=== PATIENT | male | born 1940 | race Caucasian/White ===

== ENCOUNTER → 2016-09-06 | Outpatient (CLI) | payer BC, OTHER ==
[~2016-09-06] MED LIST: ALBUAER2 INH; ALFU10TA2 PO; ASPI81TA28 PO; DOCU-94 PO; ERGO500011 PO; FINA5TAB PO; GLIM4TAB2 PO; HYDR-5688 PO; LSN5 PO; MELA3CAP PO; METF-384 PO; NITR1CAP16 PO; PHEN-876 PO; PRLSR20 PO; RIVA1.5T PO; SIMV20TA2 PO
[2016-09-06 17:57] LABS: RHEUMATOID FACTOR < 10.0 U/mL (0-15)
--- NOTE | 2016-09-10 11:53 | CODING QUERY MEDICAL NECESSITY ---
SUPPORTING DIAGNOSIS NEEDED A supporting diagnosis is required for the test/procedure performed on this patient in order for us to be reimbursed by the patient's insurance. Please provide a supporting diagnosis for the following test/procedure listed below next to the test name along with your signature. *If there is no additional diagnosis for this patient that would support the following test/procedure please document that below next to the test/procedure. Test(s)/Procedure(s) that require a supporting diagnosis: DOS 09/06 * Vitamin D DIAGNOSIS: Provider Signature: Date: Thank you Katja Ruiz Health Information Management Once completed, please kindly fax back to [phone] For questions please call [phone]
== END | disposition home or self-care (01) ==
LOC: C.LABPVFM 11:28
PROVIDERS: ATTEND Family Medicine
DX: R53.83 Other fatigue (principal); E55.9 Vitamin D deficiency, unspecified

== ENCOUNTER 2016-10-09 08:55 | Observation (INO) | payer BC, OTHER ==
[2016-09-26 09:09] VITALS: BMI 33.0
--- NOTE | 2016-09-26 09:55 | PAT Medication Instructions ---
Service Date Sep 26, 2016. Current Home Medication List Albuterol (Ventolin Hfa), 2 PUFFS INH Q4-6 PRN for SOB/Wheezing Alfuzosin Hcl (Uroxatral), 10 MG PO QPM Aspirin (Aspirin Ec), 81 MG PO QAM Ergocalciferol (Vitamin D 35467 Unit), 1 TAB PO WK Finasteride (Proscar), 5 MG PO QPM Glimepiride (Glimepiride), 1 TAB PO BID Lisinopril (Lisinopril), 5 MG PO QAM Melatonin (Melatonin), 3 MG PO HS Metformin Hcl (Glucophage), 1,000 MG PO BID Omeprazole (Prilosec), 20 MG PO QAM Simvastatin (Zocor), 20 MG PO HS Medication Instructions For Your Scheduled Surgery Albuterol (Ventolin Hfa), 2 PUFFS INH Q4-6 PRN for SOB/Wheezing (not using currently) Aspirin (Aspirin Ec), 81 MG PO QAM (hold one week prior to surgery per surgeon and blood doctor recommendations) Ergocalciferol (Vitamin D 41332 Unit), 1 TAB PO WK (continue as usual on Saturday) - Hold the following medications 48 hours prior to surgery: Metformin Hcl (Glucophage), 1,000 MG PO BID - Hold the following medications the morning of surgery: Lisinopril (Lisinopril), 5 MG PO QAM Glimepiride (Glimepiride), 1 TAB PO BID - Take the following medications the morning of surgery with a sip of water: Omeprazole (Prilosec), 20 MG PO QAM - Take the following medications as scheduled the night before surgery: Simvastatin (Zocor), 20 MG PO HS Melatonin (Melatonin), 3 MG PO HS Glimepiride (Glimepiride), 1 TAB PO BID Finasteride (Proscar), 5 MG PO QPM Alfuzosin Hcl (Uroxatral), 10 MG PO QPM If you have any questions please call us at [phone] or [phone] ( [place]) or [phone]
[2016-09-26 10:47] LABS: URINE APPEARANCE CLEAR (CLEAR); URINE BILIRUBIN NEG (NEG); URINE COLOR YELLOW; URINE NITRITE NEG (NEG); UROBILINOGEN NEG (NEG)
[2016-09-26 10:47] LABS: BASO % 0.2 %; BASO ABS # 0.01 K/uL (0-0.2); COMPLETE YES; EOS % 2.8 %; HEMATOCRIT 44.1 % (42-52); IG% 0.5 %; LYMPH % 23.7 %; LYMPH ABS # 1.03 K/uL (1.2-3.4); MEAN CELL VOLUME 86.5 fL (80-100); MEAN CORPUSCULAR HEMOGLOBIN 29.2 pg (25-34); MEAN CORPUSCULAR HGB CONC 33.8 g/dl (32-36); MEAN PLATELET VOLUME 9.5 fL (7.4-10.4); MONO % 8.5 %; NEUT % 64.3 %; PLATELET COUNT 167 K/uL (130-400); WHITE BLOOD COUNT 4.35 K/uL (4.8-10.8)
[2016-09-26 10:51] LABS: MANUAL MICROSCOPIC REQUIRED? NO; REVIEW REQ? NO
[2016-09-26 11:20] LABS: BUN/CREATININE RATIO 16.6 (10-20); CALCIUM 9.6 mg/dl (8.5-10.1); CREATININE 1.2 mg/dl (0.60-1.40); POTASSIUM 4.4 mmol/L (3.5-5.1)
[~2016-10-09] VITALS: Ht 182.9 cm; Wt 109.9 kg
[2016-10-09] VITALS (8 sets, daily range): BP systolic 110–154; BP diastolic 65–84; PULSE 59–74; TEMP 36.2–36.8; O2SAT 92–98; Ht 182.9 cm; Wt 109.9 kg
[~2016-10-09 08:55] MED LIST changes: -ALFU10TA2 PO; +ALFU10TA30 PO; +CIPROFLOXACIN / D5W 400 MG IV SCH; -DOCU-94 PO; +ERGO1CAP41 PO; -ERGO500011 PO; -HYDR-5688 PO; +LACTATED RINGER'S 1000ML 1,000 ML IV SCH; -NITR1CAP16 PO; -PHEN-876 PO; -RIVA1.5T PO
--- NOTE | 2016-10-09 12:35 | History & Physical Bridge Note ---
H&P Re-Evaluation Bridge Note: I have examined the patient, reviewed the History & Physical and in the interval since the performance of the History & Physical I have noted the following changes of clinical significance: No changes noted
[2016-10-09] MEDS ORDERED: LIDOCAINE HCL 2% 2 ML VIAL (20MG/ML) ONE (12:50)
[2016-10-09] MEDS ORDERED: FENTANYL CITRATE INJ 50 MCG/1 ML 2 ML VIAL ONE (12:50)
[2016-10-09] MEDS ORDERED: MIDAZOLAM HCL 1 MG/ML 2ML VIAL ONE (12:50)
[2016-10-09] MEDS ORDERED: ROCURONIUM BROMIDE 10 MG/ML 5 ML VIAL ONE (12:50)
[2016-10-09] MEDS ORDERED: LARYING-O-JET KIT (LTA) EXT ONE ×2 (12:50)
[2016-10-09] MEDS ORDERED: PROPOFOL IV EMULSION 10 MG/ML 20 ML VIAL IV ONE (12:50)
[2016-10-09] MEDS ORDERED: EpHEDrine SULFATE INJ 50 MG/ML AMP IV PRN (14:15)
[2016-10-09] MEDS ORDERED: ONDANSETRON INJ 2 MG/ML 2 ML VIAL IV PRN (14:15)
[2016-10-09] MEDS ORDERED: HYDROmorphone INJ 1 MG/ML SYR IV PRN (14:15)
[2016-10-09] MEDS ORDERED: ATROPINE SULFATE 0.1 MG/ML 5ML SYR IV PRN (14:15)
[2016-10-09] MEDS ORDERED: FENTANYL CITRATE INJ 50 MCG/1 ML 2 ML VIAL IV PRN (14:15)
--- NOTE | 2016-10-09 14:32 | [facility] Post Operative Brief Note ---
Immediate Operative Summary Operative Date Oct 09, 2016. Pre-Operative Diagnosis Benign Localized hyperplasia of the Prostate Post-Operative Diagnosis Benign Localized hyperplasia of the Prostate Procedure(s) Performed Bipolar Transurethral Resection Prostate Surgeon Dr. Bernardo Oneill Neuropsychiatric Aide Surgeon(s) None Estimated Blood Loss 20 ML Findings Significant intravesical median lobe as well as lateral lobe hypertrophy. Appeared to be widely patent at the conclusion of the resection. Specimens Permanent specimen A: Prostate Chips Drains 22F green Anesthesia Gen Complication(s) None Disposition Recovery Room / PACU (stable)
[2016-10-09] MEDS ORDERED: ACETAMINOPHEN 325 MG TAB PO PRN (14:45)
[2016-10-09] MEDS ORDERED: ALBUTEROL HFA 8 GM INHALER INH PRN (14:45)
[2016-10-09] MEDS ORDERED: IV FLUIDS COMPLETED PRN (15:00)
--- NOTE | 2016-10-09 15:03 | OPERATIVE REPORT ---
DATE OF OPERATION: 10/09/2016 PREOPERATIVE DIAGNOSIS: Benign prostatic hypertrophy and urinary obstruction. POSTOPERATIVE DIAGNOSIS: Same. PROCEDURE PERFORMED: Cystoscopy, transurethral resection of prostate. ANESTHESIA: General. ESTIMATED BLOOD LOSS: 20 mL. URINE OUTPUT: Not recorded. SPECIMENS: Prostate chips for routine pathology. DRAINS: 22 Portuguese Sanchez catheter. DESCRIPTION OF THE PROCEDURE: Anthony Garcia was identified in the preoperative holding area. Appropriate informed consents were reviewed and completed and the patient was transported to the operating suite. Upon arrival, he received appropriate preoperative antibiotics in the form of ciprofloxacin. Adequate general anesthesia was achieved and he was placed in dorsal lithotomy position where he was sterilely prepped and draped in standard fashion. I began the case by passing a 24 Portuguese resectoscope with visual obturator and 30 degree lens. Inspection of the urethra revealed no evidence of significant stricture disease, and prostate however was notably enlarged with a very large intravesical median lobe causing significant obstruction. I was able to navigate around this median lobe on both the right and the left and inspect the other aspects of the bladder which appeared to be relatively healthy. I was able to identify the ureteral orifices which were several centimeters from the edge of the median lobe and safe from our site of resection. After full inspection, I passed first a button electrode and I made an incision just under the lateral aspect of the median lobe on the right and the left, incising the bladder neck and dropping this down a bit. I then reentered with a resecting loop and I resected the intravesical median lobe sequentially beginning from the left and moving across to the right and resecting it flush with the bladder neck itself. I then resected the right lateral lobe and the left lateral lobe in standard fashion. Care was taken to avoid encroachment upon the sphincter of the distal tissues. I then irrigated all chips out of the bladder and I then exchanged the loop for a button element and I recauterized the base for great hemostasis and a smooth resection. At the conclusion, I had a widely patent prostate. All chips were evacuated and he was hemostatic. A 22 Portuguese Sanchez catheter was placed without difficulty. The patient was subsequently extubated and taken to the PACU in stable condition. I attest to the content of the Intraoperative Record and any orders documented therein. Any exceptions are noted below. MARIO
--- NOTE | 2016-10-09 15:27 | Anesthesiology Progress Note ---
Anesthesia Post Op Note Date & Time Oct 09, 2016 at 15:26 Vital Signs Pain Intensity: 0 Vital Signs Past 12 Hours Date Time Temp Pulse Resp B/P Pulse Ox O2 Delivery O2 Flow Rate FiO2 10/09/16 15:15 36 66 16 133/71 97 Room Air 10/09/16 15:05 36 65 16 113/60 97 Room Air 10/09/16 14:55 71 14 114/60 93 Room Air 10/09/16 14:45 65 12 141/80 99 Mask 10 10/09/16 14:35 75 12 150/87 99 Mask 10 10/09/16 14:27 36.2 79 12 149/86 96 Mask 10 10/09/16 09:36 36.4 74 20 145/77 93 Room Air Notes Mental Status: alert / awake / arousable, participated in evaluation Pt Amnestic to Procedure: Yes Nausea / Vomiting: adequately controlled Pain: adequately controlled Airway Patency, RR, SpO2: stable & adequate BP & HR: stable & adequate Hydration State: stable & adequate Anesthetic Complications: no major complications apparent
[2016-10-09] MEDS: ACETAMINOPHEN/CODEINE 300/30MG TAB PO PRN ×2 (16:23→19:08)
[2016-10-09] MEDS: LACTATED RINGER'S 1000ML 1,000 ML IV SCH (16:35)
[2016-10-09] MEDS: GLIMEPIRIDE 2 MG TAB PO SCH (17:39)
[2016-10-09] MEDS: DOCUSATE SODIUM 100 MG CAP PO SCH (20:50)
[2016-10-09] MEDS ORDERED: FINASTERIDE 5 MG TAB PO SCH (21:00)
[2016-10-09] MEDS ORDERED: SIMVASTATIN 20 MG TAB PO SCH (21:00)
[2016-10-09] MEDS: CIPROFLOXACIN / D5W 400 MG in PREMIXED IN D5W 200 ML IV SCH (21:22)
[2016-10-10] MEDS: ACETAMINOPHEN/CODEINE 300/30MG TAB PO PRN ×2 (00:30→07:55)
[2016-10-10] MEDS: LACTATED RINGER'S 1000ML 1,000 ML IV SCH ×2 (00:31→08:31)
[2016-10-10 03:18] VITALS: BP 112/63; PULSE 85; TEMP 36.8; O2SAT 94
[2016-10-10 07:43] LABS: BASO % 0.3 %; BASO ABS # 0.02 K/uL (0-0.2); COMPLETE YES; EOS % 2.1 %; IG% 0.3 %; LYMPH % 16.2 %; MEAN CELL VOLUME 88.2 fL (80-100); MEAN CORPUSCULAR HGB CONC 32.9 g/dl (32-36); MEAN PLATELET VOLUME 9.4 fL (7.4-10.4); MONO % 7.6 %; NEUT % 73.5 %; PLATELET COUNT 152 K/uL (130-400); RED BLOOD COUNT 4.65 M/uL (4.7-6.1); WHITE BLOOD COUNT 6.19 K/uL (4.8-10.8)
[2016-10-10] MEDS: GLIMEPIRIDE 2 MG TAB PO SCH (07:57)
[2016-10-10 08:07] VITALS: BP 128/70; PULSE 75; TEMP 36.7; O2SAT 95
[2016-10-10 08:12] LABS: BUN/CREATININE RATIO 15.6 (10-20); CALCIUM 8.7 mg/dl (8.5-10.1); CREATININE 1.1 mg/dl (0.60-1.40); POTASSIUM 4.1 mmol/L (3.5-5.1)
--- NOTE | 2016-10-10 08:29 | Progress Note ---
Subjective Date of Service: Oct 10, 2016. (Sherrie Contreras CRNP) Subjective Pt evaluation today including: conversation w/ patient, chart review, lab review Voiding: green catheter in place (patent, draining silva colored urine) 76 yo male s/p TURP. Pt reports some catheter discomfort, but otherwise feels well. Green draining silva colored urine this morning. Labs stable. (Sherrie Contreras CRNP) Problem List Medical Problems: (1) Abnormal EKG Status: Acute (2) Bilateral pulmonary embolism Status: Acute (Sherrie Contreras CRNP) Review of Systems Constitutional: No chills, No fever Respiratory: No shortness of breath Cardiac: No chest pain Abdomen: No nausea, No pain, No vomiting Male : + dysuria, + hematuria Heme: No abnormal bleeding/bruising (Sherrie Contreras CRNP) Objective Vital Signs Date Time Temp Pulse Resp B/P Pulse Ox O2 Delivery O2 Flow Rate FiO2 10/10/16 08:07 36.7 75 14 128/70 95 Room Air 10/10/16 08:05 Room Air 10/10/16 03:18 36.8 85 16 112/63 94 Room Air 10/09/16 23:47 Room Air 10/09/16 23:37 36.8 72 16 110/65 92 Room Air 10/09/16 20:27 36.5 63 14 121/75 96 Nasal Cannula 2.0 10/09/16 18:59 36.4 69 16 115/68 95 Nasal Cannula 2.0 10/09/16 17:42 36.4 59 18 139/84 96 Nasal Cannula 2.0 10/09/16 16:58 36.3 63 14 135/78 98 Nasal Cannula 2.0 10/09/16 16:24 36.2 63 14 154/83 97 Nasal Cannula 2.0 10/09/16 15:50 92 Nasal Cannula 2.0 10/09/16 15:50 Nasal Cannula 2.0 10/09/16 15:50 36.3 69 18 143/79 92 Nasal Cannula 2.0 10/09/16 15:35 36 65 16 129/77 96 Nasal Cannula 2 10/09/16 15:25 36 66 16 134/75 96 Nasal Cannula 2 10/09/16 15:15 36 66 16 133/71 97 Room Air 10/09/16 15:05 36 65 16 113/60 97 Room Air 10/09/16 14:55 71 14 114/60 93 Room Air 10/09/16 14:45 65 12 141/80 99 Mask 10 10/09/16 14:35 75 12 150/87 99 Mask 10 10/09/16 14:27 36.2 79 12 149/86 96 Mask 10 10/09/16 09:36 36.4 74 20 145/77 93 Room Air (Sherrie Contreras CRNP) Physical Exam General Appearance: no apparent distress Eyes: normal inspection ENT: hearing grossly normal Neck: no JVD Respiratory/Chest: no respiratory distress, no accessory muscle use Cardiovascular: no JVD Extremities: normal inspection Neurologic/Psychiatric: alert, normal mood/affect, oriented x 3 Skin: normal color (Sherrie Contreras CRNP) Laboratory Results Last 24 Hours Test 10/09/16 09:20 10/09/16 14:29 10/09/16 16:55 10/09/16 20:45 Bedside Glucose 167 mg/dl 154 mg/dl 128 mg/dl 160 mg/dl Test 10/10/16 07:17 10/10/16 07:40 White Blood Count 6.19 K/uL Red Blood Count 4.65 M/uL Hemoglobin 13.5 g/dL Hematocrit 41.0 % Mean Corpuscular Volume 88.2 fL Mean Corpuscular Hemoglobin 29.0 pg Mean Corpuscular Hemoglobin Concent 32.9 g/dl Platelet Count 152 K/uL Mean Platelet Volume 9.4 fL Neutrophils (%) (Auto) 73.5 % Lymphocytes (%) (Auto) 16.2 % Monocytes (%) (Auto) 7.6 % Eosinophils (%) (Auto) 2.1 % Basophils (%) (Auto) 0.3 % Neutrophils # (Auto) 4.55 K/uL Lymphocytes # (Auto) 1.00 K/uL Monocytes # (Auto) 0.47 K/uL Eosinophils # (Auto) 0.13 K/uL Basophils # (Auto) 0.02 K/uL RDW Standard Deviation 43.1 fL RDW Coefficient of Variation 13.4 % Immature Granulocyte % (Auto) 0.3 % Immature Granulocyte # (Auto) 0.02 K/uL Sodium Level 143 mmol/L Potassium Level 4.1 mmol/L Chloride Level 108 mmol/L Carbon Dioxide Level 26 mmol/L Anion Gap 9.0 mmol/L Blood Urea Nitrogen 17 mg/dl Creatinine 1.10 mg/dl Est Creatinine Clear Calc Drug Dose 73.2 ml/min Estimated GFR () 75.2 Estimated GFR (Non- 64.9 BUN/Creatinine Ratio 15.6 Random Glucose 144 mg/dl Calcium Level 8.7 mg/dl Bedside Glucose 137 mg/dl (Sherrie Contreras CRNP) Assessment and Plan POD #1 s/p TURP. AFVSS. TOV this morning. D/c home after breakfast if tolerating PO. Will d/c home on Pyridium, [place], Colace, and 5 days of Macrobid. Pt to f/u with Dr. Oneill as scheduled. Discharge planning: home (Sherrie Contreras CRNP) ADDENDUM: Doing well. No issues overnight. Plan for voiding trial now and probably d/c home later this afternoon. (Bernardo Oneill M.D.)
[2016-10-10] MEDS ORDERED: METFORMIN HCL 500 MG TAB PO SCH (08:30)
[2016-10-10] MEDS ORDERED: HYDR-5688 PO (08:32)
[2016-10-10] MEDS ORDERED: NITR1CAP16 PO (08:32)
[2016-10-10] MEDS ORDERED: PHEN-876 PO (08:32)
[2016-10-10] MEDS ORDERED: DOCU-94 PO (08:32)
--- NOTE | 2016-10-10 08:40 | Discharge Instructions ---
Discharge Instructions Admission Reason for Admission: Benign Prostatic Hypertrophy Discharge Discharge Diagnosis / Problem: Benign Prostatic Hypertrophy Discharge Goals Goal(s): Decrease discomfort, Therapeutic intervention Activity Recommendations Activity Limitations: as noted below Lifting Limitations: no more than 25 pounds (x 2 weeks. ) Exercise/Sports Limitations: rest today, gradually increase as tolerated ( Light activity x 1 week. ) May Resume Sexual Activity: after follow-up appointment Shower/Bathe: no limitations Driving or Machine Use: resume 1 day after discharge (Do not drive while taking narcotics. ) . Instructions / Follow-Up Instructions / Follow-Up 1. You have been prescribed the antibiotic nitrofurantoin. Finish all as directed. 2. You may resume taking your Aspirin in 3 days if urine is clear. Current Hospital Diet Hospital Diet(s): Diabetes Type 2 Diet Discharge Diet Recommended Diet: Diabetes Type 2 Diet Procedures Procedures Performed: Bipolar Transurethral Resection Prostate Pending Studies Studies pending at discharge: no Laboratory Results Hemoglobin A1c Test 08/15/16 09:30 Range/Units Estimated Average Glucose 166 mg/dl Hemoglobin A1c 7.4 H 4.5-5.6 % Lipid Panel Test 08/15/16 09:30 Range/Units Triglycerides Level 154 H 0-150 mg/dl Cholesterol Level 143 0-200 mg/dl HDL Cholesterol 39 mg/dl Cholesterol/HDL Ratio 3.7 LDL Cholesterol, Calculated 73 mg/dl Medical Emergencies . Who to Call and When: Medical Emergencies: If at any time you feel your situation is an emergency, please call 911 immediately. . Non-Emergent Contact Non-Emergency issues call your: Urologist Call Non-Emergent contact if: temperature is above 101.5, your pain is not controlled, your pain is worsening, your pain is unusual for you, your pain is concerning you, you have any medication questions . . "Provider Documentation" section prepared by Sherrie Contreras. VTE Core Measure Inpt VTE Proph given/why not?: SCD's [place] Drug Monitoring Program Search Results: patient reviewed within database, no issues identified
[2016-10-10] MEDS: DOCUSATE SODIUM 100 MG CAP PO SCH (08:52)
[2016-10-10] MEDS ORDERED: PANTOprazole SOD 40 MG TAB PO SCH (09:00)
[2016-10-10] MEDS ORDERED: LISINOPRIL 5 MG TAB PO SCH (09:00)
[2016-10-10 09:02] VITALS: O2SAT 95
[2016-10-10] MEDS: CIPROFLOXACIN / D5W 400 MG in PREMIXED IN D5W 200 ML IV SCH (09:31)
[2016-10-10 11:56] VITALS: BP 128/70; PULSE 75; TEMP 36.7; O2SAT 95
--- NOTE | 2016-10-11 13:14 | Discharge Summary ---
Discharge Summary Admission Date: Oct 09, 2016 at 14:38 Discharge Date: Oct 10, 2016 Discharge Disposition: Home Principal Diagnosis: BPH Procedures: TURP Medication Reconciliation New Medications: Docusate Sodium (Colace) 100 Mg Cap 1 CAP PO BID PRN for Constipation for 15 Days, #30 CAP Hydrocodone/Acetaminophen 5MG/325MG ([place] 5MG/325MG) Tab 1-2 TABLET PO Q4 PRN for Pain, #20 TAB Nitrofurantoin Monohyd Macro (Macrobid) 100 Mg Cap 100 MG PO BID, #10 CAP Phenazopyridine HCl (Pyridium) 200 Mg Tab 200 MG PO TID for Bladder pain, #15 TAB Continued Medications: Albuterol (Ventolin Hfa) Aers 2 PUFFS INH Q4-6 PRN for SOB/Wheezing HAS BUT DOES NOT USE Ergocalciferol (Vitamin D 21591 Unit) 50,000 Unit Cap 1 TAB PO WK, CAP mondays Glimepiride (Glimepiride) 4 Mg Tab 1 TAB PO BID Lisinopril (Lisinopril) 5 Mg Tab 5 MG PO QAM Melatonin (Melatonin) 3 Mg Cap 3 MG PO HS Metformin Hcl (Glucophage) 1,000 Mg Tab 1000 MG PO BID, TAB Omeprazole (Prilosec) 20 Mg Capcr 20 MG PO QAM, CAP Simvastatin (Zocor) 20 Mg Tab 20 MG PO HS, TAB Discontinued Medications: Alfuzosin Hcl (Uroxatral) 10 Mg Tab 10 MG PO QPM, TAB Aspirin (Aspirin Ec) 81 Mg Tab 81 MG PO QAM Finasteride (Proscar) 5 Mg Tab 5 MG PO QPM, TAB Hospital Course Pt admitted for a TURP secondary to profound urinary difficulty. Details of the procedure as dictated previously in the operative report, however, in summary, he tolerated the procedure well. He was in stable condition on POD#1 and passed a voiding trial before d/c home. Total time spent on discharge = This includes examination of the patient, discharge planning, medication reconciliation, and communication with other providers. Discharge Instructions Please see previously written d/c instructions.
== END 2016-10-10 13:30 | disposition home or self-care (01) ==
LOC: ENRESERVTM → ENRESERVDT → C.ACU 08:55 → C.MSN 14:38
PROVIDERS: ADMIT Urology; ATTEND Urology
DX: N40.0 Benign prostatic hyperplasia without lower urinary tract symptoms (principal); I12.9 Hypertensive chronic kidney disease with stage 1 through stage 4 chronic kidney disease, or unspecified chronic kidney disease; N18.2 Chronic kidney disease, stage 2 (mild); K21.9 Gastro-esophageal reflux disease without esophagitis; E55.9 Vitamin D deficiency, unspecified; G62.9 Polyneuropathy, unspecified; E78.5 Hyperlipidemia, unspecified; Z88.2 Allergy status to sulfonamides; Z86.73 Personal history of transient ischemic attack (TIA), and cerebral infarction without residual deficits; Z86.718 Personal history of other venous thrombosis and embolism; Z86.711 Personal history of pulmonary embolism; Z90.79 Acquired absence of other genital organ(s); Z79.82 Long term (current) use of aspirin; Z87.891 Personal history of nicotine dependence; Z80.0 Family history of malignant neoplasm of digestive organs; Z80.42 Family history of malignant neoplasm of prostate

== ENCOUNTER → 2016-12-22 | Outpatient (CLI) | payer BC ==
[~2016-12-22] MED LIST changes: -ALFU10TA30 PO; -ASPI81TA28 PO; -CIPROFLOXACIN / D5W 400 MG IV SCH; -ERGO1CAP41 PO; +ERGO500011 PO; -FINA5TAB PO; +HYDR-5688 PO; -LACTATED RINGER'S 1000ML 1,000 ML IV SCH; +PHEN-876 PO
[2016-12-22 12:56] LABS: CALCIUM 9.7 mg/dl (8.5-10.1)
[2016-12-22 12:57] LABS: ESTIMATED AVERAGE GLUCOSE 171 mg/dl; HA1C FLAG Normal (Normal)
[2016-12-22 13:04] LABS: ALT/SGPT 26 U/L (12-78); BLOOD UREA NITROGEN 27 mg/dl (7-18); BUN/CREATININE RATIO 22.8 (10-20); CARBON DIOXIDE 27 mmol/L (21-32); CHLORIDE 106 mmol/L (98-107); CHOLESTEROL 148 mg/dl (0-200); GLUCOSE 184 mg/dl (70-99); POTASSIUM 4.6 mmol/L (3.5-5.1); SODIUM 140 mmol/L (136-145); TRIGLYCERIDES 193 mg/dl (0-150); VERY LOW DENSITY LIPOPROT CALC 39 mg/dl
[2016-12-22 13:07] LABS: ALB/GLOB RATIO 1.2 (0.9-2); ALKALINE PHOSPHATASE 65 U/L (45-117); AST/SGOT 13 U/L (15-37); CHOLESTEROL/HDL RATIO 4.1; HDL CHOLESTEROL 36 mg/dl; LDL CHOLESTEROL CALCULATED 73 mg/dl
== END | disposition home or self-care (01) ==
LOC: C.LABPVFM 09:16
PROVIDERS: ATTEND Family Medicine
DX: I10 Essential (primary) hypertension (principal); E78.5 Hyperlipidemia, unspecified; E11.40 Type 2 diabetes mellitus with diabetic neuropathy, unspecified; E55.9 Vitamin D deficiency, unspecified

== ENCOUNTER → 2017-04-30 | Outpatient (CLI) | payer BC ==
[~2017-04-30] MED LIST changes: +ERGO1CAP41 PO; -ERGO500011 PO; -HYDR-5688 PO; -PHEN-876 PO
[2017-04-30 13:06] LABS: ESTIMATED AVERAGE GLUCOSE 183 mg/dl; HA1C FLAG Normal (Normal)
[2017-04-30 13:25] LABS: ALT/SGPT 23 U/L (12-78); BLOOD UREA NITROGEN 19 mg/dl (7-18); BUN/CREATININE RATIO 17.2 (10-20); CALCIUM 9.2 mg/dl (8.5-10.1); CARBON DIOXIDE 27 mmol/L (21-32); CHLORIDE 106 mmol/L (98-107); GLUCOSE 221 mg/dl (70-99); POTASSIUM 4.7 mmol/L (3.5-5.1); SODIUM 138 mmol/L (136-145)
[2017-04-30 13:28] LABS: ALB/GLOB RATIO 1.1 (0.9-2); ALKALINE PHOSPHATASE 63 U/L (45-117); AST/SGOT 12 U/L (15-37); CHOLESTEROL 147 mg/dl (0-200); CHOLESTEROL/HDL RATIO 4.1; HDL CHOLESTEROL 36 mg/dl; LDL CHOLESTEROL CALCULATED 79 mg/dl; TRIGLYCERIDES 161 mg/dl (0-150); VERY LOW DENSITY LIPOPROT CALC 32 mg/dl
--- NOTE | 2017-05-08 11:50 | CODING QUERY MEDICAL NECESSITY ---
CQSUPPORTING DIAGNOSIS NEEDED A supporting diagnosis is required for the test/procedure performed on this patient in order for us to be reimbursed by the patient's insurance. Please provide a supporting diagnosis for the following test/procedure listed below next to the test name along with your signature. *If there is no additional diagnosis for this patient that would support the following test/procedure please document that below next to the test/procedure. Test(s)/Procedure(s) that require a supporting diagnosis: DOS 04/30/17 GLYCATED HEMOGLOBIN TEST Provider Signature: Date: Thank you Katie Flores Health Information Management Once completed, please kindly fax back to [phone] For questions please call [phone]
== END | disposition home or self-care (01) ==
LOC: C.LABPVFM 09:18
PROVIDERS: ATTEND Family Medicine
DX: R53.83 Other fatigue (principal); E78.5 Hyperlipidemia, unspecified; I82.409 Acute embolism and thrombosis of unspecified deep veins of unspecified lower extremity; E11.29 Type 2 diabetes mellitus with other diabetic kidney complication

== ENCOUNTER → 2017-05-08 | Outpatient (CLI) | payer BC ==
--- NOTE | 2017-05-08 12:50 | DIAGNOSTIC IMAGING REPORT ---
RIGHT HIP 2 VIEWS HISTORY: RIGHT HIP PAIN Right COMPARISON: Right hip 04/16/2009. FINDINGS: There is no fracture or dislocation. Soft tissues are unremarkable. No radiopaque foreign bodies. Cartilage spaces are maintained for age. The visualized pelvic bones are intact. IMPRESSION: No fracture or dislocation within the right hip. Electronically signed by: Emanuel Meek M.D. 05/08/2017 12:49 PM Dictated Date/Time: 05/08/2017 12:29 PM
== END | disposition home or self-care (01) ==
LOC: C.LABPVFM 11:58
PROVIDERS: ATTEND Family Medicine
DX: M25.551 Pain in right hip (principal); M53.3 Sacrococcygeal disorders, not elsewhere classified

== ENCOUNTER → 2017-06-24 | Outpatient (CLI) | payer BC ==
[2017-06-24 13:24] LABS: ESTIMATED AVERAGE GLUCOSE 174 mg/dl; HA1C FLAG Normal (Normal)
[2017-06-24 13:26] LABS: BLOOD UREA NITROGEN 19 mg/dl (7-18); BUN/CREATININE RATIO 17.6 (10-20); CALCIUM 9.3 mg/dl (8.5-10.1); CARBON DIOXIDE 28 mmol/L (21-32); CHLORIDE 106 mmol/L (98-107); CREATININE 1.08 mg/dl (0.60-1.40); GLUCOSE 178 mg/dl (70-99); POTASSIUM 4.8 mmol/L (3.5-5.1); SODIUM 138 mmol/L (136-145)
[2017-06-24 13:40] LABS: CREATININE RANDOM URINE 82.9 mg/dl
== END | disposition home or self-care (01) ==
LOC: C.LABPVFM 10:09
PROVIDERS: ATTEND Family Medicine
DX: E78.5 Hyperlipidemia, unspecified (principal); I10 Essential (primary) hypertension; E11.29 Type 2 diabetes mellitus with other diabetic kidney complication

== ENCOUNTER → 2017-11-11 | Outpatient (CLI) | payer BC ==
[~2017-11-11] MED LIST changes: -ERGO1CAP41 PO; +ERGO500011 PO
[2017-11-11 12:44] LABS: BLOOD UREA NITROGEN 21 mg/dl (7-18); CALCIUM 9.5 mg/dl (8.5-10.1); CARBON DIOXIDE 26 mmol/L (21-32); CREATININE 1.05 mg/dl (0.60-1.40); GLUCOSE 143 mg/dl (70-99); POTASSIUM 4.4 mmol/L (3.5-5.1); SODIUM 139 mmol/L (136-145)
[2017-11-11 12:55] LABS: HEMOGLOBIN A1C 7.3 % (4.5-5.6)
== END | disposition home or self-care (01) ==
LOC: C.LABPVFM 08:50
PROVIDERS: ATTEND Family Medicine
DX: E78.5 Hyperlipidemia, unspecified (principal); I10 Essential (primary) hypertension; E11.40 Type 2 diabetes mellitus with diabetic neuropathy, unspecified

== ENCOUNTER 2020-02-24 12:20 | Inpatient (IN) ==
--- NOTE | 2020-02-24 13:34 | XRay Report ---
XR chest 1V portable CLINICAL HISTORY: Dyspnea dyspnea COMPARISON STUDY: No previous studies for comparison. FINDINGS: Mild bibasilar brachial infiltrates. This is slightly more prominent on the left as compare d to the right. Minimal upper lungs are clear. IMPRESSION: Mild bibasilar interstitial infiltrative change. ACT 112: Negative or not required by law. The above report was generated using voice recognition software. It may contain grammatical, syntax or spelling errors. Electronically signed by: Mikel Becker M.D. 02/24/2020 1:33 PM
[2020-02-24 13:39] LABS: Basophils # (auto) 0.02 K/uL (0-0.2); Basophils % (auto) 0.2 %; Eosinophils # (auto) 0.08 K/uL (0-0.5); Hematocrit (blood only) 48.7 % (42-52); Hemoglobin 16.6 g/dL (14.0-18.0); Immature Granulocytes # (auto) 0.07 K/uL (0.00-0.02); Immature Granulocytes % (auto) 0.8 %; Lymphocytes % (auto) 8.5 %; Mean Corpuscular Hemoglobin 30.2 pg (25-34); Mean Corpuscular Hgb Conc 34.1 g/dL (32-36); Mean Corpuscular Volume 88.7 fL (80-100); Mean Platelet Volume 10.6 fL (7.4-10.4); Monocytes # (auto) 0.69 K/uL (0.11-0.59); Monocytes % (auto) 8.3 %; Neutrophils # (auto) 6.71 K/uL (1.4-6.5); Neutrophils % (auto) 81.2 %; Platelet Count 118 K/uL (130-400); RDW Coefficient of Variation 12.9 % (11.5-14.5); RDW Standard Deviation 41.5 fL (36.4-46.3); Red Blood Count 5.49 M/uL (4.7-6.1); White Blood Count 8.27 K/uL (4.8-10.8)
[2020-02-24 13:45] LABS: BUN Creatinine Ratio 16.4 (10-20); Bilirubin,Total 1.3 mg/dl (0.2-1); Calcium 9.7 mg/dl (8.5-10.1); Creatinine Clr Calc Pharmacy 46.6 ml/min; Est GFR (African American) 54.5; Troponin I 0.017 ng/ml (0-0.045)
[2020-02-24 13:47] LABS: Potassium 4.9 mmol/L (3.5-5.1)
[2020-02-24 13:51] LABS: Magnesium 1.7 mg/dl (1.8-2.4)
[2020-02-24 13:54] LABS: Partial Thromboplastin Ratio 0.9; Partial Thromboplastin Time 26.2 Seconds (21.0-31.0)
[2020-02-24 13:55] LABS: D Dimer 15920 ug/L FEU (0-500)
--- NOTE | 2020-02-24 14:19 | Emergency Department Note ---
Impression & Plan Pulmonary embolism, Acute dyspnea, BRIANNA (acute kidney injury) ED Provider Note Provider: Juan José Cross MD DATE OF SERVICE: 02/24/2020 CHIEF COMPLAINT: Shortness of breath HISTORY OF PRESENT ILLNESS: Patient is a 79-year-old gentleman with a history of diabetes, hyperlipidemia, DVT/PE, GERD presenting today with a complaint of shortness of breath with some mild left lower chest pain and a cough for about 2 weeks. Shortness of breath has been constant worsening. Denies fever. Denies trauma. States just over a month ago returned from [place] with his . Trace leg swelling reported. Denies chest pain at this time but states he had some left lower chest pain yesterday. Feels short of breath. Denies nausea, vomiting, abdominal pain, or diarrhea. Denies urinary symptoms. Denies a history of similar. Not currently anticoagulated states he had a PE and DVT about a year ago. is otherwise well and the patient denies other sick contacts. REVIEW OF SYSTEMS: A total of 10 review of systems was obtained and negative except as stated above in the HPI. PAST MEDICAL HISTORY: As noted above MEDICATIONS: Reviewed his home medication list which includes metformin among others SOCIAL HISTORY: Lives at home with , non-smoker but does occasionally chew tobacco PHYSICAL EXAM: GENERAL: alert and oriented in no acute distress on stretcher Head: normocephalic and atraumatic EYES: No injection, discharge or icterus. NECK: Trachea midline. Supple. ENT: Mucous membranes pink and moist. LUNGS: Airway patent. No retractions. Breath sounds clear but with mildly in creased work of breathing HEART: Regular rate and rhythm. No chest wall tenderness ABDOMEN: Soft and non-tender, without guarding or rebound. No hepatosplenomegaly or masses SKIN: Acyanotic, warm, dry, without rashes EXTREMITIES: Without tenderness or deformity with bilateral trace edema at the ankles NEUROLOGICAL: No focal deficits. No aphasia. No facial droop or slurred speech. Ambulatory. EK bpm sinus tachycardia. No PVCs. No ST segment elevation. Inferior and precordial T wave inversions that does appear similar to December 08, 2015 the last prior EKG. CONTINUOUS CARDIAC MONITORING: was ordered and showed a heart rate of 105 bpm in sinus tachycardia Patient's hypertension was referred to the hospitalist HOSPITAL COURSE: 1315 Patient was first seen and H&P performed. 1425 Patient reassessed and updated. Patient was returned to the room and updated on my preliminary evaluation of the CT findings of bilateral PE and saddle pulmonary embolism. Will discuss with the hospitalist and attempt to contact the tree inspector. Patient's laboratory studies and imaging reviewed. Differential includes Reactive airway disease, pneumonia, pneumothorax, COPD, CHF, infections, cardiac ischemia, pulmonary embolism, musculoskeletal, gastrointestinal, as well as other pathologies. IMPRESSION/MEDICAL DECISION MAKING: Patient present with 2 weeks of worsening shortness of breath lower chest pain yesterday and some cough. Denies fever. Denies sick contact. History of VTE. Not currently on anticoagulation as this was first instance about a year ago. No trauma reported. Patient with some increased work of breathing on exam. No chest wall or abdominal pain appreciated. Denies GI symptoms. Some trace lower extremity swelling noted. Chest x-ray shows bibasilar infiltrates as well as an elevated BNP that somewhat concerning for increased fluid overload. Troponin detectable but not normal. Tachycardia on EKG with T wave inversions all this does appear similar to previous. D-dimer is significantly elevated proceed with a CT scan to evaluate for PE. Patient occasionally chews tobacco but no history of smoking. proBNP mildly elevated. Given a very small fluid bolus here and there is some evidence of a mild acute kidney injury. CT scan of the chest consistent with a saddle pulmonary embolism likely explain the patient's symptoms. Patient is not hypotensive, hypoxic, or clinically unstable. No emergent need for TPA in the ER at this time. Hospitalist was contacted and the tree inspector to be contacted. Started on a heparin drip. Patient requires admission at this time. DIAGNOSIS: Pulmonary embolism, shortness of breath, tachycardia, BRIANNA DISPOSITION: Admission. Patient was agreeable with this plan. Critical Care I have personally spent 38 minutes of critical care time in the direct management of this patient. This includes bedside care, interpretation of diagnostic studies, and testing, discussion with consultants, patient, and family members, and other required patient management activities. These 38 minutes is in excess of all separately billable procedures. 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 Required: No Beliefs That Will Affect Care: None marital status: Current Living Situation: Spouse current occupational 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 Feels Safe at Home: Yes Smoking Status: Light tobacco smoker Tobacco Type: smokeless tobacco ; Second Hand Exposure: No ; Hx Alcohol Use: No Hx Substance Use: No caffeine: Yes Dental Care, Regularly: No Physical Activity Frequency: Does not Exercise Seatbelt Use: always Sunscreen Use: No Allergies Allergies Allergy/AdvReac Type Severity Reaction Status Date / Time Sulfa (Sulfonamide Allergy Severe ANAPHYLAXIS Verified 02/24/20 13:00 Antibiotics) Home Meds Previous Rx's Medication Instructions Recorded omeprazole 20 mg capsule,delayed 20 mg PO QAM #90 cap 04/21/19 release blood sugar diagnostic #100 ea 09/29/19 glimepiride 4 mg tablet 4 mg PO BID #180 tab 09/29/19 metformin 1,000 mg tablet 1,000 mg PO BID #180 tab 09/29/19 simvastatin 20 mg tablet 20 mg PO HS #90 tab 09/29/19 dulaglutide 0.75 mg/0.5 mL 0.75 mg SQ .COMPLEX #2 ml 10/27/19 subcutaneous pen injector blood-glucose meter #1 ea 01/26/20 lisinopril 5 mg tablet 5 mg PO DAILY #90 tab 02/23/20 Results & Data (ED) Vital Signs Vital Signs - 24 hr 02/24/20 12:35 02/24/20 13:03 02/24/20 13:15 Temperature 36.5 C Temperature Source Oral Pulse Rate 110 H 103 H Pulse Rate from SpO2 Sensor Pulse Rhythm Respiratory Rate 22 27 H Respiratory Effort / Characteristics Short of Breath Blood Pressure 137/80 109/79 Blood Pressure Mean 99 93 Blood Pressure Position Sitting Pulse Oximetry 97 95 Oxygen Delivery Method Room Air Room Air Sepsis Recent Fever Within 48 Hours No Sepsis New/Unexplained Change in Mental Status No Sepsis Action Taken by Nursing No Action Required 02/24/20 13:23 02/24/20 13:30 02/24/20 14:00 Temperature Temperature Source Pulse Rate 101 H 103 H 98 H Pulse Rate from SpO2 Sensor 102 H 98 H Pulse Rhythm Regular Respiratory Rate 25 H 22 28 H Respiratory Effort / Characteristics Blood Pressure 118/80 126/84 Blood Pressure Mean 92 98 Blood Pressure Position Pulse Oximetry 95 94 94 Oxygen Delivery Method Room Air Room Air Room Air Sepsis Recent Fever Within 48 Hours Sepsis New/Unexplained Change in Mental Status Sepsis Action Taken by Nursing 02/24/20 14:30 02/24/20 15:00 02/24/20 15:30 Temperature Temperature Source Pulse Rate 97 H 96 H 93 H Pulse Rate from SpO2 Sensor 96 H 95 H 93 H Pulse Rhythm Respiratory Rate 24 22 29 H Respiratory Effort / Characteristics Blood Pressure 136/90 122/79 125/73 Blood Pressure Mean 102 84 78 Blood Pressure Position Pulse Oximetry 94 96 94 Oxygen Delivery Method Room Air Room Air Room Air Sepsis Recent Fever Within 48 Hours Sepsis New/Unexplained Change in Mental Status Sepsis Action Taken by Nursing Laboratory Data Result diagrams: 02/24/20 13:05 02/24/20 13:05 Lab Results 02/24/20 02/24/20 02/24/20 Range/Units 13:05 13:05 13:05 WBC 8.27 (4.8-10.8) K/uL RBC 5.49 (4.7-6.1) M/uL Hgb 16.6 (14.0-18.0) g/dL Hct 48.7 (42-52) % MCV 88.7 (80-100) fL MCH 30.2 (25-34) pg MCHC 34.1 (32-36) g/dL RDW Std Deviation 41.5 (36.4-46.3) fL RDW Coeff of Rich 12.9 (11.5-14.5) % Plt Count 118 L (130-400) K/uL MPV 10.6 H (7.4-10.4) fL Immature Gran % (Auto) 0.8 % Neut % (Auto) 81.2 % Lymph % (Auto) 8.5 % [place] % (Auto) 8.3 % Eos % (Auto) 1.0 % Baso % (Auto) 0.2 % Neut # (Auto) 6.71 H (1.4-6.5) K/uL Lymph # (Auto) 0.70 L (1.2-3.4) K/uL [place] # (Auto) 0.69 H (0.11-0.59) K/uL Eos # (Auto) 0.08 (0-0.5) K/uL Baso # (Auto) 0.02 (0-0.2) K/uL Immature Gran # (Auto) 0.07 H (0.00-0.02) K/uL PT 11.0 (9.0-12.0) Seconds INR 1.0 (0.9-1.1) APTT 26.2 (21.0-31.0) Seconds PTT Ratio 0.9 D-Dimer 52409 H* (0-500) ug/L FEU Sodium 135 L (136-145) mmol/L Potassium 4.9 (3.5-5.1) mmol/L Chloride 103 (98-107) mmol/L Carbon Dioxide 22 (21-32) mmol/L Anion Gap 10.0 (3-11) BUN 23 H (7-18) mg/dl Creatinine 1.41 H (0.6-1.4) mg/dl Est Cr Clr Drug Dosing 46.6 ml/min Est GFR ( Amer) 54.5 Est GFR (Non-Af Amer) 47.0 BUN/Creatinine Ratio 16.4 (10-20) Glucose 264 H (70-99) mg/dl Calcium 9.7 (8.5-10.1) mg/dl Magnesium 1.7 L (1.8-2.4) mg/dl Ferritin (8-388) ng/ml Total Bilirubin 1.3 H (0.2-1) mg/dl AST 13 L (15-37) U/L ALT 33 (12-78) U/L Alkaline Phosphatase 88 (45-117) U/L Lactate Dehydrogenase (87-241) U/L Troponin I 0.017 (0-0.045) ng/ml NT-Pro-B Natriuret Pep 3177 H (0-1800) pg/ml Total Protein 8.0 (6.4-8.2) gm/dl Albumin 4.0 (3.4-5.0) gm/dl Globulin 4.0 (2.5-4.0) gm/dl Albumin/Globulin Ratio 1.0 (0.9-2) Lipase 153 (73-393) U/L Procalcitonin (0-0.5) ng/ml 02/24/20 02/24/20 02/24/20 Range/Units 14:55 14:55 14:55 WBC (4.8-10.8) K/uL RBC (4.7-6.1) M/uL Hgb (14.0-18.0) g/dL Hct (42-52) % MCV (80-100) fL MCH (25-34) pg MCHC (32-36) g/dL RDW Std Deviation (36.4-46.3) fL RDW Coeff of Rich (11.5-14.5) % Plt Count (130-400) K/uL MPV (7.4-10.4) fL Immature Gran % (Auto) % Neut % (Auto) % Lymph % (Auto) % [place] % (Auto) % Eos % (Auto) % Baso % (Auto) % Neut # (Auto) (1.4-6.5) K/uL Lymph # (Auto) (1.2-3.4) K/uL [place] # (Auto) (0.11-0.59) K/uL Eos # (Auto) (0-0.5) K/uL Baso # (Auto) (0-0.2) K/uL Immature Gran # (Auto) (0.00-0.02) K/uL PT (9.0-12.0) Seconds INR (0.9-1.1) APTT (21.0-31.0) Seconds PTT Ratio D-Dimer (0-500) ug/L FEU Sodium (136-145) mmol/L Potassium (3.5-5.1) mmol/L Chloride (98-107) mmol/L Carbon Dioxide (21-32) mmol/L Anion Gap (3-11) BUN (7-18) mg/dl Creatinine (0.6-1.4) mg/dl Est Cr Clr Drug Dosing ml/min Est GFR ( Amer) Est GFR (Non-Af Amer) BUN/Creatinine Ratio (10-20) Glucose (70-99) mg/dl Calcium (8.5-10.1) mg/dl Magnesium (1.8-2.4) mg/dl Ferritin 98.6 (8-388) ng/ml Total Bilirubin (0.2-1) mg/dl AST (15-37) U/L ALT (12-78) U/L Alkaline Phosphatase (45-117) U/L Lactate Dehydrogenase 213 (87-241) U/L Troponin I (0-0.045) ng/ml NT-Pro-B Natriuret Pep (0-1800) pg/ml Total Protein (6.4-8.2) gm/dl Albumin (3.4-5.0) gm/dl Globulin (2.5-4.0) gm/dl Albumin/Globulin Ratio (0.9-2) Lipase (73-393) U/L Procalcitonin < 0.05 (0-0.5) ng/ml Administered Medications Heparin Sodium/Dextrose (Heparin Sodium/Dextrose) 25,000 units in 500 mls @ 29 mls/hr IV .[id number] JOSE; Protocol Stop: 03/25/20 15:44 Last Titration: 02/24/20 19:06 Dose: 1,450 units/hr, 29 mls/hr Documented by: [id number] Cosigned by: [id number] Admin: 02/24/20 15:59 Dose: 1,450 units/hr, 29 mls/hr Documented by: [id number] Cosigned by: [id number] Discontinued Medications Heparin Sodium (Porcine) (Heparin Iv Bolus) Confirm Administered Dose 10,000 units .ROUTE .STK-MED ONE Stop: 02/24/20 15:55 Last Admin: 02/24/20 15:58 Dose: 6,000 units Documented by: [id number] Cosigned by: [id number] Heparin Sodium/Dextrose () 1 ea IV NOW STA; Protocol Stop: 02/24/20 15:40 Last Admin: 02/24/20 19:10 Dose: Not Given Documented by: [id number] Sodium Chloride (Nss 1000ml) 500 mls @ 999 mls/hr IV .Q31M ONE Stop: 02/24/20 15:03 Last Infusion: 02/24/20 15:27 Dose: 0 mls/hr Documented by: [id number] Admin: 02/24/20 14:44 Dose: 999 mls/hr Documented by: [id number] Ioversol (Optiray 320 125ml) 119 ml IV ONCE PRN PRN Reason: Interaction Checking Stop: 02/28/20 14:19 Last Admin: 02/24/20 14:21 Dose: 119 ml Documented by: [id number] Miscellaneous Information (Consult Glycemic Management Pharmacy) 1 ea N/A NOW STA Stop: 02/24/20 15:36 Last Admin: 02/24/20 19:10 Dose: 1 ea Documented by: [id number] Discharge Plan Visit Data *Final* Discharge Date/Time: 02/24/20 17:30 Chief Complaint: Shortness of Breath/Dyspnea Stated Complaint: SOB, NOT FEELING WELL ED Provider: Juan José Cross Discharge Problem: Pulmonary embolism, Acute dyspnea, BRIANNA (acute kidney injury) Patient Disposition: Admitted As Inpatient Condition: Serious Discharge Instructions Interventions: ED Discharge Assessment Last Done: 02/24/20 17:30 Discharge Problem: Pulmonary embolism Qualifiers: Pulmonary embolism type: saddle Chronicity: acute Acute cor pulmonale presence: unspecified Qualified Code(s): I26.92 - Saddle embolus of pulmonary artery without acute cor pulmonale
[2020-02-24] MEDS ORDERED: OPTIRAY 320 125ml IV PRN (14:20)
[2020-02-24] MEDS ORDERED: SODIUM CHLORIDE 0.9% 1000ML 500 ML IV ONE (14:33)
--- NOTE | 2020-02-24 14:40 | CT Scan Report ---
CT ANGIOGRAM OF THE CHEST CLINICAL HISTORY: PE, +dimer SHORTNESS OF BREATH COMPARISON STUDY: 08/13/2016 TECHNIQUE: Following the IV administration of 119 mL of Optiray-320, CT angiogram of the thorax was p erformed from the thoracic inlet to the lung bases utilizing the pulmonary embolus protocol. Images a re reviewed in the axial, sagittal, and coronal planes. IV contrast was administered without complica tion. MIP imaging was performed. A dose lowering technique was utilized adhering to the principles o f ALARA. CT DOSE: 557.63 mGy.cm FINDINGS: Mediastinal lymph nodes are the upper limits of normal in size There was no evidence of thoracic aortic dilatation. There are bilateral upper and lower lobe pulmonary filling defects. There are also right middle lobe pulmonary filling defects. There is a small pulmonary status embolus. There is slight bowing of the i ntraventricular septum consistent with mild right ventricular strain. No pleural effusions are visualized. There is respiratory motion artifact. There are minor subpleural opacities within the left upper lobe . There is a 25 mm left breast nodule. This measured 23 mm in 2016 Degenerative changes are present within the thoracic spine with ankylosis. IMPRESSION: Acute bilateral saddle pulmonary embolism with a right ventricular strain pattern. ACT 112: Negative or not required by law. Electronically signed by: Ritesh Hewitt M.D. 02/24/2020 2:38 PM
--- NOTE | 2020-02-24 14:53 | Electrocardiogram Report ---
Test Reason : Blood Pressure : / mmHG Vent. Rate : 106 BPM Atrial Rate : 106 BPM P-R Int : 164 ms QRS Dur : 104 ms QT Int : 370 ms P-R-T Axes : 018 089 -32 degrees QTc Int : 491 ms Sinus tachycardia T wave abnormality, consider inferior ischemia T wave abnormality, consider anterior ischemia Abnormal ECG When compared with ECG of 08-DEC-2015 07:02, T wave inversion now evident in Inferior leads T wave inversion more evident in Anterior leads Confirmed by Jose Angel Mei ([id number]) on 02/24/2020 2:53:28 PM Referred By: ER Confirmed By:Jose Angel Mei
[2020-02-24] MEDS ORDERED: PHARMACY GLYCEMIC MGMT CONSULT STA (15:35)
--- NOTE | 2020-02-24 15:38 | History & Physical Report ---
Date of Service February 24, 2020 Assessment & Plan (1) Pulmonary embolism: Saddle embolus with right heart strain on EKG Concern for underlying cancerous etiology given unintentional weight loss although unclear from discussion with the patient whether this is truly unintentional. Left breast nodule noted on CT however this was a similar size in 2016. Of doubtful significance. Otherwise no concerning malignancy signs on CTA chest. Abdomen is distended but at baseline. No specific lab abnormalities concerning for malignancy. PSA 3.64 [05/2019] Admit to ICU. Discussed with Dr Mckay Standard heparin drip IV with bolus Second PE, therefore will need anticoagulation for life (2) Diabetes mellitus with neuropathy: Hold the Trulicity, glimepiride, metformin Consult glycemic pharmacy for insulin basal bolus management HbA1c 7.2 on February 02 (3) Elevated serum creatinine: Suspect pre-renal UA pending 500ml NSS bolus given in ER. 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 Reports resolution of symptoms after x2 TURP (6) Hyperlipidemia: Continue simvastatin 20mg PO daily History of Present Illness Chief Complaint: Shortness of breath Primary Care Provider: Sherlyn Rainey MD Anthony Garcia is a 79-year-old male with significant past medical history of DVT/PE 1 year ago who presents to the ER with gradual worsening shortness of breath. He reports shortness of breath with mild left lower chest pain worse on inspiration for the last 2 weeks getting gradually worse. No current chest pain. No sudden onset of symptoms. His has been try to get him to come to the emergency room for some time that he has been declining. He denies any associated diaphoresis or nausea. Per report from the patient his previous PE was thought secondary to immobility at the time. This occasion he does not increase immobility with a look down in addition to a long car journey traveling back from [place] 1 month ago. He has type 2 diabetes and reports his glucose measurements have been difficult to control for the last 3 days. He notes unintentional weight loss over the last year 40 to 50 pounds, although also describes trying to lose weight by eating smaller portions. Notes associated reduction in appetite. Cologuard test negative in April 2018. No anemia. No change in stools, abdominal pain, nausea, vomiting, melena, bright red blood in stools. Allergies Allergy/AdvReac Type Severity Reaction Status Date / Time Sulfa (Sulfonamide Allergy Severe ANAPHYLAXIS Verified 02/24/20 13:00 Antibiotics) Home Medications Home Medications Medication Instructions Recorded Confirmed Type omeprazole 20 mg capsule,delayed 20 mg PO QAM #90 cap 04/21/19 02/24/20 Rx release blood sugar diagnostic #100 ea 09/29/19 02/02/20 Rx glimepiride 4 mg tablet 4 mg PO BID #180 tab 09/29/19 02/24/20 Rx metformin 1,000 mg tablet 1,000 mg PO BID #180 tab 09/29/19 02/24/20 Rx simvastatin 20 mg tablet 20 mg PO HS #90 tab 09/29/19 02/24/20 Rx dulaglutide 0.75 mg/0.5 mL 0.75 mg SQ .COMPLEX #2 ml 10/27/19 02/24/20 Rx subcutaneous pen injector blood-glucose meter #1 ea 01/26/20 02/02/20 Rx lisinopril 5 mg tablet 5 mg PO DAILY #90 tab 02/23/20 02/24/20 Rx Past Med/Surg History Medical History Pulmonary embolism Surgical History H/O knee surgery H/O transurethral resection of prostate APRIL 2012 Family History Mother Colorectal cancer Pacemaker Brother Stroke Brother Prostate cancer COPD (chronic obstructive pulmonary disease) Coronary heart disease Denies family history of Ovarian cancer Myocardial infarction Breast cancer Social History Preferred Language: Kenyan Communication Ability: Effective Lifeline Representatives Required: No Beliefs That Will Affect Care: None marital status: Current Living Situation: Spouse 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 occupational 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 Feels Safe at Home: Yes Smoking Status: Light tobacco smoker Tobacco Type: smokeless tobacco ; Second Hand Exposure: No ; Hx Alcohol Use: No Hx Substance Use: No caffeine: Yes Dental Care, Regularly: No Physical Activity Frequency: Does not Exercise Seatbelt Use: always Sunscreen Use: No Review of Systems Review of Systems: All systems reviewed & are unremarkable except as noted in HPI & below Physical Exam Constitutional: well developed and well nourished; no acute distress Eyes: + anicteric sclerae; normal pupil size ENMT: external ear and nose normal, oropharynx normal Neck: normal visual inspection and trachea midline Thyroid: no thyromegaly Respiratory: normal respiratory effort, lungs clear to auscultation Cardiovascular: Rate/Rhythm: regular rhythm and + tachycardic Heart Sounds: no murmur Vessels: no JVD Extremities: normal capillary refill and + pedal edema (1+ to knees); no calf tenderness Gastrointestinal (Abdomen): Inspection/Auscultation: + abdomen distended (Patient reports normal for him) and normal bowel sounds Percussion/Palpation: abdomen soft; abdomen nontender, no guarding and abdomen not rigid Musculoskeletal: no cyanosis or clubbing, extremities motor strength 5/5 Skin: no rashes, warm and dry Neurologic: moves all extremities and awake; no focal motor deficits and not confused Psychiatric: A+Ox3, euthymic affect Genitourinary: no CVA tenderness Results & Data Results & Data ([facility]) Vital Signs (Past 12 Hours) Vital Signs Temp Pulse Resp BP Pulse Ox 02/24/20 15:00 96 H 22 122/79 96 02/24/20 14:30 97 H 24 136/90 94 02/24/20 14:00 98 H 28 H 126/84 94 02/24/20 13:30 103 H 22 118/80 94 02/24/20 13:23 101 H 25 H 95 02/24/20 13:15 95 02/24/20 13:03 103 H 27 H 109/79 02/24/20 12:35 36.5 C 110 H 22 137/80 97 Diagnostic Findings XR chest 1V portable IMPRESSION: Mild bibasilar interstitial infiltrative change. CT ANGIOGRAM OF THE CHEST IMPRESSION: Acute bilateral saddle pulmonary embolism with a right ventricular strain pattern. ECG Indication: SOB/dyspnea Rate (beats per minute): 106 Rhythm: sinus tachycardia Findings: + T-wave inversion (inferior and anterior) Comparison ECG Date: from (December 08 2019) Change: the following changes noted (TWI are new) Code Status & VTE Plan Code Status Full as discussed with patient and his VTE Prophylaxis Plan VTE Prophylaxis will be ordered: Yes PG Care Time/CCT Total # of Minutes Spent Total Time Spent with Patient: Total time spent is greater than 50% in coordination of care (as documented) at patient's floor/unit and/or counseling patient: Coding Level of Care Code 70119 Initial Inpt Care Lvl 3 Diagnoses Pulmonary embolism I26.92 Acute cor pulmonale presence: unspecified Chronicity: acute Pulmonary embolism type: saddle Diabetes mellitus with neuropathy E11.40 Elevated serum creatinine R79.89 Acid reflux disease K21.9 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
[2020-02-24] MEDS ORDERED: HEPARIN SODIUM/DEXTROSE 25,000 UNITS/500 ML BAG IV SCH (15:45)
[2020-02-24] MEDS ORDERED: PHARMACY GLYCEMIC MGMT CONSULT PRN (15:46)
[2020-02-24] MEDS ORDERED: HEPARIN SOD (PORCINE) 1000 UNIT/ML 10 ML VIAL ONE (15:54)
[2020-02-24] MEDS: HEPARIN SODIUM/DEXTROSE 25,000 UNITS/500 ML BAG IV SCH (15:59)
--- NOTE | 2020-02-24 16:00 | Critical Care Consultation ---
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 who presents with submassive pulmonary embolism PLAN: Resp: Submassive pulmonary embolism -PESI score is class III -Discussed risk benefits of heparin versus transfer for possible catheter directed thrombolysis versus systemic thrombolysis -Prefers to undergo anticoagulation CV: Echo pending Fluids/Renal: Acute kidney injury -Normosol 75 mL's per hour ID: Monitor fever curve GI/Nutrition: Regular diet Heme: Long-term anticoagulation -Heparin in short-term -Discussed risks benefits of warfarin versus Ac, patient previously on Xarelto and would like to return to Xarelto DVT prophylaxis: Heparin infusion Endocrine: ICU hyperglycemia protocol Vascular access: Peripheral IVs Code Status: Full code Disposition: ICU History of Present Illness Reason for Consultation: Saddle pulmonary embolism Requesting Physician: Seven Hummel Attending Physician: Seven Hummel History of Present Illness Patient is a 79-year-old male who previously was diagnosed with pulmonary embolism and was treated with approximately 3 months of Xarelto who presented after 2 weeks of progressive worsening exertional dyspnea. And gotten to the point that he felt that something was definitely wrong, his encouraged him to travel via 911 for medical treatment. He was rather adamant to not travel via ambulance. He has not had significant palpitations. 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 Allergies Allergy/AdvReac Type Severity Reaction Status Date / Time Sulfa (Sulfonamide Allergy Severe ANAPHYLAXIS Verified 02/24/20 13:00 Antibiotics) Home Medications Home Medications Medication Instructions Recorded Confirmed Type omeprazole 20 mg capsule,delayed 20 mg PO QAM #90 cap 04/21/19 02/24/20 Rx release blood sugar diagnostic #100 ea 09/29/19 02/02/20 Rx glimepiride 4 mg tablet 4 mg PO BID #180 tab 09/29/19 02/24/20 Rx metformin 1,000 mg tablet 1,000 mg PO BID #180 tab 09/29/19 02/24/20 Rx simvastatin 20 mg tablet 20 mg PO HS #90 tab 09/29/19 02/24/20 Rx dulaglutide 0.75 mg/0.5 mL 0.75 mg SQ .COMPLEX #2 ml 10/27/19 02/24/20 Rx subcutaneous pen injector blood-glucose meter #1 ea 01/26/20 02/02/20 Rx lisinopril 5 mg tablet 5 mg PO DAILY #90 tab 02/23/20 02/24/20 Rx Patient History Medical History Pulmonary embolism Surgical History H/O knee surgery H/O transurethral resection of prostate APRIL 2012 Family History Mother Colorectal cancer Pacemaker Brother Stroke Brother Prostate cancer COPD (chronic obstructive pulmonary disease) Coronary heart disease Denies family history of Ovarian cancer Myocardial infarction Breast cancer Social History Preferred Language: [place] marital status: Current Living Situation: Spouse current occupational 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 nontoxic. Skin: Warm, dry, Head: Atraumatic Ears, nose, mouth and throat: airway patent Cardiovascular: Normal peripheral perfusion Respiratory: no respiratory distress, able to speak in full sentences while wearing mask saturating 94% on room air Gastrointestinal: Non distended Musculoskeletal: No deformity Results & Data Results & Data ([facility]) Vital Signs (Past 12 Hours) Vital Signs Temp Pulse Resp BP Pulse Ox 02/24/20 15:30 93 H 29 H 125/73 94 02/24/20 15:00 96 H 22 122/79 96 02/24/20 14:30 97 H 24 136/90 94 02/24/20 14:00 98 H 28 H 126/84 94 02/24/20 13:30 103 H 22 118/80 94 02/24/20 13:23 101 H 25 H 95 02/24/20 13:15 95 02/24/20 13:03 103 H 27 H 109/79 02/24/20 12:35 36.5 C 110 H 22 137/80 97 Coding Level of Care Code Critical Care 1st 30-74 mins Diagnoses Pulmonary embolism I26.92 Acute cor pulmonale presence: unspecified Chronicity: acute Pulmonary embolism type: saddle Time Spent (min) 65 Comment I have personally spent 65 minutes of critical care time in the direct management of this patient. This is a life/limb threatening event. This includes time spent evaluating patient, direct bedside care, chart review, placing orders, interpretation of diagnostic studies, discussion with consultants, patient, and/or family members regarding treatment decisions, as well as other required patient management activities. This time is exclusive of all separately billable procedures, and teaching time and separate from and in addition to any other critical care service time. (1) Pulmonary embolism Acute cor pulmonale presence: unspecified Chronicity: acute Pulmonary embolism type: saddle Qualified Code(s): I26.92 - Saddle embolus of pulmonary artery without acute cor pulmonale
[2020-02-24 17:46] LABS: Appearance Urine Clear (Clear); Bacteria Urine Automated Negative (Negative); Bilirubin Urine Negative (Negative); Blood Urine Negative (Negative); Color Urine Dark Yellow; Epithelial Cell Urine Auto 0-5 /lpf (0-5); Glucose Urine UA 1+ (Negative); Ketones Urine Negative (Negative); Leukocyte Esterase Urine Negative (Negative); Nitrite Urine Negative (Negative); Protein Urine Trace (Negative); RBC Urine Automated 0-4 /hpf (0-4); Specific Gravity Urine > 1.045 (1.000-1.030); Urobilinogen Urine Negative (Negative)
[2020-02-24] MEDS ORDERED: ICU PROTOCOL FOR HYPERGLYCEMIA PRN (18:14)
[2020-02-24] MEDS ORDERED: DEXTROSE 50% 50 ML SYRINGE IV PRN (19:30)
[2020-02-24] MEDS ORDERED: GLUCAGON FOR INJ 1 MG VIAL SQ PRN (19:30)
[2020-02-24] MEDS ORDERED: GLUCOSE 10 TABS/TUBE PO PRN (19:30)
[2020-02-24] MEDS ORDERED: GLUCOSE 40% GEL 15 GM TUBE PO PRN (19:30)
[2020-02-24] MEDS ORDERED: CARBOHYDRATES FOR HYPOGLYCEMIA PO PRN (19:30)
[2020-02-24] MEDS: NORMOSOL-R 1,000 ML IV SCH (20:55)
[2020-02-24] MEDS: SIMVASTATIN 20 MG TAB PO SCH (20:55)
[2020-02-24] MEDS: INSULIN ASPART 100 UNITS/ML 3 ML PEN SC SCH (20:56)
[2020-02-24] MEDS: INSULIN GLARGINE SOLOSTAR 100 UNITS/ML 3 ML PEN SC SCH (20:56)
[2020-02-24 22:17] LABS: Partial Thromboplastin Ratio 1.9
[2020-02-24 22:36] LABS: Partial Thromboplastin Time 53.3 Seconds (21.0-31.0)
[2020-02-25 04:36] LABS: Basophils # (auto) 0.02 K/uL (0-0.2); Basophils % (auto) 0.4 %; Eosinophils # (auto) 0.18 K/uL (0-0.5); Eosinophils % (auto) 3.3 %; Hematocrit (blood only) 41.7 % (42-52); Hemoglobin 13.8 g/dL (14.0-18.0); Immature Granulocytes # (auto) 0.03 K/uL (0.00-0.02); Immature Granulocytes % (auto) 0.5 %; Lymphocytes # (auto) 1.42 K/uL (1.2-3.4); Lymphocytes % (auto) 25.7 %; Mean Corpuscular Hemoglobin 29.4 pg (25-34); Mean Corpuscular Hgb Conc 33.1 g/dL (32-36); Mean Corpuscular Volume 88.7 fL (80-100); Mean Platelet Volume 10.2 fL (7.4-10.4); Monocytes # (auto) 0.42 K/uL (0.11-0.59); Monocytes % (auto) 7.6 %; Neutrophils # (auto) 3.46 K/uL (1.4-6.5); Neutrophils % (auto) 62.5 %; Platelet Count 158 K/uL (130-400); RDW Standard Deviation 41.9 fL (36.4-46.3); White Blood Count 5.53 K/uL (4.8-10.8)
[2020-02-25 04:56] LABS: Partial Thromboplastin Ratio 1.6
[2020-02-25 04:58] LABS: Partial Thromboplastin Time 45.6 Seconds (21.0-31.0)
[2020-02-25 05:03] LABS: BUN Creatinine Ratio 18.9 (10-20); Calcium 8.6 mg/dl (8.5-10.1); Creatinine Clr Calc Pharmacy 72.2 ml/min; Est GFR (African American) 78.8; Magnesium 1.7 mg/dl (1.8-2.4); Phosphorus 3.2 mg/dl (2.5-4.9); Potassium 3.7 mmol/L (3.5-5.1)
[2020-02-25] MEDS ORDERED: HEPARIN IV BOLUS 3,000 UNITS in SYRINGE 0 ML IV STA (05:14)
[2020-02-25] MEDS ORDERED: POTASSIUM CHLORIDE 20 MEQ TABCR PO STA (06:06)
[2020-02-25] MEDS: MAGNESIUM SULFATE / D5W 1 GM/100 ML BAG IV SCH ×2 (06:17→08:26)
[2020-02-25] MEDS: PANTOprazole 40 MG TAB PO SCH (08:27)
[2020-02-25] MEDS: INSULIN ASPART 100 UNITS/ML 3 ML PEN SC SCH ×4 (08:31→21:19)
[2020-02-25] MEDS: INSULIN GLARGINE SOLOSTAR 100 UNITS/ML 3 ML PEN SC SCH ×2 (08:32→21:18)
[2020-02-25] MEDS: NORMOSOL-R 1,000 ML IV SCH (09:15)
[2020-02-25] MEDS: HEPARIN SODIUM/DEXTROSE 25,000 UNITS/500 ML BAG IV SCH (09:16)
--- NOTE | 2020-02-25 09:25 | XCELERA ---
[id number]
[2020-02-25 12:23] LABS: Partial Thromboplastin Ratio 2.1
[2020-02-25 13:04] LABS: Partial Thromboplastin Time 57.7 Seconds (21.0-31.0)
--- NOTE | 2020-02-25 14:12 | Hospitalist Progress Note ---
Date of Service February 25, 2020 Assessment & Plan (1) Pulmonary embolism: Saddle embolus with right heart strain on EKG. Concern for underlying cancerous etiology given unintentional weight loss although unclear from discussion with the patient whether this is truly unintentional. - Abdomen is distended but at baseline. No specific lab abnormalities concerning for malignancy. - PSA 3.64 [05/2019] - Continue heparin gtt. Will switch to Xarelto tomorrow if stable. 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 Hold the Trulicity, glimepiride, metformin. - Consult glycemic pharmacy for insulin basal bolus management (3) Elevated serum creatinine: Baseline Cr ~1.0, eGFR 70. Suspect pre-renal. - Cr returned to baseline by 02/24. 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 Reports resolution of symptoms after x2 TURP. - Monitor (6) Hyperlipidemia: - Continue simvastatin 20mg PO daily Admission and Anticipated Discharge Date Admission Date: February 24, 2020 Subjective Doing well today. No major concerns. Shortness of breath improving. Reports no fevers/chills, chest pain, abdominal pain, nausea, or vomiting. Physical Exam Constitutional: WD/WN, vitals as above Eyes: EOM intact bilaterally; no conjunctival abnormality ENMT: external ear and nose normal, oropharynx normal Neck: trachea midline, no thyromegaly normal visual inspection Respiratory: normal respiratory effort, lungs clear to auscultation + tachypneic; no respiratory distress Cardiovascular: RRR, no murmur, no edema Gastrointestinal (Abdomen): Inspection/Auscultation: abdomen normal to inspection; abdomen not distended Musculoskeletal: no cyanosis or clubbing, extremities motor strength 5/5 Skin: no rashes, warm and dry Neurologic: moves all extremities and awake Psychiatric: Orientation: alert, oriented to person and cooperative Results & Data Results & Data ([facility]) Vital Signs (Past 12 Hours) Vital Signs Temp Pulse Resp BP Pulse Ox 02/25/20 11:23 81 02/25/20 10:59 84 27 H 123/59 L 93 02/25/20 09:59 84 23 120/68 94 02/25/20 08:59 87 21 121/63 92 02/25/20 07:59 87 20 120/74 94 02/25/20 06:59 81 22 125/66 91 02/25/20 06:00 81 21 91 02/25/20 05:59 83 23 113/65 91 02/25/20 05:00 78 16 99 02/25/20 04:59 77 15 131/75 97 02/25/20 04:00 36.4 C L 81 21 92 02/25/20 03:59 81 20 100/58 L 92 02/25/20 03:00 81 21 97 02/25/20 02:59 81 18 117/62 96 PG Care Time/CCT Total # of Minutes Spent Total Time Spent with Patient: Total time spent is greater than 50% in coordi nation of care (as documented) at patient's floor/unit and/or counseling patient: Coding Level of Care Code 35394 Subseq Hosp Care Lvl 2 Diagnoses Pulmonary embolism I26.92 Acute cor pulmonale presence: unspecified Chronicity: acute Pulmonary embolism type: saddle Diabetes mellitus with neuropathy E11.40 Elevated serum creatinine R79.89 Acid reflux disease K21.9 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
--- NOTE | 2020-02-25 14:30 | Pharmacy Report ---
Pharmacy Glycemic Short Note 2 - Date of Service February 25, 2020 - Glycemic Short BSG Results (Last 24 hours): 02/24/20 02/24/20 02/25/20 18:13 20:54 04:11 Glucose 140 H POC Glucose 137 H 175 H 02/25/20 02/25/20 07:32 11:08 Glucose POC Glucose 156 H 234 H OUTPATIENT ANTIDIABETIC REGIMEN: * Metformin 1000mg BID, glimepiride 4mg, dulaglutide 0.75mg weekly * A1c: 7.2% 02/03/20 ASSESSMENT: * Patient admitted for saddle PE, experiencing hyperglycemia at lunchtime yesterday. Of note, BSG downtrended at dinner without any intervention, however, he did take his morning dose of metformin and his glimepiride yesterday morning. * Fasting BSG this morning was acceptable, however post prandial, lunchtime BSG was elevated again. Novolog goal range and carb coverage was adjusted conservatively. * A lantus scale continues for this evening (based on a weight based stress of 1 and 2) * Patient is ordered a diet and remains on a heparin infusion (contains dextrose) PLAN FOR INPATIENT GLYCEMIC CONTROL: * Hold outpatient oral diabetes medications * Basal insulin * Lantus per scale SQ BID * 0, 8, or 14 units based on BSG (see MAR for details) * Bolus insulin * NovoLog per scale ACHS or Q6hrs while NPO * Goal Range: Low 110 mg/dL - High 140 mg/dL * Correction Factor: 25 mg/dL/unit * Nutritional / Prandial insulin per carb ratio of 1 unit per 8 grams CHO consumed PLAN FOR DISCHARGE: * A1c close to goal, can likely continue home regimen.
--- NOTE | 2020-02-25 15:39 | Critical Care Progress Note ---
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 who presents with submassive pulmonary embolism PLAN: Resp: Submassive pulmonary embolism -PESI score is class III -Discussed risk benefits of heparin versus transfer for possible catheter directed thrombolysis versus systemic thrombolysis -Prefers to undergo anticoagulation CV: Echo pending Fluids/Renal: Acute kidney injury: Resolved Hypomagnesemia Mag-Ox 400 mg daily GI/Nutrition: Regular diet Heme: Long-term anticoagulation -Heparin in short-term -Discussed risks benefits of warfarin versus NOAC, patient previously on Xarelto and would like to return to Xarelto DVT prophylaxis: Heparin infusion Endocrine: ICU hyperglycemia protocol Vascular access: Peripheral IVs Code Status: Full code Disposition: Stable for downgrade out of ICU Admission and Anticipated Discharge Date Admission Date: February 24, 2020 Subjective No chest pain no shortness of breath, positive for dry cough Review of Systems Review of Systems: As per HPI Physical Exam Physical Exam: General: Alert. nontoxic. Skin: Warm, dry, Head: Atraumatic Ears, nose, mouth and throat: airway patent Cardiovascular: Normal peripheral perfusion Respiratory: no respiratory distress, Gastrointestinal: Non distended Musculoskeletal: No deformity Results & Data Results & Data ([facility]) Vital Signs (Past 12 Hours) Vital Signs Temp Pulse Resp BP Pulse Ox 02/25/20 13:00 80 23 154/87 H 95 02/25/20 11:23 81 02/25/20 10:59 84 27 H 123/59 L 93 02/25/20 09:59 84 23 120/68 94 02/25/20 08:59 87 21 121/63 92 02/25/20 07:59 87 20 120/74 94 02/25/20 06:59 81 22 125/66 91 02/25/20 06:00 81 21 91 02/25/20 05:59 83 23 113/65 91 02/25/20 05:00 78 16 99 02/25/20 04:59 77 15 131/75 97 02/25/20 04:00 36.4 C L 81 21 92 02/25/20 03:59 81 20 100/58 L 92 Coding Level of Care Code 83662 Subseq Hosp Care Lvl 2 Diagnoses Pulmonary embolism I26.92 Acute cor pulmonale presence: unspecified Chronicity: acute Pulmonary embolism type: saddle (1) Pulmonary embolism Acute cor pulmonale presence: unspecified Chronicity: acute Pulmonary embolism type: saddle Qualified Code(s): I26.92 - Saddle embolus of pulmonary artery without acute cor pulmonale
[2020-02-25] MEDS: SIMVASTATIN 20 MG TAB PO SCH (21:20)
[2020-02-26] MEDS: HEPARIN SODIUM/DEXTROSE 25,000 UNITS/500 ML BAG IV SCH (02:11)
[2020-02-26 05:06] LABS: Hematocrit (blood only) 42.2 % (42-52); Hemoglobin 13.7 g/dL (14.0-18.0); Mean Corpuscular Hemoglobin 29.1 pg (25-34); Mean Corpuscular Hgb Conc 32.5 g/dL (32-36); Mean Corpuscular Volume 89.8 fL (80-100); Mean Platelet Volume 10.1 fL (7.4-10.4); Platelet Count 172 K/uL (130-400)
[2020-02-26 05:29] LABS: Partial Thromboplastin Ratio 1.8
[2020-02-26 05:30] LABS: Partial Thromboplastin Time 51.6 Seconds (21.0-31.0)
[2020-02-26 05:33] LABS: Calcium 8.9 mg/dl (8.5-10.1); Creatinine Clr Calc Pharmacy 66.4 ml/min; Est GFR (African American) 71.3; Est GFR (Non-African American) 61.5; Magnesium 2.2 mg/dl (1.8-2.4); Potassium 4.1 mmol/L (3.5-5.1)
[2020-02-26] MEDS: PANTOprazole 40 MG TAB PO SCH (08:55)
[2020-02-26] MEDS: INSULIN GLARGINE SOLOSTAR 100 UNITS/ML 3 ML PEN SC SCH (08:56)
[2020-02-26] MEDS: INSULIN ASPART 100 UNITS/ML 3 ML PEN SC SCH ×2 (08:56→12:35)
[2020-02-26] MEDS ORDERED: MAGNESIUM OXIDE 400 MG TAB PO SCH (09:00)
[2020-02-26] MEDS ORDERED: RIVAROXABAN 15 MG TAB PO SCH (09:30)
--- NOTE | 2020-02-26 16:04 | Discharge Summary ---
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 He reports shortness of breath with mild left lower chest pain worse on inspiration for the last 2 weeks getting gradually worse. No current chest pain. No sudden onset of symptoms. His has been try to get him to come to the emergency room for some time that he has been declining. He denies any associated diaphoresis or nausea. Per report from the patient his previous PE was thought secondary to immobility at the time. This occasion he does not increase immobility with a look down in addition to a long car journey traveling back from [place] 1 month ago. He has type 2 diabetes and reports his glucose measurements have been difficult to control for the last 3 days. He notes unintentional weight loss over the last year 40 to 50 pounds, although also describes trying to lose weight by eating smaller portions. Notes associated reduction in appetite. Cologuard test negative in April 2018. No anemia. No change in stools, abdominal pain, nausea, vomiting, melena, bright red blood in stools. Principal Diagnosis Saddle pulmonary embolism Discharge Exam Constitutional WD/WN, vitals as above Eyes EOM intact bilaterally; no conjunctival abnormality ENMT external ear and nose normal, oropharynx normal Neck trachea midline, no thyromegaly normal visual inspection Respiratory normal respiratory effort, lungs clear to auscultation + tachypneic; no respiratory distress Cardiovascular RRR, no murmur, no edema Gastrointestinal (Abdomen) Inspection/Auscultation: abdomen normal to inspection; abdomen not distended Musculoskeletal no cyanosis or clubbing, extremities motor strength 5/5 Skin no rashes, warm and dry Neurologic moves all extremities and awake Psychiatric Orientation: alert, oriented to person and cooperative Discharge Data Allergies Allergy/AdvReac Type Severity Reaction Status Date / Time Sulfa (Sulfonamide Allergy Severe ANAPHYLAXIS Verified 02/24/20 13:00 Antibiotics) Consultations 02/24/20 15:39 ED Decision to Admit Stat 02/24/20 18:14 Consult Sales Systems Engineer Routine Ordered Studies 02/24/20 14:00 CT angio chest PE protocol Stat Hospital Course (1) Pulmonary embolism: Saddle embolus with right heart strain on EKG. Admitting physician had some concern for underlying cancerous etiology given unintentional weight loss although unclear from discussion with the patient whether this is truly unintentional. - Abdomen is distended but at baseline. No specific lab abnormalities concerning for malignancy. CTA chest showed no indication of malignancy. - PSA 3.64 [05/2019] - Seen by PT/OT and did well. - Did well overnight. BP and HR stable. Switched to Xarelto on discharge. Discussed pros/cons of warfarin, but patient prefers DOAC for ease of use. Follow up with PCP in 1-2 weeks. 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 Hold the Trulicity, glimepiride, metformin. - No change in outpatient regimen. (3) Elevated serum creatinine: Baseline Cr ~1.0, eGFR 70. Suspect pre-renal. - Cr returned to baseline by 02/24. 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 Reports resolution of symptoms after x2 TURP. - Monitor (6) Hyperlipidemia: - Continue simvastatin 20mg PO daily Total Time Total Time Spent Total Time Spent (In Minutes): 35 Discharge Plan Discharge Items Patient Disposition: Home - Home Health Services Reason For Visit: SADDLE PULMONARY EMBOLISM Discharge Diagnosis: Pulmonary embolism Condition on Discharge: Good Activity: Resume your previous activity Non-emergency contact: Primary Care Provider Call non-emergency contact if: your symptoms worsen and your temperature is above 101 Follow-up/Referrals: Sherlyn Rainey MD [Primary Care Provider] - 03/03/20 11:30 am (Please, follow up at [facility] with Dr. Rainey on March 03 at 11:30 am. *If you need to change this appointment, call the office at [phone].) Diet: Carb Consistent or DM2 Addtl Attending Provider Instructions: Mr. Garcia, You were admitted to the hospital due to shortness of breath that was caused by a sizable blood clot in the lungs (pulmonary embolism). Luckily, your heart rate and blood pressure remained stable, and we started you on a blood thinner (anticoagulation) to help dissolve this clot. We are restarting your Xarelto. You have been on this in the past when this occurred about 5 years ago. You will take the 15 mg pill two times per day for 3 weeks (21 days), then you get to switch to a daily dosage (which will be 20 mg). For now, just take this medication two times per day and discuss it with your PCP. We had the physical therapy and occupational therapy people see you, and they felt that you did well! However, just because of the extra risks involved if you have a fall now, please do consider using a cane or other support when around, and always be sure to use a handrail when going up or down stairs. Pending Studies at Discharge: No Stand-Alone Forms: My [facility] [employer] Smoking Cessation Medications and DC Order Prescriptions: New Xarelto 15 mg Tablet 15 mg PO BID Qty: 42 RF: 0 Continued omeprazole 20 mg capsule,delayed release(DR/EC) 20 mg PO QAM Qty: 90 RF: 1 Trulicity 0.75 mg/0.5 mL pen injector 0.75 mg SQ .COMPLEX Qty: 2 RF: 4 (DME) blood-glucose meter [OneTouch Ultra2 Meter] Kit See Dose Instructions .ROUTE .MEDSUPPLY Qty: 1 RF: 0 lisinopril 5 mg tablet 5 mg PO DAILY Qty: 90 RF: 3 (DME) OneTouch Ultra Blue Test Strip Strip See Dose Instructions .ROUTE .MEDSUPPLY Qty: 100 RF: 0 metformin 1,000 mg tablet 1,000 mg PO BID Qty: 180 RF: 1 glimepiride 4 mg tablet 4 mg PO BID Qty: 180 RF: 1 simvastatin 20 mg tablet 20 mg PO HS Qty: 90 RF: 1 Discharge Orders: Discharge Order (Routine); Ordered 02/26/20 Ordered By: Mika Baugh Admission Data Admit Date/Time: 02/24/20 15:33 Attending Provider: Mika Baugh Admit Provider: Seven Hummel Primary Care Provider: Sherlyn Rainey Other Providers: Mika Baugh ; Seven Hummel ; Elliott Mckay Other Interventions: Discharge Summary Assessment (RN) Last Done: 02/26/20 14:14 DC Date/Time DO NOT enter until pt leaves facility: 02/26/20 14:51 Coding Level of Care Code D/C Day Management >30 mins Diagnoses Pulmonary embolism I26.92 Acute cor pulmonale presence: unspecified Chronicity: acute Pulmonary embolism type: saddle Diabetes mellitus with neuropathy E11.40 Elevated serum creatinine R79.89 Acid reflux disease K21.9 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
== END 2020-02-26 14:51 | disposition home or self-care (01) | DRG 176 ==
LOC: ED 12:20 → SUATTDRO 15:33 → 1E 15:33

== ENCOUNTER 2020-07-06 19:51 | Observation (INO) ==
[2020-07-06] MEDS ORDERED: SODIUM CHLORIDE 0.9% 500 ML IV ONE (20:13)
[2020-07-06] MEDS ORDERED: ACETAMINOPHEN 1,000 MG/100 ML VIAL IV STA (20:13)
--- NOTE | 2020-07-06 21:00 | XRay Report ---
XR chest 1V portable HISTORY: SEPSIS COMPARISON: Chest 02/24/2020. FINDINGS: The lungs are clear. Cardiac silhouette is normal in size. No pleural effusions. No pneumot horax. IMPRESSION: No acute process. ACT 112: Negative or not required by law. Electronically signed by: Emanuel Meek M.D. 07/06/2020 8:59 PM
[2020-07-06 21:36] LABS: Appearance Urine Cloudy (Clear); Bacteria Urine Automated 4+ (Negative); Blood Urine 3+ (Negative); Color Urine Dark Yellow; Glucose Urine UA 3+ (Negative); Ketones Urine 1+ (Negative); Leukocyte Esterase Urine 2+ (Negative); Nitrite Urine Positive (Negative); Protein Urine 2+ (Negative); RBC Urine Automated >30 /hpf (0-4); Specific Gravity Urine 1.032 (1.000-1.030); Urobilinogen Urine Negative (Negative); WBC Urine Automated >30 /hpf (0-5)
[2020-07-06 21:48] LABS: Bilirubin Urine Negative (Negative); Ictotest Urine Negative (Negative)
[2020-07-06] MEDS ORDERED: DAPTOmycin 475 MG in SYRINGE 0 ML IV ONE (21:51)
[2020-07-06] MEDS ORDERED: PIPERACILL/TAZOBAC CONSULT ACTIVE PRN (21:51)
[2020-07-06] MEDS ORDERED: PIPERACILLIN/TAZOBACTAM 4.5 GM/120 ML BAG IV ONE (21:51)
[2020-07-06 21:57] LABS: Basophils # (auto) 0.01 K/uL (0-0.2); Basophils % (auto) 0.1 %; Hematocrit (blood only) 43.7 % (42-52); Hemoglobin 14.8 g/dL (14.0-18.0); Immature Granulocytes # (auto) 0.04 K/uL (0.00-0.02); Immature Granulocytes % (auto) 0.4 %; Lymphocytes # (auto) 0.76 K/uL (1.2-3.4); Lymphocytes % (auto) 8.4 %; Mean Corpuscular Hemoglobin 29.4 pg (25-34); Mean Corpuscular Hgb Conc 33.9 g/dL (32-36); Mean Corpuscular Volume 86.9 fL (80-100); Mean Platelet Volume 10.1 fL (7.4-10.4); Monocytes # (auto) 0.71 K/uL (0.11-0.59); Monocytes % (auto) 7.8 %; Neutrophils # (auto) 7.57 K/uL (1.4-6.5); Neutrophils % (auto) 83.3 %; Platelet Count 182 K/uL (130-400); RDW Coefficient of Variation 13.5 % (11.5-14.5); RDW Standard Deviation 43.1 fL (36.4-46.3); Red Blood Count 5.03 M/uL (4.7-6.1); White Blood Count 9.09 K/uL (4.8-10.8)
[2020-07-06 22:04] LABS: INR 1.1 (0.9-1.1); Partial Thromboplastin Ratio 1.1; Partial Thromboplastin Time 29.6 Seconds (21.0-31.0); Prothrombin Time 11.7 Seconds (9.0-12.0)
[2020-07-06 22:09] LABS: Alanine Aminotransferase 21 U/L (12-78); Albumin Level 3.3 gm/dl (3.4-5.0); Aspartate Aminotransferase 24 U/L (15-37); BUN Creatinine Ratio 19.1 (10-20); Blood Urea Nitrogen 25 mg/dl (7-18); Calcium 9.1 mg/dl (8.5-10.1); Carbon Dioxide 21 mmol/L (21-32); Chloride 101 mmol/L (98-107); Creatinine Clr Calc Pharmacy 57.8 ml/min; Est GFR (African American) 60.3; Glucose 236 mg/dl (70-99); Magnesium 1.4 mg/dl (1.8-2.4); Potassium 4.2 mmol/L (3.5-5.1); Sodium 132 mmol/L (136-145)
[2020-07-06 22:14] LABS: Alkaline Phosphatase 60 U/L (45-117); Bilirubin,Total 1.4 mg/dl (0.2-1); Globulin 3.5 gm/dl (2.5-4.0); Total Protein 6.8 gm/dl (6.4-8.2); Troponin I < 0.015 ng/ml (0-0.045)
[2020-07-06] MEDS ORDERED: IOVERSOL 100ml IV ONE (22:40)
--- NOTE | 2020-07-07 00:01 | History & Physical Report ---
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 On ER evaluation he is Covid negative with an infected appearing UA. SIRS 2/2 to urinary tract infection/postprocedural bacteremia - Cystoscopy on 07/04 UA with 4+ bacteria, nitrite positive, ketones, leukocyte esterase. UC pending. - CT abdomen pelvis with contrast: Sanchez catheter decompresses the bladder. Correlate clinically if there is concern for cystitis. Large heterogeneous prostate. No hydronephrosis. No radiodense gallstones or pancreatitis. Mild fatty liver. Stomach is underdistended and not well assessed. Colonic diverticuli without diverticulitis. Unremarkable appendix. Pro-Colin 14.48 - Zosyn/Dapto on arrival to ED Troponin negative, no transaminitis Lactate 1.8 Creatinine 1.29 CXR with no acute findings BC drawn on admission pending Ixg-itzfung-rfsxrhusm type 2 diabetes Hold home dulaglutide, metformin, glimepiride SSI weight-based correction factor 40 ratio 14 goal 1001 40 Lantus weight-based 10units Glucose checks AC/at bedtime BMP daily Hyperlipidemia Continue simvastatin 20 mg p.o. nightly History of DVT with PE Continue rivaroxaban 15 mg p.o. twice daily No signs of acute bleeding Hypomagnesemia - Mg 1.4 - Mg 3g IV - Magox 400mg BID - K 4.2 DVT prophylaxis: Anticoagulated with rivaroxaban as above FEN GI: DM Diet Disposition: Med/Surg CODE STATUS: Conditional Code. Wants trial of CPR, medications, ACLS. Does not want intubation or intubation for declining resp status. 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 On ER evaluation he is Covid negative with an infected appearing UA. Mr. Garcia presented to the emergency department with weakness and fever. He r eports that for 1 to 2 days he had felt more weak and had shaking chills. He had slipped to the ground (did not hit his head) due to weakness. The evening prior to admission he checked his temperature at home which was 101.0 F. He denied having any cough, shortness of breath, chest pain, chest pressure, muscle pain, body aches, nausea, vomiting, diarrhea, constipation, new rash, or skin redness. He reports he has chronic obstructive urinary symptoms followed by urology and he had a cystoscopy on 07/04/2020 (2 days prior to presentation, 1 day before his symptoms started). He denies any change in urination, and reports he has not had any dysuria, hematuria, or change in frequency. Medical history: Reviewed Surgical history: Reviewed Medications: Reviewed Family history: Reviewed, noncontributory Social: Uses chew tobacco, 1 can last several days. Declines nicotine patch. Denies alcohol and recreational drug use. CODE STATUS: Conditional code. Would want a trial of chest compressions/ACLS medications, does not want intubation in the setting of a code or for declining respiratory status. Allergies Allergy/AdvReac Type Severity Reaction Status Date / Time Sulfa (Sulfonamide Allergy Severe ANAPHYLAXIS Verified 07/06/20 12:52 Antibiotics) Home Medications Home Medications Medication Instructions Recorded Confirmed Type blood-glucose meter #1 ea 01/26/20 07/06/20 Rx lisinopril 5 mg tablet 5 mg PO DAILY #90 tab 02/23/20 07/06/20 Rx blood sugar diagnostic #100 ea 04/15/20 07/06/20 Rx glimepiride 4 mg tablet 4 mg PO BID #180 tab 04/15/20 07/06/20 Rx metformin 1,000 mg tablet 1,000 mg PO BID #180 tab 04/15/20 07/06/20 Rx omeprazole 20 mg capsule,delayed 20 mg PO QAM #90 cap 04/27/20 07/06/20 Rx release tramadol 50 mg tablet See Rx Instructions PO Q6H PRN #30 04/27/20 07/06/20 Rx tab simvastatin 20 mg tablet 20 mg PO HS #90 tab 05/25/20 07/06/20 Rx rivaroxaban 15 mg tablet 15 mg PO BID #42 tab 06/15/20 07/06/20 Rx dulaglutide 1.5 mg/0.5 mL 1.5 mg SUBCUT .weekly #2 ml 07/06/20 07/06/20 Rx subcutaneous pen injector Past Med/Surg History Medical History (Updated 07/06/20 @ 23:52 by Anthony Mayers MD) Pulmonary embolism Surgical History H/O knee surgery H/O transurethral resection of prostate APRIL 2012 Family History Mother Colorectal cancer Pacemaker Brother Stroke Brother Prostate cancer COPD (chronic obstructive pulmonary disease) Coronary heart disease Denies family history of Ovarian cancer Myocardial infarction Breast cancer Social History Smoking Status: Never smoker Tobacco Type: Cigarettes and Smokeless Tobacco (Dip or Chew) Second Hand Exposure: No; Do You Dip or Chew Tobacco: Yes; Tobacco Cessation Education Requested by Patient: No Hx Alcohol Use: Yes Hx Substance Use: No Preferred Language: Turkmen Communication Ability: Effective Motorcycle Subassembler Required: No Beliefs That Will Affect Care: None marital status: Current Living Situation: Spouse current occupational status: retired current occupation: retired Other Information That Helps Us Care for You: 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 NAD. Cooperative. HEENT: Atraumatic, normocephalic. Pupils equal and reactive to light and accommodation. Extraocular movements intact. Visual acuity grossly intact, hearing grossly intact although slightly hard of hearing. Pulm: CTAB A&P. -wheezes, -rales, -rhonchi. Symmetrical chest rise. No increase work of breathing. No respiratory distress. Cardiac: RRR, -mrg. Radial pulses intact and symmetrical. Abdominal: Softly distended, nontender. BS present. Extremities: [employer] strength, ankle plantarflexion/dorsiflexion 5/5 and symmetrical. Sensation to soft touch grossly intact in hands and feet. Pretibial pitting edema is present, no increased swelling compared to his normal baseline per patient. Results & Data Results & Data ([facility]) Vital Signs (Past 12 Hours) Vital Signs Temp Pulse Resp BP Pulse Ox 07/06/20 22:45 101 H 25 H 92 07/06/20 22:31 106 H 25 H 148/82 H 93 07/06/20 22:30 108 H 25 H 93 07/06/20 22:15 99 H 25 H 93 07/06/20 22:02 103 H 26 H 143/77 H 94 07/06/20 21:45 103 H 27 H 92 07/06/20 21:32 103 H 28 H 132/71 93 07/06/20 21:30 105 H 25 H 07/06/20 21:15 109 H 29 H 07/06/20 20:02 37.2 C 118 H 18 134/72 94 Supervising Physician Co-Signing Physician Notes Patient seen and examined, chart reviewed, case discussed with Dr. Mayers and I agree with his assessment and plan as documented above. Briefly, patient is an 80yo C male, recent cystoscopy presenting with fever/chills/rigors at home. On arrival patient afebrile, HD stable, nontoxic in appearance Skin- NC/AT, PERRL, EOMI, MMM Heart - +S1/S2, Lungs - CTA Abd - +BS, soft, NT/ND, Sanchez in place Ext - No edema Labs and images reviewed Assessment/Plan - sepsis secondary to UTI -Follow cultures -Ceftriaxone -Remainder of plan as above Resident Activity Tracking Resident Involvement: Resident Care Provided Care Provided: Adult Hospital Medicine
--- NOTE | 2020-07-07 00:39 | Emergency Department Note ---
History of Present Illness General Chief complaint: Fever Stated complaint: fever, possible infection Time Seen by Provider: 07/06/20 20:07 Source: patient, family, RN notes reviewed and old records reviewed Mode of arrival: ambulatory Limitations: no limitations History of Present Illness Provider complaint: fevers, rigors Onset (ago): hour(s) 3 Current Pain Intensity: 0 Associated symptoms: + fever/chills; no chest pain, no cough, no diaphoresis, no headaches, no nausea/vomiting, no shortness of breath and no weakness Treatments prior to arrival: none This is an 80-year-old male who presents the emergency department after having a cystoscopy done yesterday. The patient reports high fever as well as rigors. The patient has not taken anything for the fever prior to arrival. He is concerned he has a urinary tract infection. He denies any chest pain shortness of breath abdominal pain. Patient reports he cannot get warm and is violently shaking. Home Medications Home Medications Medication Instructions Recorded Confirmed Type blood-glucose meter #1 ea 01/26/20 07/06/20 Rx lisinopril 5 mg tablet 5 mg PO DAILY #90 tab 02/23/20 07/06/20 Rx blood sugar diagnostic #100 ea 04/15/20 07/06/20 Rx glimepiride 4 mg tablet 4 mg PO BID #180 tab 04/15/20 07/06/20 Rx metformin 1,000 mg tablet 1,000 mg PO BID #180 tab 04/15/20 07/06/20 Rx omeprazole 20 mg capsule,delayed 20 mg PO QAM #90 cap 04/27/20 07/06/20 Rx release simvastatin 20 mg tablet 20 mg PO HS #90 tab 05/25/20 07/06/20 Rx dulaglutide 1.5 mg/0.5 mL 1.5 mg SUBCUT .weekly #2 ml 07/06/20 07/06/20 Rx subcutaneous pen injector Saccharomyces boulardii 250 mg PO DAILY #14 cap 07/10/20 Rx cephalexin 500 mg PO BID #28 cap 07/10/20 Rx phenazopyridine [Pyridium] 100 mg PO TID PRN #14 tab 07/10/20 Rx tramadol 50 mg PO Q6H PRN #20 tab 07/10/20 Rx rivaroxaban 20 mg tablet 20 mg PO DAILY #30 tab 07/11/20 Rx Allergies Allergy/AdvReac Type Severity Reaction Status Date / Time Sulfa (Sulfonamide Allergy Severe ANAPHYLAXIS Verified 07/06/20 12:52 Antibiotics) Past Med/Surg History Medical History (Updated 07/12/20 @ 12:19 by Eron Chavez MD) Diabetes mellitus with neuropathy Hyperlipidemia Pulmonary embolism Surgical History H/O knee surgery H/O transurethral resection of prostate APRIL 2012 Family History Mother Colorectal cancer Pacemaker Brother Stroke Brother Prostate cancer COPD (chronic obstructive pulmonary disease) Coronary heart disease Denies family history of Ovarian cancer Myocardial infarction Breast cancer Social History Smoking Status: Never smoker Tobacco Type: Cigarettes and Smokeless Tobacco (Dip or Chew) Second Hand Exposure: No; Hx Alcohol Use: Yes Hx Substance Use: No Preferred Language: [place]se Communication Ability: Effective Manager Technical Support Required: No Beliefs That Will Affect Care: None marital status: Current Living Situation: Spouse current occupational 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 Feels Safe at Home: Yes caffeine: Yes Dental Care, Regularly: No Physical Activity Frequency: Does not Exercise Seatbelt Use: always Sunscreen Use: No Assistive Devices: None Review of Systems A total of 10 systems reviewed and were otherwise negative Physical Exam Vital Signs Vital Signs - 24 hr 07/06/20 20:02 07/06/20 21:06 07/06/20 21:13 Temperature 37.2 C Temperature Source Oral Pulse Rate 118 H Pulse Rate from SpO2 Sensor Respiratory Rate 18 Respiratory Effort / Characteristics Non-Labored Non-Labored Spontaneous Respiratory Depth Normal Blood Pressure 134/72 Blood Pressure Mean 92 Pulse Oximetry 94 Oxygen Delivery Method Room Air Room Air Room Air Sepsis Recent Fever Within 48 Hours Yes Sepsis New/Unexplained Change in Mental Status No Sepsis Action Taken by Nursing No Action Required 07/06/20 21:15 07/06/20 21:30 07/06/20 21:32 Temperature Temperature Source Pulse Rate 109 H 105 H 103 H Pulse Rate from SpO2 Sensor 104 H Respiratory Rate 29 H 25 H 28 H Respiratory Effort / Characteristics Spontaneous Respiratory Depth Blood Pressure 132/71 Blood Pressure Mean 78 Pulse Oximetry 93 Oxygen Delivery Method Room Air Room Air Sepsis Recent Fever Within 48 Hours Sepsis New/Unexplained Change in Mental Status Sepsis Action Taken by Nursing 07/06/20 21:45 07/06/20 22:00 07/06/20 22:02 Temperature Temperature Source Pulse Rate 103 H 103 H Pulse Rate from SpO2 Sensor 103 H Respiratory Rate 27 H 26 H Respiratory Effort / Characteristics Spontaneous Respiratory Depth Blood Pressure 143/77 H Blood Pressure Mean 100 Pulse Oximetry 92 94 Oxygen Delivery Method Room Air Room Air Sepsis Recent Fever Within 48 Hours Sepsis New/Unexplained Change in Mental Status Sepsis Action Taken by Nursing 07/06/20 22:15 07/06/20 22:30 07/06/20 22:31 Temperature Temperature Source Pulse Rate 99 H 108 H 106 H Pulse Rate from SpO2 Sensor 99 H 108 H 106 H Respiratory Rate 25 H 25 H 25 H Respiratory Effort / Characteristics Spontaneous Respiratory Depth Blood Pressure 148/82 H Blood Pressure Mean 103 Pulse Oximetry 93 93 93 Oxygen Delivery Method Room Air Sepsis Recent Fever Within 48 Hours Sepsis New/Unexplained Change in Mental Status Sepsis Action Taken by Nursing 07/06/20 22:45 07/06/20 23:00 Temperature Temperature Source Pulse Rate 101 H Pulse Rate from SpO2 Sensor 103 H Respiratory Rate 25 H Respiratory Effort / Characteristics Spontaneous Respiratory Depth Blood Pressure Blood Pressure Mean Pulse Oximetry 92 Oxygen Delivery Method Room Air Sepsis Recent Fever Within 48 Hours Sepsis New/Unexplained Change in Mental Status Sepsis Action Taken by Nursing VITAL SIGNS - Vital signs and nursing notes were reviewed. GENERAL - 80-year-old male appearing stated age who is in mild distress. Communicates well with provider and answers questions appropriately. SKIN - Without rashes. HEAD - NC/AT. EYES - PERRL with EOMI bilaterally. Sclera anicteric. Palpebral conjunctiva pink and moist with no injection noted. EARS - No deformities of external structures noted on gross examination bilaterally. No pain elicited with palpation of the tragus bilaterally. External auditory canals without discharge or otorrhea. Tympanic membranes pearly brenner without retraction or bulging. No fluid or purulent material visualized behind the TM. Handle of malleus, umbo, cone of light, pars tensa/flaccid all easily visualized. NOSE - Midline and without cyanosis. No epistaxis or purulent drainage noted. Septum midline without deviation or septal hematoma noted. MOUTH/OROPHARYNX - Without perioral cyanosis. Buccal mucosa pink and moist and without leukoplakia. Tongue midline with equal elevation of palate bilaterally. No tonsillar hypertrophy, erythema, or exudates noted. dentition noted. NECK - Neck with FROM. Supple to palpation. lymphadenopathy noted. No nuchal rigidity. LUNGS - Chest wall symmetric without accessory muscle use, intercostals retractions, or central cyanosis. Normal vesicular breath sounds CTA B/L. No wheezes, rales, or rhonchi appreciated. CARDIAC - RRR with S1/S2. No murmur, rubs, or gallops appreciated. ABDOMEN - Abdominal contour without pulsations or visible masses. BS normoactive all four quadrants. No tenderness, palpable masses, hepatosplenomegaly, or ascites noted. EXTREMITIES - No clubbing or peripheral cyanosis. No pretibial edema present. +3/5 radial, posterior tibial, and dorsalis pedis pulses palpated throughout. +5/5 strength noted in UE/LE bilaterally. NEUROLOGIC - Cranial nerves II through XII grossly intact. Sensory intact to light touch throughout. Patellar reflexes +2/4. PSYCH - A&Ox3 and cooperates fully with examiner. Pt is very pleasant and interacts well with examiner. Course Administered Medications Discontinued Medications Acetaminophen (Acetaminophen 500 Mg Tab) 500 mg PO Q4H PRN PRN Reason: pain Stop: 08/09/20 00:57 Last Admin: 07/10/20 02:55 Dose: 500 mg Documented by: [id number] Hydrocodone Bitart/Acetaminophen (Hydrocodone/Acetamophen 5/325mg Tab) 1 tab PO ONCE ONE Stop: 07/08/20 17:29 Last Admin: 07/08/20 17:46 Dose: 1 tab Documented by: [id number] Cephalexin HCl (Cephalexin 500 Mg Cap) 500 mg PO BID JOSE Stop: 07/19/20 08:59 Last Admin: 07/10/20 08:46 Dose: 500 mg Documented by: [id number] Admin: 07/09/20 20:46 Dose: 500 mg Documented by: [id number] Admin: 07/09/20 08:20 Dose: 500 mg Documented by: [id number] Sodium Chloride (Nss) 500 mls @ 999 mls/hr IV .Q31M ONE Stop: 07/06/20 20:43 Last Infusion: 07/06/20 22:33 Dose: 0 mls/hr Documented by: [id number] Admin: 07/06/20 22:02 Dose: 999 mls/hr Documented by: [id number] Acetaminophen (Ofirmev) 1,000 mg in 100 mls @ 400 mls/hr IV NOW STA Stop: 07/06/20 20:27 Last Infusion: 07/06/20 22:17 Dose: 0 mls/hr Documented by: [id number] Admin: 07/06/20 22:02 Dose: 400 mls/hr Documented by: [id number] Piperacillin Sod/Tazobactam Sod (Zosyn) 4.5 gm in 120 mls @ 240 mls/hr IV NOW ONE Stop: 07/06/20 22:20 Last Infusion: 07/06/20 22:41 Dose: 0 mls/hr Documented by: [id number] Admin: 07/06/20 22:11 Dose: 240 mls/hr Documented by: [id number] Daptomycin 475 mg/ Syringe 9.5 mls @ 4.75 mls/min IV NOW ONE; Protocol Stop: 07/06/20 21:52 Last Admin: 07/06/20 22:15 Dose: 4.75 mls/min Documented by: [id number] Magnesium Sulfate/Dextrose (Magnesium Sulfate / D5w) 1 gm in 100 mls @ 50 mls/hr IV Q2H [facility] Stop: 07/07/20 08:56 Last Infusion: 07/07/20 09:43 Dose: 0 mls/hr Documented by: [id number] Admin: 07/07/20 07:43 Dose: 50 mls/hr Documented by: [id number] Infusion: 07/07/20 07:40 Dose: 50 mls/hr Documented by: [id number] Admin: 07/07/20 05:40 Dose: 50 mls/hr Documented by: [id number] Infusion: 07/07/20 05:40 Dose: 50 mls/hr Documented by: [id number] Admin: 07/07/20 03:42 Dose: 50 mls/hr Documented by: [id number] Ceftriaxone Sodium 2,000 mg/ (Dextrose) 70 mls @ 100 mls/hr IV Q24H [facility]; Protocol Stop: 07/17/20 05:59 Last Infusion: 07/08/20 06:50 Dose: 0 mls/hr Documented by: [id number] Admin: 07/08/20 05:50 Dose: 100 mls/hr Documented by: [id number] Infusion: 07/07/20 06:38 Dose: 0 mls/hr Documented by: [id number] Admin: 07/07/20 05:45 Dose: 100 mls/hr Documented by: [id number] Insulin Aspart (Insulin Aspart 100 Units/Ml 3 Ml Pen) 0 units SC ACHS JOSE Stop: 08/06/20 07:29 Last Admin: 07/10/20 12:59 Dose: 13 units Documented by: [id number] Cosigned by: [id number] Admin: 07/10/20 08:44 Dose: 8 units Documented by: [id number] Cosigned by: [id number] Admin: 07/09/20 20:46 Dose: Not Given Documented by: [id number] Cosigned by: [id number] Admin: 07/09/20 17:06 Dose: 13 units Documented by: [id number] Cosigned by: [id number] Admin: 07/09/20 13:10 Dose: 22 units Documented by: [id number] Cosigned by: [id number] Admin: 07/09/20 08:19 Dose: 10 units Documented by: [id number] Cosigned by: [id number] Admin: 07/08/20 21:04 Dose: 3 units Documented by: [id number] Cosigned by: [id number] Admin: 07/08/20 17:17 Dose: 7 units Documented by: [id number] Cosigned by: [id number] Admin: 07/08/20 12:15 Dose: 12 units Documented by: [id number] Cosigned by: [id number] Admin: 07/08/20 08:18 Dose: 8 units Documented by: [id number] Cosigned by: [id number] Admin: 07/07/20 20:35 Dose: 3 units Documented by: [id number] Cosigned by: [id number] Admin: 07/07/20 17:11 Dose: 8 units Documented by: [id number] Cosigned by: [id number] Admin: 07/07/20 13:23 Dose: 12 units Documented by: [id number] Cosigned by: [id number] Admin: 07/07/20 09:02 Dose: 9 units Documented by: [id number] Cosigned by: [id number] Insulin Glargine (Insulin Glargine Solostar 100 Units/Ml 3 Ml Pen) 10 units SC BID JOSE Stop: 08/06/20 08:59 Last Admin: 07/07/20 09:03 Dose: 10 units Documented by: [id number] Cosigned by: [id number] Insulin Glargine (Insulin Glargine Solostar 100 Units/Ml 3 Ml Pen) 15 units SC BID JOSE Stop: 08/06/20 20:59 Last Admin: 07/10/20 08:42 Dose: 15 units Documented by: [id number] Cosigned by: [id number] Admin: 07/09/20 20:47 Dose: 15 units Documented by: [id number] Cosigned by: [id number] Admin: 07/09/20 08:21 Dose: 15 units Documented by: [id number] Cosigned by: [id number] Admin: 07/08/20 21:05 Dose: 15 units Documented by: [id number] Cosigned by: [id number] Admin: 07/08/20 08:17 Dose: 15 units Documented by: [id number] Cosigned by: [id number] Admin: 07/07/20 20:34 Dose: 15 units Documented by: [id number] Cosigned by: [id number] Ioversol (Ioversol 100ml) 93 ml IV ONCE ONE Stop: 07/06/20 22:41 Last Admin: 07/06/20 22:40 Dose: 1 ml Documented by: [id number] Magnesium Oxide (Magnesium Oxide 400 Mg Tab) 400 mg PO BID [facility] Stop: 08/06/20 08:59 Last Admin: 07/09/20 08:20 Dose: 400 mg Documented by: [id number] Admin: 07/08/20 21:04 Dose: 400 mg Documented by: [id number] Admin: 07/08/20 08:17 Dose: 400 mg Documented by: [id number] Admin: 07/07/20 20:34 Dose: 400 mg Documented by: [id number] Admin: 07/07/20 09:03 Dose: 400 mg Documented by: [id number] Metformin HCl (Metformin Hcl 500 Mg Tab) 1,000 mg PO BIDM [facility] Stop: 08/08/20 11:34 Last Admin: 07/10/20 08:46 Dose: 1,000 mg Documented by: [id number] Admin: 07/09/20 17:06 Dose: 1,000 mg Documented by: [id number] Admin: 07/09/20 13:08 Dose: 1,000 mg Documented by: [id number] Oxybutynin Chloride (Oxybutynin Chloride 5 Mg Tab) 5 mg PO NOW STA Stop: 07/08/20 17:32 Last Admin: 07/08/20 17:47 Dose: 5 mg Documented by: [id number] Oxybutynin Chloride (Oxybutynin Chloride 5 Mg Tab) 5 mg PO NOW STA Stop: 07/09/20 13:24 Last Admin: 07/09/20 13:52 Dose: 5 mg Documented by: [id number] Oxybutynin Chloride (Oxybutynin Chloride 5 Mg Tab) 5 mg PO BID JOSE Stop: 08/08/20 20:59 Last Admin: 07/10/20 11:48 Dose: 5 mg Documented by: [id number] Admin: 07/09/20 20:45 Dose: 5 mg Documented by: [id number] Pantoprazole Sodium (Pantoprazole 40 Mg Tab) 40 mg PO QAM JOSE Stop: 08/06/20 08:59 Last Admin: 07/10/20 08:45 Dose: 40 mg Documented by: [id number] Admin: 07/09/20 08:20 Dose: 40 mg Documented by: [id number] Admin: 07/08/20 08:17 Dose: 40 mg Documented by: [id number] Admin: 07/07/20 09:03 Dose: 40 mg Documented by: [id number] Phenazopyridine HCl (Phenazopyridine Hcl 100 Mg Tab) 100 mg PO TID [facility] Stop: 08/08/20 14:14 Last Admin: 07/10/20 14:30 Dose: 100 mg Documented by: [id number] Admin: 07/10/20 08:45 Dose: 100 mg Documented by: [id number] Admin: 07/09/20 20:48 Dose: 100 mg Documented by: [id number] Admin: 07/09/20 15:50 Dose: 100 mg Documented by: [id number] Rivaroxaban (Rivaroxaban 20 Mg Tab) 20 mg PO QDD [facility] Stop: 08/06/20 16:29 Last Admin: 07/07/20 17:10 Dose: 20 mg Documented by: [id number] Rivaroxaban (Rivaroxaban 20 Mg Tab) 20 mg PO ONE ONE Stop: 07/09/20 20:46 Last Admin: 07/09/20 21:34 Dose: 20 mg Documented by: [id number] Tramadol HCl (Tramadol Hcl 50 Mg Tablet) 50 - 100 mg PO Q6H PRN PRN Reason: pain Stop: 08/06/20 02:56 Last Admin: 07/10/20 03:41 Dose: 50 mg Documented by: [id number] Admin: 07/09/20 21:34 Dose: 50 mg Documented by: [id number] Admin: 07/09/20 15:53 Dose: 50 mg Documented by: [id number] Admin: 07/09/20 06:54 Dose: 50 mg Documented by: [id number] Admin: 07/08/20 15:30 Dose: 100 mg Documented by: [id number] Medical Decision Making Differential Diagnosis Viral syndrome, otitis, pharyngitis, pneumonia, influenza, meningitis, urinary tract infection, sepsis, bacteremia, as well as other pathologies. Medical Records Attestation: I reviewed the patient's medical records. Home Medications Current Medication List: was personally reviewed by me Laboratory Data Attestation: I reviewed the patient's lab results. Result diagrams: 07/10/20 07:24 07/10/20 07:24 Lab Results 07/06/20 07/06/20 07/06/20 Range/Units 21:00 21:00 21:10 WBC (4.8-10.8) K/uL RBC (4.7-6.1) M/uL Hgb (14.0-18.0) g/dL Hct (42-52) % MCV (80-100) fL MCH (25-34) pg MCHC (32-36) g/dL RDW Std Deviation (36.4-46.3) fL RDW Coeff of Rich (11.5-14.5) % Plt Count (130-400) K/uL MPV (7.4-10.4) fL Immature Gran % (Auto) % Neut % (Auto) % Lymph % (Auto) % Mills % (Auto) % Eos % (Auto) % Baso % (Auto) % Neut # (Auto) (1.4-6.5) K/uL Lymph # (Auto) (1.2-3.4) K/uL Mills # (Auto) (0.11-0.59) K/uL Eos # (Auto) (0-0.5) K/uL Baso # (Auto) (0-0.2) K/uL Immature Gran # (Auto) (0.00-0.02) K/uL PT (9.0-12.0) Seconds INR (0.9-1.1) APTT (21.0-31.0) Seconds PTT Ratio Sodium (136-145) mmol/L Potassium (3.5-5.1) mmol/L Chloride (98-107) mmol/L Carbon Dioxide (21-32) mmol/L Anion Gap (3-11) BUN (7-18) mg/dl Creatinine (0.6-1.4) mg/dl Est Cr Clr Drug Dosing ml/min Est GFR ( Amer) Est GFR (Non-Af Amer) BUN/Creatinine Ratio (10-20) Glucose (70-99) mg/dl Lactate (0.4-2.0) mmol/L Calcium (8.5-10.1) mg/dl Magnesium (1.8-2.4) mg/dl Total Bilirubin (0.2-1) mg/dl AST (15-37) U/L ALT (12-78) U/L Alkaline Phosphatase (45-117) U/L Troponin I (0-0.045) ng/ml Total Protein (6.4-8.2) gm/dl Albumin (3.4-5.0) gm/dl Globulin (2.5-4.0) gm/dl Albumin/Globulin Ratio (0.9-2) Procalcitonin (0-0.5) ng/ml Urine Color Dark Yellow Urine Appearance Cloudy A (Clear) Urine pH 5.0 (4.5-7.5) Ur Specific Liberty 1.032 H (1.000-1.030) Urine Protein 2+ H (Negative) Urine Glucose (UA) 3+ H (Negative) Urine Ketones 1+ H (Negative) Urine Blood 3+ H (Negative) Urine Nitrite Positive A (Negative) Urine Bilirubin Negative (Negative) Urine Urobilinogen Negative (Negative) Ur Leukocyte Esterase 2+ H (Negative) Urine WBC (Auto) >30 H (0-5) /hpf Urine RBC (Auto) >30 H (0-4) /hpf U Hyaline Cast (Auto) 1-5 (0-5) /lpf U Epithel Cells (Auto) 10-20 H (0-5) /lpf Urine Bacteria (Auto) 4+ H (Negative) COVID-19 Eval Order Covid19 Done at [facility] COVID-19 PCR NEGATIVE (Negative) 07/06/20 07/06/20 07/06/20 Range/Units 21:27 21:27 21:27 WBC 9.09 (4.8-10.8) K/uL RBC 5.03 (4.7-6.1) M/uL Hgb 14.8 (14.0-18.0) g/dL Hct 43.7 (42-52) % MCV 86.9 (80-100) fL MCH 29.4 (25-34) pg MCHC 33.9 (32-36) g/dL RDW Std Deviation 43.1 (36.4-46.3) fL RDW Coeff of Rich 13.5 (11.5-14.5) % Plt Count 182 (130-400) K/uL MPV 10.1 (7.4-10.4) fL Immature Gran % (Auto) 0.4 % Neut % (Auto) 83.3 % Lymph % (Auto) 8.4 % Mills % (Auto) 7.8 % Eos % (Auto) 0.0 % Baso % (Auto) 0.1 % Neut # (Auto) 7.57 H (1.4-6.5) K/uL Lymph # (Auto) 0.76 L (1.2-3.4) K/uL Mills # (Auto) 0.71 H (0.11-0.59) K/uL Eos # (Auto) 0.00 (0-0.5) K/uL Baso # (Auto) 0.01 (0-0.2) K/uL Immature Gran # (Auto) 0.04 H (0.00-0.02) K/uL PT 11.7 (9.0-12.0) Seconds INR 1.1 (0.9-1.1) APTT 29.6 (21.0-31.0) Seconds PTT Ratio 1.1 Sodium 132 L (136-145) mmol/L Potassium 4.2 (3.5-5.1) mmol/L Chloride 101 (98-107) mmol/L Carbon Dioxide 21 (21-32) mmol/L Anion Gap 9.0 (3-11) BUN 25 H (7-18) mg/dl Creatinine 1.29 (0.6-1.4) mg/dl Est Cr Clr Drug Dosing 57.8 ml/min Est GFR ( Amer) 60.3 Est GFR (Non-Af Amer) 52.0 BUN/Creatinine Ratio 19.1 (10-20) Glucose 236 H (70-99) mg/dl Lactate (0.4-2.0) mmol/L Calcium 9.1 (8.5-10.1) mg/dl Magnesium 1.4 L (1.8-2.4) mg/dl Total Bilirubin 1.4 H (0.2-1) mg/dl AST 24 (15-37) U/L ALT 21 (12-78) U/L Alkaline Phosphatase 60 (45-117) U/L Troponin I < 0.015 (0-0.045) ng/ml Total Protein 6.8 (6.4-8.2) gm/dl Albumin 3.3 L (3.4-5.0) gm/dl Globulin 3.5 (2.5-4.0) gm/dl Albumin/Globulin Ratio 1.0 (0.9-2) Procalcitonin (0-0.5) ng/ml Urine Color Urine Appearance (Clear) Urine pH (4.5-7.5) Ur Specific Liberty (1.000-1.030) Urine Protein (Negative) Urine Glucose (UA) (Negative) Urine Ketones (Negative) Urine Blood (Negative) Urine Nitrite (Negative) Urine Bilirubin (Negative) Urine Urobilinogen (Negative) Ur Leukocyte Esterase (Negative) Urine WBC (Auto) (0-5) /hpf Urine RBC (Auto) (0-4) /hpf U Hyaline Cast (Auto) (0-5) /lpf U Epithel Cells (Auto) (0-5) /lpf Urine Bacteria (Auto) (Negative) COVID-19 Eval Order COVID-19 PCR (Negative) 07/06/20 07/06/20 Range/Units 21:27 21:27 WBC (4.8-10.8) K/uL RBC (4.7-6.1) M/uL Hgb (14.0-18.0) g/dL Hct (42-52) % MCV (80-100) fL MCH (25-34) pg MCHC (32-36) g/dL RDW Std Deviation (36.4-46.3) fL RDW Coeff of Rich (11.5-14.5) % Plt Count (130-400) K/uL MPV (7.4-10.4) fL Immature Gran % (Auto) % Neut % (Auto) % Lymph % (Auto) % Mills % (Auto) % Eos % (Auto) % Baso % (Auto) % Neut # (Auto) (1.4-6.5) K/uL Lymph # (Auto) (1.2-3.4) K/uL Mills # (Auto) (0.11-0.59) K/uL Eos # (Auto) (0-0.5) K/uL Baso # (Auto) (0-0.2) K/uL Immature Gran # (Auto) (0.00-0.02) K/uL PT (9.0-12.0) Seconds INR (0.9-1.1) APTT (21.0-31.0) Seconds PTT Ratio Sodium (136-145) mmol/L Potassium (3.5-5.1) mmol/L Chloride (98-107) mmol/L Carbon Dioxide (21-32) mmol/L Anion Gap (3-11) BUN (7-18) mg/dl Creatinine (0.6-1.4) mg/dl Est Cr Clr Drug Dosing ml/min Est GFR ( Amer) Est GFR (Non-Af Amer) BUN/Creatinine Ratio (10-20) Glucose (70-99) mg/dl Lactate 1.8 (0.4-2.0) mmol/L Calcium (8.5-10.1) mg/dl Magnesium (1.8-2.4) mg/dl Total Bilirubin (0.2-1) mg/dl AST (15-37) U/L ALT (12-78) U/L Alkaline Phosphatase (45-117) U/L Troponin I (0-0.045) ng/ml Total Protein (6.4-8.2) gm/dl Albumin (3.4-5.0) gm/dl Globulin (2.5-4.0) gm/dl Albumin/Globulin Ratio (0.9-2) Procalcitonin 14.48 H (0-0.5) ng/ml Urine Color Urine Appearance (Clear) Urine pH (4.5-7.5) Ur Specific Liberty (1.000-1.030) Urine Protein (Negative) Urine Glucose (UA) (Negative) Urine Ketones (Negative) Urine Blood (Negative) Urine Nitrite (Negative) Urine Bilirubin (Negative) Urine Urobilinogen (Negative) Ur Leukocyte Esterase (Negative) Urine WBC (Auto) (0-5) /hpf Urine RBC (Auto) (0-4) /hpf U Hyaline Cast (Auto) (0-5) /lpf U Epithel Cells (Auto) (0-5) /lpf Urine Bacteria (Auto) (Negative) COVID-19 Eval Order COVID-19 PCR (Negative) Imaging Data Radiologist's Impression: [facility] [place], [place] [phone] XRay Report Patient: ANDRA LIM Admit Date: 07/06/20 MR#: [id number] Address1: [address] [place] [address] Acct ID:[id number] Address2: Date: [address] [facility] Zip: [place] [address] Age: 80 Location: ED Sex: M Room/Bed: Att Phy: Diagnosis: fever, possible infection Yaneth Phy: Sherlyn Rainey MD Service Date: 07/06/20 Fam Phy: Interpreting Phy: Emanuel Meek MD Admit Phy: Ordering Phy: Eron Chavez MD cc: ~ XR chest 1V portable HISTORY: SEPSIS COMPARISON: Chest 02/24/2020. FINDINGS: The lungs are clear. Cardiac silhouette is normal in size. No pleural effusions. No pneumothorax. IMPRESSION: No acute process. ACT 112: Negative or not required by law. Electronically signed by: Emanuel Meek M.D. 07/06/2020 8:59 PM Dictated: 07/06/202057 Transcribed: 07/06/202057 CT abdomen pelvis with contrast: Sanchez catheter decompresses the bladder. Correlate clinically if there is concern for cystitis. Large heterogeneous prostate. No hydronephrosis. No radiodense gallstones or pancreatitis. Mild fatty liver. Stomach is underdistended and not well assessed. Colonic diverticuli without diverticulitis. Unremarkable appendix ECG Data Attestation: I personally reviewed and interpreted this ECG as follows: Indication: + other (fever) Rate (beats per minute): 107 Rhythm: + sinus tachycardia ECG Mathias: + Normal ECG ST segments: no ST depression and no ST elevation Comparison ECG Date: from (02/24/2020) Change: the following changes noted (QT has shortened, T wave inversion no longer evident in anterior and inferior leads) MDM Narrative Patient was seen and evaluated as above in room C1. Review was performed of nursing notes and vital signs. I did review pertinent previous visits and patient history. After obtaining a thorough history and physical examination the above work up was performed. This is an 80-year-old male who presents emergency department complaining of severe fever rigors. The patient is concerned he has a urinary tract infection. Urine is consistent with urinary tract infection. The patient was pancultured. He was swabbed for Covid. He was started on broad-spectrum antibiotics. I did discuss the case with the hospitalist service who did agree to admit the patient. Patient and family are in agreement with treatment plan. An order was placed for continuous cardiac monitoring. The monitor shows a rate of 68 with Normal Sinus rhythm. The patient was evaluated during the global COVID-19 pandemic, and that diagnosis was suspected/considered upon their initial presentation. Their evaluation, treatment and testing was consistent with current guidelines for patients who present with complaints or symptoms that may be related to COVID- 19. 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
[2020-07-07] MEDS ORDERED: CARBOHYDRATES FOR HYPOGLYCEMIA PO PRN (02:57)
[2020-07-07] MEDS ORDERED: GLUCOSE 10 TABS/TUBE PO PRN (02:57)
[2020-07-07] MEDS ORDERED: GLUCOSE 40% GEL 15 GM TUBE PO PRN (02:57)
[2020-07-07] MEDS ORDERED: GLUCAGON FOR INJ 1 MG VIAL SQ PRN (02:57)
[2020-07-07] MEDS ORDERED: DEXTROSE 50% 50 ML SYRINGE IV PRN (02:57)
[2020-07-07] MEDS: MAGNESIUM SULFATE / D5W 1 GM/100 ML BAG IV SCH ×3 (03:42→07:43)
[2020-07-07] MEDS: cefTRIAXone SODIUM 2,000 MG in DEXTROSE 5% 50 ML IV SCH (05:45)
--- NOTE | 2020-07-07 05:45 | Billing Data ---
Date of Service July 07, 2020 Coding Level of Care Code 29388 Initial Inpt Care Lvl 3
[2020-07-07 07:32] LABS: Basophils # (auto) 0.01 K/uL (0-0.2); Basophils % (auto) 0.1 %; Eosinophils # (auto) 0.04 K/uL (0-0.5); Eosinophils % (auto) 0.6 %; Hematocrit (blood only) 44.4 % (42-52); Hemoglobin 14.8 g/dL (14.0-18.0); Immature Granulocytes # (auto) 0.04 K/uL (0.00-0.02); Immature Granulocytes % (auto) 0.6 %; Lymphocytes # (auto) 0.98 K/uL (1.2-3.4); Lymphocytes % (auto) 14.7 %; Mean Corpuscular Hemoglobin 29.3 pg (25-34); Mean Corpuscular Hgb Conc 33.3 g/dL (32-36); Mean Corpuscular Volume 87.9 fL (80-100); Mean Platelet Volume 9.8 fL (7.4-10.4); Monocytes # (auto) 0.55 K/uL (0.11-0.59); Monocytes % (auto) 8.2 %; Neutrophils # (auto) 5.05 K/uL (1.4-6.5); Neutrophils % (auto) 75.8 %; Platelet Count 151 K/uL (130-400); RDW Coefficient of Variation 13.8 % (11.5-14.5); RDW Standard Deviation 44.5 fL (36.4-46.3); Red Blood Count 5.05 M/uL (4.7-6.1); White Blood Count 6.67 K/uL (4.8-10.8)
[2020-07-07 07:59] LABS: Bilirubin,Total 1.3 mg/dl (0.2-1); Creatinine Clr Calc Pharmacy 65.8 ml/min; Est GFR (African American) 71.5; Est GFR (Non-African American) 61.7; Potassium 3.7 mmol/L (3.5-5.1)
[2020-07-07 08:00] LABS: Albumin Globulin Ratio 0.9 (0.9-2); Globulin 3.5 gm/dl (2.5-4.0); Total Protein 6.5 gm/dl (6.4-8.2)
--- NOTE | 2020-07-07 08:12 | CT Scan Report ---
CT SCAN OF THE ABDOMEN AND PELVIS WITH IV CONTRAST CLINICAL HISTORY: Bladder infection. COMPARISON STUDY: Abdominal CT dated 03/12/2016. TECHNIQUE: Following the IV administration of 93 cc of Optiray 320, CT scan of the abdomen and pelvi s is performed from the lung bases to the proximal femora. Images are reviewed in the axial, sagittal , and coronal planes. IV contrast was administered without complication. A dose lowering technique wa s utilized adhering to the principles of ALARA. The examination is compromised by motion artifact. CT DOSE: 1275.66 mGy.cm FINDINGS: Lung bases: The heart is normal in size and without pericardial effusion. The coronary arteries and a ortic valve leaflets are densely calcified. The lung bases are clear noting bibasilar scarring/atelec tasis. There is a small hiatal hernia. Liver: The contrast-enhanced liver is normal in size, contour, and attenuation. There is no intrahepa tic biliary ductal dilatation. The hepatic veins and portal veins are patent. Gallbladder: Unremarkable. Spleen: Normal in size and attenuation. Pancreas: Atrophic and grossly unremarkable. Adrenal glands: Unremarkable. Kidneys: The contrast enhanced kidneys demonstrate cortical atrophy and are without hydronephrosis. T he kidneys enhance symmetrically. Abdominal vasculature: The abdominal aorta is normal in course and caliber noting moderate to advance d atherosclerotic calcification. Bowel: There is moderate to advanced colonic diverticulosis without CT evidence of acute diverticulit is. There is moderate constipation. No bowel obstruction is seen. The appendix is well-visualized an d normal. Peritoneum: There is no intraperitoneal free air or abdominal ascites. There is a small fat-containin g umbilical hernia. Lymphadenopathy: None. Pelvic viscera: The prostate gland is markedly enlarged and heterogeneous, measuring 6.7 cm in transv erse diameter. There is median lobe hypertrophy. The bladder is decompressed and a Sanchez catheter and cannot be evaluated. Skeletal structures: The skeletal structures are osteopenic. There is moderate lumbosacral spondylosi s. No lytic or blastic lesions are seen. IMPRESSION: 1. The bladder is decompressed around a Sanchez catheter and cannot be evaluated. 2. The prostate gland is markedly enlarged and heterogeneous. Correlation with serum PSA levels is re commended. 3. Moderate to advanced colonic diverticulosis without CT evidence of acute diverticulitis. 4. Additional findings as above. ACT 112: Negative or not required by law. Electronically signed by: Mendez Alegre M.D. 07/07/2020 8:10 AM
[2020-07-07 08:27] LABS: Estimated Average Glucose 197 mg/dl; Hemoglobin A1C 8.5 % (4.5-5.6)
[2020-07-07] MEDS ORDERED: INSULIN GLARGINE SOLOSTAR 100 UNITS/ML 3 ML PEN SC SCH (09:00)
[2020-07-07] MEDS: INSULIN ASPART 100 UNITS/ML 3 ML PEN SC SCH ×4 (09:02→20:35)
[2020-07-07] MEDS: PANTOprazole 40 MG TAB PO SCH (09:03)
[2020-07-07] MEDS: MAGNESIUM OXIDE 400 MG TAB PO SCH ×2 (09:03→20:34)
[2020-07-07 09:11] LABS: Magnesium 2.2 mg/dl (1.8-2.4)
[2020-07-07] MEDS ORDERED: RIVAROXABAN 20 MG TAB PO SCH (16:30)
--- NOTE | 2020-07-07 16:40 | Electrocardiogram Report ---
Test Reason : Blood Pressure : / mmHG Vent. 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
--- NOTE | 2020-07-07 19:17 | Hospitalist Progress Note ---
Date of Service July 07, 2020 Assessment & Plan (1) Complicated UTI (urinary tract infection): UTI in the setting of cystoscopy earlier this week. Post-procedural complication. Cont IV rocephin. Follow culture. Easily could have acute prostatitis as well. (2) Sepsis: 2nd to UTI in setting of recent cystoscopy. BPs stable. Blood cx's thus far negative. (3) Benign localized prostatic hyperplasia with lower urinary tract symptoms (LUTS): s/p recent cystoscopy by [facility] [place] [facility]. Not on meds for BPH. 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 still weak, but improved. started with gross hematuria via green this afternoon. able to ambulate to bathroom decently. had bowel movement. appetite good today. no fever/chills. Review of Systems Constitutional: + fatigue; no fever and no chills Respiratory: no dyspnea and no dyspnea on exertion Cardiovascular: no chest pain Gastrointestinal: no abdominal pain, no nausea and no vomiting Physical Exam Constitutional: well developed and well nourished; no acute distress and no altered mental status ENMT: external ear and nose normal, oropharynx normal Respiratory: normal respiratory effort, lungs clear to auscultation Cardiovascular: Rate/Rhythm: regular rate and regular rhythm Heart Sounds: normal S1 and normal S2 Vessels: posterior tibial pulses present and dorsalis pedis pulses present; no JVD Extremities: no edema Gastrointestinal (Abdomen): normal bowel sounds, soft, nontender, no hepatosplenomegaly Inspection/Auscultation: abdomen normal to inspection; abdomen not distended Psychiatric: A+Ox3, euthymic affect Genitourinary: green bag with mild gross hematuria (new per patient) Results & Data Results & Data ([place]) Vital Signs (Past 12 Hours) Vital Signs Temp Pulse Pulse Resp BP BP Pulse Ox 07/07/20 15:41 36.6 C 91 H 18 135/71 93 07/07/20 07:40 36.3 C L 83 18 146/78 H 94 Laboratory Results Laboratory Results - last 24 hr 07/06/20 07/06/20 07/06/20 21:00 21:00 21:10 WBC RBC Hgb Hct MCV MCH MCHC RDW Std Deviation RDW Coeff of Rich Plt Count MPV Immature Gran % (Auto) Neut % (Auto) Lymph % (Auto) [place] % (Auto) Eos % (Auto) Baso % (Auto) Neut # (Auto) Lymph # (Auto) [place] # (Auto) Eos # (Auto) Baso # (Auto) Immature Gran # (Auto) PT INR APTT PTT Ratio Sodium Potassium Chloride Carbon Dioxide Anion Gap BUN Creatinine Est Cr Clr Drug Dosing Est GFR ( Amer) Est GFR (Non-Af Amer) BUN/Creatinine Ratio Glucose POC Glucose Estimat Average Glucose Hemoglobin A1c Lactate Calcium Magnesium Total Bilirubin AST ALT Alkaline Phosphatase Troponin I Total Protein Albumin Globulin Albumin/Globulin Ratio Procalcitonin Urine Color Dark Yellow Urine Appearance Cloudy A Urine pH 5.0 Ur Specific [place] 1.032 H Urine Protein 2+ H Urine Glucose (UA) 3+ H Urine Ketones 1+ H Urine Blood 3+ H Urine Nitrite Positive A Urine Bilirubin Negative Urine Urobilinogen Negative Ur Leukocyte Esterase 2+ H Urine WBC (Auto) >30 H Urine RBC (Auto) >30 H U Hyaline Cast (Auto) 1-5 U Epithel Cells (Auto) 10-20 H Urine Bacteria (Auto) 4+ H COVID-19 Eval Order Covid19 Done at [facility] COVID-19 PCR NEGATIVE 07/06/20 07/06/20 07/06/20 21:27 21:27 21:27 WBC 9.09 RBC 5.03 Hgb 14.8 Hct 43.7 MCV 86.9 MCH 29.4 MCHC 33.9 RDW Std Deviation 43.1 RDW Coeff of Rich 13.5 Plt Count 182 MPV 10.1 Immature Gran % (Auto) 0.4 Neut % (Auto) 83.3 Lymph % (Auto) 8.4 [place] % (Auto) 7.8 Eos % (Auto) 0.0 Baso % (Auto) 0.1 Neut # (Auto) 7.57 H Lymph # (Auto) 0.76 L [place] # (Auto) 0.71 H Eos # (Auto) 0.00 Baso # (Auto) 0.01 Immature Gran # (Auto) 0.04 H PT 11.7 INR 1.1 APTT 29.6 PTT Ratio 1.1 Sodium 132 L Potassium 4.2 Chloride 101 Carbon Dioxide 21 Anion Gap 9.0 BUN 25 H Creatinine 1.29 Est Cr Clr Drug Dosing 57.8 Est GFR ( Amer) 60.3 Est GFR (Non-Af Amer) 52.0 BUN/Creatinine Ratio 19.1 Glucose 236 H POC Glucose Estimat Average Glucose Hemoglobin A1c Lactate Calcium 9.1 Magnesium 1.4 L Total Bilirubin 1.4 H AST 24 ALT 21 Alkaline Phosphatase 60 Troponin I < 0.015 Total Protein 6.8 Albumin 3.3 L Globulin 3.5 Albumin/Globulin Ratio 1.0 Procalcitonin Urine Color Urine Appearance Urine pH Ur Specific [place] Urine Protein Urine Glucose (UA) Urine Ketones Urine Blood Urine Nitrite Urine Bilirubin Urine Urobilinogen Ur Leukocyte Esterase Urine WBC (Auto) Urine RBC (Auto) U Hyaline Cast (Auto) U Epithel Cells (Auto) Urine Bacteria (Auto) COVID-19 Eval Order COVID-19 PCR 07/06/20 07/06/20 07/07/20 21:27 21:27 07:04 WBC 6.67 RBC 5.05 Hgb 14.8 Hct 44.4 MCV 87.9 MCH 29.3 MCHC 33.3 RDW Std Deviation 44.5 RDW Coeff of Rich 13.8 Plt Count 151 MPV 9.8 Immature Gran % (Auto) 0.6 Neut % (Auto) 75.8 Lymph % (Auto) 14.7 [place] % (Auto) 8.2 Eos % (Auto) 0.6 Baso % (Auto) 0.1 Neut # (Auto) 5.05 Lymph # (Auto) 0.98 L [place] # (Auto) 0.55 Eos # (Auto) 0.04 Baso # (Auto) 0.01 Immature Gran # (Auto) 0.04 H PT INR APTT PTT Ratio Sodium Potassium Chloride Carbon Dioxide Anion Gap BUN Creatinine Est Cr Clr Drug Dosing Est GFR ( Amer) Est GFR (Non-Af Amer) BUN/Creatinine Ratio Glucose POC Glucose Estimat Average Glucose Hemoglobin A1c Lactate 1.8 Calcium Magnesium Total Bilirubin AST ALT Alkaline Phosphatase Troponin I Total Protein Albumin Globulin Albumin/Globulin Ratio Procalcitonin 14.48 H Urine Color Urine Appearance Urine pH Ur Specific [place] Urine Protein Urine Glucose (UA) Urine Ketones Urine Blood Urine Nitrite Urine Bilirubin Urine Urobilinogen Ur Leukocyte Esterase Urine WBC (Auto) Urine RBC (Auto) U Hyaline Cast (Auto) U Epithel Cells (Auto) Urine Bacteria (Auto) COVID-19 Eval Order COVID-19 PCR 07/07/20 07/07/20 07/07/20 07:04 07:04 07:30 WBC RBC Hgb Hct MCV MCH MCHC RDW Std Deviation RDW Coeff of Rich Plt Count MPV Immature Gran % (Auto) Neut % (Auto) Lymph % (Auto) [place] % (Auto) Eos % (Auto) Baso % (Auto) Neut # (Auto) Lymph # (Auto) [place] # (Auto) Eos # (Auto) Baso # (Auto) Immature Gran # (Auto) PT INR APTT PTT Ratio Sodium 137 Potassium 3.7 Chloride 103 Carbon Dioxide 24 Anion Gap 9.0 BUN 21 H Creatinine 1.12 Est Cr Clr Drug Dosing 65.8 Est GFR ( Amer) 71.5 Est GFR (Non-Af Amer) 61.7 BUN/Creatinine Ratio 19.0 Glucose 215 H POC Glucose 218 H Estimat Average Glucose 197 Hemoglobin A1c 8.5 H Lactate Calcium 9.0 Magnesium 2.2 Total Bilirubin 1.3 H AST 41 H ALT 22 Alkaline Phosphatase 57 Troponin I Total Protein 6.5 Albumin 3.0 L Globulin 3.5 Albumin/Globulin Ratio 0.9 Procalcitonin Urine Color Urine Appearance Urine pH Ur Specific [place] Urine Protein Urine Glucose (UA) Urine Ketones Urine Blood Urine Nitrite Urine Bilirubin Urine Urobilinogen Ur Leukocyte Esterase Urine WBC (Auto) Urine RBC (Auto) U Hyaline Cast (Auto) U Epithel Cells (Auto) Urine Bacteria (Auto) COVID-19 Eval Order COVID-19 PCR 07/07/20 07/07/20 11:34 16:29 WBC RBC Hgb Hct MCV MCH MCHC RDW Std Deviation RDW Coeff of Rich Plt Count MPV Immature Gran % (Auto) Neut % (Auto) Lymph % (Auto) [place] % (Auto) Eos % (Auto) Baso % (Auto) Neut # (Auto) Lymph # (Auto) [place] # (Auto) Eos # (Auto) Baso # (Auto) Immature Gran # (Auto) PT INR APTT PTT Ratio Sodium Potassium Chloride Carbon Dioxide Anion Gap BUN Creatinine Est Cr Clr Drug Dosing Est GFR ( Amer) Est GFR (Non-Af Amer) BUN/Creatinine Ratio Glucose POC Glucose 298 H 241 H Estimat Average Glucose Hemoglobin A1c Lactate Calcium Magnesium Total Bilirubin AST ALT Alkaline Phosphatase Troponin I Total Protein Albumin Globulin Albumin/Globulin Ratio Procalcitonin Urine Color Urine Appearance Urine pH Ur Specific [place] Urine Protein Urine Glucose (UA) Urine Ketones Urine Blood Urine Nitrite Urine Bilirubin Urine Urobilinogen Ur Leukocyte Esterase Urine WBC (Auto) Urine RBC (Auto) U Hyaline Cast (Auto) U Epithel Cells (Auto) Urine Bacteria (Auto) COVID-19 Eval Order COVID-19 PCR urine cx with GNR, >100,000 PG Care Time/CCT Total # of Minutes Spent Total Time Spent with Patient: Total time spent is greater than 50% in coordination of care (as documented) at patient's floor/unit and/or counseling patient: Coding Level of Care Code 19934 Subseq Hosp Care Lvl 2 Diagnoses Complicated UTI (urinary tract infection) N39.0 Sepsis A41.9 Benign localized prostatic hyperplasia with lower urinary tract symptoms (LUTS) N40.1 History of venous thromboembolism Z86.718 Diabetes mellitus with neuropathy E11.40 Hyperlipidemia E78.5 Gross hematuria R31.0 Magnesium deficiency E61.2 DVT prophylaxis Z29.9
[2020-07-07] MEDS: INSULIN GLARGINE SOLOSTAR 100 UNITS/ML 3 ML PEN SC SCH (20:34)
[2020-07-08] MEDS: cefTRIAXone SODIUM 2,000 MG in DEXTROSE 5% 50 ML IV SCH (05:50)
[2020-07-08 07:38] LABS: BUN Creatinine Ratio 17.4 (10-20); Calcium 9.3 mg/dl (8.5-10.1); Creatinine Clr Calc Pharmacy 67.6 ml/min; Est GFR (African American) 73.9; Est GFR (Non-African American) 63.8; Potassium 4.1 mmol/L (3.5-5.1)
[2020-07-08] MEDS: PANTOprazole 40 MG TAB PO SCH (08:17)
[2020-07-08] MEDS: MAGNESIUM OXIDE 400 MG TAB PO SCH ×2 (08:17→21:04)
[2020-07-08] MEDS: INSULIN GLARGINE SOLOSTAR 100 UNITS/ML 3 ML PEN SC SCH ×2 (08:17→21:05)
[2020-07-08] MEDS: INSULIN ASPART 100 UNITS/ML 3 ML PEN SC SCH ×4 (08:18→21:04)
[2020-07-08 15:28] LABS: Hematocrit (blood only) 44.6 % (42-52); Hemoglobin 14.6 g/dL (14.0-18.0); Mean Corpuscular Hemoglobin 29.1 pg (25-34); Mean Corpuscular Hgb Conc 32.7 g/dL (32-36); Mean Corpuscular Volume 88.8 fL (80-100); Platelet Count 190 K/uL (130-400); RDW Coefficient of Variation 13.8 % (11.5-14.5); RDW Standard Deviation 44.9 fL (36.4-46.3); Red Blood Count 5.02 M/uL (4.7-6.1); White Blood Count 5.15 K/uL (4.8-10.8)
[2020-07-08] MEDS: traMADol HCL 50 MG TABLET PO PRN (15:30)
[2020-07-08] MEDS ORDERED: HYDROCODONE/ACETAMOPHEN 5/325MG TAB PO ONE (17:28)
[2020-07-08] MEDS ORDERED: OXYBUTYNIN CHLORIDE 5 MG TAB PO STA (17:31)
--- NOTE | 2020-07-08 22:17 | Hospitalist Progress Note ---
Date of Service July 08, 2020 Assessment & Plan (1) Complicated UTI (urinary tract infection): UTI in the setting of cystoscopy earlier this week. Post-procedural complication. Culture with near pansensitive e.coli. Will assume he likely has acute prostatitis as well. D/c rocephin, change to keflex 500mg BID and treated for up to 1 month. Blood cx's remain negative. Corresponded with pt's primary urologist - green to be kept in at d/c, and f/u with urology in office THIS COMING WEEK. (2) Gross hematuria: UTI, prostatitis, green trauma, etc - all can contribute green still patent & draining H/H today stable repeat CBC am this is all in the setting of xarelto use will hold xarelto tonight and re-eval tomorrow for ongoing use (3) Sepsis: 2nd to UTI in setting of recent cystoscopy. resolved. Blood cx's thus far negative. (4) Benign localized prostatic hyperplasia with lower urinary tract symptoms (LUTS): s/p recent cystoscopy by [facility] [place] [facility]. Not on meds for BPH. cont green. f/u [facility] [place] urology next week. (5) History of venous thromboembolism: Gross hematuria is worse today. Hold tonight's xarelto. re-eval tomorrow. 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 Admission and Anticipated Discharge Date Admission Date: July 07, 2020 Subjective patient feeling better overall. a little tired but able to ambulate and did well with PT/OT. no fevers/chills. continues with suprapubic pain and bladder spasm. urine continues to be silva-red in color. and daughter updated at bedside. Review of Systems Constitutional: no fatigue and no anorexia Respiratory: no cough, no dyspnea and no dyspnea on exertion Cardiovascular: no chest pain Gastrointestinal: no abdominal pain, no nausea and no vomiting Genitourinary: + hematuria Physical Exam Constitutional: well developed, well nourished and + altered mental status (slightly confused this am ); no acute distress ENMT: external ear and nose normal, oropharynx normal Respiratory: normal respiratory effort, lungs clear to auscultation Cardiovascular: Rate/Rhythm: regular rate and regular rhythm Heart Sounds: normal S1 and normal S2 Vessels: posterior tibial pulses present and dorsalis pedis pulses present; no JVD Extremities: no edema Gastrointestinal (Abdomen): normal bowel sounds, soft, nontender, no hepatosplenomegaly Inspection/Auscultation: abdomen normal to inspection; abdomen not distended Psychiatric: A+Ox3, euthymic affect Results & Data Results & Data ([facility]) Vital Signs (Past 12 Hours) Vital Signs Temp Pulse Resp BP Pulse Ox 07/08/20 15:49 36.5 C 73 18 164/81 H 95 Laboratory Results Laboratory Results - last 24 hr 07/08/20 07/08/20 07/08/20 06:15 07:58 11:27 WBC RBC Hgb Hct MCV MCH MCHC RDW Std Deviation RDW Coeff of Rich Plt Count MPV Sodium 138 Potassium 4.1 Chloride 104 Carbon Dioxide 26 Anion Gap 8.0 BUN 19 H Creatinine 1.09 Est Cr Clr Drug Dosing 67.6 Est GFR ( Amer) 73.9 Est GFR (Non-Af Amer) 63.8 BUN/Creatinine Ratio 17.4 Glucose 182 H POC Glucose 191 H Cancelled Calcium 9.3 07/08/20 07/08/20 07/08/20 11:29 11:30 14:47 WBC 5.15 RBC 5.02 Hgb 14.6 Hct 44.6 MCV 88.8 MCH 29.1 MCHC 32.7 RDW Std Deviation 44.9 RDW Coeff of Rich 13.8 Plt Count 190 MPV 10.0 Sodium Potassium Chloride Carbon Dioxide Anion Gap BUN Creatinine Est Cr Clr Drug Dosing Est GFR ( Amer) Est GFR (Non-Af Amer) BUN/Creatinine Ratio Glucose POC Glucose 319 H* 337 H* Calcium 07/08/20 07/08/20 16:30 20:55 WBC RBC Hgb Hct MCV MCH MCHC RDW Std Deviation RDW Coeff of Rich Plt Count MPV Sodium Potassium Chloride Carbon Dioxide Anion Gap BUN Creatinine Est Cr Clr Drug Dosing Est GFR ( Amer) Est GFR (Non-Af Amer) BUN/Creatinine Ratio Glucose POC Glucose 183 H 207 H Calcium PG Care Time/CCT Total # of Minutes Spent Total Time Spent with Patient: Total time spent is greater than 50% in coordination of care (as documented) at patient's floor/unit and/or counseling patient: Coding Level of Care Code 60440 Subseq Hosp Care Lvl 2 Diagnoses Complicated UTI (urinary tract infection) N39.0 Gross hematuria R31.0 Sepsis A41.9 Benign localized prostatic hyperplasia with lower urinary tract symptoms (LUTS) N40.1 History of venous thromboembolism Z86.718 Diabetes mellitus with neuropathy E11.40 Hyperlipidemia E78.5 Magnesium deficiency E61.2 DVT prophylaxis Z29.9
[2020-07-09 06:24] LABS: Hematocrit (blood only) 44.3 % (42-52); Hemoglobin 14.3 g/dL (14.0-18.0); Mean Corpuscular Hemoglobin 28.8 pg (25-34); Mean Corpuscular Hgb Conc 32.3 g/dL (32-36); Mean Corpuscular Volume 89.1 fL (80-100); Mean Platelet Volume 9.9 fL (7.4-10.4); Platelet Count 182 K/uL (130-400); RDW Coefficient of Variation 13.9 % (11.5-14.5); RDW Standard Deviation 45.7 fL (36.4-46.3); Red Blood Count 4.97 M/uL (4.7-6.1); White Blood Count 4.37 K/uL (4.8-10.8)
[2020-07-09] MEDS: traMADol HCL 50 MG TABLET PO PRN ×3 (06:54→21:34)
[2020-07-09 07:06] LABS: Calcium 8.9 mg/dl (8.5-10.1); Creatinine Clr Calc Pharmacy 70.2 ml/min; Est GFR (African American) 77.3; Est GFR (Non-African American) 66.7; Potassium 4.1 mmol/L (3.5-5.1)
[2020-07-09] MEDS: INSULIN ASPART 100 UNITS/ML 3 ML PEN SC SCH ×4 (08:19→20:46)
[2020-07-09] MEDS: MAGNESIUM OXIDE 400 MG TAB PO SCH (08:20)
[2020-07-09] MEDS: cephALEXin 500 MG CAP PO SCH ×2 (08:20→20:46)
[2020-07-09] MEDS: PANTOprazole 40 MG TAB PO SCH (08:20)
[2020-07-09] MEDS: INSULIN GLARGINE SOLOSTAR 100 UNITS/ML 3 ML PEN SC SCH ×2 (08:21→20:47)
[2020-07-09] MEDS: metFORMIN HCL 500 MG TAB PO SCH ×2 (13:08→17:06)
[2020-07-09] MEDS ORDERED: OXYBUTYNIN CHLORIDE 5 MG TAB PO STA (13:23)
[2020-07-09] MEDS: PHENAZOPYRIDINE HCL 100 MG TAB PO SCH ×2 (15:50→20:48)
--- NOTE | 2020-07-09 20:36 | Hospitalist Progress Note ---
Date of Service July 09, 2020 Assessment & Plan (1) Complicated UTI (urinary tract infection): UTI in the setting of recent cystoscopy. 2nd to e.coli. Will assume he likely has acute prostatitis as well. s/p rocephin - now on keflex 500mg BID. May need Rx for up to 1 month due to concern for prostatitis. Blood cx's remain negative. Corresponded with pt's primary urologist - green to be kept in at d/c, and f/u with urology in office THIS COMING WEEK. (2) Gross hematuria: UTI, prostatitis, green trauma, etc - all likely contributors. green still patent & draining; hematuria nearly resolved. H/H again stable today. 02/2020 - saddle PE. thus, cautiously resume xarelto today. watch for recurrent hematuria. (3) Sepsis: 2nd to UTI in setting of recent cystoscopy. resolved. Blood cx's negative. (4) Benign localized prostatic hyperplasia with lower urinary tract symptoms (LUTS): s/p recent cystoscopy by [facility] [place] [facility]. Not on meds for BPH. cont green. f/u [facility] [place] [facility] next week. 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 resume xarelto today as hematuria is nearly resolved and H/H are stable (6) Diabetes mellitus with neuropathy: uncontrolled increase novolog correction/carb ratio cont lantus BID resume metformin 1gm BID (7) Hyperlipidemia: (8) Magnesium deficiency: replaced, resolved (9) DVT prophylaxis: resume xarelto 20mg daily PT/OT evals appreciated; home with left message for daughter 07/09/20 patient with bladder spasm/pain -- add pyridium 100mg TID; add oxybutinin 5mg BID hopefully home tomorrow if pain controlled and BSGs are improved Admission and Anticipated Discharge Date Admission Date: July 07, 2020 Subjective patient states he has been having intermittent lower abdominal pain/suprapubic pain. comes/goes. at times it is quite severe. had norco with oxybutinin yesterday which "worked very well." hematuria nearly resolved. green still in place. eating well. ambulating ok. Review of Systems Constitutional: no fever, no chills, no fatigue and no anorexia Respiratory: no cough and no dyspnea Cardiovascular: no chest pain Gastrointestinal: as per Subjective / HPI and + abdominal pain; no nausea and no vomiting Physical Exam Constitutional: well developed and well nourished; no acute distress and no altered mental status ENMT: external ear and nose normal, oropharynx normal Respiratory: normal respiratory effort, lungs clear to auscultation Cardiovascular: Rate/Rhythm: regular rate and regular rhythm Heart Sounds: normal S1 and normal S2 Vessels: posterior tibial pulses present and dorsalis pedis pulses present; no JVD Extremities: no edema Gastrointestinal (Abdomen): normal bowel sounds, soft, nontender, no hepatosplenomegaly Inspection/Auscultation: abdomen not distended Psychiatric: A+Ox3, euthymic affect Genitourinary: green in place -- urine concentrated but free of hematuria Results & Data Results & Data ([facility]) Vital Signs (Past 12 Hours) Vital Signs Temp Pulse Resp BP Pulse Ox 07/09/20 15:12 36.4 C L 80 18 137/82 95 Laboratory Results Laboratory Results - last 24 hr 07/08/20 07/09/20 07/09/20 20:55 05:41 05:41 WBC 4.37 L RBC 4.97 Hgb 14.3 Hct 44.3 MCV 89.1 MCH 28.8 MCHC 32.3 RDW Std Deviation 45.7 RDW Coeff of Rich 13.9 Plt Count 182 MPV 9.9 Sodium 136 Potassium 4.1 Chloride 105 Carbon Dioxide 26 Anion Gap 5.0 BUN 19 H Creatinine 1.05 Est Cr Clr Drug Dosing 70.2 Est GFR ( Amer) 77.3 Est GFR (Non-Af Amer) 66.7 BUN/Creatinine Ratio 18.0 Glucose 190 H POC Glucose 207 H Calcium 8.9 07/09/20 07/09/20 07/09/20 07:32 11:27 11:28 WBC RBC Hgb Hct MCV MCH MCHC RDW Std Deviation RDW Coeff of Rich Plt Count MPV Sodium Potassium Chloride Carbon Dioxide Anion Gap BUN Creatinine Est Cr Clr Drug Dosing Est GFR ( Amer) Est GFR (Non-Af Amer) BUN/Creatinine Ratio Glucose POC Glucose 200 H 340 H* 343 H* Calcium 07/09/20 16:25 WBC RBC Hgb Hct MCV MCH MCHC RDW Std Deviation RDW Coeff of Rich Plt Count MPV Sodium Potassium Chloride Carbon Dioxide Anion Gap BUN Creatinine Est Cr Clr Drug Dosing Est GFR ( Amer) Est GFR (Non-Af Amer) BUN/Creatinine Ratio Glucose POC Glucose 158 H Calcium blood cx's remain negative PG Care Time/CCT Total # of Minutes Spent Total Time Spent with Patient: Total time spent is greater than 50% in coordination of care (as documented) at patient's floor/unit and/or counseling patient: Coding Level of Care Code 22826 Subseq Hosp Care Lvl 2 Diagnoses Complicated UTI (urinary tract infection) N39.0 Gross hematuria R31.0 Sepsis A41.9 Benign localized prostatic hyperplasia with lower urinary tract symptoms (LUTS) N40.1 History of venous thromboembolism Z86.718 Diabetes mellitus with neuropathy E11.40 Hyperlipidemia E78.5 Magnesium deficiency E61.2 DVT prophylaxis Z29.9
[2020-07-09] MEDS ORDERED: RIVAROXABAN 20 MG TAB PO ONE (20:45)
[2020-07-09] MEDS: OXYBUTYNIN CHLORIDE 5 MG TAB PO SCH (20:45)
[2020-07-09] MEDS ORDERED: HEPARIN SOD 5,000 UNIT/0.5 ML VIAL SQ SCH (22:00)
[2020-07-10] MEDS ORDERED: ACETAMINOPHEN 500 MG TAB PO PRN (00:58)
[2020-07-10] MEDS: traMADol HCL 50 MG TABLET PO PRN (03:41)
[2020-07-10 08:00] LABS: Hematocrit (blood only) 42.9 % (42-52); Hemoglobin 14.5 g/dL (14.0-18.0)
[2020-07-10 08:37] LABS: BUN Creatinine Ratio 20.3 (10-20); Calcium 9.3 mg/dl (8.5-10.1); Creatinine Clr Calc Pharmacy 68.9 ml/min; Est GFR (African American) 75.6; Est GFR (Non-African American) 65.2; Potassium 4.4 mmol/L (3.5-5.1)
[2020-07-10] MEDS: INSULIN GLARGINE SOLOSTAR 100 UNITS/ML 3 ML PEN SC SCH (08:42)
[2020-07-10] MEDS: INSULIN ASPART 100 UNITS/ML 3 ML PEN SC SCH ×2 (08:44→12:59)
[2020-07-10] MEDS: PHENAZOPYRIDINE HCL 100 MG TAB PO SCH ×2 (08:45→14:30)
[2020-07-10] MEDS: PANTOprazole 40 MG TAB PO SCH (08:45)
[2020-07-10] MEDS: metFORMIN HCL 500 MG TAB PO SCH (08:46)
[2020-07-10] MEDS: cephALEXin 500 MG CAP PO SCH (08:46)
[2020-07-10] MEDS: OXYBUTYNIN CHLORIDE 5 MG TAB PO SCH (11:48)
--- NOTE | 2020-07-10 12:47 | Discharge Summary ---
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 On ER evaluation he is Covid negative with an infected appearing UA. Mr. Garcia presented to the emergency department with weakness and fever. He reports that for 1 to 2 days he had felt more weak and had shaking chills. He had slipped to the ground (did not hit his head) due to weakness. The evening prior to admission he checked his temperature at home which was 101.0 F. He denied having any cough, shortness of breath, chest pain, chest pressure, muscle pain, body aches, nausea, vomiting, diarrhea, constipation, new rash, or skin redness. He reports he has chronic obstructive urinary symptoms followed by urology and he had a cystoscopy on 07/04/2020 (2 days prior to presentation, 1 day before his symptoms started). He denies any change in urination, and reports he has not had any dysuria, hematuria, or change in frequency. Medical history: Reviewed Surgical history: Reviewed Medications: Reviewed Family history: Reviewed, noncontributory Social: Uses chew tobacco, 1 can last several days. Declines nicotine patch. Denies alcohol and recreational drug use. CODE STATUS: Conditional code. Would want a trial of chest compressions/ACLS medications, does not want intubation in the setting of a code or for declining respiratory status. Discharge Exam Constitutional well developed and well nourished; no acute distress and no altered mental status ENMT external ear and nose normal, oropharynx normal Respiratory normal respiratory effort, lungs clear to auscultation Cardiovascular Rate/Rhythm: regular rate and regular rhythm Heart Sounds: normal S1 and normal S2 Vessels: posterior tibial pulses present and dorsalis pedis pulses present; no JVD Extremities: no edema Gastrointestinal (Abdomen) normal bowel sounds, soft, nontender, no hepatosplenomegaly Inspection/Auscultation: abdomen not distended Psychiatric A+Ox3, euthymic affect Discharge Data Allergies Allergy/AdvReac Type Severity Reaction Status Date / Time Sulfa (Sulfonamide Allergy Severe ANAPHYLAXIS Verified 07/06/20 12:52 Antibiotics) Consultations 07/07/20 00:33 ED Decision to Admit Stat Ordered Studies 07/06/20 20:53 CT abd pelvis IV con only Urgent Hospital Course (1) Complicated UTI (urinary tract infection): UTI in the setting of recent cystoscopy. 2nd to e.coli. Will assume he likely has acute prostatitis as well. s/p rocephin - now on keflex 500mg BID. May need Rx for up to 1 month due to concern for prostatitis. Blood cx's remain negative. Corresponded with pt's primary urologist - green to be kept in at d/c, and f/u with urology in office THIS COMING WEEK. (2) Gross hematuria: UTI, prostatitis, green trauma, etc - all likely contributors. green still patent & draining; hematuria nearly resolved. H/H again stable today. 02/2020 - saddle PE. thus, cautiously resume xarelto today. watch for recurrent hematuria. (3) Sepsis: 2nd to UTI in setting of recent cystoscopy. resolved. Blood cx's negative. (4) Benign localized prostatic hyperplasia with lower urinary tract symptoms (LUTS): s/p recent cystoscopy by [facility]. Not on meds for BPH. cont green. f/u [facility] urology next week. 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 resume xarelto today as hematuria is nearly resolved and H/H are stable (6) Diabetes mellitus with neuropathy: uncontrolled increase novolog correction/carb ratio cont lantus BID resume metformin 1gm BID (7) Hyperlipidemia: (8) Magnesium deficiency: replaced, resolved (9) DVT prophylaxis: resume xarelto 20mg daily PT/OT evals appreciated; home with left message for daughter 07/09/20 patient with bladder spasm/pain -- add pyridium 100mg TID; add oxybutinin 5mg BID hopefully home tomorrow if pain controlled and BSGs are improved Discharge Plan Discharge Items Patient Disposition: Home - Self-Care Reason For Visit: FEVER, WEAKNESS Discharge Diagnosis: 1. Urinary tract infection with possible prostatitis 2. gross hematuria (blood in urine) - improving; likely due to #1 Activity: As commented below Activity Comment: increase activities as tolerated Exercise/Sports: Wait until after follow-up appointment Driving/Machine Use: no driving if taking narcotic pain medication Non-emergency contact: Primary Care Provider and Urologist Call non-emergency contact if: you have any medication questions, your symptoms worsen, your pain is not controlled, your pain is worsening and you have a fever Follow-up/Referrals: Tim Oneill MD [Physician] - (see Dr Oneill THIS WEEK; please call his office Saturday am to schedule this follow-up appointment) Sherlyn Rainey MD [Primary Care Provider] - Diet: Carb Consistent or DM2 Addtl Attending Provider Instructions: You were treated for urinary tract infection with IV antibiotics and ultimately oral antibiotics. You had some mild bleeding from your bladder but this cleared as your hospital stay went on. Bladder pain/spasm was treated with various bladder agents. Your symptoms improved with these measures. Blood sugars at times were elevated likely due to the physical stress of your illness. Recommendations: 1. take cephalexin 500mg twice daily for a minimum of 2 weeks. You potentially may need a longer course. I would defer that decision to Dr Oneill and his team. 2. take a probiotic supplement once daily while on your cephalexin. The probiotics may help prevent diarrhea. 3. for bladder pain and spasm - * oxybutinin 5mg every 12 hours as needed * this medication can cause dry mouth, dry eyes, and constipation as side effects 4. for bladder and urethral pain - * pyridium 100mg every 8 hours as needed * this medication will turn your urine orange colored 5. for additional pain relief may take tramadol 50mg every 6 hours as needed for pain. Do not drive a car or drink alcohol if you are taking tramadol. 6. continue on your usual xarelto unless Dr Oneill asks you to stop it. Follow-up - see Dr Oneill THIS WEEK Return to [facility] if - * you have fevers over 100 degrees * you have worsening abdominal pain * you develop severe diarrhea Pending Studies at Discharge: No Stand-Alone Forms: My [facility], Smoking Cessation Medications and DC Order Prescriptions: New cephalexin 500 mg Capsule 500 mg PO BID Qty: 28 RF: 1 phenazopyridine [Pyridium] 100 mg Tablet 100 mg PO TID PRN (Reason: bladder and urine pain ) Qty: 14 RF: 0 oxybutynin chloride 5 mg Tablet 5 mg PO BID PRN (Reason: bladder pain & spasm) Qty: 20 RF: 0 Saccharomyces boulardii 250 mg capsule 250 mg PO DAILY Qty: 14 RF: 1 rivaroxaban 20 mg tablet 20 mg PO DAILY Qty: 30 RF: 0 tramadol 50 mg tablet 50 mg PO Q6H PRN (Reason: pain) Qty: 20 RF: 0 Continued (DME) blood-glucose meter [OneTouch Ultra2 Meter] Kit See Dose Instructions .ROUTE .MEDSUPPLY Qty: 1 RF: 0 lisinopril 5 mg tablet 5 mg PO DAILY Qty: 90 RF: 3 (DME) OneTouch Ultra Blue Test Strip Strip See Dose Instructions .ROUTE .MEDSUPPLY Qty: 100 RF: 2 glimepiride 4 mg tablet 4 mg PO BID Qty: 180 RF: 1 metformin 1,000 mg tablet 1,000 mg PO BID Qty: 180 RF: 1 omeprazole 20 mg capsule,delayed release(DR/EC) 20 mg PO QAM Qty: 90 RF: 1 simvastatin 20 mg tablet 20 mg PO HS Qty: 90 RF: 1 Trulicity 1.5 mg/0.5 mL pen injector 1.5 mg subcut .weekly Qty: 2 RF: 4 Discontinued tramadol 50 mg tablet See Rx Instructions PO Q6H PRN (Reason: pain) Qty: 30 RF: 0 Discharge Orders: Discharge Order (Routine); Ordered 07/10/20 Ordered By: Seven Fuentes/Other Patient Handouts: Managing Type 2 Diabetes Admission Data Admit Date/Time: 07/07/20 01:41 Attending Provider: Seven Chaudhari Admit Provider: Anthony Mayers Primary Care Provider: Sherlyn Rainey Other Providers: Macarena Garcia Coding Diagnoses Complicated UTI (urinary tract infection) N39.0 Gross hematuria R31.0 Sepsis A41.9 Benign localized prostatic hyperplasia with lower urinary tract symptoms (LUTS) N40.1 History of venous thromboembolism Z86.718 Diabetes mellitus with neuropathy E11.40 Hyperlipidemia E78.5 Magnesium deficiency E61.2 DVT prophylaxis Z29.9
== END 2020-07-10 15:58 | disposition home or self-care (01) ==
LOC: ED 19:51 → 2N 07-07 01:41 → SUATTDRO 07-07 01:41 → INTOOBSV 07-07 01:41 → 2N 07-07 02:26

== ENCOUNTER 2021-02-20 17:36 | Observation (INO) ==
--- NOTE | 2021-02-20 19:47 | Emergency Department Note ---
Impression & Plan Acute right flank pain ED Provider Note NAME: ANDRA LIM AGE: 80 SEX: M : 1940 ARRIVES VIA: Walk-In INFORMANT: Patient, ED PROVIDER(S): Jonah Marroquin MD Chief Complaint: Back pain, flank pain HPI: Patient does present with back pain and flank pain that has been ongoing for approximately 8 days. The patient did have a fall but the patient believes this might be kidney stone as his symptoms began prior to the fall. The patient states he had a ground-level fall flying to his right side. The patient denies any midline back pain. No history of kidney stones and did not complain of any dysuria or hematuria. The patient has been having regular bowel movements. Patient had taken some Tylenol at home with only mild improvement in symptoms. Patient does have a prior history of DVT and PE for which she does take Xarelto patient denies any fevers or chills. ROS: See HPI for pertinent positives and negatives. A total of 10 systems were reviewed and otherwise negative. Past medical history: See below Surgical history: See below Social history: See below Physical Exam: GENERAL: Well appearing, well nourished, NAD, non-toxic. EYE EXAM: Normal conjunctiva. PERRL, no anisocoria and EOM's grossly intact w/o pain. NECK: Supple, no nuchal rigidity, no adenopathy, non-tender. No signs of me ningismus. LUNGS: Clear to auscultation. Normal chest wall mechanics. HEART: NSR, no MRG. ABDOMEN: Abdomen soft, non-tender, normo-active bowel sounds, no masses, no rebound or guarding. BACK: Right-sided CVA TTP. SKIN: No rashes and no bruising. UPPER EXTREMITIES: Upper extremities are grossly normal. LOWER EXTREMITIES: Grossly normal, no edema. NEURO EXAM: A&O x3, cranial nerves II-XII grossly intact, normal speech, moves all 4 extremities on command w/o issue. Differential diagnoses: Renal colic, UTI, appendicitis, diverticulitis, mesenteric ischemia, aortic pathology, infections, inflammatory bowel disease, PUD, biliary pathology, as well as other pathologies. Course: Patient was seen and evaluated the bedside. Full history physical exam was performed. Imaging Studies: See below Cardiac monitoring: An order was placed for continuous cardiac monitoring. The monitor shows a rate of 72 with sinus rhythm. MDM: Patient did present with concern for flank pain. Blood work was obtained along CT abdomen pelvis and the patient was treated symptomatically. Patient's blood work shows a normal white count H&H and platelet count. Kidney function is unremarkable. Troponin negative. Urinalysis negative. CT shows a hypodensity in hepatic region of undetermined significance but could be related to hypoperfusion or dilated bile ducts. MRI liver recommended. Given this concern noted reassessed the patient the patient did feel better after 2 doses of pain medication. I did speak the on-call hospitalist and patient was admitted by Dr. Vega. Past Med/Surg History Medical History Acid reflux disease BPH (benign prostatic hyperplasia) Diabetes mellitus with neuropathy Hard of hearing History of skin 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 DEFINITIVE DX OF STROKE, PT NOT SURE - 03/25/01 - EVAL WITH DR JACOBSEN , FURTHER TESTING WAS RECOMMENDED - PT DECLINED Hyperlipidemia Pulmonary embolism 02/24/2020 -- takes xarelto Surgical History H/O transurethral resection of prostate TOTAL OF 4, PT REPORTS MOST RECENT FEW WEEKS AGO AT [facility] - PT REPORTS HEALING...PLANS TO CALL DR JUNIOR OFFICE TO SCHEDULE FOLLOW UP History of arthroscopy of right knee History of left cataract extraction (~09/28/20) Family History Mother Colorectal cancer Pacemaker Brother Stroke Brother Prostate cancer COPD (chronic obstructive pulmonary disease) Coronary heart disease Denies family history of Ovarian cancer Myocardial infarction Breast cancer Social History Smoking Status: Never smoker Tobacco Type: Cigarettes and Smokeless Tobacco (Dip or Chew) Second Hand Exposure: No; Hx Alcohol Use: No Hx Substance Use: No Preferred Language: Greek Communication Ability: Effective Visual Impairment: No Limitations Tool Storage Attendant Required: No Beliefs That Will Affect Care: None marital status: Current Living Situation: Spouse current occupational 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 Feels Safe at Home: Yes caffeine: Yes Dental Care, Regularly: No Physical Activity Frequency: Does not Exercise Seatbelt Use: always Sunscreen Use: No Assistive Devices: Denture - Upper, Denture - Lower and Hearing Aid - Bilateral Allergies Allergies Allergy/AdvReac Type Severity Reaction Status Date / Time Sulfa (Sulfonamide Allergy Severe ANAPHYLAXIS Verified 02/20/21 19:03 Antibiotics) Home Meds Home Medications Medication Instructions Recorded Confirmed Trulicity 1.5 mg SUBCUT WK 08/01/20 02/20/21 lisinopril 5 mg PO QAM 08/01/20 02/20/21 rivaroxaban 20 mg PO QDD 09/15/20 02/20/21 acetaminophen [Tylenol Extra 1,000 mg PO DIRECTED PRN 02/20/21 02/20/21 Strength] Previous Rx's Medication Instructions Recorded blood-glucose meter #1 ea 01/26/20 glimepiride 4 mg tablet 4 mg PO BID #180 tab 10/25/20 metformin 1,000 mg tablet 1,000 mg PO BID #180 tab 10/25/20 omeprazole 20 mg capsule,delayed 20 mg PO QAM #90 cap 11/11/20 release simvastatin 20 mg tablet 20 mg PO HS #90 tab 11/11/20 blood sugar diagnostic #100 ea 12/07/20 Results & Data (ED) Vital Signs Vital Signs - 24 hr 02/20/21 17:40 02/20/21 18:48 02/20/21 20:00 Temperature 36.5 C Temperature Source Temporal Artery Scan Pulse Rate 77 71 Pulse Rate from SpO2 Sensor 71 Pulse Rhythm Regular Pulse Rhythm [Right Finger] Regular Pulse Strength Normal Pulse Strength [Right Finger] Normal Respiratory Rate 20 16 18 Respiratory Effort / Characteristics Non-Labored Spontaneous Non-Labored Spontaneous Respiratory Depth Normal Normal Respiratory Pattern Regular Blood Pressure 136/76 151/82 H Blood Pressure [Left Arm] 113/61 Blood Pressure Mean 96 105 Blood Pressure Mean [Left Arm] 78 Blood Pressure Position Sitting Pulse Oximetry 96 95 95 Oxygen Delivery Method Room Air Room Air Room Air Sepsis Recent Fever Within 48 Hours No Sepsis New/Unexplained Change in Mental Status No Sepsis Action Taken by Nursing No Action Required 02/20/21 20:20 02/20/21 20:30 02/20/21 21:30 Temperature Temperature Source Pulse Rate 72 Pulse Rate from SpO2 Sensor 71 76 Pulse Rhythm Pulse Rhythm [Right Finger] Pulse Strength Pulse Strength [Right Finger] Respiratory Rate 16 Respiratory Effort / Characteristics Respiratory Depth Respiratory Pattern Blood Pressure 129/80 124/70 Blood Pressure [Left Arm] Blood Pressure Mean 96 88 Blood Pressure Mean [Left Arm] Blood Pressure Position Pulse Oximetry 96 96 95 Oxygen Delivery Method Room Air Room Air Sepsis Recent Fever Within 48 Hours Sepsis New/Unexplained Change in Mental Status Sepsis Action Taken by Nursing 02/20/21 22:00 02/20/21 22:30 Temperature Temperature Source Pulse Rate Pulse Rate from SpO2 Sensor 72 67 Pulse Rhythm Pulse Rhythm [Right Finger] Pulse Strength Pulse Strength [Right Finger] Respiratory Rate Respiratory Effort / Characteristics Respiratory Depth Respiratory Pattern Blood Pressure 129/72 129/62 Blood Pressure [Left Arm] Blood Pressure Mean 91 84 Blood Pressure Mean [Left Arm] Blood Pressure Position Pulse Oximetry 94 96 Oxygen Delivery Method Sepsis Recent Fever Within 48 Hours Sepsis New/Unexplained Change in Mental Status Sepsis Action Taken by Custodial Medications Current Medication List: was personally reviewed by me Laboratory Data Attestation: I reviewed the patient's lab results. Result diagrams: 02/20/21 20:10 02/20/21 20:10 Lab Results 02/20/21 02/20/21 02/20/21 Range/Units 20:10 20:10 20:50 WBC 5.47 (4.8-10.8) K/uL RBC 5.24 (4.7-6.1) M/uL Hgb 15.4 (14.0-18.0) g/dL Hct 46.0 (42-52) % MCV 87.8 (80-100) fL MCH 29.4 (25-34) pg MCHC 33.5 (32-36) g/dL RDW Std Deviation 43.5 (36.4-46.3) fL RDW Coeff of Rich 13.5 (11.5-14.5) % Plt Count 239 (130-400) K/uL MPV 9.1 (7.4-10.4) fL Immature Gran % (Auto) 0.7 % Neut % (Auto) 63.1 % Lymph % (Auto) 26.0 % Mower % (Auto) 8.4 % Eos % (Auto) 1.6 % Baso % (Auto) 0.2 % Neut # (Auto) 3.45 (1.4-6.5) K/uL Lymph # (Auto) 1.42 (1.2-3.4) K/uL Mower # (Auto) 0.46 (0.11-0.59) K/uL Eos # (Auto) 0.09 (0-0.5) K/uL Baso # (Auto) 0.01 (0-0.2) K/uL Immature Gran # (Auto) 0.04 H (0.00-0.02) K/uL Sodium 139 (136-145) mmol/L Potassium 4.3 (3.5-5.1) mmol/L Chloride 104 (98-107) mmol/L Carbon Dioxide 28 (21-32) mmol/L Anion Gap 6.0 (3-11) BUN 18 (7-18) mg/dl Creatinine 1.07 (0.6-1.4) mg/dl Est Cr Clr Drug Dosing 69.0 ml/min Est GFR ( Amer) 75.6 ml/min Est GFR (Non-Af Amer) 65.2 ml/min BUN/Creatinine Ratio 17.1 (10-20) Glucose 94 (70-99) mg/dl Calcium 10.1 (8.5-10.1) mg/dl Total Bilirubin 0.8 (0.2-1) mg/dl AST 8 L (15-37) U/L ALT 24 (12-78) U/L Alkaline Phosphatase 76 (45-117) U/L Troponin I < 0.015 (0-0.045) ng/ml Total Protein 7.6 (6.4-8.2) gm/dl Albumin 3.8 (3.4-5.0) gm/dl Globulin 3.8 (2.5-4.0) gm/dl Albumin/Globulin Ratio 1.0 (0.9-2) Lipase 248 (73-393) U/L Urine Color Yellow Urine Appearance Clear (Clear) Urine pH 6.0 (4.5-7.5) Ur Specific [place] 1.009 (1.000-1.030) Urine Protein Negative (Negative) Urine Glucose (UA) Negative (Negative) Urine Ketones Negative (Negative) Urine Blood Negative (Negative) Urine Nitrite Negative (Negative) Urine Bilirubin Negative (Negative) Urine Urobilinogen Negative (Negative) Ur Leukocyte Esterase Negative (Negative) COVID-19 Eval Order 02/20/21 Range/Units 22:30 WBC (4.8-10.8) K/uL RBC (4.7-6.1) M/uL Hgb (14.0-18.0) g/dL Hct (42-52) % MCV (80-100) fL MCH (25-34) pg MCHC (32-36) g/dL RDW Std Deviation (36.4-46.3) fL RDW Coeff of Rich (11.5-14.5) % Plt Count (130-400) K/uL MPV (7.4-10.4) fL Immature Gran % (Auto) % Neut % (Auto) % Lymph % (Auto) % Mower % (Auto) % Eos % (Auto) % Baso % (Auto) % Neut # (Auto) (1.4-6.5) K/uL Lymph # (Auto) (1.2-3.4) K/uL Mower # (Auto) (0.11-0.59) K/uL Eos # (Auto) (0-0.5) K/uL Baso # (Auto) (0-0.2) K/uL Immature Gran # (Auto) (0.00-0.02) K/uL Sodium (136-145) mmol/L Potassium (3.5-5.1) mmol/L Chloride (98-107) mmol/L Carbon Dioxide (21-32) mmol/L Anion Gap (3-11) BUN (7-18) mg/dl Creatinine (0.6-1.4) mg/dl Est Cr Clr Drug Dosing ml/min Est GFR ( Amer) ml/min Est GFR (Non-Af Amer) ml/min BUN/Creatinine Ratio (10-20) Glucose (70-99) mg/dl Calcium (8.5-10.1) mg/dl Total Bilirubin (0.2-1) mg/dl AST (15-37) U/L ALT (12-78) U/L Alkaline Phosphatase (45-117) U/L Troponin I (0-0.045) ng/ml Total Protein (6.4-8.2) gm/dl Albumin (3.4-5.0) gm/dl Globulin (2.5-4.0) gm/dl Albumin/Globulin Ratio (0.9-2) Lipase (73-393) U/L Urine Color Urine Appearance (Clear) Urine pH (4.5-7.5) Ur Specific [place] (1.000-1.030) Urine Protein (Negative) Urine Glucose (UA) (Negative) Urine Ketones (Negative) Urine Blood (Negative) Urine Nitrite (Negative) Urine Bilirubin (Negative) Urine Urobilinogen (Negative) Ur Leukocyte Esterase (Negative) COVID-19 Eval Order Covid19 at [facility] Administered Medications Discontinued Medications Sodium Chloride (Nss) 500 mls @ 999 mls/hr IV .Q31M STA Stop: 02/20/21 20:36 Last Infusion: 02/20/21 20:49 Dose: 0 mls/hr Documented by: [id number] Admin: 02/20/21 20:15 Dose: 999 mls/hr Documented by: [id number] Ioversol (Optiray 320 100ml) 94 ml IV ONCE ONE Stop: 02/20/21 20:59 Last Admin: 02/20/21 20:59 Dose: 1 ml Documented by: [id number] Morphine Sulfate (Morphine Sulfate 4 Mg/Ml 1 Ml Carp\Vial) 4 mg IV NOW STA Stop: 02/20/21 20:07 Last Admin: 02/20/21 20:16 Dose: 4 mg Documented by: [id number] Morphine Sulfate (Morphine Sulfate 4 Mg/Ml 1 Ml Carp\Vial) 4 mg IV NOW STA Stop: 02/20/21 21:13 Last Admin: 02/20/21 21:23 Dose: 4 mg Documented by: [id number] Ondansetron HCl (Ondansetron Inj 2 Mg/Ml 2 Ml Vial) 4 mg IV NOW STA Stop: 02/20/21 20:07 Last Admin: 02/20/21 20:15 Dose: 4 mg Documented by: [id number] Discharge Plan Visit Data Chief Complaint: Back Injury/Pain Stated Complaint: FALL FEW WKS AGO; HIT R SIDE, PAIN IN R SIDE ED Provider: Jonah Marroquin Discharge Problem: Acute right flank pain Forms Stand Alone Forms: My [employer] Prescriptions Prescriptions: No Action (DME) blood-glucose meter [OneTouch Ultra2 Meter] Kit See Dose Instructions .ROUTE .MEDSUPPLY Qty: 1 RF: 0 glimepiride 4 mg tablet 4 mg PO BID Qty: 180 RF: 1 metformin 1,000 mg tablet 1,000 mg PO BID Qty: 180 RF: 1 omeprazole 20 mg capsule,delayed release(DR/EC) 20 mg PO QAM Qty: 90 RF: 1 simvastatin 20 mg tablet 20 mg PO HS Qty: 90 RF: 1 (DME) My [employer] Ultra Blue Test Strip Strip See Dose Instructions .ROUTE .MEDSUPPLY Qty: 100 RF: 2 lisinopril 5 mg tablet 5 mg PO QAM RF: 0 Trulicity 1.5 mg/0.5 mL pen injector 1.5 mg subcut WK RF: 0 rivaroxaban 20 mg tablet 20 mg PO QDD RF: 0 acetaminophen [Tylenol Extra Strength] 500 mg Tablet 1,000 mg PO DIRECTED PRN (Reason: Pain) RF: 0
[2021-02-20] MEDS ORDERED: SODIUM CHLORIDE 0.9% 500 ML IV STA (20:06)
[2021-02-20] MEDS ORDERED: ONDANSETRON INJ 2 MG/ML 2 ML VIAL IV STA (20:06)
[2021-02-20] MEDS ORDERED: MoRPHine SULFATE 4 MG/ML 1 ML CARP\\VIAL IV STA ×2 (20:06→21:12)
[2021-02-20 20:27] LABS: Basophils # (auto) 0.01 K/uL (0-0.2); Basophils % (auto) 0.2 %; Eosinophils # (auto) 0.09 K/uL (0-0.5); Eosinophils % (auto) 1.6 %; Hemoglobin 15.4 g/dL (14.0-18.0); Immature Granulocytes # (auto) 0.04 K/uL (0.00-0.02); Immature Granulocytes % (auto) 0.7 %; Lymphocytes # (auto) 1.42 K/uL (1.2-3.4); Mean Corpuscular Hemoglobin 29.4 pg (25-34); Mean Corpuscular Hgb Conc 33.5 g/dL (32-36); Mean Corpuscular Volume 87.8 fL (80-100); Mean Platelet Volume 9.1 fL (7.4-10.4); Monocytes # (auto) 0.46 K/uL (0.11-0.59); Monocytes % (auto) 8.4 %; Neutrophils # (auto) 3.45 K/uL (1.4-6.5); Neutrophils % (auto) 63.1 %; Platelet Count 239 K/uL (130-400); RDW Coefficient of Variation 13.5 % (11.5-14.5); RDW Standard Deviation 43.5 fL (36.4-46.3); Red Blood Count 5.24 M/uL (4.7-6.1); White Blood Count 5.47 K/uL (4.8-10.8)
[2021-02-20 20:45] LABS: Alanine Aminotransferase 24 U/L (12-78); Albumin Level 3.8 gm/dl (3.4-5.0); Aspartate Aminotransferase 8 U/L (15-37); BUN Creatinine Ratio 17.1 (10-20); Blood Urea Nitrogen 18 mg/dl (7-18); Calcium 10.1 mg/dl (8.5-10.1); Carbon Dioxide 28 mmol/L (21-32); Chloride 104 mmol/L (98-107); Est GFR (African American) 75.6 ml/min; Est GFR (Non-African American) 65.2 ml/min; Glucose 94 mg/dl (70-99); Lipase 248 U/L (73-393); Potassium 4.3 mmol/L (3.5-5.1); Sodium 139 mmol/L (136-145)
[2021-02-20 20:50] LABS: Alkaline Phosphatase 76 U/L (45-117); Bilirubin,Total 0.8 mg/dl (0.2-1); Globulin 3.8 gm/dl (2.5-4.0); Total Protein 7.6 gm/dl (6.4-8.2); Troponin I < 0.015 ng/ml (0-0.045)
[2021-02-20] MEDS ORDERED: OPTIRAY 320 100ml IV ONE (20:58)
[2021-02-20 21:03] LABS: Appearance Urine Clear (Clear); Bilirubin Urine Negative (Negative); Blood Urine Negative (Negative); Color Urine Yellow; Glucose Urine UA Negative (Negative); Ketones Urine Negative (Negative); Leukocyte Esterase Urine Negative (Negative); Nitrite Urine Negative (Negative); Protein Urine Negative (Negative); Specific Gravity Urine 1.009 (1.000-1.030); Urobilinogen Urine Negative (Negative)
--- NOTE | 2021-02-21 00:01 | History & Physical Report ---
Date of Service February 21, 2021 Assessment & Plan (1) Acute right flank pain: Acute right flank pain- Unclear etiology Question possibly associated with undiagnosed diabetic gastroparesis versus worsening GERD versus ulceration Placed on famotidine 20 mg IV every 12 hours Consult gastroenterology in the morning if symptoms persist Present on Admission?: Yes (2) DVT (deep venous thrombosis): DVT/PE- Continue Xarelto Present on Admission?: Yes (3) Pulmonary embolism: See above Present on Admission?: Yes (4) Benign localized hyperplasia of prostate without urinary obstruction: BPH- Monitor for symptoms retention while receiving IV fluids Present on Admission?: Yes (5) Acid reflux disease: Change from omeprazole by mouth to famotidine IV as noted above Present on Admission?: Yes (6) Diabetes mellitus with neuropathy: Hold glimepiride, Metformin and Trulicity Placed on Accu-Cheks before meals and at bedtime with NovoLog coverage per scale Check hemoglobin A1c Present on Admission?: Yes (7) Cognitive impairment: No direct treatment at this time Present on Admission?: Yes History of Present Illness Chief Complaint: The patient presents to the emergency department with right- sided flank and abdominal pain Primary Care Provider: Sherlyn Rainey MD The patient is an 80-year-old male with a past medical history including DVT, BPH, pulmonary embolism, BRIANNA, arthritis, acute UTI, diabetes mellitus, on chronic anticoagulation, GERD and hyperlipidemia. He presents to the emergency department with acute onset right-sided flank and abdominal pain. The patient was COVID-19 negative in the emergency department. CBC with differential, chemistry profile and urinalysis were all normal. CT of abdomen pelvis suggested a possible branching hepatic density. MRCP was normal. Allergies Allergy/AdvReac Type Severity Reaction Status Date / Time Sulfa (Sulfonamide Allergy Severe ANAPHYLAXIS Verified 02/20/21 19:03 Antibiotics) Home Medications Medication Instructions Recorded Confirmed Type blood-glucose meter #1 ea 01/26/20 02/13/21 Rx Trulicity 1.5 mg SUBCUT WK 08/01/20 02/20/21 History lisinopril 5 mg PO QAM 08/01/20 02/20/21 History rivaroxaban 20 mg PO QDD 09/15/20 02/20/21 History glimepiride 4 mg tablet 4 mg PO BID #180 tab 10/25/20 02/20/21 Rx metformin 1,000 mg tablet 1,000 mg PO BID #180 tab 10/25/20 02/20/21 Rx omeprazole 20 mg capsule,delayed 20 mg PO QAM #90 cap 11/11/20 02/20/21 Rx release simvastatin 20 mg tablet 20 mg PO HS #90 tab 11/11/20 02/20/21 Rx blood sugar diagnostic #100 ea 12/07/20 02/13/21 Rx acetaminophen [Tylenol Extra 1,000 mg PO DIRECTED PRN 02/20/21 02/20/21 History Strength] Past Med/Surg History Medical History Acid reflux disease BPH (benign prostatic hyperplasia) Diabetes mellitus with neuropathy Hard of hearing History of skin 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 DEFINITIVE DX OF STROKE, PT NOT SURE - 03/25/01 - EVAL WITH DR JACOBSEN , FURTHER TESTING WAS RECOMMENDED - PT DECLINED Hyperlipidemia Pulmonary embolism 02/24/2020 -- takes xarelto Surgical History H/O transurethral resection of prostate TOTAL OF 4, PT REPORTS MOST RECENT FEW WEEKS AGO AT [facility] - PT REPORTS HEALING...PLANS TO CALL DR JUNIOR OFFICE TO SCHEDULE FOLLOW UP History of arthroscopy of right knee History of left cataract extraction (~09/28/20) Family History Mother Colorectal cancer Pacemaker Brother Stroke Brother Prostate cancer COPD (chronic obstructive pulmonary disease) Coronary heart disease Denies family history of Ovarian cancer Myocardial infarction Breast cancer Social History Smoking Status: Former smoker Tobacco Type: Cigarettes and Smokeless Tobacco (Dip or Chew) Second Hand Exposure: No; Do You Dip or Chew Tobacco: Yes; Tobacco Cessation Education Requested by Patient: No Hx Alcohol Use: No Hx Substance Use: No Preferred Language: Divehi Communication Ability: Effective Visual Impairment: No Limitations Front Desk Receptionist Required: No Beliefs That Will Affect Care: None marital status: Current Living Situation: Spouse current occupational status: retired current occupation: retired Other Information That Helps Us Care for You: 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 Review of Systems Review of Systems: The patient denies chest pain, palpitations, shortness of breath, dyspnea on exertion, cough, lower extremity swelling, sore throat, fevers, chills, sweats, weight change, fatigue, nausea, vomiting, diarrhea , constipation, blood in urine or stool, dysuria, urinary frequency or urgency, lightheadedness, dizziness, headache, memory loss, loss of consciousness, rash, abnormal bruising or bleeding, imbalance, focal or generalized weakness, numbness or tingling in arms or legs, generalized arthralgias or myalgias, back or neck pain, or night sweats. The review of systems is otherwise negative other than for that already noted above, and at least 10 systems have been reviewed. Physical Exam Physical Exam: The patient is awake, alert and oriented 3, well developed and well nourished, normocephalic and atraumatic, lying in bed and in no acute distress. HEENT--PERRL, EOMI, mucous membranes and oropharynx normal. Neck--supple. No JVD. No bruits. Thyroid normal, trachea midline, no adenopathy. Heart--normal S1 and S2. No murmurs, rubs or gallops. Lungs--clear bilaterally, no respiratory distress, no accessory muscle use. Abdomen--normal bowel sounds and soft. Nontender. Nondistended. Obese Extremities--no cyanosis or clubbing. No edema. Dermatologic--normal skin turgor, normal color, no abnormal lymph nodes, no rash. Neurologic--cranial nerves II through XII grossly intact. Rheumatologic--normal range of motion. Psychiatric--normal affect. Results & Data Results & Data ([facility]) Vital Signs (Past 12 Hours) Vital Signs Temp Pulse Resp BP BP Pulse Ox 02/20/21 23:30 65 17 120/61 92 02/20/21 23:00 67 14 125/69 92 02/20/21 22:30 129/62 96 02/20/21 22:00 129/72 94 02/20/21 21:30 124/70 95 02/20/21 20:30 72 16 129/80 96 02/20/21 20:20 96 02/20/21 20:00 71 18 151/82 H 95 02/20/21 18:48 16 113/61 95 02/20/21 17:40 97.7 F 77 20 136/76 96 Laboratory Results Laboratory Results WBC 5.47 K/uL (4.8-10.8) 02/20/21 20:10 RBC 5.24 M/uL (4.7-6.1) 02/20/21 20:10 Hgb 15.4 g/dL (14.0-18.0) 02/20/21 20:10 Hct 46.0 % (42-52) 02/20/21 20:10 MCV 87.8 fL (80-100) 02/20/21 20:10 MCH 29.4 pg (25-34) 02/20/21 20:10 MCHC 33.5 g/dL (32-36) 02/20/21 20:10 RDW Std Deviation 43.5 fL (36.4-46.3) 02/20/21 20:10 RDW Coeff of Rich 13.5 % (11.5-14.5) 02/20/21 20:10 Plt Count 239 K/uL (130-400) 02/20/21 20:10 MPV 9.1 fL (7.4-10.4) 02/20/21 20:10 Immature Gran % (Auto) 0.7 % 02/20/21 20:10 Neut % (Auto) 63.1 % 02/20/21 20:10 Lymph % (Auto) 26.0 % 02/20/21 20:10 Ferry % (Auto) 8.4 % 02/20/21 20:10 Eos % (Auto) 1.6 % 02/20/21 20:10 Baso % (Auto) 0.2 % 02/20/21 20:10 Neut # (Auto) 3.45 K/uL (1.4-6.5) 02/20/21 20:10 Lymph # (Auto) 1.42 K/uL (1.2-3.4) 02/20/21 20:10 Ferry # (Auto) 0.46 K/uL (0.11-0.59) 02/20/21 20:10 Eos # (Auto) 0.09 K/uL (0-0.5) 02/20/21 20:10 Baso # (Auto) 0.01 K/uL (0-0.2) 02/20/21 20:10 Immature Gran # (Auto) 0.04 K/uL (0.00-0.02) H 02/20/21 20:10 Sodium 139 mmol/L (136-145) 02/20/21 20:10 Potassium 4.3 mmol/L (3.5-5.1) 02/20/21 20:10 Chloride 104 mmol/L (98-107) 02/20/21 20:10 Carbon Dioxide 28 mmol/L (21-32) 02/20/21 20:10 Anion Gap 6.0 (3-11) 02/20/21 20:10 BUN 18 mg/dl (7-18) 02/20/21 20:10 Creatinine 1.07 mg/dl (0.6-1.4) 02/20/21 20:10 Est Cr Clr Drug Dosing 69.0 ml/min 02/20/21 20:10 Est GFR ( Amer) 75.6 ml/min 02/20/21 20:10 Est GFR (Non-Af Amer) 65.2 ml/min 02/20/21 20:10 BUN/Creatinine Ratio 17.1 (10-20) 02/20/21 20:10 Glucose 94 mg/dl (70-99) 02/20/21 20:10 Calcium 10.1 mg/dl (8.5-10.1) 02/20/21 20:10 Total Bilirubin 0.8 mg/dl (0.2-1) 02/20/21 20:10 AST 8 U/L (15-37) L 02/20/21 20:10 ALT 24 U/L (12-78) 02/20/21 20:10 Alkaline Phosphatase 76 U/L (45-117) 02/20/21 20:10 Troponin I < 0.015 ng/ml (0-0.045) 02/20/21 20:10 Total Protein 7.6 gm/dl (6.4-8.2) 02/20/21 20:10 Albumin 3.8 gm/dl (3.4-5.0) 02/20/21 20:10 Globulin 3.8 gm/dl (2.5-4.0) 02/20/21 20:10 Albumin/Globulin Ratio 1.0 (0.9-2) 02/20/21 20:10 Lipase 248 U/L (73-393) 02/20/21 20:10 Urine Color Yellow 02/20/21 20:50 Urine Appearance Clear (Clear) 02/20/21 20:50 Urine pH 6.0 (4.5-7.5) 02/20/21 20:50 Ur Specific Ralph 1.009 (1.000-1.030) 02/20/21 20:50 Urine Protein Negative (Negative) 02/20/21 20:50 Urine Glucose (UA) Negative (Negative) 02/20/21 20:50 Urine Ketones Negative (Negative) 02/20/21 20:50 Urine Blood Negative (Negative) 02/20/21 20:50 Urine Nitrite Negative (Negative) 02/20/21 20:50 Urine Bilirubin Negative (Negative) 02/20/21 20:50 Urine Urobilinogen Negative (Negative) 02/20/21 20:50 Ur Leukocyte Esterase Negative (Negative) 02/20/21 20:50 COVID-19 Eval Order Covid19 at [facility] 02/20/21 22:30 SARS-CoV-2 (PCR) NEGATIVE (Negative) 02/20/21 22:30 Diagnostic Findings [facility] Patient: ANDRA LIM (Male) : 40 Status: ER Date: 02/20/21 21:24 Room #: History: rt flank pain appen pres Slices: [phone] Priors: Tech: Thaddeus Hernadez @ [phone] Exams: CT ABDOMEN & PELVIS With Contrast Contrast: IV Amt: 94 ml optiray Accession Numbers: [id number] Preliminary Findings Only See Final Report For Complete Findings CT ABDOMEN & PELVIS With Contrast: Comparison 07/07/2020. Vague branching hepatic hypodensity which extends from the gallbladder fossa into the left hepatic lobe of uncertain significance. Uncertain if this represents a perfusion defect or dilated ducts, thrombosed vascular structure or focal inflammation. Consider correlation with liver MRI, as clinically indicated. Solid organs otherwise unremarkable No renal or ureteral calculus. No hydronephrosis. Calcified abdominal aorta without aneurysm. No calcified gallstones. No biliary dilatation. No bowel obstruction. Unremarkable appendix. Colonic diverticulosis. No definite CT evidence for diverticulitis. Enlarged and heterogeneous prostate gland which indents the bladder base. C entral hypodense defect in the prostate gland which may reflect TURP. Mild bladder wall thickening versus incomplete distention. No acute osseous abnormality. Small fat-containing periumbilical ventral abdominal wall hernia. Radiologist: Sarmad Grier M.D. Study ready at 21:31 and initial results transmitted at 21:50 *This report constitutes a preliminary interpretation only. Non-acute findings felt to be unrelated to the clinical presentation may not be discussed in this report. The study will be interpreted and a final report will be generated by the local Radiologist the following shift. To reach the hospital radiology department call [phone]. If a discrepancy is found between the preliminary and final interpretations of this study, please notify us via our Client Portal at [email or web address].You can also fax this report with a description of the discrepancy, or include the final report, to our daytime fax number [phone].If faxing, please indicate the severity of discrepancy using one of the following categories: [ ] 1 - Agree/Informational [ ] 2 - Unlikely to Affect Management [ ] 3 - Possible Eventual Change of Management [ ] 4 - Probable Immediate Change of Management For all other patient related information, please fax us at [phone]. [id number] [facility] Patient: ANDRA LIM (Male) : 40 Status: ER Date: 02/21/21 01:06 Room #: C10 History: PT STATES HE FELL 1 WEEK AGO. PAIN RIGHT SIDE OF BACK SINCE FALL MRI RECOMMENDED ON STAT RAD REPORT OF CT ABD/PELVIS Slices: [phone] Priors: CAT SCAN ABD/PELVIS Tech: Byron Smith @ [phone] Exams: MRCP Contrast: Accession Numbers: [id number] Preliminary Findings Only See Final Report For Complete Findings MRCP : Small filling defects are seen in the proximal gallbladder which may represent small stones. The gallbladder is otherwise unremarkable without gallbladder wall edema or surrounding fluid. There is no intrahepatic or extrahepatic bile duct dilatation. No common bile duct filling defect is seen. There is no pancreatic ductal dilatation. Radiologist: Vijay Buckley MD Study ready at 01:15 and initial results transmitted at 01:40 *This report constitutes a preliminary interpretation only. Non-acute findings felt to be unrelated to the clinical presentation may not be discussed in this report. The study will be interpreted and a final report will be generated by the local Radiologist the following shift. To reach the hospital radiology department call [phone]. If a discrepancy is found between the preliminary and final interpretations of this study, please notify us via our Client Portal at [email or web address].You can also fax this report with a description of the discrepancy, or include the final report, to our daytime fax number [phone].If faxing, please indicate the severity of discrepancy using one of the following categories: [ ] 1 - Agree/Informational [ ] 2 - Unlikely to Affect Management [ ] 3 - Possible Eventual Change of Management [ ] 4 - Probable Immediate Change of Management For all other patient related information, please fax us at [phone]. [id number] Code Status & VTE Plan Code Status Full code VTE Prophylaxis Plan VTE Prophylaxis will be ordered: Yes PG Care Time/CCT Total # of Minutes Spent Total Time Spent with Patient: Total time spent is greater than 50% in coordination of care (as documented) at patient's floor/unit and/or counseling patient: Coding Level of Care Code 50494 OBS Care - Level 3 Diagnoses Acute right flank pain R10.9 DVT (deep venous thrombosis) I82.409 Pulmonary embolism I26.92 Acute cor pulmonale presence: unspecified Chronicity: acute Pulmonary embolism type: saddle Benign localized hyperplasia of prostate without urinary obstruction N40.0 Acid reflux disease K21.9 Diabetes mellitus with neuropathy E11.40 Cognitive impairment R41.89 (1) Pulmonary embolism Acute cor pulmonale presence: unspecified Chronicity: acute Pulmonary embolism type: saddle Qualified Code(s): I26.92 - Saddle embolus of pulmonary artery without acute cor pulmonale
[2021-02-21] MEDS ORDERED: CARBOHYDRATES FOR HYPOGLYCEMIA PO PRN (01:35)
[2021-02-21] MEDS ORDERED: GLUCAGON FOR INJ 1 MG VIAL SQ PRN (01:35)
[2021-02-21] MEDS ORDERED: ONDANSETRON INJ 2 MG/ML 2 ML VIAL IV PRN (01:35)
[2021-02-21] MEDS ORDERED: GLUCOSE 10 TABS/TUBE PO PRN (01:35)
[2021-02-21] MEDS ORDERED: DEXTROSE 50% 50 ML SYRINGE IV PRN (01:35)
[2021-02-21] MEDS ORDERED: GLUCOSE 40% GEL 15 GM TUBE PO PRN (01:35)
[2021-02-21] MEDS ORDERED: INSULIN ASPART 100 UNITS/ML 3 ML PEN SC SCH ×2 (06:00→16:30)
[2021-02-21 06:31] LABS: Estimated Average Glucose 197 mg/dl; Hemoglobin A1C 8.5 % (4.5-5.6)
--- NOTE | 2021-02-21 07:39 | CT Scan Report ---
CT abd pelvis IV con only CLINICAL HISTORY: R flank pain COMPARISON STUDY: 07/07/2020 TECHNIQUE: Patient was scanned in a dynamic helical fashion during intravenous administration of 94 c c of Optiray 320 A dose lowering technique was utilized adhering to the principles of ALARA. CT DOSE: 1038.89 mGy.cm FINDINGS: Lower chest: There are bibasilar atelectatic changes. Liver: There is stable subtle hypodensity adjacent the gallbladder fossa, likely secondary to focal f at. The main hepatic and portal veins appear patent. There is a stable nonspecific linear hypodensity paralleling the middle hepatic vein. Gallbladder: Unremarkable. Spleen: The spleen is mildly enlarged measuring 14 cm Pancreas: Unremarkable. Adrenal glands: Unremarkable. Kidneys: There is symmetric renal cortical enhancement. The kidneys are normal in size without hydron ephrosis. Bowel: There are no transition zones indicate bowel obstruction. The appendix appears normal. There i s no evidence of acute diverticulitis. Peritoneum: There is no intraperitoneal free air or abdominal ascites. There is a tiny fat-containing umbilical hernia Vasculature: The abdominal aorta is normal in course and caliber. Adenopathy: None. Pelvic viscera: Prostate is enlarged. A TURP defect is visualized. Skeletal structures: No destructive osseous lesions are seen. IMPRESSION: 1. No evidence of bowel obstruction. No evidence of free air 2. Normal appendix. No evidence of acute diverticulitis. 3. Mild splenomegaly 4. Stable nonspecific linear hypodensity within the liver paralleling the middle hepatic vein. ACT 112: Negative or not required by law. Electronically signed by: Ritesh Hewitt M.D. 02/21/2021 7:37 AM
--- NOTE | 2021-02-21 08:49 | Magnetic Resonance Report ---
MRCP CLINICAL HISTORY: Right-sided abdominal pain. Hepatic abnormality questioned by CT. COMPARISON STUDY: Abdominal CT dated 02/20/2021. TECHNIQUE: Abdominal MRCP is performed utilizing various T2 sequences in the axial and coronal planes . 3-D reformats are created and assessed. IV contrast was not administered for this examination. FINDINGS: Tiny gallstones are suspected. The gallbladder is otherwise normal in appearance. There is no intra o r extrahepatic biliary ductal dilatation. The common bile duct measures up to 6 mm diameter. There ar e no intraluminal filling defects to suggest choledocholithiasis. The pancreatic duct is normal in ca liber. The unenhanced liver, spleen, and adrenal glands are grossly normal. The kidneys demonstrate cortical atrophy and are without hydronephrosis. The abdominal aorta is normal in caliber. The pancreas is at rophic. Tiny cystic foci within the pancreas along the course of the pancreatic duct measure up to 4 mm and likely represent tiny sidebranch IPMN's. There is no abdominal ascites. No pleural effusion is identified. The bony structures are grossly unremarkable. IMPRESSION: 1. Tiny gallstones are suspected. 2. Otherwise normal MRCP 3. No hepatic abnormality is identified to correspond to the questioned CT finding. Electronically signed by: Mendez Alegre M.D. 02/21/2021 8:47 AM
--- NOTE | 2021-02-21 12:13 | Hospitalist Progress Note ---
Date of Service February 21, 2021 Assessment & Plan (1) Acute right flank pain: Acute right flank pain- Unclear etiology Question possibly associated with undiagnosed diabetic gastroparesis versus worsening GERD versus ulceration Placed on famotidine 20 mg IV every 12 hours Consult gastroenterology in the morning if symptoms persist (2) DVT (deep venous thrombosis): Prior history of DVT/PE- Continue Xarelto (3) Pulmonary embolism: See above (4) Benign localized hyperplasia of prostate without urinary obstruction: BPH- Monitor for symptoms retention while receiving IV fluids (5) Acid reflux disease: Change from omeprazole by mouth to famotidine IV as noted above (6) Diabetes mellitus with neuropathy: Hold glimepiride, Metformin and Trulicity Placed on Accu-Cheks before meals and at bedtime with NovoLog coverage per scale Check hemoglobin A1c (7) Cognitive impairment: No direct treatment at this time Admission and Anticipated Discharge Date Admission Date: February 21, 2021 Results & Data Results & Data ([facility]) Vital Signs (Past 12 Hours) Vital Signs Temp Pulse Resp BP BP Pulse Ox Pulse Ox 02/21/21 07:04 36.3 C L 76 18 132/73 93 02/21/21 01:30 36.4 C L 68 14 133/77 95 95 02/21/21 01:03 141/76 H 96 PG Care Time/CCT Total # of Minutes Spent Total Time Spent with Patient: Total time spent is greater than 50% in coordination of care (as documented) at patient's floor/unit and/or counseling patient: Coding Diagnoses Acute right flank pain R10.9 DVT (deep venous thrombosis) I82.409 Chronicity: chronic Pulmonary embolism I26.92 Acute cor pulmonale presence: unspecified Chronicity: acute Pulmonary embolism type: saddle Benign localized hyperplasia of prostate without urinary obstruction N40.0 Acid reflux disease K21.9 Diabetes mellitus with neuropathy E11.40 Cognitive impairment R41.89 (1) DVT (deep venous thrombosis) Chronicity: chronic (2) Pulmonary embolism Acute cor pulmonale presence: unspecified Chronicity: acute Pulmonary embo lism type: saddle Qualified Code(s): I26.92 - Saddle embolus of pulmonary artery without acute cor pulmonale
--- NOTE | 2021-02-21 16:39 | Discharge Summary ---
Date of Service February 21, 2021 Admission HPI Per Admitting Provider The patient is an 80-year-old male with a past medical history including DVT, BPH, pulmonary embolism, BRIANNA, arthritis, acute UTI, diabetes mellitus, on chronic anticoagulation, GERD and hyperlipidemia. He presents to the emergency department with acute onset right-sided flank and abdominal pain. The patient was COVID-19 negative in the emergency department. CBC with differential, chemistry profile and urinalysis were all normal. CT of abdomen pelvis suggested a possible branching hepatic density. MRCP was normal. Admission Exam Per Admitting Provider The patient is awake, alert and oriented 3, well developed and well nourished, normocephalic and atraumatic, lying in bed and in no acute distress. HEENT--PERRL, EOMI, mucous membranes and oropharynx normal. Neck--supple. No JVD. No bruits. Thyroid normal, trachea midline, no adenopathy. Heart--normal S1 and S2. No murmurs, rubs or gallops. Lungs--clear bilaterally, no respiratory distress, no accessory muscle use. Abdomen--normal bowel sounds and soft. Nontender. Nondistended. Obese Extremities--no cyanosis or clubbing. No edema. Dermatologic--normal skin turgor, normal color, no abnormal lymph nodes, no rash. Neurologic--cranial nerves II through XII grossly intact. Rheumatologic--normal range of motion. Psychiatric--normal affect. Principal Diagnosis Musculoskeletal pain Discharge Exam Constitutional WD/WN, vitals as above Eyes + anicteric sclerae; normal pupil size Respiratory normal respiratory effort, lungs clear to auscultation Cardiovascular RRR, no murmur, no edema Musculoskeletal Spine: + paraspinal tenderness (Right, near SI joint) Skin no rashes, warm and dry Neurologic moves all extremities and awake; not confused Psychiatric A+Ox3, euthymic affect Discharge Data Allergies Allergy/AdvReac Type Severity Reaction Status Date / Time Sulfa (Sulfonamide Allergy Severe ANAPHYLAXIS Verified 03/01/21 11:32 Antibiotics) Consultations 02/20/21 22:30 ED Decision to Admit Stat Ordered Studies 02/20/21 20:06 CT abd pelvis IV con only Stat IMPRESSION: 1. No evidence of bowel obstruction. No evidence of free air 2. Normal appendix. No evidence of acute diverticulitis. 3. Mild splenomegaly 4. Stable nonspecific linear hypodensity within the liver paralleling the middle hepatic vein. 02/21/21 23:56 MR MRCP Stat IMPRESSION: 1. Tiny gallstones are suspected. 2. Otherwise normal MRCP 3. No hepatic abnormality is identified to correspond to the questioned CT finding. Hospital Course (1) Acute right flank pain: Anthony Garcia is an 80 year old male observed at [facility] from February 20 to 2020 due to right flank pain. CT and MRI showed no acute findings. Suspect his symptoms are muscular in nature secondary to your recent fall as on further questioning with him and his this appears to have started after his recent fall. No change with eating today to suggest gastrop aresis. Consider physical therapy if not improving at home. Use acetaminophen as needed for pain. (2) DVT (deep venous thrombosis): (3) Pulmonary embolism: (4) Benign localized hyperplasia of prostate without urinary obstruction: (5) Acid reflux disease: (6) Diabetes mellitus with neuropathy: (7) Cognitive impairment: Total Time Total Time Spent Total Time Spent (In Minutes): 40 Total Time Includes: Examination of the Patient, Discharge Planning, Medication Reconciliation and Other (discussion with multiple family members) Discharge Plan Discharge Items Patient Disposition: Home - Self-Care Reason For Visit: ABDOMINAL PAIN Discharge Diagnosis: Musculoskeletal pain Activity: Resume your previous activity Non-emergency contact: Primary Care Provider Call non-emergency contact if: you have any medication questions and your symptoms worsen Follow-up/Referrals: Sherlyn Rainey MD [Primary Care Provider] - 03/01/21 11:30 am Diet: Carb Consistent or DM2 Addtl Attending Provider Instructions: You were observed at [facility] from February 20 to 2020 due to right flank pain. CT and MRI showed no acute findings. Suspect your symptoms are muscular in nature secondary to your recent fall. Consider physical therapy if not improving at home. Use acetaminophen as needed for pain. Kind regards, Dr Seven Hummel Pending Studies at Discharge: No Stand-Alone Forms: My [facility] [employer] [place], Smoking Cessation Medications and DC Order Prescriptions: Continued (DME) blood-glucose meter [OneTouch Ultra2 Meter] Kit See Dose Instructions .ROUTE .MEDSUPPLY Qty: 1 RF: 0 (DME) OneTouch Ultra Blue Test Strip Strip See Dose Instructions .ROUTE .MEDSUPPLY Qty: 100 RF: 2 Trulicity 1.5 mg/0.5 mL pen injector 1.5 mg subcut WK RF: 0 rivaroxaban 20 mg tablet 20 mg PO QDD RF: 0 acetaminophen [Tylenol Extra Strength] 500 mg Tablet 1,000 mg PO DIRECTED PRN (Reason: Pain) RF: 0 No Action dulaglutide [Trulicity] 1.5 mg/0.5 mL pen injector RF: 0 rivaroxaban [Xarelto] 20 mg tablet RF: 0 rivaroxaban [Xarelto] 10 mg tablet RF: 0 glimepiride 4 mg tablet 4 mg PO BID Qty: 180 RF: 1 lisinopril 5 mg tablet 5 mg PO QAM Qty: 90 RF: 3 metformin 1,000 mg tablet 1,000 mg PO BID Qty: 180 RF: 1 omeprazole 20 mg capsule,delayed release(DR/EC) 20 mg PO QAM Qty: 90 RF: 1 simvastatin 20 mg tablet 20 mg PO HS Qty: 90 RF: 1 doxycycline hyclate 100 mg tablet 100 mg PO BID 10 Days Qty: 20 RF: 0 cephalexin 500 mg capsule 500 mg PO BID Qty: 14 RF: 0 Discharge Orders: Discharge Order (Routine); Ordered 02/21/21 Ordered By: Seven Fuentes/Other Patient Handouts: Managing Type 2 Diabetes, A1C Admission Data Admit Date/Time: 02/21/21 00:00 Attending Provider: Seven Hummel Admit Provider: Jimmie Méndez Primary Care Provider: Sherlyn Rainey Other Interventions: Discharge Summary Assessment (RN) Last Done: 02/21/21 17:09 Coding Level of Care Code 47330 OBS Care - Discharge Diagnoses Acute right flank pain R10.9 DVT (deep venous thrombosis) I82.409 Chronicity: chronic Pulmonary embolism I26.92 Acute cor pulmonale presence: unspecified Chronicity: acute Pulmonary embolism type: saddle Benign localized hyperplasia of prostate without urinary obstruction N40.0 Acid reflux disease K21.9 Diabetes mellitus with neuropathy E11.40 Cognitive impairment R41.89
== END 2021-02-21 18:46 | disposition home or self-care (01) ==
LOC: 3W 17:36 → ED 17:36 → SUATTDRO 02-21 → 3W 02-21 01:23
DX: E78.5 Hyperlipidemia, unspecified; Z20.822 Contact with and (suspected) exposure to COVID-19; Z88.2 Allergy status to sulfonamides; Z79.01 Long term (current) use of anticoagulants; E11.40 Type 2 diabetes mellitus with diabetic neuropathy, unspecified; Z79.899 Other long term (current) drug therapy; Z86.718 Personal history of other venous thrombosis and embolism; Z86.711 Personal history of pulmonary embolism; Z79.84 Long term (current) use of oral hypoglycemic drugs; Z87.891 Personal history of nicotine dependence; R10.9 Unspecified abdominal pain; K21.9 Gastro-esophageal reflux disease without esophagitis

== ENCOUNTER 2022-04-11 12:49 | Inpatient (IN) ==
--- NOTE | 2022-04-11 12:56 | ED Triage Note ---
Date of Service April 11, 2022 History of Present Illness This patient was briefly evaluated while in triage. An abbreviated physical exam was performed. This patient is a 82-year-old Male with past medical history of HLD, DM, DVT, who presents to the ED for evaluation of progressing chest pressure which started this morning. Pt. states pain radiates into his arms as well. Physical Exam VITALS: Vitals are noted on the nurse's note and reviewed by myself. GENERAL: This is an 82 year old white male, in no acute distress, nondiaphoretic, well-developed well-nourished. SKIN: No rashes, edema, erythema HEAD: Normocephalic atraumatic. NECK: No JVD. LUNGS: No retractions or accessory muscle use. MUSCULOSKELETAL: Normal gait. NEURO: Patient was alert and oriented to person place and time. No focal neurological deficits. Initial orders for labs and / or imaging were placed and patient was placed in the waiting area until a bed is available. Please see further documentation for the full ED course. Results & Data Other Data / Results I did briefly review EKG. No ST elevation or depression.
[2022-04-11 13:43] LABS: Hematocrit (blood only) 51.6 % (40.1-51.0); Hemoglobin 17.2 g/dl (14.0-18.0); Mean Corpuscular Hemoglobin 28.9 pg (25.0-34.0); Mean Corpuscular Volume 86.7 fL (80.0-100.0); Red Blood Count 5.95 M/uL (4.63-6.08)
[2022-04-11 13:44] LABS: Basophils # (auto) 0.04 K/uL (0-0.2); Basophils % (auto) 0.3 %; Eosinophils # (auto) 0.04 K/uL (0-0.50); Eosinophils % (auto) 0.3 %; Immature Granulocytes # (auto) 0.11 K/uL (0.00-0.02); Immature Granulocytes % (auto) 0.9 %; Lymphocytes % (auto) 11.9 %; Mean Corpuscular Hgb Conc 33.3 g/dL (32.0-36.0); Mean Platelet Volume 9.5 fL (9.4-12.4); Monocytes # (auto) 0.92 K/uL (0.24-0.82); Monocytes % (auto) 7.8 %; Neutrophils # (auto) 9.29 K/uL (1.4-6.5); Neutrophils % (auto) 78.8 %; Platelet Count 233 K/uL (130-400); RDW Coefficient of Variation 12.9 % (11.5-14.5); RDW Standard Deviation 39.8 fL (36.4-46.3)
[2022-04-11 13:56] LABS: INR 1.1 (0.9-1.1); Partial Thromboplastin Ratio 1.1; Prothrombin Time 11.7 Seconds (9.0-12.0)
[2022-04-11 14:11] LABS: Alanine Aminotransferase 20 U/L (7-52); Albumin Globulin Ratio 1.2 (0.9-2); Albumin Level 4.2 gm/dl (3.4-5.0); Alkaline Phosphatase 80 U/L (34-104); Anion Gap 11 (3-11); Aspartate Aminotransferase 17 U/L (13-39); BUN Creatinine Ratio 17.5 (10-20); Bilirubin,Total 1.3 mg/dl (0.2-1.0); Blood Urea Nitrogen 20 mg/dl (6-23); Calcium 10.4 mg/dl (8.5-10.1); Carbon Dioxide 25 mmol/L (21-32); Chloride 99 mmol/L (98-107); Est GFR (Non-African American) 59.6 ml/min; Globulin 3.5 gm/dl (2.5-4.0); Glucose 309 mg/dl (70-99(Fasting)); Lipase 32 U/L (11-82); Potassium 4.5 mmol/L (3.5-5.1); Total Protein 7.7 gm/dl (6.0-8.3)
[2022-04-11 14:13] LABS: Sodium 135 mmol/L (136-145)
[2022-04-11 14:14] LABS: Troponin I High Sensitivity 1490.5 pg/ml (0-20)
[2022-04-11] MEDS ORDERED: ONDANSETRON INJ 2 MG/ML 2 ML VIAL IV STA (14:16)
[2022-04-11] MEDS ORDERED: MoRPHine SULFATE 4 MG/ML 1 ML CARP\\VIAL IV STA ×2 (14:16→15:10)
[2022-04-11] MEDS ORDERED: NITROGLYCERIN SL 0.4 MG/TAB TAB SL STA ×3 (14:18→15:10)
--- NOTE | 2022-04-11 14:23 | XRay Report ---
XR chest 1V portable CLINICAL HISTORY: Chest Pain. COMPARISON STUDY: 09/12/2021 TECHNIQUE: 1 view of the chest FINDINGS: Single frontal view of the chest demonstrates the cardiomediastinal silhouette to be within normal li mits. There is a decreased inspiratory effort with elevation of the hemidiaphragms and crowding of th e bronchovascular markings at the lung bases and centrally. The lungs are clear of alveolar opacities . There is no evidence for pleural effusion. There is no evidence for vascular congestion. There is n o acute osseous pathology. IMPRESSION: 1. There is a decreased inspiratory effort with otherwise no acute chest disease. ACT 112: Negative or not required by law. Electronically signed by: Thiago Rocha M.D. 04/11/2022 2:22 PM
[2022-04-11] MEDS ORDERED: SODIUM CHLORIDE 0.9% 1000ML 1,000 ML IV SCH (14:30)
[2022-04-11] MEDS ORDERED: OPTIRAY 320 125ml IV ONE (14:42)
--- NOTE | 2022-04-11 15:04 | CT Scan Report ---
CT angio abdomen pelvis w con CLINICAL HISTORY: cp radiating to back TECHNIQUE: Multidetector row helical CT of the abdomen and pelvis was performed, following intravenou s administration of iodinated contrast. No oral contrast was administered. Automated dose lowering te chniques and/or adjustment according to patient size were utilized for this exam. Coronal and sagitta l reformations were obtained. MIP and 3D volume rendered reconstructions were obtained. Comparison: Comparison is made to CT abdomen pelvis 02/20/2021 FINDINGS: Lower chest: For findings above the diaphragm, please see CT chest performed same day. Liver: Hepatic steatosis is noted. Focal fatty sparing is seen in the bladder fossa. Gallbladder and biliary tree: No calcified gallstones. Normal caliber wall. No intra- or extrahepatic biliary ductal dilation. Pancreas: Unremarkable, no focal lesions. Spleen: Unremarkable. Adrenals: Unremarkable. Kidneys and ureters: Unremarkable. Bladder: Diffuse homogeneous wall thickening is seen. Reproductive organs: Unremarkable. Bowel: Diverticulosis is seen without evidence of diverticulitis. The appendix is normal. There is a small hiatal hernia. Lymph nodes Retroperitoneal: Unremarkable. Pelvic: Unremarkable. Mesenteric: Unremarkable. Peritoneum: Normal. Abdominal wall: A fat-containing umbilical hernia is seen. Bones: Degenerative changes in the visualized spine. CT angiogram: The abdominal aortic contours appear intact without evidence of aneurysmal dilatation a nd/or dissection. There is evidence of scattered atherosclerotic calcifications of the abdominal aor ta and its major branches. The origins of the celiac axis, superior mesenteric, inferior mesenteric and bilateral renal arteries are patent. IMPRESSION: 1. No acute abnormalities, in particular no evidence of aortic dissection or aneurysm. 2. Hepatic steatosis. ACT 112: Negative or not required by law. Electronically signed by: Giovanny Lyons M.D. 04/11/2022 3:03 PM
--- NOTE | 2022-04-11 15:19 | CT Scan Report ---
CT ANGIOGRAPHY OF THE CHEST DISSECTION PROTOCOL CLINICAL HISTORY: Chest pain radiating to back. Evaluate for dissection. COMPARISON STUDY: Chest radiograph performed earlier today. Chest CT November 18, 2020. TECHNIQUE: Before and following the IV administration of 120 mL of Optiray, helical axial images of t he chest were obtained. Maximal intensity projections and sagittal and coronal reformats were viewed on an independent 3D workstation. IV contrast was administered without complication. Automated exp osure control was utilized for the study. A dose lowering technique was utilized adhering to the [facility]. CT DOSE: 2019.31 mGy.cm FINDINGS: Caliber of the thoracic aorta is normal. There is no intramural hematoma or thoracic aorti c dissection. Mild cardiomegaly is noted. There is extensive coronary artery calcification. No centra l pulmonary emboli are identified. A small hiatal hernia is present. A few small pulmonary nodules ar e unchanged from earlier exams. These are benign. There is no consolidation to suggest pneumonia. Gretta ear subpleural opacities reflect atelectasis or scarring. No pneumothorax or pleural effusion is pres ent. There is extensive anterior osteophytosis of the thoracic spine. 2.4 cm lobulated nodule within the superior left breast is unchanged since prior exam. This was previously biopsied. Abdomen and pel vis CT will be reported separately. The gallbladder is distended. There is mild pericholecystic stran ding. IMPRESSION: 1. No thoracic aortic dissection. 2. No acute intrathoracic findings. 3. Mild gallbladder distention with pericholecystic stranding. These findings favor acute cholecystit is. Right upper quadrant ultrasound could be obtained for further evaluation. 4. 2.4 cm superior left breast nodule which is unchanged since prior CT. This was previously biopsied . 5. Extensive coronary artery calcification. ACT 112: Negative or not required by law. Electronically signed by: Aditya Garcia M.D. 04/11/2022 3:17 PM
[2022-04-11] MEDS ORDERED: ASPIRIN CHEW 324 MG PO STA (15:47)
[2022-04-11] MEDS ORDERED: HEPARIN (PORCINE) 1000 UNIT/ML 10 ML (CATH LAB USE ONLY) ONE (16:07)
[2022-04-11] MEDS ORDERED: niCARdipine HCL INJ 2.5 MG/ML 10 ML AMP ONE (16:07)
[2022-04-11] MEDS ORDERED: NITROGLYCERIN/D5W 100MCG/ML 20ML SYR ONE (16:08)
[2022-04-11] MEDS ORDERED: fentaNYL citrate 100 MCG/2 ML VIAL ONE (16:16)
[2022-04-11] MEDS ORDERED: MIDAZOLAM HCL 1 MG/ML 2ML VIAL ONE (16:16)
--- NOTE | 2022-04-11 16:21 | Pre Anesthesia Assessment ---
Date of Service April 11, 2022 Pre Sedation Assessment Vital Signs Temp Pulse Pulse Resp BP BP Pulse Ox 04/11/22 16:02 73 156/73 H 98 04/11/22 15:30 83 20 93 04/11/22 15:30 141/59 H 04/11/22 15:21 92 H 18 92 04/11/22 15:50 04/11/22 14:51 86 21 163/84 H 96 04/11/22 12:53 97.5 F L 81 16 203/98 H 96 O2 Del Method 04/11/22 16:02 04/11/22 15:30 Room Air 04/11/22 15:30 04/11/22 15:21 04/11/22 15:50 Room Air 04/11/22 14:51 Room Air 04/11/22 12:53 Room Air Cardiovascular RRR, no murmur, no edema Respiratory normal respiratory effort, lungs clear to auscultation Pre-Sedation Airway Assessment Smoking Status: Unknown if ever smoked Hx Sleep Apnea: No Hx Difficult Intubation: No Short, Thick Neck: No Thyromental Distance: > or= 3.5 Finger Breadths Oral Cavity: + WNL Mallampati Class: III ASA: ASA3 NPO Status Date of Last Intake of Fluids: 04/11/22 Date of Last Intake of Solid Food: 04/11/22 Procedure Planning Contraindications for Sedation: none Current Medications Reviewed: Yes Notes The planned sedation has been discussed with the patient. Informed Consent was obtained. I have identified the patient, determined the appropriateness of sedation and have assessed the patient immediately prior to the procedure. All medicine(s) and interventions are by my order.
--- NOTE | 2022-04-11 16:24 | Emergency Department Note ---
History of Present Illness General Chief Complaint: Chest Pain Stated Complaint: CHEST PAIN Time Seen by Provider: 04/11/22 14:05 History of Present Illness Provider Complaint: chest pain Onset (ago): day(s) 1 Duration: progressively worsening Onset: during rest Pain Location: substernal and epigastric Pain Radiation: none Severity: severe Maximum Pain Intensity: 10 Current Pain Intensity: 10 Quality: + aching, + sharp and + dull Relieved By: + nothing Exacerbated By: + nothing Context: + history of DVT/PE (on xarelto no missed doses); no recent illness, no recent surgery, no recent travel, no trauma/injury or no new medications Associated symptoms: + nausea and + dyspnea; no vomiting, no syncope, no fever or no cough Home Medications Medication Instructions Recorded Confirmed Type blood-glucose meter (ZeusControlsTouch #1 ea 01/26/20 04/10/22 Rx Ultra2 Meter kit) rivaroxaban 20 mg tablet 20 mg PO QDD 09/15/20 04/10/22 History acetaminophen 500 mg tablet 1,000 mg PO DIRECTED PRN Pain 02/20/21 04/10/22 History (Tylenol Extra Strength) hydrocortisone-acetic acid 1 %-2 % 5 drp otic (ear) BID #10 mL 09/08/21 04/10/22 Rx ear drops magnesium oxide 400 mg (241.3 mg 400 mg PO DAILY #7 tabs 09/12/21 04/10/22 Rx magnesium) tablet (MagOx) lisinopril 5 mg tablet 5 mg PO QAM #90 tabs 10/26/21 04/10/22 Rx trazodone 50 mg tablet See Rx Instructions PO HS #14 tabs 10/26/21 04/10/22 Rx blood sugar diagnostic #100 ea 02/01/22 04/10/22 Rx dulaglutide 1.5 mg/0.5 mL 1.5 mg (0.5 mL) subcut .weekly #2 02/22/22 04/10/22 Rx subcutaneous pen injector mL glimepiride 4 mg tablet 4 mg PO BID #180 tabs 02/22/22 04/10/22 Rx metformin 1,000 mg tablet 1,000 mg PO BID #180 tabs 02/22/22 04/10/22 Rx omeprazole 20 mg capsule,delayed 20 mg PO QAM #90 caps 02/22/22 04/10/22 Rx release simvastatin 20 mg tablet 20 mg PO HS #90 tabs 02/22/22 04/10/22 Rx empagliflozin 10 mg tablet 10 mg PO DAILY #30 tabs 03/29/22 04/10/22 Rx (Jardiance) Allergies Allergy/AdvReac Type Severity Reaction Status Date / Time Sulfa (Sulfonamide Allergy Severe ANAPHYLAXIS Verified 04/10/22 13:34 Antibiotics) Past Med/Surg History Medical History Acid reflux disease BPH (benign prostatic hyperplasia) Diabetes mellitus with neuropathy Fever of unknown origin Hard of hearing History of skin 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 Sensorineural hearing loss (SNHL) of right ear with restricted hearing of left ear No word recognition in right ear Surgical History H/O transurethral resection of prostate TOTAL OF 4, PT REPORTS MOST RECENT FEW WEEKS AGO AT [facility] - PT REPORTS HEALING...PLANS TO CALL DR JUNIOR OFFICE TO SCHEDULE FOLLOW UP History of arthroscopy of right knee History of left cataract extraction (~09/28/20) Family History Mother Colorectal cancer Pacemaker Brother Stroke Brother Prostate cancer COPD (chronic obstructive pulmonary disease) Coronary heart disease Denies family history of Ovarian cancer Myocardial infarction Breast cancer Social History Smoking Status: Unknown if ever smoked Tobacco Type: Cigarettes and Smokeless Tobacco (Dip or Chew) Second Hand Exposure: No; Hx Alcohol Use: No Hx Substance Use: No Preferred Language: [place]ese Communication Ability: Effective Visual Impairment: No Limitations Literary Agent Required: No Beliefs That Will Affect Care: None marital status: Current Living Situation: Spouse current occupational 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 Feels Safe at Home: Yes caffeine: Yes Dental Care, Regularly: No Physical Activity Frequency: Does not Exercise Seatbelt Use: always Sunscreen Use: No Assistive Devices: None Physical Exam Vital Signs Vital Signs - 24 hr 04/11/22 12:53 04/11/22 14:51 04/11/22 15:50 Temperature 36.4 C L Temperature Source Oral Pulse Rate 81 Pulse Rate [Apical] 86 Respiratory Rate 16 21 Respiratory Effort / Characteristics Non-Labored Spontaneous Respiratory Depth Normal Respiratory Pattern Regular Blood Pressure 203/98 H Blood Pressure [Right Arm] 163/84 H Blood Pressure Mean 133 Blood Pressure Mean [Right Arm] 110 Blood Pressure Position [Right Arm] Sitting Pulse Oximetry 96 96 Oxygen Delivery Method Room Air Room Air Room Air Sepsis Recent Fever Within 48 Hours No Sepsis New/Unexplained Change in Mental Status N/A Sepsis Action Taken by Nursing No Action Required 04/11/22 15:21 04/11/22 15:30 04/11/22 15:30 Temperature Temperature Source Pulse Rate 92 H 83 Pulse Rate [Apical] Respiratory Rate 18 20 Respiratory Effort / Characteristics Respiratory Depth Respiratory Pattern Blood Pressure 141/59 H Blood Pressure [Right Arm] Blood Pressure Mean 86 Blood Pressure Mean [Right Arm] Blood Pressure Position [Right Arm] Pulse Oximetry 92 93 Oxygen Delivery Method Room Air Sepsis Recent Fever Within 48 Hours Sepsis New/Unexplained Change in Mental Status Sepsis Action Taken by Nursing 04/11/22 16:02 Temperature Temperature Source Pulse Rate Pulse Rate [Apical] 73 Respiratory Rate Respiratory Effort / Characteristics Respiratory Depth Respiratory Pattern Blood Pressure Blood Pressure [Right Arm] 156/73 H Blood Pressure Mean Blood Pressure Mean [Right Arm] 100 Blood Pressure Position [Right Arm] Pulse Oximetry 98 Oxygen Delivery Method Sepsis Recent Fever Within 48 Hours Sepsis New/Unexplained Change in Mental Status Sepsis Action Taken by Nursing Physical Exam GENERAL: Patient appears uncomfortable. HENT: Exam performed. - Head: Normocephalic and atraumatic. - Right Ear: External ear normal. No mastoid tenderness. - Left Ear: External ear normal. No mastoid tenderness. - Mouth/Throat: The oropharynx is clear and moist. No trismus in the jaw. No dental abscesses or uvula swelling. No oropharyngeal exudate or tonsillar abscesses. EYES: Conjunctivae and EOM are normal. Pupils are equal, round, and reactive to light. Right eye exhibits no discharge. Left eye exhibits no discharge. No scler al icterus. NECK: Normal range of motion. Neck supple. No JVD present. No spinous process tenderness present. No carotid bruit present. No rigidity. No tracheal deviation and normal range of motion present. No Brudzinski's sign and no Kernig's sign noted. CV: Normal rate, regular rhythm, murmur and intact distal pulses. There is no peripheral edema. Palpable radial pulses bue. PULM/CHEST: Effort normal and breath sounds normal. No respiratory distress. No stridor. He has no wheezes. He has no rales. - Chest Wall: He exhibits no tenderness. ABD: The abdomen is soft. Bowel sounds are normal. He has no distension. No mass is present. There is no tenderness. There is no rebound, no guarding, no Kasper's sign and no tenderness at McBurney's point. Rovsig negative. MUSC/SKEL: Normal range of motion. There is no peripheral edema, tenderness or deformity. LYMPH: No cervical adenopathy. NEURO: He is alert and oriented to person, place, and time. He has normal strength. No cranial nerve deficit or sensory deficit. Coordination and gait normal. GCS eye subscore is 4. GCS verbal subscore is 5. GCS motor subscore is 6. Cerebellar tests wnl. SKIN: Skin is warm and dry. He is not diaphoretic. PSYCH: He has a normal mood and affect. Behavior is normal. Judgment and thought content normal. Course Course 1405: The patient was evaluated in room C8. A complete history and physical exam was performed Cardiac monitoring: An order was placed for continuous cardiac monitoring. The monitor shows a rate of 70 with sinus rhythm patient was seen during a time of extreme volume and extreme acuity in the emergency department. Nursing triage protocols were initiated and labs were drawn by protocol in the triage area. Labs conducted in triage area show a high-sensitivity troponin greater than 1400. Patient is reporting chest pain and abdominal pain rating a 10 of 10. Patient is on Xarelto. Given the patient is still having chest pain and abdominal pain will obtain CTA rule out dissection. Analgesia ordered for the patient. 1455: On return to the patient's room after CTA the patient is still reporting chest pain. Repeat dose of nitroglycerin ordered for the patient. CTA of the chest viewed by me does not show dissection. 1515: Patient still reporting chest pain. Repeat abdominal exam shows no Murp hy's sign. No pain on palpation of the epigastric area. CTA of the abdomen was negative. His third dose of nitroglycerin and repeat dose of morphine the patient's pain is still not controlled we will contact cardiology. 1528: Patient reports no relief in the pain with the morphine or nitroglycerin. Repeat physical exam shows no pain on palpation of the abdomen negative Kasper sign. The CTA of the chest does report possible acute cholecystitis. An addendum was made by radiology on the CT angio of the abdomen. I discussed the patient's case with Dr. Farooq interventional cardiology who states he will go over the patient's EKGs and recontact me. 1545: Patient is reporting increasing chest pain. Repeat physical exam again shows no pain on palpation abdomen. I called Dr. Farooq back and he states to send the patient to the cardiac catheterization lab as he is up there but hold off on calling a formal heart alert. Aspirin ordered for the patient. [facility]. Administered Medications Sodium Chloride (Nss 1000ml) 1,000 mls @ 125 mls/hr IV .Q8H JOSE Stop: 05/11/22 14:29 Last Admin: 04/11/22 14:32 Dose: 125 mls/hr Documented By: ELLI Discontinued Medications Aspirin (Aspirin Chew 324 Mg) 324 mg PO NOW STA Stop: 04/11/22 15:48 Last Admin: 04/11/22 15:52 Dose: 324 mg Documented By: EMANUEL Ioversol (Optiray 320 125ml) 120 ml IV ONCE ONE Stop: 04/11/22 14:43 Last Admin: 04/11/22 14:45 Dose: 120 ml Documented By: GILBERTO Morphine Sulfate (Morphine Sulfate 4 Mg/Ml 1 Ml Carp\Vial) 2 mg IV NOW STA Stop: 04/11/22 14:17 Last Admin: 04/11/22 14:33 Dose: 2 mg Documented By: ELLI Morphine Sulfate (Morphine Sulfate 4 Mg/Ml 1 Ml Carp\Vial) 4 mg IV NOW STA Stop: 04/11/22 15:11 Last Admin: 04/11/22 15:14 Dose: 4 mg Documented By: CLAYTON Nitroglycerin (Nitroglycerin Sl 0.4 Mg/Tab Tab) 0.4 mg SL NOW STA Stop: 04/11/22 14:19 Last Admin: 04/11/22 14:33 Dose: 0.4 mg Documented By: ELLI Nitroglycerin (Nitroglycerin Sl 0.4 Mg/Tab Tab) 0.4 mg SL NOW STA Stop: 04/11/22 14:55 Last Admin: 04/11/22 14:57 Dose: 0.4 mg Documented By: ELLI Nitroglycerin (Nitroglycerin Sl 0.4 Mg/Tab Tab) 0.4 mg SL NOW STA Stop: 04/11/22 15:11 Last Admin: 04/11/22 15:14 Dose: 0.4 mg Documented By: CLAYTON Ondansetron HCl (Ondansetron Inj 2 Mg/Ml 2 Ml Vial) 4 mg IV NOW STA Stop: 04/11/22 14:17 Last Admin: 04/11/22 14:33 Dose: 4 mg Documented By: ELLI Medical Decision Making Laboratory Data Result diagrams: 04/11/22 13:18 04/11/22 13:18 Labs: Lab Results 04/11/22 04/11/22 04/11/22 Range/Units 13:18 13:18 13:18 WBC 11.80 H (4.8-10.8) K/ul RBC 5.95 (4.63-6.08) M/uL Hgb 17.2 (14.0-18.0) g/dl Hct 51.6 H (40.1-51.0) % MCV 86.7 (80.0-100.0) fL MCH 28.9 (25.0-34.0) pg MCHC 33.3 (32.0-36.0) g/dL RDW Std Deviation 39.8 (36.4-46.3) fL RDW Coeff of Rich 12.9 (11.5-14.5) % Plt Count 233 (130-400) K/uL MPV 9.5 (9.4-12.4) fL Immature Gran % (Auto) 0.9 % Neut % (Auto) 78.8 % Lymph % (Auto) 11.9 % [place] % (Auto) 7.8 % Eos % (Auto) 0.3 % Baso % (Auto) 0.3 % Neut # (Auto) 9.29 H (1.4-6.5) K/uL Lymph # (Auto) 1.40 (1.2-3.4) K/uL [place] # (Auto) 0.92 H (0.24-0.82) K/uL Eos # (Auto) 0.04 (0-0.50) K/uL Baso # (Auto) 0.04 (0-0.2) K/uL Immature Gran # (Auto) 0.11 H (0.00-0.02) K/uL PT 11.7 (9.0-12.0) Seconds INR 1.1 (0.9-1.1) APTT 31.0 (21.0-31.0) Seconds PTT Ratio 1.1 Sodium 135 L (136-145) mmol/L Potassium 4.5 (3.5-5.1) mmol/L Chloride 99 (98-107) mmol/L Carbon Dioxide 25 (21-32) mmol/L Anion Gap 11 (3-11) BUN 20 (6-23) mg/dl Creatinine 1.14 (0.6-1.4) mg/dl Est Cr Clr Drug Dosing Not Reportable Est GFR ( Amer) 69.0 ml/min Est GFR (Non-Af Amer) 59.6 ml/min BUN/Creatinine Ratio 17.5 (10-20) Glucose 309 H* (70-99(Fasting)) mg/dl Calcium 10.4 H (8.5-10.1) mg/dl Total Bilirubin 1.3 H (0.2-1.0) mg/dl AST 17 (13-39) U/L ALT 20 (7-52) U/L Alkaline Phosphatase 80 (34-104) U/L Troponin I High Sens 1490.5 H* (0-20) pg/ml Total Protein 7.7 (6.0-8.3) gm/dl Albumin 4.2 (3.4-5.0) gm/dl Globulin 3.5 (2.5-4.0) gm/dl Albumin/Globulin Ratio 1.2 (0.9-2) Lipase 32 (11-82) U/L SARS-CoV-2, RNA, NAAT (NEGATIVE) 04/11/22 Range/Units 13:18 WBC (4.8-10.8) K/ul RBC (4.63-6.08) M/uL Hgb (14.0-18.0) g/dl Hct (40.1-51.0) % MCV (80.0-100.0) fL MCH (25.0-34.0) pg MCHC (32.0-36.0) g/dL RDW Std Deviation (36.4-46.3) fL RDW Coeff of Rich (11.5-14.5) % Plt Count (130-400) K/uL MPV (9.4-12.4) fL Immature Gran % (Auto) % Neut % (Auto) % Lymph % (Auto) % [place] % (Auto) % Eos % (Auto) % Baso % (Auto) % Neut # (Auto) (1.4-6.5) K/uL Lymph # (Auto) (1.2-3.4) K/uL [place] # (Auto) (0.24-0.82) K/uL Eos # (Auto) (0-0.50) K/uL Baso # (Auto) (0-0.2) K/uL Immature Gran # (Auto) (0.00-0.02) K/uL PT (9.0-12.0) Seconds INR (0.9-1.1) APTT (21.0-31.0) Seconds PTT Ratio Sodium (136-145) mmol/L Potassium (3.5-5.1) mmol/L Chloride (98-107) mmol/L Carbon Dioxide (21-32) mmol/L Anion Gap (3-11) BUN (6-23) mg/dl Creatinine (0.6-1.4) mg/dl Est Cr Clr Drug Dosing Est GFR ( Amer) ml/min Est GFR (Non-Af Amer) ml/min BUN/Creatinine Ratio (10-20) Glucose (70-99(Fasting)) mg/dl Calcium (8.5-10.1) mg/dl Total Bilirubin (0.2-1.0) mg/dl AST (13-39) U/L ALT (7-52) U/L Alkaline Phosphatase (34-104) U/L Troponin I High Sens (0-20) pg/ml Total Protein (6.0-8.3) gm/dl Albumin (3.4-5.0) gm/dl Globulin (2.5-4.0) gm/dl Albumin/Globulin Ratio (0.9-2) Lipase (11-82) U/L SARS-CoV-2, RNA, NAAT NEGATIVE (NEGATIVE) Imaging Data Chest x-ray: Radiologist's impression: XR chest 1V portable CLINICAL HISTORY: Chest Pain. COMPARISON STUDY: 09/12/2021 TECHNIQUE: 1 view of the chest FINDINGS: Single frontal view of the chest demonstrates the cardiomediastinal silhouette to be within normal limits. There is a decreased inspiratory effort with elevation of the hemidiaphragms and crowding of the bronchovascular markings at the lung bases and centrally. The lungs are clear of alveolar opacities. There is no evidence for pleural effusion. There is no evidence for vascular congestion. There is no acute osseous pathology. IMPRESSION: 1. There is a decreased inspiratory effort with otherwise no acute chest disease. ACT 112: Negative or not required by law. Electronically signed by: Thiago Rocha M.D. 04/11/2022 2:22 PM Dictated:04/11/221420 Transcribed: 04/11/221420 CT scan - chest: Radiologist's impression: CT ANGIOGRAPHY OF THE CHEST DISSECTION PROTOCOL CLINICAL HISTORY: Chest pain radiating to back. Evaluate for dissection. COMPARISON STUDY: Chest radiograph performed earlier today. Chest CT November 18, 2020. TECHNIQUE: Before and following the IV administration of 120 mL of Optiray, helical axial images of the chest were obtained. Maximal intensity projections and sagittal and coronal reformats were viewed on an independent 3D workstati on. IV contrast was administered without complication. Automated exposure control was utilized for the study. A dose lowering technique was utilized adhering to the principles of ALARA. CT DOSE: 2019.31 mGy.cm FINDINGS: Caliber of the thoracic aorta is normal. There is no intramural hematoma or thoracic aortic dissection. Mild cardiomegaly is noted. There is extensive coronary artery calcification. No central pulmonary emboli are identified. A small hiatal hernia is present. A few small pulmonary nodules are unchanged from earlier exams. These are benign. There is no consolidation to sug gest pneumonia. Linear subpleural opacities reflect atelectasis or scarring. No pneumothorax or pleural effusion is present. There is extensive anterior osteophytosis of the thoracic spine. 2.4 cm lobulated nodule within the superior left breast is unchanged since prior exam. This was previously biopsied. Abdomen and pelvis CT will be reported separately. The gallbladder is distended. There is mild pericholecystic stranding. IMPRESSION: 1. No thoracic aortic dissection. 2. No acute intrathoracic findings. 3. Mild gallbladder distention with pericholecystic stranding. These findings favor acute cholecystitis. Right upper quadrant ultrasound could be obtained for further evaluation. 4. 2.4 cm superior left breast nodule which is unchanged since prior CT. This was previously biopsied. 5. Extensive coronary artery calcification. ACT 112: Negative or not required by law. Electronically signed by: Aditya Garcia M.D. 04/11/2022 3:17 PM Dictated:04/11/22 1507 Transcribed: 04/11/[address] scan - abdomen: Radiologist's impression: ADDENDUM There is fat stranding and residual wall thickening of the gallbladder measuring up to 4 mm. Clinical correlation is recommended and if there is clinical concern, right upper quadrant ultrasound or HIDA scan can be performed. Electronically signed by: Giovanny Lyons M.D. 04/11/2022 3:[address] angio abdomen pelvis w con CLINICAL HISTORY: cp radiating to back TECHNIQUE: Multidetector row helical CT of the abdomen and pelvis was performed, following intravenous administration of iodinated contrast. No oral contrast was administered. Automated dose lowering techniques and/or adjustment according to patient size were utilized for this exam. Coronal and sagittal reformations were obtained. MIP and 3D volume rendered reconstructions were obtained. Comparison: Comparison is made to CT abdomen pelvis 02/20/2021 FINDINGS: Lower chest: For findings above the diaphragm, please see CT chest performed same day. Liver: Hepatic steatosis is noted. Focal fatty sparing is seen in the bladder fossa. Gallbladder and biliary tree: No calcified gallstones. Normal caliber wall. No intra- or extrahepatic biliary ductal dilation. Pancreas: Unremarkable, no focal lesions. Spleen: Unremarkable. Adrenals: Unremarkable. Kidneys and ureters: Unremarkable. Bladder: Diffuse homogeneous wall thickening is seen. Reproductive organs: Unremarkable. Bowel: Diverticulosis is seen without evidence of diverticulitis. The appendix is normal. There is a small hiatal hernia. Lymph nodes Retroperitoneal: Unremarkable. Pelvic: Unremarkable. Mesenteric: Unremarkable. Peritoneum: Normal. Abdominal wall: A fat-containing umbilical hernia is seen. Bones: Degenerative changes in the visualized spine. CT angiogram: The abdominal aortic contours appear intact without evidence of aneurysmal dilatation and/or dissection. There is evidence of scattered atherosclerotic calcifications of the abdominal aorta and its major branches. The origins of the celiac axis, superior mesenteric, inferior mesenteric and bilateral renal arteries are patent. IMPRESSION: 1. No acute abnormalities, in particular no evidence of aortic dissection or aneurysm. 2. Hepatic steatosis. ACT 112: Negative or not required by law. Electronically signed by: Giovanny Lyons M.D. 04/11/2022 3:03 PM Dictated:04/11/221452 Transcribed: 04/11/221452 ECG Data Additional Comments: EKG #1 at 1300: Sinus rhythm with rate of 67. [place] QRS and QTc intervals within normal limits. No ST elevation or ST depression. EKG #2 at 1429: Sinus rhythm with a rate of 66. [place] QRS and QTc intervals within normal limits. Mild ST segment changes in leads II, III and aVF however there is no tombstoning ST elevation or ST depression. EKG #3 at 1454: Sinus rhythm with a rate of 85. [place] 208 QRS [address] elevation or ST depression. First-degree AV block present. [facility] Narrative 0923: The patient was evaluated in room B11. A complete history and physical exam was performed Cardiac monitoring: An order was placed for continuous cardiac monitoring. The monitor shows a rate of 70 with atrial fibrilation rhythm 0954: Spoke with [facility]. Both he and I feel that no need for laboratory studies at this time as the patient had a clear accidental overdose with a very low amount of 1 substance. He states that the patient should be observed for 6 hours from ingestion time which would be approximately 1430. He states that if the patient becomes hypotensive to give IV fluids and if the patient becomes bradycardia to give atropine. Patient placed in observation at this time. 1115: Vital signs stable. Patient reported no chest pain difficulty breathing or dizziness. Continuing to monitor the patient. 1300: Vital signs stable. Patient reported no chest pain difficulty breathing or dizziness. Patient tolerating p.o. 1430: Vital signs stable. Patient reported no chest pain difficulty breathing or dizziness. Patient reported no chest pain difficulty breathing or dizziness. Patient be discharged with follow-up PCP. Family was encouraged to keep the patient's pills well organized and not let her take too many by accident. DISCHARGE - Plan of care discussed with family and questions answered. The family was given both verbal and printed discharge instructions. The family verbalized understanding and ability to comply. The family is to seek outpatient follow up as noted in the discharge instructions. The family verbalized understanding and ability to comply. The family is discharged in stable condition. The family was instructed to return for worsening symptoms. [facility]. Impression & Plan Non-ST elevation [place] (NSTEMI) Critical Care Time Critical Care Time: Yes Total Critical Care Time: 42 I have personally spent greater than 42 minutes of critical care time in the direct management of this patient. This includes bedside care, interpretation of diagnostic studies, and testing, discussion with consultants, patient, and family members, and other required patient management activities. This 42 minutes is in excess of all separately billable procedures. Discharge Plan Visit Data Chief Complaint: Chest Pain Stated Complaint: CHEST PAIN ED Provider: Jey Callahan Discharge Problem: Non-ST elevation [place] (NSTEMI) Patient Disposition: Admitted As Inpatient Discharge Instructions Interventions: ED Discharge Assessment Last Done: 04/11/22 15:50
--- NOTE | 2022-04-11 16:24 | Cardiology Consultation ---
Date of Consultation April 11, 2022 Assessment & Plan (1) ACS (acute coronary syndrome): 2. Multivessel CAD50% pLAD, sequential 80+% LCx, 90% calcified distal RCA 3. Type 2 [id number] 9.8 4. 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 Possible acute cholecystitis 6. GERD Patient found to have multivessel CAD but good flow throughout coronary system. No clear acute culprit lesion and would not expect current disease to cause ongoing rest symptoms. In the setting of somewhat atypical symptoms, questionable GI pathology and CAD of unclear chronicity recommend initial medical management. Admit to telemetry, serial troponins, echocardiogram in the a.m. and further gallbladder/GI work-up as appropriate. Recommend anticoagulation with heparin. Continue aspirin, statin, metoprolol, lisinopril. If tomorrow becomes more clear that current symptoms are more cardiac in nature PCI of RCA, circumflex via femoral approach an option. Would defer urgent repeat catheterization unless significant change in pain with accompanying EKG changes. Will continue to follow. History of Present Illness Attending Physician: Bernardo Farooq MD History of Present Illness Mr. Garcia is an 82-year-old man seen urgently in the ED in the setting of suspected ACS. No prior cardiac history. Medical history remarkable for poorly controlled type 2 diabetes, prior DVT on Xarelto, dyslipidemia, GERD and cholelithiasis. Patient reports 4 days of stuttering epigastric pain which persisted and became more severe today. Family describes him endorsing more chest pain and being diaphoretic. No prior similar symptoms. On arrival hypertensive to 200s, ECG showed sinus rhythm, possible inferior old infarct with no new dynamic ST changes. Initial troponin 1400, WBC 11.8, T bili 1.3. Chest/abdominal CTA remarkable for no acute intrathoracic findings. Extensive coronary calcification. Also with findings potentially consistent with acute cholecystitis. In ED continue to have chest/epigastric pain despite nitro/morphine. Repeat ECG showed subtle ST depression in V3, V4. Patient taken urgently for cardiac catheterization which revealed multivessel diseasemoderate proximal/mid LAD, sequential 80+% mid/distal circumflex lesions and 80 to 90% distal RCA stenosis. Patient had LEEANNA-3 flow throughout. IVUS of distal RCA revealed calcified plaque without acute thrombus. With unclear picture and lack of clear culprit, intervention deferred. Allergies Allergy/AdvReac Type Severity Reaction Status Date / Time Sulfa (Sulfonamide Allergy Severe ANAPHYLAXIS Verified 04/10/22 13:34 Antibiotics) Home Medications Medication Instructions Recorded Confirmed Type blood-glucose meter (OneTouch #1 ea 01/26/20 04/10/22 Rx Ultra2 Meter kit) rivaroxaban 20 mg tablet 20 mg PO QDD 09/15/20 04/10/22 History acetaminophen 500 mg tablet 1,000 mg PO DIRECTED PRN Pain 02/20/21 04/10/22 History (Tylenol Extra Strength) hydrocortisone-acetic acid 1 %-2 % 5 drp otic (ear) BID #10 mL 09/08/21 04/10/22 Rx ear drops magnesium oxide 400 mg (241.3 mg 400 mg PO DAILY #7 tabs 09/12/21 04/10/22 Rx magnesium) tablet (MagOx) lisinopril 5 mg tablet 5 mg PO QAM #90 tabs 10/26/21 04/10/22 Rx trazodone 50 mg tablet See Rx Instructions PO HS #14 tabs 10/26/21 04/10/22 Rx blood sugar diagnostic #100 ea 02/01/22 04/10/22 Rx dulaglutide 1.5 mg/0.5 mL 1.5 mg (0.5 mL) subcut .weekly #2 02/22/22 04/10/22 Rx subcutaneous pen injector mL glimepiride 4 mg tablet 4 mg PO BID #180 tabs 02/22/22 04/10/22 Rx metformin 1,000 mg tablet 1,000 mg PO BID #180 tabs 02/22/22 04/10/22 Rx omeprazole 20 mg capsule,delayed 20 mg PO QAM #90 caps 02/22/22 04/10/22 Rx release simvastatin 20 mg tablet 20 mg PO HS #90 tabs 02/22/22 04/10/22 Rx empagliflozin 10 mg tablet 10 mg PO DAILY #30 tabs 03/29/22 04/10/22 Rx (Jardiance) Patient History Medical History Acid reflux disease BPH (benign prostatic hyperplasia) Diabetes mellitus with neuropathy Fever of unknown origin Hard of hearing History of skin 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 Sensorineural hearing loss (SNHL) of right ear with restricted hearing of left ear No word recognition in right ear Surgical History H/O transurethral resection of prostate TOTAL OF 4, PT REPORTS MOST RECENT FEW WEEKS AGO AT [facility] - PT REPORTS HEALING...PLANS TO CALL DR JUNIOR OFFICE TO SCHEDULE FOLLOW UP History of arthroscopy of right knee History of left cataract extraction (~09/28/20) Family History Mother Colorectal cancer Pacemaker Brother Stroke Brother Prostate cancer COPD (chronic obstructive pulmonary disease) Coronary heart disease Denies family history of Ovarian cancer Myocardial infarction Breast cancer Social History Smoking Status: Former smoker Tobacco Type: Cigarettes and Smokeless Tobacco (Dip or Chew) Second Hand Exposure: No; Hx Alcohol Use: No Hx Substance Use: No Preferred Language: Romanian Communication Ability: Effective Visual Impairment: No Limitations Natural Resources Engineer Required: No Beliefs That Will Affect Care: None marital status: Current Living Situation: Spouse current occupational 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 Feels Safe at Home: Yes Safety Concerns: Feels Safe At This Time caffeine: Yes Dental Care, Regularly: No Physical Activity Frequency: Does not Exercise Seatbelt Use: always Sunscreen Use: No Assistive Devices: None Review of Systems Review of Systems: All systems reviewed & are unremarkable except as noted in HPI & below Physical Exam Physical Exam: General: Uncomfortable HEENT: Sclerae anicteric Lungs: Clear to auscultation anteriorly Cardiac: Regular rate and rhythm, 2 out of 6 systolic ejection murmur Vascular: 2+ radial, Abdomen: Soft, nontender Extremities: Well perfused, no peripheral edema Neuro: Nonfocal Psych: Alert orient x3, normal affect and mood Results & Data ([facility]) Vital Signs (Past 12 Hours) Vital Signs Temp Pulse Pulse Resp BP BP Pulse Ox 04/11/22 16:02 73 156/73 H 98 04/11/22 15:30 83 20 93 04/11/22 15:30 141/59 H 04/11/22 15:21 92 H 18 92 04/11/22 15:50 04/11/22 14:51 86 21 163/84 H 96 04/11/22 12:53 97.5 F L 81 16 203/98 H 96 O2 Del Method 04/11/22 16:02 04/11/22 15:30 Room Air 04/11/22 15:30 04/11/22 15:21 04/11/22 15:50 Room Air 04/11/22 14:51 Room Air 04/11/22 12:53 Room Air PG Care Time/CCT Total # of Minutes Spent Total Time Spent with Patient: Total time spent is greater than 50% in coordination of care (as documented) at patient's floor/unit and/or counseling patient: Coding Level of Care Code 97006 Initial Inpt Care Lvl 3 Diagnoses ACS (acute coronary syndrome) I24.9
[2022-04-11] MEDS ORDERED: Heparin IV Adult Wt-Based Standard *NO* Bolus Protocol IV SCH (18:00)
--- NOTE | 2022-04-11 18:02 | Post Anesthesia Assessment ---
Date of Service April 11, 2022 Post Sedation Assessment Vital Signs Temp Pulse Pulse Resp BP BP Pulse Ox 04/11/22 17:40 57 L 14 142/76 H 98 04/11/22 17:25 57 L 16 158/86 H 98 04/11/22 16:02 73 156/73 H 98 04/11/22 15:30 83 20 93 04/11/22 15:30 141/59 H 04/11/22 15:21 92 H 18 92 04/11/22 15:50 04/11/22 14:51 86 21 163/84 H 96 04/11/22 12:53 97.5 F L 81 16 203/98 H 96 O2 Del Method 04/11/22 17:40 Room Air 04/11/22 17:25 Room Air 04/11/22 16:02 04/11/22 15:30 Room Air 04/11/22 15:30 04/11/22 15:21 04/11/22 15:50 Room Air 04/11/22 14:51 Room Air 04/11/22 12:53 Room Air Recovery Score Activity: Moves 4 extremities Respiration: Deep Breath/Cough Circulation: +/-20% PreAnes Value Consciousness: Fully Awake Oxygen Saturation: O2 needed for >90% Discharge Sedation Level of Care: Fast Track Phase II Post Sedation Plan On clinical assessment, the patient appears to have tolerated the sedation without complications. Patient is recovering as anticipated. Patient will continue to be monitored by nursing and may be discharged when sedation discharge criteria are met per below protocol. Upon Completions of procedure up to 15 minutes continue every 5 minute vital signs and the P.A.R. score; then discharge to a Phase I or Fast Track to Phase II per the following guidelines: * Discharge Patient to appropriate Phase II area if PAR is 8 or greater or return to pre- procedure baseline. The post - procedure orders will be as directed. * If PAR score is less than 8 or not return to pre-procedure baseline then patient will follow Phase I monitoring till PAR is reached for Phase II. The Phase I may be done in procedure room or may call to secure a Phase I area. * If naloxone or flumazenil are used for reversal, hold in Phase I for continued monitoring from when last reversal dose was given for a minimum of 60 minutes or longer pending the nurse and/or physician discretion of patient condition before discharge to Phase II. Please call the Sedation Physician to re-evaluate and complete post-note for discharge to Phase II area. Do NOT discharge from procedure sedation or Phase 1 until post- sedation evaluation note is complete by procedure /sedation MD Sedation Discharge Instructions to be given to the patient at discharge to home.
--- NOTE | 2022-04-11 18:35 | Cardiac Catheterization ---
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 Cardiac Status Clinical evaluation leading to the procedure CAD Presenation: Non STEMI Anginal Classification: CCS IV Diagnostic Physicians Name: Bernardo Farooq MD Closure Device Recommendations: Medical Therapy and/or Counseling Cardiac Cath Procedure Full Procedure Date April 11, 2022 Pre-Procedure Diagnosis Pre-Procedure Diagnosis: Non STEMI AUC Score AUC Score: 8 Post-Procedure Diagnosis Post-Procedure Diagnosis: Severe CAD and Normal Intracardiac Pressures Procedure(s) Performed Procedure(s) Performed: Coronary Angiography, Left Heart Cath and IVUS Worm Farmer Bernardo Farooq MD Receiving Teller(s) Deibler Estimated Blood Loss Estimated Blood Loss: 15 Medication(s) Medication(s): Fentanyl, Heparin, Lidocaine 1%, Nicardipine, Nitroglycerin and Versed Summary of Findings Indication: Suspected ACS Access: 6 Fr right radial artery Catheters: Percival, JR4 guide, pigtail Findings: LM -normal caliber, 20% ostial LAD -medium caliber, calcified, 40 to 50% diffuse proximal to mid disease. Remainder of vessel without significant disease and extends to apex. Small D1 with 90% ostial stenosis. Circumflex -small to medium caliber, 90% mid, 75% distal sequential lesions RCA -dominant, large caliber calcified 80 to 90% distal stenosis. Ectatic after stenosis with LEEANNA-3 flow in largely disease-free PDA, PLB. LVEDP -18 IVUS of RCA RCA cannulated with JR4 guide BMW wire passed across distal stenosis into PLB [place] IVUS catheter passed to distal vessel but unable to cross stenosis. Pullback revealed calcified distal disease with no apparent thrombus. Mild diffuse disease in mid/proximal vessel. Catheter/wire removed and no apparent coronary complications. Arterial Closure: TR band Summary: 1. Multivessel coronary artery disease -80 to 90% distal RCA (chronic by IVUS) 90% mid, 75% distal circumflex 40 to 50% proximal to mid LAD. Small ostial D1 90% 2. Borderline intracardiac filling pressure (LVEDP 18) Recommendations: No clear acute culprit lesion. Has LEEANNA-3 flow throughout coronary system. In the setting of atypical symptoms and CAD of unclear chronicity recommend initial medical management. If additional testing more convincing for CAD being culprit of current symptoms would consider PCI of RCA, circumflex via femoral approach. Hemodynamics Rest Ao:: 136/65/99 Final Ao: 148/65/97 LV: 144/18 Recommendations Recommendations: Medical Therapy and/or Counseling Specimens Specimens: None Radiation Exposure (mGy) 2607 Contrast (mls) 80 Drains Drains: None Anesthesia Moderate 1626-171 Procedural Complication(s) None Disposition PCU I attest to the content of the Intraoperative Record and any orders documented therein. Any exceptions are noted below. [facility] Card Cath Procedure Codes Cardiac Catheterization Procedure 1: Cardiovascular Cath Procedures: 13084 Coronaries and LHC (+/-LV) Therapeutic Services & Ancillary Proc Procedure 1: Cardiovascular Tx and Anc Procedures: 79337 IV Ultrasound (Coronary or Graft) Moderate Sedation Procedure 1: Sedation/Anesthesia: 69587 Mod Sedation by the same physician;Init15 Min Child Age 5 & Up Procedure 2: Sedation/Anesthesia: 18118 Mod Sedation by the same physician; Ea [id number] Minutes PG Care Time/CCT Total # of Minutes Spent Total Time Spent with Patient: Total time spent is greater than 50% in coordination of care (as documented) at patient's floor/unit and/or counseling patient:
[2022-04-11] MEDS ORDERED: ACETAMINOPHEN 325 MG TAB PO PRN (18:42)
[2022-04-11] MEDS ORDERED: DEXTROSE 50% 50 ML SYRINGE IV PRN (18:53)
[2022-04-11] MEDS ORDERED: CARBOHYDRATES FOR HYPOGLYCEMIA PO PRN (18:53)
[2022-04-11] MEDS ORDERED: GLUCOSE 40% GEL 15 GM TUBE PO PRN (18:53)
[2022-04-11] MEDS ORDERED: GLUCOSE 10 TAB/TUBE PO PRN (18:53)
[2022-04-11] MEDS ORDERED: GLUCAGON FOR INJ 1 MG VIAL SQ PRN (18:53)
[2022-04-11] MEDS ORDERED: LORazepam 2 MG in SYRINGE 1 ML IV STA (19:00)
[2022-04-11] MEDS ORDERED: PIPERACILLIN/TAZOBACTAM 3.375 GM in DEXTROSE 5% 100 ML IV ONE (19:00)
--- NOTE | 2022-04-11 19:01 | History & Physical Report ---
Date of Service April 11, 2022 Assessment & Plan (1) ACS (acute coronary syndrome): Plan: -Admit to medicine -Patient evaluated by Cardiology and underwent heart cath -Cardiology believes patient is stable from a Cardiac standpoint and recommends medical management for ACS at this time >Continue on heparin drip for now >Continue to trend troponin for now, expected to see some rise per Cardiology due to the Heart Cath >Monitor for worsening symptoms >Can likely begin Aspirin, Statin, and metoprolol tomorrow -AM echo ordered (2) Abdominal pain: Plan: -At this time the etiology of the patient's upper abdominal pain appears to most liekly be associated with his hx of gallstones and newly seen gallbladder wall thickening. -Patient has been afebrile and hemodynamically stable -Total bili currently 1.3 -Will obtain procal and blood cultures for further workup -Will start patient on Zosyn for empiric coverage of an intraabdominal source -Keep NPO for now and will obtain RUQ US tonight -Will keep on Lactated Ringer's while NPO -Pain control with Tylenol and Tramadol -Can follow-up with Surgery tomorrow when the US is resulted (3) DVT (deep venous thrombosis): Plan: -Hold Xarelto for now while on heparin drip (4) Pulmonary embolism: Plan: -See above (5) Diabetes mellitus with neuropathy: Plan: -Patient is on a large home regimen -Will start with Lantus, 20 units BID >Correction factor of 20 mg/dL/unit >Carb ratio: 9 -Increase as needed (6) Hyperlipidemia: Plan: -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 Slaughter at the time of admission Admission and Anticipated Discharge Date Admission Date: April 11, 2022 History of Present Illness Chief Complaint: Chest pain Primary Care Provider: DO Anthony Lopez is an 82 year old male with a PMH significant for poorly controlled DM II, previous DVT and PE on Xarelto, HTN, CAD, hyperlipidemia, sensorineural hearing loss, GERD who presented to the [facility] on 04/11/22 with a chief complaint of chest pain. Per chart review, the patient was admitted to [facility] in January of 2021 for acute right flank pain. During his admission he underwent CT of the abdomen and pelvis which showed possible branching hepatic density. MRCP during the admission was normal but did show "tiny gallstones". Today, the patient underwent CTA of the chest, abdomen, and pelvis. The imaging was negative for aortic dissection and intrathoracic findings. It did however show mild gallbladder distention and pericholecystic stranding. It was also noted that the patient had extensive coronary artery calcification. The patient was found to have a mile leukocytosis of 11.80 with absolute neutrophils of 9.29. High sensitivity troponin was noted to be 1490.5. Cardiology was consulted and performed a Coronary angiography with left heart cath and IVUS. The procedure revealed Severe CAD and Normal Intracardiac Pressures. Due to these findings Cardiology recommended medical management and continued workup of his possible gallbladder issues. The patient was seen and examined after his cardiac cath and was resting in bed in no acute distress. He states that he has been experiencing a dull, 5/10, epigastric/upper abdominal pain over the past few weeks. It is worst at night a nd is exacerbated with eating. He denies that pain moving anywhere else. He also denies associated nausea and vomiting. The patient had a regular bowel movement this morning and denies fever and chills. I spoke with his and Daughter at bedside, his states that the patient has been cool and "clamy" overr the past 24 hours. His daughter states that the patient has a high pain tolerance, so this amount of pain is unusual for him. Allergies Allergy/AdvReac Type Severity Reaction Status Date / Time Sulfa (Sulfonamide Allergy Severe ANAPHYLAXIS Verified 04/10/22 13:34 Antibiotics) Home Medications Medication Instructions Recorded Confirmed Type blood-glucose meter ([place] #1 ea 01/26/20 04/10/22 Rx Ultra2 Meter kit) rivaroxaban 20 mg tablet 20 mg PO QDD 09/15/20 04/10/22 History acetaminophen 500 mg tablet 1,000 mg PO DIRECTED PRN Pain 02/20/21 04/10/22 History (Tylenol Extra Strength) hydrocortisone-acetic acid 1 %-2 % 5 drp otic (ear) BID #10 mL 09/08/21 04/10/22 Rx ear drops magnesium oxide 400 mg (241.3 mg 400 mg PO DAILY #7 tabs 09/12/21 04/10/22 Rx magnesium) tablet (MagOx) lisinopril 5 mg tablet 5 mg PO QAM #90 tabs 10/26/21 04/10/22 Rx trazodone 50 mg tablet See Rx Instructions PO HS #14 tabs 10/26/21 04/10/22 Rx blood sugar diagnostic #100 ea 02/01/22 04/10/22 Rx dulaglutide 1.5 mg/0.5 mL 1.5 mg (0.5 mL) subcut .weekly #2 02/22/22 04/10/22 Rx subcutaneous pen injector mL glimepiride 4 mg tablet 4 mg PO BID #180 tabs 02/22/22 04/10/22 Rx metformin 1,000 mg tablet 1,000 mg PO BID #180 tabs 02/22/22 04/10/22 Rx omeprazole 20 mg capsule,delayed 20 mg PO QAM #90 caps 02/22/22 04/10/22 Rx release simvastatin 20 mg tablet 20 mg PO HS #90 tabs 02/22/22 04/10/22 Rx empagliflozin 10 mg tablet 10 mg PO DAILY #30 tabs 03/29/22 04/10/22 Rx (Jardiance) Past Med/Surg History Medical History Acid reflux disease BPH (benign prostatic hyperplasia) Diabetes mellitus with neuropathy Fever of unknown origin Hard of hearing History of skin 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 Sensorineural hearing loss (SNHL) of right ear with restricted hearing of left ear No word recognition in right ear Surgical History H/O transurethral resection of prostate TOTAL OF 4, PT REPORTS MOST RECENT FEW WEEKS AGO AT [facility] - PT REPORTS HEALING...PLANS TO CALL DR JUNIOR OFFICE TO SCHEDULE FOLLOW UP History of arthroscopy of right knee History of left cataract extraction (~09/28/20) Family History Mother Colorectal cancer Pacemaker Brother Stroke Brother Prostate cancer COPD (chronic obstructive pulmonary disease) Coronary heart disease Denies family history of Ovarian cancer Myocardial infarction Breast cancer Social History Smoking Status: Former smoker Tobacco Type: Cigarettes and Smokeless Tobacco (Dip or Chew) Second Hand Exposure: No; Hx Alcohol Use: No Hx Substance Use: No Preferred Language: Hungarian Communication Ability: Effective Visual Impairment: No Limitations Waste Recycler Required: No Beliefs That Will Affect Care: None marital status: Current Living Situation: Spouse current occupational 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 Feels Safe at Home: Yes Safety Concerns: Feels Safe At This Time caffeine: Yes Dental Care, Regularly: No Physical Activity Frequency: Does not Exercise Seatbelt Use: always Sunscreen Use: No Assistive Devices: None Review of Systems Constitutional: + chills, + weakness and + anorexia; no fever Ear, Nose, Mouth, Throat: no dizziness, no sore throat, no dysphagia and no pain with swallowing Respiratory: no cough, no dyspnea, no hemoptysis, no pain on inspiration and no wheezing Cardiovascular: + chest pain and + chest pain at rest; no radiating jaw, neck or arm pain, no syncope and no edema Gastrointestinal: + abdominal pain and + nausea; no vomiting, no coffee ground emesis, no pain with swallowing, no constipation, no diarrhea/loose stools and no melena Genitourinary: no dysuria or no hematuria Musculoskeletal: no back pain Integumentary: no rash Neurologic: no dizziness, no syncope, no headache(s) and no confusion Psychiatric: no behavioral changes, no depression and no anxiety Endocrine: + fatigue Hematologic / Lymphatic: no easy bleeding and no easy bruising Allergy / Immunological: no urticaria and no wheezing Physical Exam Constitutional: well developed, well nourished, + obese, cooperative and + diaphoretic; no acute distress Eyes: PERRL, conjunctivae normal, anicteric sclerae ENMT: external ear and nose normal, oropharynx normal Neck: trachea midline, no thyromegaly Respiratory: normal respiratory effort, lungs clear to auscultation Cardiovascular: RRR, no murmur, no edema Gastrointestinal (Abdomen): Inspection/Auscultation: abdomen normal to inspection and normal bowel sounds Percussion/Palpation: abdomen soft; no guarding, abdomen not rigid and no ascites Negative Kasper's sign Musculoskeletal: no cyanosis or clubbing, extremities motor strength 5/5 Skin: no rashes, warm and dry Neurologic: PERRL, EOMI, accommodation nl, no face palsy, no dysarthria Psychiatric: A+Ox3, euthymic affect Results & Data Results & Data ([facility]) Vital Signs (Past 12 Hours) Vital Signs Temp Pulse Pulse Resp BP BP BP 04/11/22 18:37 36.4 C L 64 14 183/72 H 04/11/22 18:25 58 L 04/11/22 18:22 36.5 C 64 14 171/91 H 04/11/22 18:07 36.2 C L 76 16 180/76 H 04/11/22 17:52 36.6 C 61 16 190/76 H 04/11/22 18:00 36.6 C 61 16 190/76 H 04/11/22 17:40 57 L 14 142/76 H 04/11/22 17:25 57 L 16 158/86 H 04/11/22 16:02 73 156/73 H 04/11/22 15:30 83 20 04/11/22 15:30 141/59 H 04/11/22 15:21 92 H 18 04/11/22 15:50 04/11/22 14:51 86 21 163/84 H 04/11/22 12:53 36.4 C L 81 16 203/98 H Pulse Ox O2 Del Method 04/11/22 18:37 96 Room Air 04/11/22 18:25 04/11/22 18:22 93 Room Air 04/11/22 18:07 94 Room Air 04/11/22 17:52 96 Room Air 04/11/22 18:00 96 Room Air 04/11/22 17:40 98 Room Air 04/11/22 17:25 98 Room Air 04/11/22 16:02 98 04/11/22 15:30 93 Room Air 04/11/22 15:30 04/11/22 15:21 92 04/11/22 15:50 Room Air 04/11/22 14:51 96 Room Air 04/11/22 12:53 96 Room Air Laboratory Results Abnormal lab results 04/11/22 04/11/22 04/11/22 Range/Units 13:18 13:18 18:05 WBC 11.80 H (4.8-10.8) K/ul Hct 51.6 H (40.1-51.0) % Neut # (Auto) 9.29 H (1.4-6.5) K/uL [place] # (Auto) 0.92 H (0.24-0.82) K/uL Immature Gran # (Auto) 0.11 H (0.00-0.02) K/uL Sodium 135 L (136-145) mmol/L Glucose 309 H* (70-99(Fasting)) mg/dl POC Glucose 307 H* (70-99) mg/dl Calcium 10.4 H (8.5-10.1) mg/dl Total Bilirubin 1.3 H (0.2-1.0) mg/dl Troponin I High Sens 1490.5 H* (0-20) pg/ml Diagnostic Findings Chest X-Ray 04/11/22 12:56 XR chest 1V portable CLINICAL HISTORY: Chest Pain. COMPARISON STUDY: 09/12/2021 TECHNIQUE: 1 view of the chest FINDINGS: Single frontal view of the chest demonstrates the cardiomediastinal silhouette to be within normal limits. There is a decreased inspiratory effort with elevation of the hemidiaphragms and crowding of the bronchovascular markings at the lung bases and centrally. The lungs are clear of alveolar opacities. There is no evidence for pleural effusion. There is no evidence for vascular congestion. There is no acute osseous pathology. IMPRESSION: 1. There is a decreased inspiratory effort with otherwise no acute chest disease. ACT 112: Negative or not required by law. Electronically signed by: Thiago Rocha M.D. 04/11/2022 2:22 PM Abdomen/Pelvis CTA 04/11/22 14:16 CT angio abdomen pelvis w con CLINICAL HISTORY: cp radiating to back TECHNIQUE: Multidetector row helical CT of the abdomen and pelvis was performed, following intravenous administration of iodinated contrast. No oral contrast was administered. Automated dose lowering techniques and/or adjustment according to patient size were utilized for this exam. Coronal and sagittal reformations were obtained. MIP and 3D volume rendered reconstructions were obtained. Comparison: Comparison is made to CT abdomen pelvis 02/20/2021 FINDINGS: Lower chest: For findings above the diaphragm, please see CT chest performed same day. Liver: Hepatic steatosis is noted. Focal fatty sparing is seen in the bladder fossa. Gallbladder and biliary tree: No calcified gallstones. Normal caliber wall. No intra- or extrahepatic biliary ductal dilation. Pancreas: Unremarkable, no focal lesions. Spleen: Unremarkable. Adrenals: Unremarkable. Kidneys and ureters: Unremarkable. Bladder: Diffuse homogeneous wall thickening is seen. Reproductive organs: Unremarkable. Bowel: Diverticulosis is seen without evidence of diverticulitis. The appendix is normal. There is a small hiatal hernia. Lymph nodes Retroperitoneal: Unremarkable. Pelvic: Unremarkable. Mesenteric: Unremarkable. Peritoneum: Normal. Abdominal wall: A fat-containing umbilical hernia is seen. Bones: Degenerative changes in the visualized spine. CT angiogram: The abdominal aortic contours appear intact without evidence of aneurysmal dilatation and/or dissection. There is evidence of scattered atherosclerotic calcifications of the abdominal aorta and its major branches. The origins of the celiac axis, superior mesenteric, inferior mesenteric and bilateral renal arteries are patent. IMPRESSION: 1. No acute abnormalities, in particular no evidence of aortic dissection or aneurysm. 2. Hepatic steatosis. ACT 112: Negative or not required by law. Electronically signed by: Giovanny Lyons M.D. 04/11/2022 3:03 PM Chest CTA 04/11/22 14:16 CT ANGIOGRAPHY OF THE CHEST DISSECTION PROTOCOL CLINICAL HISTORY: Chest pain radiating to back. Evaluate for dissection. COMPARISON STUDY: Chest radiograph performed earlier today. Chest CT November 18, 2020. TECHNIQUE: Before and following the IV administration of 120 mL of Optiray, helical axial images of the chest were obtained. Maximal intensity projections and sagittal and coronal reformats were viewed on an independent 3D workstation. IV contrast was administered without complication. Automated exposure control was utilized for the study. A dose lowering technique was utilized adhering to the principles of ALARA. CT DOSE: 2019.31 mGy.cm FINDINGS: Caliber of the thoracic aorta is normal. There is no intramural hematoma or thoracic aortic dissection. Mild cardiomegaly is noted. There is extensive coronary artery calcification. No central pulmonary emboli are identified. A small hiatal hernia is present. A few small pulmonary nodules are unchanged from earlier exams. These are benign. There is no consolidation to suggest pneumonia. Linear subpleural opacities reflect atelectasis or scarring. No pneumothorax or pleural effusion is present. There is extensive anterior osteophytosis of the thoracic spine. 2.4 cm lobulated nodule within the superior left breast is unchanged since prior exam. This was previously biopsied. Abdomen and pelvis CT will be reported separately. The gallbladder is distended. There is mild pericholecystic stranding. IMPRESSION: 1. No thoracic aortic dissection. 2. No acute intrathoracic findings. 3. Mild gallbladder distention with pericholecystic stranding. These findings favor acute cholecystitis. Right upper quadrant ultrasound could be obtained for further evaluation. 4. 2.4 cm superior left breast nodule which is unchanged since prior CT. This was previously biopsied. 5. Extensive coronary artery calcification. ACT 112: Negative or not required by law. Electronically signed by: Aditya Garcia M.D. 04/11/2022 3:17 PM Code Status & VTE Plan Code Status Full code VTE Prophylaxis Plan VTE Prophylaxis will be ordered: Yes PG Care Time/CCT Total # of Minutes Spent Total Time Spent with Patient: Total time spent is greater than 50% in coordination of care (as documented) at patient's floor/unit and/or counseling patient: Coding Level of Care Code Established Pt INT OBSERVATION CARE 50M LVL 2 Patient Type Established History Expanded Problem Focused Exam Expanded Problem Focused Medical Decision Making Moderate Complexity Diagnoses ACS (acute coronary syndrome) I24.9 Abdominal pain R10.9 DVT (deep venous thrombosis) I82.409 Chronicity: chronic Pulmonary embolism I26.92 Acute cor pulmonale presence: unspecified Chronicity: acute Pulmonary embolism type: saddle Diabetes mellitus with neuropathy E11.40 Hyperlipidemia E78.5 (1) DVT (deep venous thrombosis) Chronicity: chronic (2) Pulmonary embolism Acute cor pulmonale presence: unspecified Chronicity: acute Pulmonary embolism type: saddle Qualified Code(s): I26.92 - Saddle embolus of pulmonary artery without acute cor pulmonale
[2022-04-11] MEDS: traMADol HCL 50 MG TABLET PO PRN (19:56)
[2022-04-11] MEDS: METOPROLOL TARTRATE 25 MG TAB PO SCH (19:57)
[2022-04-11 20:00] LABS: Basophils # (auto) 0.02 K/uL (0-0.2); Basophils % (auto) 0.2 %; Hemoglobin 16.9 g/dl (14.0-18.0); Immature Granulocytes # (auto) 0.09 K/uL (0.00-0.02); Immature Granulocytes % (auto) 0.7 %; Lymphocytes # (auto) 0.53 K/uL (1.2-3.4); Lymphocytes % (auto) 4.1 %; Mean Corpuscular Hemoglobin 28.8 pg (25.0-34.0); Mean Corpuscular Hgb Conc 33.1 g/dL (32.0-36.0); Mean Corpuscular Volume 86.9 fL (80.0-100.0); Mean Platelet Volume 9.6 fL (9.4-12.4); Monocytes # (auto) 0.65 K/uL (0.24-0.82); Monocytes % (auto) 5.1 %; Neutrophils # (auto) 11.49 K/uL (1.4-6.5); Neutrophils % (auto) 89.9 %; Platelet Count 210 K/uL (130-400); RDW Coefficient of Variation 12.9 % (11.5-14.5); RDW Standard Deviation 40.5 fL (36.4-46.3); Red Blood Count 5.87 M/uL (4.63-6.08); White Blood Count 12.78 K/ul (4.8-10.8)
[2022-04-11] MEDS: HEPARIN SODIUM/DEXTROSE 25,000 UNITS/500 ML BAG IV SCH (20:00)
[2022-04-11] MEDS: LACTATED RINGER'S 1,000 ML IV SCH (20:00)
[2022-04-11 20:11] LABS: INR 1.1 (0.9-1.1); Partial Thromboplastin Ratio 1.6; Prothrombin Time 11.4 Seconds (9.0-12.0)
[2022-04-11] MEDS ORDERED: ONDANSETRON INJ 2 MG/ML 2 ML VIAL IV PRN (20:22)
[2022-04-11] MEDS: LANTUS PER UNIT CHARGE SQ SCH (20:25)
[2022-04-11] MEDS: INSULIN ASPART PER UNIT SC SCH (20:25)
[2022-04-11] MEDS ORDERED: SIMVASTATIN 20 MG TAB PO SCH (21:00)
--- NOTE | 2022-04-11 21:04 | Ultrasound Report ---
US liver HISTORY: 82 years-old Male Concern for cholecystitis acute right upper quadrant abdominal pain COMPARISON: CTA abdomen and pelvis of same day TECHNIQUE: Multiple real-time sonographic images of the abdominal right upper quadrant were obtained assessing grayscale appearance and color flow FINDINGS: Study is limited secondary to obscuring bowel gas. The sixth of the liver. No hepatic mass identified . The gallbladder wall measures the upper limits of normal at 3 mm. Biliary sludge without definitive cholelithiasis. Negative sonographic Kasper's sign. Pericholecystic edema seen on CT is not well lee reciated by ultrasound. Trace pericholecystic edema. Imaged right kidney demonstrates no hydronephrosis however does demonstrate diffuse cortical thinning . Normal common bile duct, 5 mm. IMPRESSION: 1. Distended gallbladder with nonspecific wall thickening, trace pericholecystic edema and biliary sl udge. No shadowing cholelithiasis identified. Findings could be correlated with nuclear medicine hepa tobiliary scan to exclude acute cholecystitis. 2. No biliary ductal dilation. 3. Hepatic steatosis. ACT 112: Negative or not required by law. The above report was generated using voice recognition software. It may contain grammatical, syntax o r spelling errors. Electronically signed by: Freddy Lanza M.D. 04/11/2022 9:02 PM
[2022-04-11] MEDS ORDERED: traMADol HCL 50 MG TABLET PO STA (22:44)
[2022-04-12] MEDS: PIPERACILLIN/TAZOBACTAM 3.375 GM in DEXTROSE 5% 100 ML IV SCH ×3 (01:52→17:07)
[2022-04-12 03:06] LABS: Partial Thromboplastin Ratio 2.3
[2022-04-12 03:07] LABS: Partial Thromboplastin Time 62.1 Seconds (21.0-31.0)
[2022-04-12] MEDS: LACTATED RINGER'S 1,000 ML IV SCH ×2 (06:11→17:06)
[2022-04-12] MEDS ORDERED: PERFLUTREN LIPID MICROSPHERE (DEFINITY) IV ONE (08:03)
[2022-04-12 08:37] LABS: Partial Thromboplastin Ratio 2.5
[2022-04-12 08:41] LABS: Partial Thromboplastin Time 68.6 Seconds (21.0-31.0)
[2022-04-12] MEDS: INSULIN ASPART PER UNIT SC SCH ×4 (08:51→21:25)
[2022-04-12] MEDS: LANTUS PER UNIT CHARGE SQ SCH ×2 (08:52→21:25)
--- NOTE | 2022-04-12 10:05 | Hospitalist Progress Note ---
Date of Service April 12, 2022 Assessment & Plan (1) ACS (acute coronary syndrome): Plan: - ACS NSTEMI with CAD however no obstructing lesion noted to intervene on -Patient evaluated by Cardiology and underwent heart cath- see results below - Medically optimize at this time with return to cath for ECG changes or persisting symptoms - Continue on heparin drip for now - Continue to trend troponins until downtrend - ECHO pending this morning BB, ASA, Statin initiated- BP controlled better this morning - Appreciate Cardiology assistance (2) CAD (coronary artery disease): Plan: Multivessel coronary artery disease -80 to 90% distal RCA (chronic by IVUS) 90% mid, 75% distal circumflex 40 to 50% proximal to mid LAD. Small ostial D1 90% - BB, ASA, Statin as above (3) Abdominal pain: Plan: -At this time the etiology of the patient's upper abdominal pain appears to most liekly be associated with some gallbladder pathology tiny gallstones noted with MRCP in january and newly seen gallbladder wall thickening. -Patient has been afebrile and hemodynamically stable -Total bili currently 1.3 - pending LFTs this morning - RUQUS as above -Will keep on Lactated Ringer's while NPO -Pain control with Tylenol - HIDA scan as above General Surgery and Gastroenterology consultations placed- initial impression favoring cholangitis - GS defers to GI for possible ERCP - GI recs no indication for ERCP at this time - WIll continue supportive care as above, continue to wait for BCx and continue zosyn as above, pain control with tyelnol and dialudid - continue to trend daily LFS trending bili - Consider repeating imaging with ultrasound/CT scan in 2-3 days if clinical worsening will reach back out to GS/GI - attempt diet (4) DVT (deep venous thrombosis): Plan: -Hold Xarelto for now while on heparin drip - SCDs (5) Pulmonary embolism: Plan: 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 with tPA (6) Diabetes mellitus with neuropathy: Plan: -Patient is on a large home regimen -Will start with Lantus, 20 units BID - Correction factor of 20 mg/dL/unit - Carb ratio: 9 -Increase as needed (7) Hyperlipidemia: Plan: -TRIAL EXAMINER statin Admission and Anticipated Discharge Date Admission Date: April 11, 2022 Supervising Physician Co-Signing Physician Notes EVA Supervision Note: I did not personally see or examine the patient today, but I verified all mcrae points of EVA Collado's assessment and plan with the following exceptions/additions: None Subjective HD #1 following evaluation of epigastric abdominal pain subsequently found with elevated troponin and NSTEMI. [facility] from the [facility] where he underwent catheterization. 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 With his underlying abdominal pain medical managment was pursued and optimized with heparin, asa, bb, statin. Following his cath, he had an ultrasound of his gallbladder done with distention noted and wall thickening and sludge. Hida scan will be pursued today. Patient was admitted in January with abdominal flank pain to the right, which is his same pain at this time. He had an MRCP done at that time with MRCP noted for tiny gallstones. His biliary labs are not elevated other than T.BILI at 1.3, lipase 32. morning labs are pending. His HScTNI is lower than it was on admission but up-trending following cath at 1,200. His ECG is without changes overnight and he denies any chest pain, dyspnea, n/v, back pain. ECHO in morning pending Glucose remains elevated- although NPO increase basal insulin and increase carb coverage to 1:7 Appreciate Cardiology assistance. HIDA scan completed- General Surgery and Gastroenterology consultations placed. Review of Systems Review of Systems: REVIEW OF SYSTEMS: Constitutional: No fever, sweats or chills Eyes: No diplopia, no worsening or blurred vision ENT: (+) difficulty hearing, no trouble swallowing Respiratory: No cough, sputum, dyspnea at rest or on exertion Cardiovascular: No chest pain, tightness or palpitations Abdomen: (+) epigastric pain, no nausea, vomiting, diarrhea or constipation Musculoskeletal: No joint pain, calf pain, swelling Neurologic: No weakness, numbness/tingling, or balance problems Psychiatric: No anxiety or depression Skin: No rash or itch Physical Exam Physical Exam: PHYSICAL EXAM: General: awake, alert, no apparent distress- hungry Head: Normocephalic, atraumatic ENT: PERRL, EOMI, no pharyngeal exudate, mucous membranes dry Neuro: AAO x 3, speech clear and appropriate, strength intact bilaterally 5/5, sensation intact and equal all extremities and dermatomes, no pronator drift Chest: equal rise and fall of the chest, no accessory muscle use, no heaves or thrills, Clear to auscultation, on room air, Cardiac: Regular rate and rhythm, telemetry reviewed- pvc, skin warm dry, cap refill <3 seconds, peripheral pulses +2 no JVD, no edema GI: NABS x 4 quadrants, soft, tender to palpation epigastric with positive Kasper sign, no rebound, : Spontaneously voiding, no pain, no CVA tenderness, Extremities: Normal inspection, no peripheral edema or erythema, calfs nontender to palpation Psych: Normal mood and affect Skin: no rash or erythema Results & Data Results & Data ([facility]) Vital Signs (Past 12 Hours) Vital Signs Temp Pulse Pulse Resp BP Pulse Ox O2 Del Method 04/12/22 07:54 106 H 04/12/22 07:51 04/12/22 07:00 37.1 C 103 H 18 130/75 90 Room Air 04/12/22 04:06 36.9 C 98 H 18 150/79 H 90 Room Air 04/11/22 23:14 36.6 C 83 18 180/75 H 93 Room Air O2 Del Method O2 Flow Rate 04/12/22 07:54 04/12/22 07:51 Room Air 90 04/12/22 07:00 04/12/22 04:06 04/11/22 23:14 Laboratory Results Abnormal lab results 04/11/22 04/11/22 04/11/22 Range/Units 13:18 13:18 18:05 WBC 11.80 H (4.8-10.8) K/ul Hct 51.6 H (40.1-51.0) % Neut # (Auto) 9.29 H (1.4-6.5) K/uL Lymph # (Auto) (1.2-3.4) K/uL [place] # (Auto) 0.92 H (0.24-0.82) K/uL Immature Gran # (Auto) 0.11 H (0.00-0.02) K/uL APTT (21.0-31.0) Seconds Sodium 135 L (136-145) mmol/L Glucose 309 H* (70-99(Fasting)) mg/dl POC Glucose 307 H* (70-99) mg/dl Calcium 10.4 H (8.5-10.1) mg/dl Total Bilirubin 1.3 H (0.2-1.0) mg/dl Troponin I High Sens 1490.5 H* (0-20) pg/ml 04/11/22 04/11/22 04/11/22 Range/Units 19:39 19:39 19:39 WBC 12.78 H (4.8-10.8) K/ul Hct (40.1-51.0) % Neut # (Auto) 11.49 H (1.4-6.5) K/uL Lymph # (Auto) 0.53 L (1.2-3.4) K/uL [place] # (Auto) (0.24-0.82) K/uL Immature Gran # (Auto) 0.09 H (0.00-0.02) K/uL APTT 43.0 H (21.0-31.0) Seconds Sodium (136-145) mmol/L Glucose (70-99(Fasting)) mg/dl POC Glucose (70-99) mg/dl Calcium (8.5-10.1) mg/dl Total Bilirubin (0.2-1.0) mg/dl Troponin I High Sens 1226.8 H* (0-20) pg/ml 04/11/22 04/12/22 04/12/22 Range/Units 19:53 01:49 01:49 WBC (4.8-10.8) K/ul Hct (40.1-51.0) % Neut # (Auto) (1.4-6.5) K/uL Lymph # (Auto) (1.2-3.4) K/uL [place] # (Auto) (0.24-0.82) K/uL Immature Gran # (Auto) (0.00-0.02) K/uL APTT 62.1 H* (21.0-31.0) Seconds Sodium (136-145) mmol/L Glucose (70-99(Fasting)) mg/dl POC Glucose 292 H (70-99) mg/dl Calcium (8.5-10.1) mg/dl Total Bilirubin (0.2-1.0) mg/dl Troponin I High Sens 1369.1 H* (0-20) pg/ml 04/12/22 04/12/22 04/12/22 Range/Units 04:37 07:36 07:36 WBC (4.8-10.8) K/ul Hct (40.1-51.0) % Neut # (Auto) (1.4-6.5) K/uL Lymph # (Auto) (1.2-3.4) K/uL [place] # (Auto) (0.24-0.82) K/uL Immature Gran # (Auto) (0.00-0.02) K/uL APTT 68.6 H* (21.0-31.0) Seconds Sodium (136-145) mmol/L Glucose (70-99(Fasting)) mg/dl POC Glucose 257 H (70-99) mg/dl Calcium (8.5-10.1) mg/dl Total Bilirubin (0.2-1.0) mg/dl Troponin I High Sens 1406.4 H* (0-20) pg/ml 04/12/22 04/12/22 Range/Units 07:36 07:37 WBC (4.8-10.8) K/ul Hct (40.1-51.0) % Neut # (Auto) (1.4-6.5) K/uL Lymph # (Auto) (1.2-3.4) K/uL [place] # (Auto) (0.24-0.82) K/uL Immature Gran # (Auto) (0.00-0.02) K/uL APTT (21.0-31.0) Seconds Sodium (136-145) mmol/L Glucose (70-99(Fasting)) mg/dl POC Glucose 371 H* 363 H* (70-99) mg/dl Calcium (8.5-10.1) mg/dl Total Bilirubin (0.2-1.0) mg/dl Troponin I High Sens (0-20) pg/ml Diagnostic Findings Chest X-Ray 04/11/22 12:56 XR chest 1V portable CLINICAL HISTORY: Chest Pain. COMPARISON STUDY: 09/12/2021 TECHNIQUE: 1 view of the chest FINDINGS: Single frontal view of the chest demonstrates the cardiomediastinal silhouette to be within normal limits. There is a decreased inspiratory effort with elevation of the hemidiaphragms and crowding of the bronchovascular markings at the lung bases and centrally. The lungs are clear of alveolar opacities. There is no evidence for pleural effusion. There is no evidence for vascular congestion. There is no acute osseous pathology. IMPRESSION: 1. There is a decreased inspiratory effort with otherwise no acute chest disease. ACT 112: Negative or not required by law. Electronically signed by: Thiago Rocha M.D. 04/11/2022 2:22 PM Abdomen/Pelvis CTA 04/11/22 14:16 CT angio abdomen pelvis w con CLINICAL HISTORY: cp radiating to back TECHNIQUE: Multidetector row helical CT of the abdomen and pelvis was performed, following intravenous administration of iodinated contrast. No oral contrast was administered. Automated dose lowering techniques and/or adjustment according to patient size were utilized for this exam. Coronal and sagittal reformations were obtained. MIP and 3D volume rendered reconstructions were obtained. Comparison: Comparison is made to CT abdomen pelvis 02/20/2021 FINDINGS: Lower chest: For findings above the diaphragm, please see CT chest performed same day. Liver: Hepatic steatosis is noted. Focal fatty sparing is seen in the bladder fossa. Gallbladder and biliary tree: No calcified gallstones. Normal caliber wall. No intra- or extrahepatic biliary ductal dilation. Pancreas: Unremarkable, no focal lesions. Spleen: Unremarkable. Adrenals: Unremarkable. Kidneys and ureters: Unremarkable. Bladder: Diffuse homogeneous wall thickening is seen. Reproductive organs: Unremarkable. Bowel: Diverticulosis is seen without evidence of diverticulitis. The appendix is normal. There is a small hiatal hernia. Lymph nodes Retroperitoneal: Unremarkable. Pelvic: Unremarkable. Mesenteric: Unremarkable. Peritoneum: Normal. Abdominal wall: A fat-containing umbilical hernia is seen. Bones: Degenerative changes in the visualized spine. CT angiogram: The abdominal aortic contours appear intact without evidence of aneurysmal dilatation and/or dissection. There is evidence of scattered atherosclerotic calcifications of the abdominal aorta and its major branches. The origins of the celiac axis, superior mesenteric, inferior mesenteric and bilateral renal arteries are patent. IMPRESSION: 1. No acute abnormalities, in particular no evidence of aortic dissection or aneurysm. 2. Hepatic steatosis. ACT 112: Negative or not required by law. Electronically signed by: Giovanny Lyons M.D. 04/11/2022 3:03 PM Chest CTA 04/11/22 14:16 CT ANGIOGRAPHY OF THE CHEST DISSECTION PROTOCOL CLINICAL HISTORY: Chest pain radiating to back. Evaluate for dissection. COMPARISON STUDY: Chest radiograph performed earlier today. Chest CT November 18, 2020. TECHNIQUE: Before and following the IV administration of 120 mL of Optiray, helical axial images of the chest were obtained. Maximal intensity projections and sagittal and coronal reformats were viewed on an independent 3D workstation. IV contrast was administered without complication. Automated exposure control was utilized for the study. A dose lowering technique was utilized adhering to the principles of ALARA. CT DOSE: 2019.31 mGy.cm FINDINGS: Caliber of the thoracic aorta is normal. There is no intramural hematoma or thoracic aortic dissection. Mild cardiomegaly is noted. There is extensive coronary artery calcification. No central pulmonary emboli are identified. A small hiatal hernia is present. A few small pulmonary nodules are unchanged from earlier exams. These are benign. There is no consolidation to suggest pneumonia. Linear subpleural opacities reflect atelectasis or scarring. No pneumothorax or pleural effusion is present. There is extensive anterior oste ophytosis of the thoracic spine. 2.4 cm lobulated nodule within the superior left breast is unchanged since prior exam. This was previously biopsied. Abdomen and pelvis CT will be reported separately. The gallbladder is distended. There is mild pericholecystic stranding. IMPRESSION: 1. No thoracic aortic dissection. 2. No acute intrathoracic findings. 3. Mild gallbladder distention with pericholecystic stranding. These findings favor acute cholecystitis. Right upper quadrant ultrasound could be obtained for further evaluation. 4. 2.4 cm superior left breast nodule which is unchanged since prior CT. This was previously biopsied. 5. Extensive coronary artery calcification. ACT 112: Negative or not required by law. Electronically signed by: Aditya Garcia M.D. 04/11/2022 3:17 PM Liver Ultrasound 04/11/22 18:42 US liver HISTORY: 82 years-old Male Concern for cholecystitis acute right upper quadrant abdominal pain COMPARISON: CTA abdomen and pelvis of same day TECHNIQUE: Multiple real-time sonographic images of the abdominal right upper quadrant were obtained assessing grayscale appearance and color flow FINDINGS: Study is limited secondary to obscuring bowel gas. The sixth of the liver. No hepatic mass identified. The gallbladder wall measures the upper limits of normal at 3 mm. Biliary sludge without definitive cholelithiasis. Negative sonographic Kasper's sign. Pericholecystic edema seen on CT is not well appreciated by ultrasound. Trace pericholecystic edema. Imaged right kidney demonstrates no hydronephrosis however does demonstrate diffuse cortical thinning. Normal common bile duct, 5 mm. IMPRESSION: 1. Distended gallbladder with nonspecific wall thickening, trace pericholecystic edema and biliary sludge. No shadowing cholelithiasis identified. Findings could be correlated with nuclear medicine hepatobiliary scan to exclude acute cholecystitis. 2. No biliary ductal dilation. 3. Hepatic steatosis. ACT 112: Negative or not required by law. The above report was generated using voice recognition software. It may contain grammatical, syntax or spelling errors. Electronically signed by: Freddy Lanza M.D. 04/11/2022 9:02 PM PROCEDURE: NM hepatobiliary CLINICAL HISTORY: Right upper quadrant abdominal pain. Evaluate for acute cholecystitis. COMPARISON: Right quadrant ultrasound and CT of the abdomen and pelvis from 04/11/2022 RADIOPHARMACEUTICAL: 5.50 mCi Tc99m mebrofenin IV TECHNIQUE: Following intravenous administration of Tc-99m mebrofenin, seq uential abdominal images were obtained. FINDINGS: There is prompt, uniform accumulation of the tracer by the liver. There is anatomic filling of the intrahepatic ducts, common bile duct. Gallbladder begins to fill at minutes. There is anatomic excretion of the tracer into the duodenum. IMPRESSION: Normal hepatobiliary scintigraphy. ACT 112: Negative or not required by law. Medications Administered Home Medications blood-glucose meter (RentifyTouch Ultra2 Meter kit) #1 ea 01/26/20 [Rx Confirmed 04/10/22] rivaroxaban 20 mg tablet 20 mg PO QDD 09/15/20 [History Confirmed 04/10/22] acetaminophen 500 mg tablet (Tylenol Extra Strength) 1,000 mg PO DIRECTED PRN Pain 02/20/21 [History Confirmed 04/10/22] hydrocortisone-acetic acid 1 %-2 % ear drops 5 drp otic (ear) BID #10 mL 09/08/21 [Rx Confirmed 04/10/22] magnesium oxide 400 mg (241.3 mg magnesium) tablet (MagOx) 400 mg PO DAILY #7 tabs 09/12/21 [Rx Confirmed 04/10/22] lisinopril 5 mg tablet 5 mg PO QAM #90 tabs 10/26/21 [Rx Confirmed 04/10/22] trazodone 50 mg tablet See Rx Instructions PO HS #14 tabs 10/26/21 [Rx Confirmed 04/10/22] blood sugar diagnostic #100 ea 02/01/22 [Rx Confirmed 04/10/22] dulaglutide 1.5 mg/0.5 mL subcutaneous pen injector 1.5 mg (0.5 mL) subcut .weekly #2 mL 02/22/22 [Rx Confirmed 04/10/22] glimepiride 4 mg tablet 4 mg PO BID #180 tabs 02/22/22 [Rx Confirmed 04/10/22] metformin 1,000 mg tablet 1,000 mg PO BID #180 tabs 02/22/22 [Rx Confirmed 04/10/22] omeprazole 20 mg capsule,delayed release 20 mg PO QAM #90 caps 02/22/22 [Rx Confirmed 04/10/22] simvastatin 20 mg tablet 20 mg PO HS #90 tabs 02/22/22 [Rx Confirmed 04/10/22] empagliflozin 10 mg tablet (Jardiance) 10 mg PO DAILY #30 tabs 03/29/22 [Rx Confirmed 04/10/22] Active Medications Acetaminophen (Acetaminophen 325 Mg Tab) 650 mg PO Q4H PRN PRN Reason: Mild Pain Stop: 05/11/22 18:41 Aspirin (Aspirin 81 Mg Ectab) 81 mg PO QAM [facility] Stop: 05/12/22 08:59 Atorvastatin Calcium (Atorvastatin 40 Mg Tab) 40 mg PO QAM [facility] Stop: 05/12/22 08:59 Dextrose (Dextrose 50% 50 Ml Syringe) 25 - 50 ml IV UD PRN; Protocol PRN Reason: Hypoglycemia Protocol Stop: 05/11/22 18:52 Glucagon (Glucagon For Inj 1 Mg Vial) 1 mg SQ UD PRN; Protocol PRN Reason: Hypoglycemia Protocol Stop: 05/11/22 18:52 Glucose (Glucose 40% Gel 15 Gm Tube) 15 - 30 gm PO UD PRN; Protocol PRN Reason: Hypoglycemia Protocol Stop: 05/11/22 18:52 Glucose (Glucose 10 Tab/Tube) 4 - 8 tab PO UD PRN; Protocol PRN Reason: Hypoglycemia Treatment Stop: 05/11/22 18:52 Heparin Sodium/Dextrose (Heparin Sodium/Dextrose) 25,000 units in 500 mls @ 32 mls/hr IV .[id number] JOSE; Protocol Stop: 05/11/22 18:14 Last Titration: 04/12/22 03:10 Dose: 1,600 units/hr, 32 mls/hr Piperacillin Sod/Tazobactam (Sod 3.375 gm/ Dextrose) 115 mls @ 28.75 mls/hr IV Q8H [facility]; Protocol Stop: 04/21/22 00:59 Last Admin: 04/12/22 09:04 Dose: 28.8 mls/hr Lactated Ringer's (Lr) 1,000 mls @ 100 mls/hr IV .Q10H [facility] Stop: 05/12/22 07:00 Last Admin: 04/12/22 06:11 Dose: 100 mls/hr Insulin Aspart (Insulin Aspart Per Unit) 0 units SC ACHS [facility] Stop: 05/11/22 20:59 Last Admin: 04/12/22 08:51 Dose: 12 units Insulin Glargine (Lantus Per Unit Charge) 30 units SQ BID [facility] Stop: 05/12/22 20:59 Lisinopril (Lisinopril 5 Mg Tab) 5 mg PO QAM [facility] Stop: 05/12/22 08:59 Metoprolol Tartrate (Metoprolol Tartrate 25 Mg Tab) 25 mg PO BID [facility] Stop: 05/11/22 20:59 Last Admin: 04/11/22 19:57 Dose: 25 mg Miscellaneous (Carbohydrates For Hypoglycemia ) 15 - 30 gm PO UD PRN PRN Reason: Hypoglycemia Protocol Stop: 05/11/22 18:52 Ondansetron HCl (Ondansetron Inj 2 Mg/Ml 2 Ml Vial) 4 mg IV Q4H PRN PRN Reason: Nausea Stop: 05/11/22 20:21 Last Admin: 04/11/22 23:45 Dose: 4 mg Pantoprazole Sodium (Pantoprazole 40 Mg Tab) 40 mg PO QAM [facility] Stop: 05/12/22 08:59 Tramadol HCl (Tramadol Hcl 50 Mg Tablet) 25 mg PO Q4H PRN PRN Reason: Severe Pain Stop: 05/11/22 18:41 Last Admin: 04/11/22 19:56 Dose: 25 mg ECG Additional Comments: Sinus tachycardia Inferior-posterior infarct , age undetermined Abnormal ECG When compared with ECG of 11-APR-2022 23:42, (unconfirmed) No significant change was found PG Care Time/CCT Total # of Minutes Spent Total Time Spent with Patient: Total time spent is greater than 50% in coordination of care (as documented) at patient's floor/unit and/or counseling patient: Coding Level of Care Code 97434 Subseq Hosp Care Lvl 3 Diagnoses ACS (acute coronary syndrome) I24.9 CAD (coronary artery disease) I25.10 Abdominal pain R10.9 DVT (deep venous thrombosis) I82.409 Chronicity: chronic Pulmonary embolism I26.92 Acute cor pulmonale presence: unspecified Chronicity: acute Pulmonary embolism type: saddle Diabetes mellitus with neuropathy E11.40 Hyperlipidemia E78.5 (1) DVT (deep venous thrombosis) Chronicity: chronic (2) Pulmonary embolism Acute cor pulmonale presence: unspecified Chronicity: acute Pulmonary embolism type: saddle Qualified Code(s): I26.92 - Saddle embolus of pulmonary artery without acute cor pulmonale
[2022-04-12 10:25] LABS: Basophils # (auto) 0.02 K/uL (0-0.2); Basophils % (auto) 0.2 %; Eosinophils # (auto) 0.01 K/uL (0-0.50); Eosinophils % (auto) 0.1 %; Hematocrit (blood only) 47.6 % (40.1-51.0); Hemoglobin 15.8 g/dl (14.0-18.0); Immature Granulocytes % (auto) 0.8 %; Lymphocytes # (auto) 0.77 K/uL (1.2-3.4); Lymphocytes % (auto) 6.2 %; Mean Corpuscular Hemoglobin 28.7 pg (25.0-34.0); Mean Corpuscular Hgb Conc 33.2 g/dL (32.0-36.0); Mean Corpuscular Volume 86.5 fL (80.0-100.0); Mean Platelet Volume 9.9 fL (9.4-12.4); Monocytes # (auto) 0.92 K/uL (0.24-0.82); Monocytes % (auto) 7.4 %; Neutrophils % (auto) 85.3 %; Platelet Count 230 K/uL (130-400); RDW Coefficient of Variation 13.2 % (11.5-14.5); RDW Standard Deviation 40.6 fL (36.4-46.3); White Blood Count 12.42 K/ul (4.8-10.8)
--- NOTE | 2022-04-12 10:33 | Hospitalist Progress Note ---
Date of Service April 12, 2022 Assessment & Plan Admission and Anticipated Discharge Date Admission Date: April 11, 2022 Physical Exam Physical Exam: Physical Exam: General: In no acute distress, statge age, well-nourished, good hygiene HEENT: Normocephalic, atraumatic, no scleral icterus, pupils around round, symmetrical, and reactive to light, moist mucus membranes, trachea midline, no thyromegaly Chest/Pulm: No respiratory distress, symmetrical chest expansion, clear breath sounds throughout Cardiac: RRR, no murmurs noted Abdomen: Negative for ascites and bruising, normoactive bowel sounds, soft, non-tender to palpation throughout Musculoskeletal: Symmetrical and without signs of acute trauma, upper and lower extremities with full ROM, no atrophy, spasticity, or flaccidity Neuro: Alert and oriented to person, place, month, year, and president, no focal defects, CN II-XII tested and intact, finger to nose test negative, no tremors noted Psych: No acute distress, calm and cooperative during the exam Results & Data Results & Data ([facility]) Vital Signs (Past 12 Hours) Vital Signs Temp Pulse Pulse Resp BP Pulse Ox O2 Del Method 04/12/22 07:54 106 H 04/12/22 07:51 04/12/22 07:00 37.1 C 103 H 18 130/75 90 Room Air 04/12/22 04:06 36.9 C 98 H 18 150/79 H 90 Room Air 04/11/22 23:14 36.6 C 83 18 180/75 H 93 Room Air O2 Del Method O2 Flow Rate 04/12/22 07:54 04/12/22 07:51 Room Air 90 04/12/22 07:00 04/12/22 04:06 04/11/22 23:14 PG Care Time/CCT Total # of Minutes Spent Total Time Spent with Patient: Total time spent is greater than 50% in coordination of care (as documented) at patient's floor/unit and/or counseling patient: Coding
[2022-04-12] MEDS: HEPARIN SODIUM/DEXTROSE 25,000 UNITS/500 ML BAG IV SCH ×2 (10:42→12:11)
[2022-04-12 10:49] LABS: Albumin Level 3.6 gm/dl (3.4-5.0); Bilirubin Direct 0.3 mg/dl (0-0.2); Bilirubin,Total 1.7 mg/dl (0.2-1.0); Total Protein 6.6 gm/dl (6.0-8.3)
[2022-04-12] MEDS ORDERED: MoRPHine SULFATE 2 MG/ML CARP ONE (11:45)
[2022-04-12] MEDS: METOPROLOL TARTRATE 25 MG TAB PO SCH ×2 (12:44→21:18)
[2022-04-12] MEDS: ASPIRIN 81 MG ECTAB PO SCH (12:44)
[2022-04-12] MEDS: lisinopril 5 MG TAB PO SCH (12:45)
[2022-04-12] MEDS: PANTOprazole 40 MG TAB PO SCH (12:45)
[2022-04-12] MEDS: ATORVASTATIN 40 MG TAB PO SCH (12:46)
--- NOTE | 2022-04-12 12:49 | Nuclear Medicine Report ---
PROCEDURE: NM hepatobiliary CLINICAL HISTORY: Right upper quadrant abdominal pain. Evaluate for acute cholecystitis. COMPARISON: Right quadrant ultrasound and CT of the abdomen and pelvis from 04/11/2022 RADIOPHARMACEUTICAL: 5.50 mCi Tc99m mebrofenin IV TECHNIQUE: Following intravenous administration of Tc-99m mebrofenin, sequential abdominal images we re obtained. FINDINGS: There is prompt, uniform accumulation of the tracer by the liver. There is anatomic filling of the in trahepatic ducts, common bile duct. Gallbladder begins to fill at minutes. There is anatomic excretio n of the tracer into the duodenum. IMPRESSION: Normal hepatobiliary scintigraphy. ACT 112: Negative or not required by law. Electronically signed by: Thiago Rocha M.D. 04/12/2022 12:47 PM
--- NOTE | 2022-04-12 13:13 | Surgery Consultation ---
Date of Consultation April 12, 2022 Assessment & Plan (1) Abdominal pain: pt is 82 year-old male who was admitted to hospital for chest pain, RUQ pain, WBC 12,000, T Bili 1.7 IMP: abdominal pain, most likely cholangitis plan, recommend consult GI for ERCP, no emergent cholecystectomy now, continue IV antibiotic, repeat labs in morning will F/U History of Present Illness Reason for Consultation: distend gallbladder Requesting Physician: Kaylee Mcgraw MD Attending Physician: Kaylee Mcgraw MD History of Present Illness Chief Complaint: Chest pain Primary Care Provider: Forest Warner DO Anthony is an 82 year old male with a PMH significant for poorly controlled DM II, previous DVT and PE on Xarelto, HTN, CAD, hyperlipidemia, sensorineural hearing loss, GERD who presented to the [facility] on 04/11/22 with a chief complaint of chest pain. Per chart review, the patient was admitted to [facility] in January of 2021 for acute right flank pain. During his admission he underwent CT of the abdomen and pelvis which showed possible branching hepatic density. MRCP during the admissi on was normal but did show "tiny gallstones". Today, the patient underwent CTA of the chest, abdomen, and pelvis. The imaging was negative for aortic dissection and intrathoracic findings. It did however show mild gallbladder distention and pericholecystic stranding. It was also noted that the patient had extensive coronary artery calcification. The patient was found to have a mile leukocytosis of 11.80 with absolute neutrophils of 9.29. High sensitivity troponin was noted to be 1490.5. Cardiology was consulted and performed a Coronary angiography with left heart cath and IVUS. The procedure revealed Severe CAD and Normal Intracardiac Pressures. Due to these findings Cardiology recommended medical management and continued workup of his possible gallbladder issues. The patient was seen and examined after his cardiac cath and was resting in bed in no acute distress. He states that he has been experiencing a dull, 5/10, epigastric/upper abdominal pain over the past few weeks. It is worst at night and is exacerbated with eating. He denies that pain moving anywhere else. He also denies associated nausea and vomiting. The patient had a regular bowel movement this morning and denies fever and chills. I spoke with his and Daughter at bedside, his states that the patient has been cool and "clamy" overr the past 24 hours. His daughter states that the patient has a high pain tolerance, so this amount of pain is unusual for him. I ( Nasreen carpio MD ) got a call for consult distend gallbladder, I reviewed pt's H/P, labs, liver U/S study, HIDA scan with pt, pt has some RUQ pain, no chest pain, no fever, Allergies Allergy/AdvReac Type Severity Reaction Status Date / Time Sulfa (Sulfonamide Allergy Severe ANAPHYLAXIS Verified 04/10/22 13:34 Antibiotics) Home Medications Medication Instructions Recorded Confirmed Type blood-glucose meter (OneTouch #1 ea 01/26/20 04/10/22 Rx Ultra2 Meter kit) F rivaroxaban 20 mg tablet 20 mg PO QDD 09/15/20 04/10/22 Histor y acetaminophen 500 mg tablet 1,000 mg PO DIRECTED PRN Pain 02/20/21 04/10/22 History (Tylenol Extra Strength) hydrocortisone-acetic acid 1 %-2 % 5 drp otic (ear) BID #10 mL 09/08/21 04/10/22 Rx ear drops magnesium oxide 400 mg (241.3 mg 400 mg PO DAILY #7 tabs 09/12/2105/24 Rx magnesium) tablet (MagOx) lisinopril 5 mg tablet 5 mg PO QAM #90 tabs 10/26/21 04/10/22 Rx trazodone 50 mg tablet See Rx Instructions PO HS #14 tabs 10/26/21 04/10/22 Rx blood sugar diagnostic #100 ea 02/01/22 04/10/22 Rx dulaglutide 1.5 mg/0.5 mL 1.5 mg (0.5 mL) subcut .weekly #2 02/22/22 04/10/22 Rx subcutaneous pen injector mL glimepiride 4 mg tablet 4 mg PO BID #180 tabs 02/22/22 04/10/22 Rx metformin 1,000 mg tablet 1,000 mg PO BID #180 tabs 02/22/22 04/10/22 Rx omeprazole 20 mg capsule,delayed 20 mg PO QAM #90 caps 02/22/2204/10 Rx release simvastatin 20 mg tablet 20 mg PO HS #90 tabs 02/22/22 04/10/22 Rx empagliflozin 10 mg tablet 10 mg PO DAILY #30 tabs 03/29/22 04/10/22 Rx (Jardiance) Past Med/Surg History Medical History Acid reflux disease BPH (benign prostatic hyperplasia) Diabetes mellitus with neuropathy Fever of unknown origin Hard of hearing History of skin cancer ON FACE, REMOVEDHistory of stroke ? 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Sensorineural hearing loss (SNHL) of right ear with restricted hearing of left ear No word recognition in right ear Surgical History H/O transurethral resection of prostate TOTAL OF 4, PT REPORTS MOST RECENT FEW WEEKS AGO AT [facility] - PT REPORTS HEALING...PLANS TO CALL DR JUNIOR OFFICE TO SCHEDULE FOLLOW UPHistory of arthroscopy of right knee History of left cataract extraction (~09/28/20) Family History Mother Colorectal cancer PacemakerBrother StrokeBrother Prostate cancer COPD (chronic obstructive pulmonary disease) Coronary heart diseaseDenies family history of Ovarian cancer Myocardial infarction Breast cancer Social History Smoking Status: Former smoker Tobacco Type: Cigarettes and Smokeless Tobacco (Dip or Chew) Second Hand Exposure: No; Hx Alcohol Use: No Hx Substance Use: No Preferred Language: Micronesian Communication Ability: Effective Visual Impairment: No Limitations Laboratory Equipment Cleaner Required: No Beliefs That Will Affect Care: None marital status: Current Living Situation: Spouse current occupational 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 Feels Safe at Home: Yes Safety Concerns: Feels Safe At This Time caffeine: Yes Dental Care, Regularly: No Physical Activity Frequency: Does not Exercise Seatbelt Use: always Sunscreen Use: No Assistive Devices: None Review of Systems Constitutional: + chills, + weakness and + anorexia; no fever Ear, Nose, Mouth, Throat: no dizziness, no sore throat, no dysphagia and no pain with swallowing Respiratory: no cough, no dyspnea, no hemoptysis, no pain on inspiration and no wheezing Cardiovascular: + chest pain and + chest pain at rest; n o radiating jaw, neck or arm pain, no syncope and no edema Gastrointestinal: + abdominal pain and + nausea; no vomiti ng, no coffee ground emesis, no pain with swallowing, no constipation, no diarrhea/loose stools and no melena Genitourinary: no dysuria or no hematuria Musculoskeletal: no back pain Integumentary: no rash Neurologic: no dizziness, no syncope, no headache(s) and no confusion Psychiatric: no behavioral changes, no depression and no anxiety Endocrine: + fatigue Hematologic / Lymphatic: no easy bleeding and no easy bruising Allergy / Immunological: no urticaria and no wheezing Allergies Allergy/AdvReac Type Severity Reaction Status Date / Time Sulfa (Sulfonamide Allergy Severe ANAPHYLAXIS Verified 04/10/22 13:34 Antibiotics) Home Medications Medication Instructions Recorded Confirmed Type blood-glucose meter (iHealthuch #1 ea 01/26/20 04/10/22 Rx Ultra2 Meter kit) rivaroxaban 20 mg tablet 20 mg PO QDD 09/15/20 04/10/22 History acetaminophen 500 mg tablet 1,000 mg PO DIRECTED PRN Pain 02/20/21 04/10/22 History (Tylenol Extra Strength) hydrocortisone-acetic acid 1 %-2 % 5 drp otic (ear) BID #10 mL 09/08/21 04/10/22 Rx ear drops magnesium oxide 400 mg (241.3 mg 400 mg PO DAILY #7 tabs 09/12/21 04/10/22 Rx magnesium) tablet (MagOx) lisinopril 5 mg tablet 5 mg PO QAM #90 tabs 10/26/21 04/10/22 Rx trazodone 50 mg tablet See Rx Instructions PO HS #14 tabs 10/26/21 04/10/22 Rx blood sugar diagnostic #100 ea 02/01/22 04/10/22 Rx dulaglutide 1.5 mg/0.5 mL 1.5 mg (0.5 mL) subcut .weekly #2 02/22/22 04/10/22 Rx subcutaneous pen injector mL glimepiride 4 mg tablet 4 mg PO BID #180 tabs 02/22/22 04/10/22 Rx metformin 1,000 mg tablet 1,000 mg PO BID #180 tabs 02/22/22 04/10/22 Rx omeprazole 20 mg capsule,delayed 20 mg PO QAM #90 caps 02/22/22 04/10/22 Rx release simvastatin 20 mg tablet 20 mg PO HS #90 tabs 02/22/22 04/10/22 Rx empagliflozin 10 mg tablet 10 mg PO DAILY #30 tabs 03/29/22 04/10/22 Rx (Jardiance) Patient History Medical History Acid reflux disease BPH (benign prostatic hyperplasia) Diabetes mellitus with neuropathy Fever of unknown origin Hard of hearing History of skin 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 Sensorineural hearing loss (SNHL) of right ear with restricted hearing of left ear No word recognition in right ear Surgical History H/O transurethral resection of prostate TOTAL OF 4, PT REPORTS MOST RECENT FEW WEEKS AGO AT [facility] - PT REPORTS HEALING...PLANS TO CALL DR JUNIOR OFFICE TO SCHEDULE FOLLOW UP History of arthroscopy of right knee History of left cataract extraction (~09/28/20) Family History Mother Colorectal cancer Pacemaker Brother Stroke Brother Prostate cancer COPD (chronic obstructive pulmonary disease) Coronary heart disease Denies family history of Ovarian cancer Myocardial infarction Breast cancer Social History Smoking Status: Former smoker Tobacco Type: Cigarettes and Smokeless Tobacco (Dip or Chew) Second Hand Exposure: No; Hx Alcohol Use: No Hx Substance Use: No Preferred Language: Micronesian Communication Ability: Effective Visual Impairment: No Limitations Laboratory Equipment Cleaner Required: No Beliefs That Will Affect Care: None marital status: Current Living Situation: Spouse current occupational 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 Feels Safe at Home: Yes Safety Concerns: Feels Safe At This Time caffeine: Yes Dental Care, Regularly: No Physical Activity Frequency: Does not Exercise Seatbelt Use: always Sunscreen Use: No Assistive Devices: None Physical Exam Constitutional: WD/WN, vitals as above Eyes: PERRL, conjunctivae normal, anicteric sclerae Neck: trachea midline, no thyromegaly Respiratory: normal respiratory effort, lungs clear to auscultation Cardiovascular: RRR, no murmur, no edema Gastrointestinal (Abdomen): soft, no tenderness at RUQ, no distend, BS + Neurologic: patellar DTR's 2+ bilat, sensation intact Psychiatric: A+Ox3, euthymic affect Results & Data ([facility]) Vital Signs (Past 12 Hours) Vital Signs Temp Pulse Pulse Resp BP Pulse Ox O2 Del Method 04/12/22 12:46 36.8 C 96 H 20 130/75 97 04/12/22 07:54 106 H 04/12/22 07:51 04/12/22 07:00 37.1 C 103 H 18 130/75 90 Room Air 04/12/22 04:06 36.9 C 98 H 18 150/79 H 90 Room Air O2 Del Method O2 Flow Rate 04/12/22 12:46 04/12/22 07:54 04/12/22 07:51 Room Air 90 04/12/22 07:00 04/12/22 04:06 Laboratory Results Abnormal lab results 04/11/22 04/11/22 04/11/22 Range/Units 13:18 13:18 18:05 WBC 11.80 H (4.8-10.8) K/ul Hct 51.6 H (40.1-51.0) % Neut # (Auto) 9.29 H (1.4-6.5) K/uL Lymph # (Auto) (1.2-3.4) K/uL [place] # (Auto) 0.92 H (0.24-0.82) K/uL Immature Gran # (Auto) 0.11 H (0.00-0.02) K/uL APTT (21.0-31.0) Seconds Sodium 135 L (136-145) mmol/L Glucose 309 H* (70-99(Fasting)) mg/dl POC Glucose 307 H* (70-99) mg/dl Calcium 10.4 H (8.5-10.1) mg/dl Total Bilirubin 1.3 H (0.2-1.0) mg/dl Direct Bilirubin (0-0.2) mg/dl Troponin I High Sens 1490.5 H* (0-20) pg/ml 04/11/22 04/11/22 04/11/22 Range/Units 19:39 19:39 19:39 WBC 12.78 H (4.8-10.8) K/ul Hct (40.1-51.0) % Neut # (Auto) 11.49 H (1.4-6.5) K/uL Lymph # (Auto) 0.53 L (1.2-3.4) K/uL [place] # (Auto) (0.24-0.82) K/uL Immature Gran # (Auto) 0.09 H (0.00-0.02) K/uL APTT 43.0 H (21.0-31.0) Seconds Sodium (136-145) mmol/L Glucose (70-99(Fasting)) mg/dl POC Glucose (70-99) mg/dl Calcium (8.5-10.1) mg/dl Total Bilirubin (0.2-1.0) mg/dl Direct Bilirubin (0-0.2) mg/dl Troponin I High Sens 1226.8 H* (0-20) pg/ml 04/11/22 04/12/22 04/12/22 Range/Units 19:53 01:49 01:49 WBC (4.8-10.8) K/ul Hct (40.1-51.0) % Neut # (Auto) (1.4-6.5) K/uL Lymph # (Auto) (1.2-3.4) K/uL [place] # (Auto) (0.24-0.82) K/uL Immature Gran # (Auto) (0.00-0.02) K/uL APTT 62.1 H* (21.0-31.0) Seconds Sodium (136-145) mmol/L Glucose (70-99(Fasting)) mg/dl POC Glucose 292 H (70-99) mg/dl Calcium (8.5-10.1) mg/dl Total Bilirubin (0.2-1.0) mg/dl Direct Bilirubin (0-0.2) mg/dl Troponin I High Sens 1369.1 H* (0-20) pg/ml 04/12/22 04/12/22 04/12/22 Range/Units 04:37 07:36 07:36 WBC (4.8-10.8) K/ul Hct (40.1-51.0) % Neut # (Auto) (1.4-6.5) K/uL Lymph # (Auto) (1.2-3.4) K/uL [place] # (Auto) (0.24-0.82) K/uL Immature Gran # (Auto) (0.00-0.02) K/uL APTT 68.6 H* (21.0-31.0) Seconds Sodium (136-145) mmol/L Glucose (70-99(Fasting)) mg/dl POC Glucose 257 H (70-99) mg/dl Calcium (8.5-10.1) mg/dl Total Bilirubin (0.2-1.0) mg/dl Direct Bilirubin (0-0.2) mg/dl Troponin I High Sens 1406.4 H* (0-20) pg/ml 04/12/22 04/12/22 04/12/22 Range/Units 07:36 07:36 07:36 WBC 12.42 H (4.8-10.8) K/ul Hct (40.1-51.0) % Neut # (Auto) 10.60 H (1.4-6.5) K/uL Lymph # (Auto) 0.77 L (1.2-3.4) K/uL [place] # (Auto) 0.92 H (0.24-0.82) K/uL Immature Gran # (Auto) 0.10 H (0.00-0.02) K/uL APTT (21.0-31.0) Seconds Sodium (136-145) mmol/L Glucose (70-99(Fasting)) mg/dl POC Glucose 371 H* (70-99) mg/dl Calcium (8.5-10.1) mg/dl Total Bilirubin 1.7 H (0.2-1.0) mg/dl Direct Bilirubin 0.3 H (0-0.2) mg/dl Troponin I High Sens (0-20) pg/ml 04/12/22 04/12/22 Range/Units 07:37 12:39 WBC (4.8-10.8) K/ul Hct (40.1-51.0) % Neut # (Auto) (1.4-6.5) K/uL Lymph # (Auto) (1.2-3.4) K/uL [place] # (Auto) (0.24-0.82) K/uL Immature Gran # (Auto) (0.00-0.02) K/uL APTT (21.0-31.0) Seconds Sodium (136-145) mmol/L Glucose (70-99(Fasting)) mg/dl POC Glucose 363 H* 320 H* (70-99) mg/dl Calcium (8.5-10.1) mg/dl Total Bilirubin (0.2-1.0) mg/dl Direct Bilirubin (0-0.2) mg/dl Troponin I High Sens (0-20) pg/ml Diagnostic Findings PROCEDURE: NM hepatobiliary CLINICAL HISTORY: Right upper quadrant abdominal pain. Evaluate for acute cholecystitis. COMPARISON: Right quadrant ultrasound and CT of the abdomen and pelvis from 04/11/2022 RADIOPHARMACEUTICAL: 5.50 mCi Tc99m mebrofenin IV TECHNIQUE: Following intravenous administration of Tc-99m mebrofenin, sequential abdominal images were obtained. FINDINGS: There is prompt, uniform accumulation of the tracer by the liver. There is anatomic filling of the intrahepatic ducts, common bile duct. Gallbladder begins to fill at minutes. There is anatomic excretion of the tracer into the duodenum. IMPRESSION: Normal hepatobiliary scintigraphy. US liver HISTORY: 82 years-old Male Concern for cholecystitis acute right upper quadrant abdominal pain COMPARISON: CTA abdomen and pelvis of same day TECHNIQUE: Multiple real-time sonographic images of the abdominal right upper quadrant were obtained assessing grayscale appearance and color flow FINDINGS: Study is limited secondary to obscuring bowel gas. The sixth of the liver. No hepatic mass identified. The gallbladder wall measures the upper limits of normal at 3 mm. Biliary sludge without definitive cholelithiasis. Negative so nographic Kasper's sign. Pericholecystic edema seen on CT is not well appreciated by ultrasound. Trace pericholecystic edema. Imaged right kidney demonstrates no hydronephrosis however does demonstrate diffuse cortical thinning. Normal common bile duct, 5 mm. IMPRESSION: 1. Distended gallbladder with nonspecific wall thickening, trace pericholecystic edema and biliary sludge. No shadowing cholelithiasis identified. Findings could be correlated with nuclear medicine hepatobiliary scan to exclude acute cholecystitis. 2. No biliary ductal dilation. 3. Hepatic steatosis.
--- NOTE | 2022-04-12 17:12 | XCELERA ---
[id number]
[2022-04-12 17:18] LABS: Partial Thromboplastin Ratio 1.9
[2022-04-12 17:26] LABS: Partial Thromboplastin Time 53.6 Seconds (21.0-31.0)
--- NOTE | 2022-04-12 18:30 | Cardiology Progress Note ---
Date of Service April 12, 2022 Assessment & Plan (1) Abdominal pain: Plan: -- suspected biliary disease 2. Multivessel CAD50% pLAD, sequential 80+% LCx, 90% calcified distal RCA 3. Type 2 [id number] 9.8 4. 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 Preserved LV function 6. Moderate pulmonary hypertension Patient has remained chest pain free. No significant rise in troponin. Echo with normal function and no wall motion abnormalities. Cardiac findings more consistent with stable CAD and demand ischemia. Will hold off on repeat cath/PCI at this time. Ok from a cardiac standpoint to undergo additional endoscopy or surgical intervention as necessary. Continue heparin, aspirin, statin, metoprolol, lisinopril. Admission and Anticipated Discharge Date Admission Date: April 12, 2022 Subjective Seen this afternoon. Sleepy but no uncomfortable. Denies any chest pain or shortness of breath. Ongoing RUQ pain. Mild nausea. No appetite. Tele reviewed -- no events. Troponin- flat ~1400 HIDA scan - negative Liver U/S - distended gallbladder Echo- EF55%, mild AI Review of Systems Review of Systems: All systems reviewed & are unremarkable except as noted in HPI & below Physical Exam Physical Exam: General: sleepy HEENT: Sclerae anicteric Lungs: Clear to auscultation anteriorly Cardiac: Regular rate and rhythm, 2 out of 6 systolic ejection murmur Vascular: 2+ radial, Abdomen: Soft, distended, tender diffusely, most notable in RUQ. Extremities: Well perfused, no peripheral edema Neuro: Nonfocal Psych: Alert oriented Results & Data ([facility]) Vital Signs (Past 12 Hours) Vital Signs Temp Pulse Pulse Resp BP Pulse Ox O2 Del Method 04/12/22 17:34 97.5 F L 99 H 18 125/63 98 04/12/22 12:46 98.2 F 96 H 20 130/75 97 04/12/22 07:54 106 H 04/12/22 07:51 04/12/22 07:00 98.8 F 103 H 18 130/75 90 Room Air O2 Del Method O2 Flow Rate 04/12/22 17:34 04/12/22 12:46 04/12/22 07:54 04/12/22 07:51 Room Air 90 04/12/22 07:00 PG Care Time/CCT Total # of Minutes Spent Total Time Spent with Patient: Total time spent is greater than 50% in coordination of care (as documented) at patient's floor/unit and/or counseling patient: Coding Level of Care Code 97942 Subseq Hosp Care Lvl 3 Diagnoses Abdominal pain R10.9
[2022-04-13] MEDS: LACTATED RINGER'S 1,000 ML IV SCH ×2 (00:20→10:46)
[2022-04-13] MEDS: PIPERACILLIN/TAZOBACTAM 3.375 GM in DEXTROSE 5% 100 ML IV SCH ×3 (00:20→17:24)
[2022-04-13] MEDS: HEPARIN SODIUM/DEXTROSE 25,000 UNITS/500 ML BAG IV SCH (04:59)
--- NOTE | 2022-04-13 05:47 | Electrocardiogram Report ---
Test Reason : Blood Pressure : / mmHG Vent. Rate : 067 BPM Atrial Rate : 067 BPM P-R Int : 176 ms QRS Dur : 108 ms QT Int : 420 ms P-R-T Axes : 021 050 067 degrees QTc Int : 443 ms Sinus rhythm with marked sinus arrhythmia Nonspecific ST and T wave abnormality Abnormal ECG When compared with ECG of 12-SEP-2021 16:12, Borderline criteria for Inferior infarct are no longer Present Confirmed by Jose Maire ([id number]) on 04/13/2022 5:46:26 AM Referred By: Confirmed By:Jose Marie
--- NOTE | 2022-04-13 05:51 | Electrocardiogram Report ---
Test Reason : Blood Pressure : / mmHG Vent. Rate : 066 BPM Atrial Rate : 066 BPM P-R Int : 176 ms QRS Dur : 108 ms QT Int : 432 ms P-R-T Axes : 013 054 068 degrees QTc Int : 452 ms Normal sinus rhythm with sinus arrhythmia Normal ECG When compared with ECG of 11-APR-2022 13:00, No significant change was found Confirmed by Jose Marie ([id number]) on 04/13/2022 5:50:49 AM Referred By: REFERRED SELF Confirmed By:Jose Marie
--- NOTE | 2022-04-13 05:53 | Electrocardiogram Report ---
Test Reason : Blood Pressure : / mmHG Vent. Rate : 085 BPM Atrial Rate : 085 BPM P-R Int : 208 ms QRS Dur : 112 ms QT Int : 398 ms P-R-T Axes : 035 047 059 degrees QTc Int : 473 ms Normal sinus rhythm Possible Inferior-posterior infarct , age undetermined Abnormal ECG When compared with ECG of 11-APR-2022 14:29, No significant change was found Confirmed by Jose Marie ([id number]) on 04/13/2022 5:52:57 AM Referred By: REFERRED SELF Confirmed By:Jose Marie
[2022-04-13 07:22] LABS: Basophils # (auto) 0.04 K/uL (0-0.2); Basophils % (auto) 0.3 %; Eosinophils # (auto) 0.01 K/uL (0-0.50); Eosinophils % (auto) 0.1 %; Hematocrit (blood only) 46.4 % (40.1-51.0); Hemoglobin 15.5 g/dl (14.0-18.0); Immature Granulocytes # (auto) 0.13 K/uL (0.00-0.02); Immature Granulocytes % (auto) 0.9 %; Lymphocytes # (auto) 1.04 K/uL (1.2-3.4); Lymphocytes % (auto) 7.4 %; Mean Corpuscular Hemoglobin 28.9 pg (25.0-34.0); Mean Corpuscular Hgb Conc 33.4 g/dL (32.0-36.0); Mean Corpuscular Volume 86.4 fL (80.0-100.0); Mean Platelet Volume 9.1 fL (9.4-12.4); Monocytes # (auto) 0.72 K/uL (0.24-0.82); Monocytes % (auto) 5.1 %; Neutrophils # (auto) 12.15 K/uL (1.4-6.5); Neutrophils % (auto) 86.2 %; Platelet Count 208 K/uL (130-400); RDW Coefficient of Variation 13.2 % (11.5-14.5); RDW Standard Deviation 41.2 fL (36.4-46.3); Red Blood Count 5.37 M/uL (4.63-6.08); White Blood Count 14.09 K/ul (4.8-10.8)
[2022-04-13 07:52] LABS: Albumin Level 3.3 gm/dl (3.4-5.0); BUN Creatinine Ratio 15.8 (10-20); Bilirubin Direct 0.3 mg/dl (0-0.2); Bilirubin,Total 2.7 mg/dl (0.2-1.0); Calcium 8.9 mg/dl (8.5-10.1); Creatinine Clr Calc Pharmacy 54.1 ml/min; Est GFR (African American) 57.3 ml/min; Est GFR (Non-African American) 49.4 ml/min; Magnesium 1.6 mg/dl (1.7-2.4); Total Protein 6.3 gm/dl (6.0-8.3)
[2022-04-13 08:07] LABS: Partial Thromboplastin Ratio 1.8
[2022-04-13 08:13] LABS: Partial Thromboplastin Time 48.9 Seconds (21.0-31.0)
[2022-04-13] MEDS: PANTOprazole 40 MG TAB PO SCH ×2 (08:55→20:18)
[2022-04-13] MEDS: ATORVASTATIN 40 MG TAB PO SCH (08:55)
[2022-04-13] MEDS: ASPIRIN 81 MG ECTAB PO SCH (08:55)
[2022-04-13] MEDS: lisinopril 5 MG TAB PO SCH (08:55)
[2022-04-13] MEDS: METOPROLOL TARTRATE 25 MG TAB PO SCH ×2 (08:55→20:19)
[2022-04-13] MEDS: INSULIN ASPART PER UNIT SC SCH ×4 (08:58→20:25)
[2022-04-13] MEDS: LANTUS PER UNIT CHARGE SQ SCH ×2 (08:58→20:25)
--- NOTE | 2022-04-13 09:40 | Gastrointestinal Consultation ---
Date of Consultation April 13, 2022 Assessment & Plan (1) Abdominal pain: 82 year old male with PMHx of poorly controlled DM II, previous DVT and PE on Xarelto, HTN, CAD, hyperlipidemia, sensorineural hearing loss, GERD who presented to the [facility] on 04/11/22 with a chief complaint of chest pain. he had cardiology work up per HPI. He does also complain of RUQ pain. He had a CT done showing possible branching hepatic density in January 2021 and MRCP showing small gallstones. He had US on this admission with distended gallbladder with thickening. Surgery had seen and had concern for cholangitis. Patient has not had any fevers or jaundice so at this time would not suspect cholangitis. symptoms seem to have been coming and going for over a year and food triggers his episodes. symptoms sound like they could be more gallbladder in nature. - discussed with Dr. Crystal who advised on plan. - case was also discussed with Nagi CLOUD for possible ERCP but it was not felt to be necessary at this time. - can check updated mrcp. - increase protonix to 40mg bid. - add carafate 1 gm qid. Supervising Physician Co-Signing Physician Notes Agree with JENNIFER Barnard as above Still with RUQ abdominal pain at present, worse with eating Gen: Chronic ill-appearing, NAD Chest: CTA B/L CVS: RRR, -M/R/G Abd: Soft, Tender RUQ, ND, +BS Increase Protonix to 40 mg BID Add Carafate 1 g PO QID AC and HS Check MRCP now History of Present Illness Reason for Consultation: question of cholangitis Requesting Physician: Kike VELASQUEZ Attending Physician: Kaylee Mcgraw MD History of Present Illness Patient is an 82 year old male with PMHx of poorly controlled DM II, previous DVT and PE on Xarelto, HTN, CAD, hyperlipidemia, sensorineural hearing loss, GERD who presented to the [facility] on 04/11/22 with a chief complaint of chest pain. He had a CT done showing possible branching hepatic density in January 2021 and MRCP showing small gallstones. He had US on this admission with distended gallbladder with thickening. With his current admission he underwent CTA of chest/abdomen/pelvis suggesting mild gallbladder distention and pericholecystic stranding. His troponin was elevated and he underwent cardiology evaluation and ahd coronary angiography with left heart cath and IVUS which revealed severe CAD and normal intracardiac pressure, and had normal echo and felt to be due to CAD that was stable with demand ischemia. Cardiology recommneded gallbladder evaluation. Patient tells me he has been having RUQ pain over the past year. Can get a few episodes a week, but can also go awhile without having episodes. Always seems triggerd by foods. Dull. rated 8/10 when he gets this. Surgery had seen patient and had concern for cholangitis but he has not had any fever or jaundice. Lfts relatively unremarkable other than elevated total bili of 2.7. patient has never had colonoscopy or egd. He denies any nausea, vomiting, heartburn, dysphagia, change in bowels, melena, brbpr. Allergies Allergy/AdvReac Type Severity Reaction Status Date / Time Sulfa (Sulfonamide Allergy Severe ANAPHYLAXIS Verified 04/10/22 13:34 Antibiotics) Home Medications Medication Instructions Recorded Confirmed Type blood-glucose meter ([employer] #1 ea 01/26/20 04/10/22 Rx Ultra2 Meter kit) rivaroxaban 20 mg tablet 20 mg PO QDD 09/15/20 04/10/22 History acetaminophen 500 mg tablet 1,000 mg PO DIRECTED PRN Pain 02/20/21 04/10/22 History (Tylenol Extra Strength) hydrocortisone-acetic acid 1 %-2 % 5 drp otic (ear) BID #10 mL 09/08/21 04/10/22 Rx ear drops magnesium oxide 400 mg (241.3 mg 400 mg PO DAILY #7 tabs 09/12/21 04/10/22 Rx magnesium) tablet (MagOx) lisinopril 5 mg tablet 5 mg PO QAM #90 tabs 10/26/21 04/10/22 Rx trazodone 50 mg tablet See Rx Instructions PO HS #14 tabs 10/26/21 04/10/22 Rx blood sugar diagnostic #100 ea 02/01/22 04/10/22 Rx dulaglutide 1.5 mg/0.5 mL 1.5 mg (0.5 mL) subcut .weekly #2 02/22/22 04/10/22 Rx subcutaneous pen injector mL glimepiride 4 mg tablet 4 mg PO BID #180 tabs 02/22/22 04/10/22 Rx metformin 1,000 mg tablet 1,000 mg PO BID #180 tabs 02/22/22 04/10/22 Rx omeprazole 20 mg capsule,delayed 20 mg PO QAM #90 caps 02/22/22 04/10/22 Rx release simvastatin 20 mg tablet 20 mg PO HS #90 tabs 02/22/22 04/10/22 Rx empagliflozin 10 mg tablet 10 mg PO DAILY #30 tabs 03/29/22 04/10/22 Rx (Jardiance) Patient History Medical History Acid reflux disease BPH (benign prostatic hyperplasia) Diabetes mellitus with neuropathy Fever of unknown origin Hard of hearing History of skin 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 Sensorineural hearing loss (SNHL) of right ear with restricted hearing of left ear No word recognition in right ear Surgical History H/O transurethral resection of prostate TOTAL OF 4, PT REPORTS MOST RECENT FEW WEEKS AGO AT [facility] - PT REPORTS HEALING...PLANS TO CALL DR JUNIOR OFFICE TO SCHEDULE FOLLOW UP History of arthroscopy of right knee History of left cataract extraction (~09/28/20) Family History Mother Colorectal cancer Pacemaker Brother Stroke Brother Prostate cancer COPD (chronic obstructive pulmonary disease) Coronary heart disease Denies family history of Ovarian cancer Myocardial infarction Breast cancer Social History Smoking Status: Former smoker Tobacco Type: Cigarettes and Smokeless Tobacco (Dip or Chew) Second Hand Exposure: No; Hx Alcohol Use: No Hx Substance Use: No Preferred Language: Bengali Communication Ability: Effective Visual Impairment: No Limitations Entry Writer Required: No Beliefs That Will Affect Care: None marital status: Current Living Situation: Spouse current occupational status: retired current occupation: retired How many Children do You have: 6 other: Wood work Feels Safe at Home: Yes Safety Concerns: Feels Safe At This Time caffeine: Yes Dental Care, Regularly: No Physical Activity Frequency: Does not Exercise Seatbelt Use: always Sunscreen Use: No Assistive Devices: Cane and Walker Assistive Devices Comment: Pt has cane and walker at his home, but does not use them. Review of Systems Review of Systems: All systems reviewed & are unremarkable except as noted in HPI & below Physical Exam Constitutional: WD/WN, vitals as above Eyes: + anicteric sclerae and PERRL ENMT: external ear and nose normal, oropharynx normal Respiratory: normal respiratory effort, lungs clear to auscultation Cardiovascular: RRR, no murmur, no edema Gastrointestinal (Abdomen): normal bowel sounds, RUQ tenderness, no guarding, soft Skin: no rashes, warm and dry Psychiatric: A+Ox3, euthymic affect Results & Data ([facility]) Vital Signs (Past 12 Hours) Vital Signs Temp Pulse Resp BP Pulse Ox O2 Del Method O2 Del Method 04/13/22 08:00 Nasal Cannula 04/13/22 08:00 36.9 C 95 H 22 129/70 93 Nasal Cannula 04/13/22 08:00 Nasal Cannula 04/13/22 03:00 37 C 76 18 104/60 94 Nasal Cannula 04/13/22 00:21 36.9 C 04/12/22 23:06 39.4 C H 98 H 17 95/56 L 90 Nasal Cannula O2 Flow Rate O2 Flow Rate 04/13/22 08:00 04/13/22 08:00 2 04/13/22 08:00 2 04/13/22 03:00 2 04/13/22 00:21 04/12/22 23:06 2 Diagnostic Findings US liver HISTORY: 82 years-old Male Concern for cholecystitis acute right upper quadrant abdominal pain COMPARISON: CTA abdomen and pelvis of same day TECHNIQUE: Multiple real-time sonographic images of the abdominal right upper quadrant were obtained assessing grayscale appearance and color flow FINDINGS: Study is limited secondary to obscuring bowel gas. The sixth of the liver. No hepatic mass identified. The gallbladder wall measures the upper limits of normal at 3 mm. Biliary sludge without definitive cholelithiasis. Negative sono graphic Kasper's sign. Pericholecystic edema seen on CT is not well appreciated by ultrasound. Trace pericholecystic edema. Imaged right kidney demonstrates no hydronephrosis however does demonstrate diffuse cortical thinning. Normal common bile duct, 5 mm. IMPRESSION: 1. Distended gallbladder with nonspecific wall thickening, trace pericholecystic edema and biliary sludge. No shadowing cholelithiasis identified. Findings could be correlated with nuclear medicine hepatobiliary scan to exclude acute cholecystitis. 2. No biliary ductal dilation. 3. Hepatic steatosis. NM hepatobiliary CLINICAL HISTORY: Right upper quadrant abdominal pain. Evaluate for acute cholecystitis. COMPARISON: Right quadrant ultrasound and CT of the abdomen and pelvis from 04/11/2022 RADIOPHARMACEUTICAL: 5.50 mCi Tc99m mebrofenin IV TECHNIQUE: Following intravenous administration of Tc-99m mebrofenin, sequential abdominal images were obtained. FINDINGS: There is prompt, uniform accumulation of the tracer by the liver. There is anatomic filling of the intrahepatic ducts, common bile duct. Gallbladder begins to fill at minutes. There is anatomic excretion of the tracer into the duodenum. IMPRESSION: Normal hepatobiliary scintigraphy. PG Care Time/CCT Total # of Minutes Spent Total Time Spent with Patient: Total time spent is greater than 50% in coordination of care (as documented) at patient's floor/unit and/or counseling patient: Coding Level of Care Code 88876 Initial Inpt Care Lvl 3 Diagnoses Abdominal pain R10.9
--- NOTE | 2022-04-13 11:57 | Hospitalist Progress Note ---
Date of Service April 13, 2022 Assessment & Plan (1) ACS (acute coronary syndrome): Plan: - ACS NSTEMI with CAD however no obstructing lesion noted to intervene on -Patient evaluated by Cardiology and underwent heart cath- see results below - Medically optimize at this time with return to cath for ECG changes or persisting symptoms - Continue on heparin drip for now - Continue to trend troponins until downtrend - ECHO pending this morning BB, ASA, Statin initiated- BP controlled better this morning - Appreciate Cardiology assistance (2) CAD (coronary artery disease): Plan: Multivessel coronary artery disease -80 to 90% distal RCA (chronic by IVUS) 90% mid, 75% distal circumflex 40 to 50% proximal to mid LAD. Small ostial D1 90% - BB, ASA, Statin as above (3) Abdominal pain: Plan: -At this time the etiology of the patient's upper abdominal pain appears to most likely be associated with some gallbladder pathology tiny gallstones noted with MRCP in january and newly seen gallbladder wall thickening. -Patient has been afebrile and hemodynamically stable - cultures remain NGTD - RUQUS as above -Pain control with Tylenol - HIDA scan as above - MRCP as above General Surgery and Gastroenterology consultations placed- initial surgical impression favoring cholangitis - GS defers to GI for possible ERCP - GI recs no indication for ERCP at this time- repeat MRCP 04/13/22- See above without obstructive process. GI and Surgery updated on completion of test - WIll continue supportive Medical care as above, continue to wait for BCx and continue Zosyn as above, pain control with Tylenol and Dilaudid - 04/13/22- up-trending T.BILI and WBC to 14 - cultures remain with NGTD - Consider repeating imaging with ultrasound/CT scan in 2-3 days if clinical worsening will reach back out to GS/GI - attempt diet- he has not had any oral intake as he states he has no appetite Willl make NPO after midnight for evaluation in morning D5LR since not taking PO and glucose downtrending (4) DVT (deep venous thrombosis): Plan: -Hold Xarelto for now while on heparin drip - SCDs (5) Pulmonary embolism: Plan: 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 with tPA (6) Diabetes mellitus with neuropathy: Plan: -Patient is on a large home regimen -Will start with Lantus, 20 units BID - Correction factor of 20 mg/dL/unit - Carb ratio: 9 -Increase as needed - improved however without PO intake (7) Hyperlipidemia: Plan: - continue statin Admission and Anticipated Discharge Date Admission Date: April 12, 2022 Supervising Physician Co-Signing Physician Notes EVA Supervision Note: I did not personally see or examine the patient today, but I verified all mcrae points of EVA Collado's assessment and plan with the following exceptions/additions: None Subjective HD #2 following evaluation of epigastric abdominal pain subsequently found with elevated troponin and NSTEMI. Patient was taken to the [facility] bed lab[facility] yesterday from the [facility] where he underwent catheterization. 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 With his underlying abdominal pain medical management was pursued and optimized with heparin, asa, bb, statin. Following his cath, he had an ultrasound of his gallbladder done with distention noted and wall thickening and sludge. Hida scan will be pursued today. Patient was admitted in January with abdominal flank pain to the right, which is his same pain at this time. He had an MRCP done at that time with MRCP noted for tiny gallstones. His biliary labs are not elevated other than T.BILI at 1.3, lipase 32. Patient was evaluated by surgery on 04/12 and no urgent surgical need, with recomended consultation to GI. GI following, does not feel ERCP indicated, will obtain more recent MRCP with recommendations. Continue supportive care. Cardiology following with his CAD. Continue supportive medical care. Troponin- flat ~1400 with down trend at 2100 04/12 HIDA scan - negative Liver U/S - distended gallbladder Echo- EF55%, mild AI Review of Systems Review of Systems: REVIEW OF SYSTEMS: Constitutional: No fever, sweats or chills Eyes: No diplopia, no worsening or blurred vision ENT: (+) difficulty hearing, no trouble swallowing Respiratory: No cough, sputum, dyspnea at rest or on exertion Cardiovascular: No chest pain, tightness or palpitations Abdomen: (+) epigastric pain, no appetitie, no nausea, vomiting, diarrhea or constipation Musculoskeletal: No joint pain, calf pain, swelling Neurologic: No weakness, numbness/tingling, or balance problems Psychiatric: No anxiety or depression Skin: No rash or itch Physical Exam Physical Exam: PHYSICAL EXAM: General: awake, alert, no apparent distress- hungry Head: Normocephalic, atraumatic ENT: PERRL, EOMI, no pharyngeal exudate, mucous membranes dry Neuro: AAO x 3, speech clear and appropriate, strength intact bilaterally 5/5, sensation intact and equal all extremities and dermatomes, no pronator drift Chest: equal rise and fall of the chest, no accessory muscle use, no heaves or thrills, Clear to auscultation, on room air, Cardiac: Regular rate and rhythm, telemetry reviewed- pvc, skin warm dry, cap refill <3 seconds, peripheral pulses +2 no JVD, no edema GI: NABS x 4 quadrants, soft, tender to palpation epigastric with positive Kasper sign, no rebound, no icterus : Spontaneously voiding, no pain, no CVA tenderness, Extremities: Normal inspection, no peripheral edema or erythema, calfs nontender to palpation Psych: Normal mood and affect Skin: no rash or erythema Results & Data Results & Data ([facility]) Vital Signs (Past 12 Hours) Vital Signs Temp Pulse Resp BP Pulse Ox O2 Del Method O2 Del Method 04/13/22 11:43 36.9 C 81 20 116/71 92 Room Air 04/13/22 08:00 Nasal Cannula 04/13/22 08:00 36.9 C 95 H 22 129/70 93 Nasal Cannula 04/13/22 08:00 Nasal Cannula 04/13/22 03:00 37 C 76 18 104/60 94 Nasal Cannula 04/13/22 00:21 36.9 C O2 Flow Rate O2 Flow Rate 04/13/22 11:43 04/13/22 08:00 04/13/22 08:00 2 04/13/22 08:00 2 04/13/22 03:00 2 04/13/22 00:21 Laboratory Results Abnormal lab results 04/12/22 04/12/22 04/12/22 Range/Units 12:39 12:54 16:43 WBC (4.8-10.8) K/ul MPV (9.4-12.4) fL Neut # (Auto) (1.4-6.5) K/uL Lymph # (Auto) (1.2-3.4) K/uL Immature Gran # (Auto) (0.00-0.02) K/uL APTT 53.6 H* (21.0-31.0) Seconds Sodium (136-145) mmol/L Chloride (98-107) mmol/L Glucose (70-99(Fasting)) mg/dl POC Glucose 320 H* (70-99) mg/dl Magnesium (1.7-2.4) mg/dl Total Bilirubin (0.2-1.0) mg/dl Direct Bilirubin (0-0.2) mg/dl Troponin I High Sens 1414.0 H* (0-20) pg/ml Albumin (3.4-5.0) gm/dl 04/12/22 04/12/22 04/12/22 Range/Units 17:00 20:20 21:40 WBC (4.8-10.8) K/ul MPV (9.4-12.4) fL Neut # (Auto) (1.4-6.5) K/uL Lymph # (Auto) (1.2-3.4) K/uL Immature Gran # (Auto) (0.00-0.02) K/uL APTT (21.0-31.0) Seconds Sodium (136-145) mmol/L Chloride (98-107) mmol/L Glucose (70-99(Fasting)) mg/dl POC Glucose 183 H 162 H (70-99) mg/dl Magnesium (1.7-2.4) mg/dl Total Bilirubin (0.2-1.0) mg/dl Direct Bilirubin (0-0.2) mg/dl Troponin I High Sens 1244.0 H* (0-20) pg/ml Albumin (3.4-5.0) gm/dl 04/13/22 04/13/22 04/13/22 Range/Units 07:06 07:09 07:09 WBC 14.09 H (4.8-10.8) K/ul MPV 9.1 L (9.4-12.4) fL Neut # (Auto) 12.15 H (1.4-6.5) K/uL Lymph # (Auto) 1.04 L (1.2-3.4) K/uL Immature Gran # (Auto) 0.13 H (0.00-0.02) K/uL APTT 48.9 H* (21.0-31.0) Seconds Sodium (136-145) mmol/L Chloride (98-107) mmol/L Glucose (70-99(Fasting)) mg/dl POC Glucose 154 H (70-99) mg/dl Magnesium (1.7-2.4) mg/dl Total Bilirubin (0.2-1.0) mg/dl Direct Bilirubin (0-0.2) mg/dl Troponin I High Sens (0-20) pg/ml Albumin (3.4-5.0) gm/dl 04/13/22 04/13/22 Range/Units 07:09 12:16 WBC (4.8-10.8) K/ul MPV (9.4-12.4) fL Neut # (Auto) (1.4-6.5) K/uL Lymph # (Auto) (1.2-3.4) K/uL Immature Gran # (Auto) (0.00-0.02) K/uL APTT (21.0-31.0) Seconds Sodium 132 L (136-145) mmol/L Chloride 97 L (98-107) mmol/L Glucose 161 H (70-99(Fasting)) mg/dl POC Glucose 206 H (70-99) mg/dl Magnesium 1.6 L (1.7-2.4) mg/dl Total Bilirubin 2.7 H D (0.2-1.0) mg/dl Direct Bilirubin 0.3 H (0-0.2) mg/dl Troponin I High Sens (0-20) pg/ml Albumin 3.3 L (3.4-5.0) gm/dl Diagnostic Findings Chest X-Ray 04/11/22 12:56 XR chest 1V portable CLINICAL HISTORY: Chest Pain. COMPARISON STUDY: 09/12/2021 TECHNIQUE: 1 view of the chest FINDINGS: Single frontal view of the chest demonstrates the cardiomediastinal silhouette to be within normal limits. There is a decreased inspiratory effort with elevation of the hemidiaphragms and crowding of the bronchovascular markings at the lung bases and centrally. The lungs are clear of alveolar opacities. There is no evidence for pleural effusion. There is no evidence for vascular congestion. There is no acute osseous pathology. IMPRESSION: 1. There is a decreased inspiratory effort with otherwise no acute chest disease. ACT 112: Negative or not required by law. Electronically signed by: Thiago Rocha M.D. 04/11/2022 2:22 PM Abdomen/Pelvis CTA 04/11/22 14:16 CT angio abdomen pelvis w con CLINICAL HISTORY: cp radiating to back TECHNIQUE: Multidetector row helical CT of the abdomen and pelvis was performed, following intravenous administration of iodinated contrast. No oral contrast was administered. Automated dose lowering techniques and/or adjustment according to patient size were utilized for this exam. Coronal and sagittal reformations were obtained. MIP and 3D volume rendered reconstructions were obtained. Comparison: Comparison is made to CT abdomen pelvis 02/20/2021 FINDINGS: Lower chest: For findings above the diaphragm, please see CT chest performed same day. Liver: Hepatic steatosis is noted. Focal fatty sparing is seen in the bladder fossa. Gallbladder and biliary tree: No calcified gallstones. Normal caliber wall. No intra- or extrahepatic biliary ductal dilation. Pancreas: Unremarkable, no focal lesions. Spleen: Unremarkable. Adrenals: Unremarkable. Kidneys and ureters: Unremarkable. Bladder: Diffuse homogeneous wall thickening is seen. Reproductive organs: Unremarkable. Bowel: Diverticulosis is seen without evidence of diverticulitis. The appendix is normal. There is a small hiatal hernia. Lymph nodes Retroperitoneal: Unremarkable. Pelvic: Unremarkable. Mesenteric: Unremarkable. Peritoneum: Normal. Abdominal wall: A fat-containing umbilical hernia is seen. Bones: Degenerative changes in the visualized spine. CT angiogram: The abdominal aortic contours appear intact without evidence of aneurysmal dilatation and/or dissection. There is evidence of scattered atherosclerotic calcifications of the abdominal aorta and its major branches. The origins of the celiac axis, superior mesenteric, inferior mesenteric and bilateral renal arteries are patent. IMPRESSION: 1. No acute abnormalities, in particular no evidence of aortic dissection or aneurysm. 2. Hepatic steatosis. ACT 112: Negative or not required by law. Electronically signed by: Giovanny Lyons M.D. 04/11/2022 3:03 PM Chest CTA 04/11/22 14:16 CT ANGIOGRAPHY OF THE CHEST DISSECTION PROTOCOL CLINICAL HISTORY: Chest pain radiating to back. Evaluate for dissection. COMPARISON STUDY: Chest radiograph performed earlier today. Chest CT November 18, 2020. TECHNIQUE: Before and following the IV administration of 120 mL of Optiray, helical axial images of the chest were obtained. Maximal intensity projections and sagittal and coronal reformats were viewed on an independent 3D workstation. IV contrast was administered without complication. Automated exposure control was utilized for the study. A dose lowering technique was utilized adhering to the principles of ALARA. CT DOSE: 2019.31 mGy.cm FINDINGS: Caliber of the thoracic aorta is normal. There is no intramural hematoma or thoracic aortic dissection. Mild cardiomegaly is noted. There is extensive coronary artery calcification. No central pulmonary emboli are identified. A small hiatal hernia is present. A few small pulmonary nodules are unchanged from earlier exams. These are benign. There is no consolidation to suggest pneumonia. Linear subpleural opacities reflect atelectasis or scarring. No pneumothorax or pleural effusion is present. There is extensive anterior osteophytosis of the thoracic spine. 2.4 cm lobulated nodule within the superior left breast is unchanged since prior exam. This was previously biopsied. Abdomen and pelvis CT will be reported separately. The gallbladder is distended. There is mild pericholecystic stranding. IMPRESSION: 1. No thoracic aortic dissection. 2. No acute intrathoracic findings. 3. Mild gallbladder distention with pericholecystic stranding. These findings favor acute cholecystitis. Right upper quadrant ultrasound could be obtained for further evaluation. 4. 2.4 cm superior left breast nodule which is unchanged since prior CT. This was previously biopsied. 5. Extensive coronary artery calcification. ACT 112: Negative or not required by law. Electronically signed by: Aditya Garcia M.D. 04/11/2022 3:17 PM Liver Ultrasound 04/11/22 18:42 US liver HISTORY: 82 years-old Male Concern for cholecystitis acute right upper quadrant abdominal pain COMPARISON: CTA abdomen and pelvis of same day TECHNIQUE: Multiple real-time sonographic images of the abdominal right upper quadrant were obtained assessing grayscale appearance and color flow FINDINGS: Study is limited secondary to obscuring bowel gas. The sixth of the liver. No hepatic mass identified. The gallbladder wall measures the upper limits of normal at 3 mm. Biliary sludge without definitive cholelithiasis. Negative sonographic Kasper's sign. Pericholecystic edema seen on CT is not well appreciated by ultrasound. Trace pericholecystic edema. Imaged right kidney demonstrates no hydronephrosis however does demonstrate diffuse cortical thinning. Normal common bile duct, 5 mm. IMPRESSION: 1. Distended gallbladder with nonspecific wall thickening, trace pericholecystic edema and biliary sludge. No shadowing cholelithiasis identified. Findings could be correlated with nuclear medicine hepatobiliary scan to exclude acute cholecystitis. 2. No biliary ductal dilation. 3. Hepatic steatosis. ACT 112: Negative or not required by law. The above report was generated using voice recognition software. It may contain grammatical, syntax or spelling errors. Electronically signed by: Freddy Lanza M.D. 04/11/2022 9:02 PM Hepatobiliary Scan Nuclear Medicine 04/12/22 03:13 PROCEDURE: NM hepatobiliary CLINICAL HISTORY: Right upper quadrant abdominal pain. Evaluate for acute cholecystitis. COMPARISON: Right quadrant ultrasound and CT of the abdomen and pelvis from 04/11/2022 RADIOPHARMACEUTICAL: 5.50 mCi Tc99m mebrofenin IV TECHNIQUE: Following intravenous administration of Tc-99m mebrofenin, sequential abdominal images were obtained. FINDINGS: There is prompt, uniform accumulation of the tracer by the liver. There is anatomic filling of the intrahepatic ducts, common bile duct. Gallbladder begins to fill at minutes. There is anatomic excretion of the tracer into the duodenum. IMPRESSION: Normal hepatobiliary scintigraphy. ACT 112: Negative or not required by law. Electronically signed by: Thiago Rocha M.D. 04/12/2022 12:47 PM MR MRCP- Dictated:04/13/221703 Transcribed: 04/13/221703 CLINICAL HISTORY: RUQ pain TECHNIQUE: Multiplanar multisequence MR images were obtained of the abdomen, followed by reconstruction of MRCP imaging. COMPARISON: Previous MRCP from 02/21/2021 and limited right upper quadrant ultrasound from 04/11/2022. Negative hepatobiliary scan. FINDINGS: The study is limited by breathing motion artifact. Liver: There is homogeneous signal intensity seen within the liver. No mass lesions are seen. There is no evidence for intrahepatic or duct dilatation. Gallbladder: The gallbladder is again distended with thickening of the gallbladder wall and evidence for pericholecystic edema. The presence of acalculus cholecystitis cannot be excluded despite the negative hepatobiliary scan. Spleen: There is homogeneous signal throughout the splenic parenchyma. No mass lesions are seen. Pancreas: The pancreas is homogeneous in signal There is no evidence for a mass lesion. Kidneys: There is homogeneous signal throughout the renal parenchyma bilaterally. Adrenal glands: There is homogeneous signal demonstrated with no gross mass seen. Abdominal cavity: There is no gross bowel dilatation. There is no evidence for a scites or adenopathy. The aorta is normal in caliber. The visualized osseous structures, demonstrate no evidence of abnormal signal intensity. There is evidence of small bilateral pleural effusions and bibasilar atelectasis, right greater than left. MRCP: The common bile duct is normal in course and caliber. There is no evidence for dilatation. There is no intraluminal filling defects or evidence for choledocholithiasis. There is no intrahepatic or duct dilatation. The pancreatic duct is normal in course and caliber. IMPRESSION: 1. No evidence of biliary obstruction. 2. However, the gallbladder is again distended with thickening of the gallbladder wall with pericholecystic edema. The findings are suspicious for acalculous cholecystitis despite the negative hepatobiliary scan. These results will be sent to the floor. ACT 112: Negative or not required by law. Medications Administered Home Medications blood-glucose meter (Lecere Ultra2 Meter kit) #1 ea 01/26/20 [Rx Confirmed 04/10/22] rivaroxaban 20 mg tablet 20 mg PO QDD 09/15/20 [History Confirmed 04/10/22] acetaminophen 500 mg tablet (Tylenol Extra Strength) 1,000 mg PO DIRECTED PRN Pain 02/20/21 [History Confirmed 04/10/22] hydrocortisone-acetic acid 1 %-2 % ear drops 5 drp otic (ear) BID #10 mL 09/08/21 [Rx Confirmed 04/10/22] magnesium oxide 400 mg (241.3 mg magnesium) tablet (MagOx) 400 mg PO DAILY #7 tabs 09/12/21 [Rx Confirmed 04/10/22] lisinopril 5 mg tablet 5 mg PO QAM #90 tabs 10/26/21 [Rx Confirmed 04/10/22] trazodone 50 mg tablet See Rx Instructions PO HS #14 tabs 10/26/21 [Rx Confirmed 04/10/22] blood sugar diagnostic #100 ea 02/01/22 [Rx Confirmed 04/10/22] dulaglutide 1.5 mg/0.5 mL subcutaneous pen injector 1.5 mg (0.5 mL) subcut .weekly #2 mL 02/22/22 [Rx Confirmed 04/10/22] glimepiride 4 mg tablet 4 mg PO BID #180 tabs 02/22/22 [Rx Confirmed 04/10/22] metformin 1,000 mg tablet 1,000 mg PO BID #180 tabs 02/22/22 [Rx Confirmed 04/10/22] omeprazole 20 mg capsule,delayed release 20 mg PO QAM #90 caps 02/22/22 [Rx Confirmed 04/10/22] simvastatin 20 mg tablet 20 mg PO HS #90 tabs 02/22/22 [Rx Confirmed 04/10/22] empagliflozin 10 mg tablet (Jardiance) 10 mg PO DAILY #30 tabs 03/29/22 [Rx Confirmed 04/10/22] Active Medications Acetaminophen (Acetaminophen 325 Mg Tab) 650 mg PO Q4H PRN PRN Reason: Mild Pain Stop: 05/11/22 18:41 Last Admin: 04/12/22 23:11 Dose: 650 mg Aspirin (Aspirin 81 Mg Ectab) 81 mg PO [facility] Stop: 05/12/22 08:59 Last Admin: 04/13/22 08:55 Dose: 81 mg Atorvastatin Calcium (Atorvastatin 40 Mg Tab) 40 mg PO [facility] Stop: 05/12/22 08:59 Last Admin: 04/13/22 08:55 Dose: 40 mg Dextrose (Dextrose 50% 50 Ml Syringe) 25 - 50 ml IV UD PRN; Protocol PRN Reason: Hypoglycemia Protocol Stop: 05/11/22 18:52 Glucagon (Glucagon For Inj 1 Mg Vial) 1 mg SQ UD PRN; Protocol PRN Reason: Hypoglycemia Protocol Stop: 05/11/22 18:52 Glucose (Glucose 40% Gel 15 Gm Tube) 15 - 30 gm PO UD PRN; Protocol PRN Reason: Hypoglycemia Protocol Stop: 05/11/22 18:52 Glucose (Glucose 10 Tab/Tube) 4 - 8 tab PO UD PRN; Protocol PRN Reason: Hypoglycemia Treatment Stop: 05/11/22 18:52 Hydromorphone HCl (Hydromorphone Inj 0.5 Mg/0.5 Ml Syr) 0.5 mg IV Q6H PRN PRN Reason: Severe Pain Stop: 04/26/22 14:19 Heparin Sodium/Dextrose (Heparin Sodium/Dextrose) 25,000 units in 500 mls @ 30 mls/hr IV .[id number] [facility]; Protocol Stop: 05/11/22 18:14 Last Admin: 04/13/22 04:59 Dose: 1,500 units/hr, 30 mls/hr Piperacillin Sod/Tazobactam (Sod 3.375 gm/ Dextrose) 115 mls @ 28.75 mls/hr IV Q8H [facility]; Protocol Stop: 04/21/22 00:59 Last Admin: 04/13/22 08:54 Dose: 28.8 mls/hr Lactated Ringer's (Lr) 1,000 mls @ 100 mls/hr IV .Q10H JOSE Stop: 05/12/22 07:00 Last Admin: 04/13/22 10:46 Dose: 100 mls/hr Magnesium Sulfate/Dextrose (Magnesium Sulfate / D5w) 1 gm in 100 mls @ 50 mls/hr IV Q2H [facility] Stop: 04/13/22 18:44 Insulin Aspart (Insulin Aspart Per Unit) 0 units SC ACHS [facility] Stop: 05/11/22 20:59 Last Admin: 04/13/22 08:58 Dose: 7 units Insulin Glargine (Lantus Per Unit Charge) 30 units SQ BID JOSE Stop: 05/12/22 20:59 Last Admin: 04/13/22 08:58 Dose: 30 units Lisinopril (Lisinopril 5 Mg Tab) 5 mg PO QAM [facility] Stop: 05/12/22 08:59 Last Admin: 04/13/22 08:55 Dose: 5 mg Metoprolol Tartrate (Metoprolol Tartrate 25 Mg Tab) 25 mg PO BID [facility] Stop: 05/11/22 20:59 Last Admin: 04/13/22 08:55 Dose: 25 mg Miscellaneous (Carbohydrates For Hypoglycemia ) 15 - 30 gm PO UD PRN PRN Reason: Hypoglycemia Protocol Stop: 05/11/22 18:52 Ondansetron HCl (Ondansetron Inj 2 Mg/Ml 2 Ml Vial) 4 mg IV Q4H PRN PRN Reason: Nausea Stop: 05/11/22 20:21 Last Admin: 04/11/22 23:45 Dose: 4 mg Pantoprazole Sodium (Pantoprazole 40 Mg Tab) 40 mg PO BID [facility] Stop: 05/13/22 20:59 Sucralfate (Sucralfate 1 Gm/10 Ml Udc) 1 gm PO QID [facility] Stop: 05/13/22 12:59 Last Admin: 04/13/22 12:22 Dose: 1 gm Tramadol HCl (Tramadol Hcl 50 Mg Tablet) 25 mg PO Q4H PRN PRN Reason: Severe Pain Stop: 05/11/22 18:41 Last Admin: 04/11/22 19:56 Dose: 25 mg PG Care Time/CCT Total # of Minutes Spent Total Time Spent with Patient: Total time spent is greater than 50% in coordination of care (as documented) at patient's floor/unit and/or counseling patient: Coding Level of Care Code 71007 Subseq Hosp Care Lvl 3 Diagnoses ACS (acute coronary syndrome) I24.9 CAD (coronary artery disease) I25.10 Abdominal pain R10.9 DVT (deep venous thrombosis) I82.409 Chronicity: chronic Pulmonary embolism I26.92 Acute cor pulmonale presence: unspecified Chronicity: acute Pulmonary embolism type: saddle Diabetes mellitus with neuropathy E11.40 Hyperlipidemia E78.5 (1) DVT (deep venous thrombosis) Chronicity: chronic (2) Pulmonary embolism Acute cor pulmonale presence: unspecified Chronicity: acute Pulmonary embolism type: saddle Qualified Code(s): I26.92 - Saddle embolus of pulmonary artery without acute cor pulmonale
[2022-04-13] MEDS: SUCRALFATE 1 GM/10 ML UDC PO SCH ×3 (12:22→20:18)
--- NOTE | 2022-04-13 12:52 | Surgery Progress Note ---
Date of Service April 13, 2022 Assessment & Plan (1) Abdominal pain: Plan: pt is 82 year-old male who was admitted to hospital for chest pain, RUQ pain, WBC 12,000, T Bili 1.7 IMP: abdominal pain, most likely cholangitis plan, recommend consult GI for ERCP, no emergent cholecystectomy now, continue IV antibiotic, repeat labs in morning will F/U 04/13/2022 12:50 PM F/U distend gallbladder, stable, agree with GI recommend to do MRCP, operations intern surgeon will cover this weekend, Thanks, Admission and Anticipated Discharge Date Admission Date: April 12, 2022 Supervising Physician Co-Signing Physician Notes EVA Supervision Note: I did not personally see or examine the patient today, but I verified all mcrae points of EVA Collado's assessment and plan with the following exceptions/additions: None Subjective HD #2 following evaluation of epigastric abdominal pain subsequently found with elevated troponin and NSTEMI. Patient was taken to the cathead operator yesterday from the [facility] where he underwent catheterization. 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 With his underlying abdominal pain medical management was pursued and optimized with heparin, asa, bb, statin. Following his cath, he had an ultrasound of his gallbladder done with distention noted and wall thickening and sludge. Hida scan will be pursued today. Patient was admitted in January with abdominal flank pain to the right, which is his same pain at this time. He had an MRCP done at that time with MRCP noted for tiny gallstones. His biliary labs are not elevated other than T.BILI at 1.3, lipase 32. Patient was evaluated by surgery on 04/12 and no urgent surgical need, with recomended consultation to GI. GI following, does not feel ERCP indicated, will obtain more recent MRCP with recommendations. Continue supportive care. Cardiology following with his CAD. Continue supportive medical care. Troponin- flat ~1400 with down trend at 2100 04/12 HIDA scan - negative Liver U/S - distended gallbladder Echo- EF55%, mild AI 04/13/2022 12:48PM Dr. Butler F/U distend gallbladder, stable, some RUQ pain, no nausea, no vomiting, no fever, HIDA scan negative, Physical Exam Constitutional: WD/WN, vitals as above Eyes: PERRL, conjunctivae normal, anicteric sclerae Neck: trachea midline, no thyromegaly Respiratory: normal respiratory effort, lungs clear to auscultation Cardiovascular: RRR, no murmur, no edema Gastrointestinal (Abdomen): soft, mild tenderness at RUQ, no rebound pain, no distend, BS +, Neurologic: patellar DTR's 2+ bilat, sensation intact Psychiatric: A+Ox3, euthymic affect Results & Data ([facility]) Vital Signs (Past 12 Hours) Vital Signs Temp Pulse Resp BP Pulse Ox O2 Del Method O2 Del Method 04/13/22 11:43 36.9 C 81 20 116/71 92 Room Air 04/13/22 08:00 Nasal Cannula 04/13/22 08:00 36.9 C 95 H 22 129/70 93 Nasal Cannula 04/13/22 08:00 Nasal Cannula 04/13/22 03:00 37 C 76 18 104/60 94 Nasal Cannula O2 Flow Rate O2 Flow Rate 04/13/22 11:43 04/13/22 08:00 04/13/22 08:00 2 04/13/22 08:00 2 04/13/22 03:00 2 Laboratory Results Abnormal lab results 04/12/22 04/12/22 04/12/22 Range/Units 12:54 16:43 17:00 WBC (4.8-10.8) K/ul MPV (9.4-12.4) fL Neut # (Auto) (1.4-6.5) K/uL Lymph # (Auto) (1.2-3.4) K/uL Immature Gran # (Auto) (0.00-0.02) K/uL APTT 53.6 H* (21.0-31.0) Seconds Sodium (136-145) mmol/L Chloride (98-107) mmol/L Glucose (70-99(Fasting)) mg/dl POC Glucose 183 H (70-99) mg/dl Magnesium (1.7-2.4) mg/dl Total Bilirubin (0.2-1.0) mg/dl Direct Bilirubin (0-0.2) mg/dl Troponin I High Sens 1414.0 H* (0-20) pg/ml Albumin (3.4-5.0) gm/dl 04/12/22 04/12/22 04/13/22 Range/Units 20:20 21:40 07:06 WBC (4.8-10.8) K/ul MPV (9.4-12.4) fL Neut # (Auto) (1.4-6.5) K/uL Lymph # (Auto) (1.2-3.4) K/uL Immature Gran # (Auto) (0.00-0.02) K/uL APTT (21.0-31.0) Seconds Sodium (136-145) mmol/L Chloride (98-107) mmol/L Glucose (70-99(Fasting)) mg/dl POC Glucose 162 H 154 H (70-99) mg/dl Magnesium (1.7-2.4) mg/dl Total Bilirubin (0.2-1.0) mg/dl Direct Bilirubin (0-0.2) mg/dl Troponin I High Sens 1244.0 H* (0-20) pg/ml Albumin (3.4-5.0) gm/dl 04/13/22 04/13/22 04/13/22 Range/Units 07:09 07:09 07:09 WBC 14.09 H (4.8-10.8) K/ul MPV 9.1 L (9.4-12.4) fL Neut # (Auto) 12.15 H (1.4-6.5) K/uL Lymph # (Auto) 1.04 L (1.2-3.4) K/uL Immature Gran # (Auto) 0.13 H (0.00-0.02) K/uL APTT 48.9 H* (21.0-31.0) Seconds Sodium 132 L (136-145) mmol/L Chloride 97 L (98-107) mmol/L Glucose 161 H (70-99(Fasting)) mg/dl POC Glucose (70-99) mg/dl Magnesium 1.6 L (1.7-2.4) mg/dl Total Bilirubin 2.7 H D (0.2-1.0) mg/dl Direct Bilirubin 0.3 H (0-0.2) mg/dl Troponin I High Sens (0-20) pg/ml Albumin 3.3 L (3.4-5.0) gm/dl 04/13/22 Range/Units 12:16 WBC (4.8-10.8) K/ul MPV (9.4-12.4) fL Neut # (Auto) (1.4-6.5) K/uL Lymph # (Auto) (1.2-3.4) K/uL Immature Gran # (Auto) (0.00-0.02) K/uL APTT (21.0-31.0) Seconds Sodium (136-145) mmol/L Chloride (98-107) mmol/L Glucose (70-99(Fasting)) mg/dl POC Glucose 206 H (70-99) mg/dl Magnesium (1.7-2.4) mg/dl Total Bilirubin (0.2-1.0) mg/dl Direct Bilirubin (0-0.2) mg/dl Troponin I High Sens (0-20) pg/ml Albumin (3.4-5.0) gm/dl
[2022-04-13] MEDS: MAGNESIUM SULFATE / D5W 1 GM/100 ML BAG IV SCH ×3 (13:16→15:51)
--- NOTE | 2022-04-13 14:58 | Cardiology Progress Note ---
Date of Service April 13, 2022 Assessment & Plan (1) Abdominal pain: Plan: -- question of biliary disease 2. Multivessel CAD50% pLAD, sequential 80+% LCx, 90% calcified distal RCA 3. 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 Preserved LV function 6. Moderate pulmonary hypertension Remains chest pain free. Hemodynamically and electrically stable. Cardiac findings more consistent with stable CAD and demand ischemia. No plans for PCI at this time. Ok from a cardiac standpoint to undergo additional endoscopy or surgical intervention as necessary. Anticoagulation per primary team for history of DVT. Continue aspirin, statin, metoprolol, lisinopril. Admission and Anticipated Discharge Date Admission Date: April 12, 2022 Subjective Feeling well this afternoon. Denies chest pain or shortness of breath. Occasional abdominal pain. Ate breakfast. Tele reviewed -- no events. WBC up to 14, Tbili to 2.7 Review of Systems Review of Systems: All systems reviewed & are unremarkable except as noted in HPI & below Physical Exam Physical Exam: General: comfortable HEENT: Sclerae anicteric Lungs: Clear to auscultation anteriorly Cardiac: Regular rate and rhythm, 2 out of 6 systolic ejection murmur Vascular: 2+ radial, Abdomen: Soft, RUQ tenderness Extremities: Well perfused, no peripheral edema Neuro: Nonfocal Psych: Alert oriented Results & Data ([facility]) Vital Signs (Past 12 Hours) Vital Signs Temp Pulse Resp BP Pulse Ox O2 Del Method O2 Del Method 04/13/22 11:43 98.4 F 81 20 116/71 92 Room Air 04/13/22 08:00 Nasal Cannula 04/13/22 08:00 98.4 F 95 H 22 129/70 93 Nasal Cannula 04/13/22 08:00 Nasal Cannula 04/13/22 03:00 98.6 F 76 18 104/60 94 Nasal Cannula O2 Flow Rate O2 Flow Rate 04/13/22 11:43 04/13/22 08:00 04/13/22 08:00 2 04/13/22 08:00 2 04/13/22 03:00 2 PG Care Time/CCT Total # of Minutes Spent Total Time Spent with Patient: Total time spent is greater than 50% in coordination of care (as documented) at patient's floor/unit and/or counseling patient: Coding Level of Care Code 94457 Subseq Hosp Care Lvl 3 Diagnoses Abdominal pain R10.9
--- NOTE | 2022-04-13 17:14 | Magnetic Resonance Report ---
MR MRCP CLINICAL HISTORY: RUQ pain TECHNIQUE: Multiplanar multisequence MR images were obtained of the abdomen, followed by reconstruct ion of MRCP imaging. COMPARISON: Previous MRCP from 02/21/2021 and limited right upper quadrant ultrasound from 04/11/2022. Negative hepatobiliary scan. FINDINGS: The study is limited by breathing motion artifact. Liver: There is homogeneous signal intensity seen within the liver. No mass lesions are seen. There i s no evidence for intrahepatic or duct dilatation. Gallbladder: The gallbladder is again distended with thickening of the gallbladder wall and evidence for pericholecystic edema. The presence of acalculus cholecystitis cannot be excluded despite the neg ative hepatobiliary scan. Spleen: There is homogeneous signal throughout the splenic parenchyma. No mass lesions are seen. Pancreas: The pancreas is homogeneous in signal There is no evidence for a mass lesion. Kidneys: There is homogeneous signal throughout the renal parenchyma bilaterally. Adrenal glands: There is homogeneous signal demonstrated with no gross mass seen. Abdominal cavity: There is no gross bowel dilatation. There is no evidence for ascites or adenopathy. The aorta is normal in caliber. The visualized osseous structures, demonstrate no evidence of abnormal signal intensity. There is evidence of small bilateral pleural effusions and bibasilar atelectasis, right greater than left. MRCP: The common bile duct is normal in course and caliber. There is no evidence for dilatation. Th ere is no intraluminal filling defects or evidence for choledocholithiasis. There is no intrahepatic or duct dilatation. The pancreatic duct is normal in course and caliber. IMPRESSION: 1. No evidence of biliary obstruction. 2. However, the gallbladder is again distended with thickening of the gallbladder wall with perichole cystic edema. The findings are suspicious for acalculous cholecystitis despite the negative hepatobil iary scan. These results will be sent to the floor. ACT 112: Negative or not required by law. Electronically signed by: Thiago Rocha M.D. 04/13/2022 5:12 PM
[2022-04-13] MEDS: D5W AND LACTATED RINGERS 1,000 ML IV SCH (17:31)
--- NOTE | 2022-04-13 21:48 | Electrocardiogram Report ---
Test Reason : Blood Pressure : / mmHG Vent. Rate : 086 BPM Atrial Rate : 086 BPM P-R Int : 176 ms QRS Dur : 110 ms QT Int : 370 ms P-R-T Axes : 016 059 058 degrees QTc Int : 442 ms Normal sinus rhythm Cannot rule out Inferior infarct When compared with ECG of 11-APR-2022 14:54, No significant change was found Confirmed by Jose Marie ([id number]) on 04/13/2022 9:48:03 PM Referred By: REFERRED SELF Confirmed By:Jose Marie
--- NOTE | 2022-04-13 21:54 | Electrocardiogram Report ---
Test Reason : Blood Pressure : / mmHG Vent. Rate : 106 BPM Atrial Rate : 106 BPM P-R Int : 178 ms QRS Dur : 104 ms QT Int : 348 ms P-R-T Axes : 027 076 054 degrees QTc Int : 462 ms Sinus tachycardia Inferior-posterior infarct , age undetermined Abnormal ECG When compared with ECG of 11-APR-2022 23:42, No significant change was found Confirmed by Jose Marie ([id number]) on 04/13/2022 9:54:07 PM Referred By: REFERRED SELF Confirmed By:Jose Marie
[2022-04-13] MEDS: MELATONIN 3 MG TAB PO PRN (22:02)
[2022-04-14] MEDS: HEPARIN SODIUM/DEXTROSE 25,000 UNITS/500 ML BAG IV SCH ×2 (00:27→17:09)
[2022-04-14] MEDS: PIPERACILLIN/TAZOBACTAM 3.375 GM in DEXTROSE 5% 100 ML IV SCH ×3 (00:27→16:41)
[2022-04-14] MEDS: D5W AND LACTATED RINGERS 1,000 ML IV SCH ×2 (05:00→15:58)
[2022-04-14 08:23] LABS: Partial Thromboplastin Ratio 1.8
[2022-04-14] MEDS: INSULIN ASPART PER UNIT SC SCH ×4 (08:52→20:20)
[2022-04-14] MEDS: SUCRALFATE 1 GM/10 ML UDC PO SCH ×4 (09:11→20:21)
[2022-04-14] MEDS: METOPROLOL TARTRATE 25 MG TAB PO SCH ×2 (09:11→20:21)
[2022-04-14] MEDS: ATORVASTATIN 40 MG TAB PO SCH (09:12)
[2022-04-14] MEDS: lisinopril 5 MG TAB PO SCH (09:12)
[2022-04-14] MEDS: ASPIRIN 81 MG ECTAB PO SCH (09:13)
[2022-04-14] MEDS: PANTOprazole 40 MG TAB PO SCH ×2 (09:13→20:21)
[2022-04-14 09:22] LABS: Albumin Level 2.8 gm/dl (3.4-5.0); Bilirubin Direct 0.2 mg/dl (0-0.2); Bilirubin,Total 1.7 mg/dl (0.2-1.0); Total Protein 5.5 gm/dl (6.0-8.3)
[2022-04-14] MEDS: LANTUS PER UNIT CHARGE SQ SCH (09:27)
[2022-04-14 09:37] LABS: Basophils # (auto) 0.02 K/uL (0-0.2); Basophils % (auto) 0.2 %; Eosinophils # (auto) 0.04 K/uL (0-0.50); Eosinophils % (auto) 0.4 %; Immature Granulocytes # (auto) 0.07 K/uL (0.00-0.02); Immature Granulocytes % (auto) 0.6 %; Lymphocytes # (auto) 0.81 K/uL (1.2-3.4); Lymphocytes % (auto) 7.3 %; Mean Corpuscular Hgb Conc 33.3 g/dL (32.0-36.0); Mean Corpuscular Volume 86.9 fL (80.0-100.0); Mean Platelet Volume 9.8 fL (9.4-12.4); Monocytes % (auto) 5.4 %; Neutrophils # (auto) 9.54 K/uL (1.4-6.5); Neutrophils % (auto) 86.1 %; Platelet Count 195 K/uL (130-400); RDW Coefficient of Variation 13.2 % (11.5-14.5); RDW Standard Deviation 41.3 fL (36.4-46.3); Red Blood Count 4.49 M/uL (4.63-6.08); White Blood Count 11.08 K/ul (4.8-10.8)
[2022-04-14 09:58] LABS: Partial Thromboplastin Time 49.8 Seconds (21.0-31.0)
--- NOTE | 2022-04-14 10:37 | Surgery Progress Note ---
Date of Service April 14, 2022 Assessment & Plan (1) Acute cholecystitis: Plan: Bilirubin decreasing. MRCP negative for obstruction or stone. GI not recommending ERCP at this time. Discussed with him as well as primary service. Appears to have acute cholecystitis clinically as well as on imaging. Discussed his options with him. We discussed the risks of cholecystectomy which include bleeding, infection, injury to a bile duct or bile leak, injury to another structure or organ such as bowel or liver, DVT, PE, NE, CVA etc. Following our discussion I answered his questions. He would like to proceed with cholecystectomy. We will make him n.p.o. after midnight as well as hold his heparin drip after midnight. We will plan laparoscopic cholecystectomy first thing tomorrow morning. (2) Elevated LFTs: (3) CAD (coronary artery disease): (4) Abdominal pain: (5) Diabetes mellitus with neuropathy: Admission and Anticipated Discharge Date Admission Date: April 12, 2022 Subjective Patient seen. Still has mild right upper quadrant discomfort but much improved from when he came and. Currently no nausea. Physical Exam Constitutional: WD/WN, vitals as above no acute distress and not ill appearing Eyes: PERRL, conjunctivae normal, anicteric sclerae EOM intact bilaterally ENMT: external ear and nose normal, oropharynx normal Ears: no hearing impairment Neck: trachea midline, no thyromegaly Respiratory: normal respiratory effort; no respiratory distress and does not use accessory muscles Cardiovascular: Rate/Rhythm: regular rate and regular rhythm Gastrointestinal (Abdomen): Soft. Mild right upper quadrant tenderness to palpation. No peritoneal signs. Skin: no rashes, warm and dry Psychiatric: Orientation: alert, oriented x 3 and cooperative Results & Data ([facility]) Vital Signs (Past 12 Hours) Vital Signs Temp Pulse Pulse Resp BP BP Pulse Ox 04/14/22 07:51 36.6 C 90 83 18 114/69 92 04/14/22 07:50 80 04/14/22 07:47 04/14/22 07:31 36.6 C 83 20 114/69 92 04/14/22 03:47 36.8 C 85 14 115/71 90 04/13/22 23:03 36.8 C 84 18 109/68 92 Pulse Ox O2 Del Method O2 Del Method 04/14/22 07:51 Room Air 04/14/22 07:50 04/14/22 07:47 92 Room Air 04/14/22 07:31 Room Air 04/14/22 03:47 Room Air 04/13/22 23:03 Room Air PG Care Time/CCT Total # of Minutes Spent Total Time Spent with Patient: Total time spent is greater than 50% in coordination of care (as documented) at patient's floor/unit and/or counseling patient: Coding Level of Care Code 75228 Subseq Hosp Care Lvl 3 Diagnoses Acute cholecystitis K81.0 Elevated LFTs R79.89 CAD (coronary artery disease) I25.10 Abdominal pain R10.9 Diabetes mellitus with neuropathy E11.40
--- NOTE | 2022-04-14 11:11 | Anesthesiology Consultation ---
Date of Service April 14, 2022 Assessment & Plan (1) Encounter for pre-operative examination: History Surgery Operation Date: 04/11/22 16:00 Proposed Procedures p Cardiac Cath Procedure - Tim Farooq MD Operation Date: 04/15/22 07:30 Proposed Procedures p Laparoscopic Cholecystectomy - Cleveland Henson DO Height/Weight Height: 6 ft Weight: 110.3 kg Allergies Allergy/AdvReac Type Severity Reaction Status Date / Time Sulfa (Sulfonamide Allergy Severe ANAPHYLAXIS Verified 04/10/22 13:34 Antibiotics) Medications Home Medications Medication Instructions Recorded Confirmed Last Taken blood-glucose meter (OneTouch #1 ea 01/26/20 04/10/22 Unknown Ultra2 Meter kit) rivaroxaban 20 mg tablet 20 mg PO QDD 09/15/20 04/10/22 09/12/21 acetaminophen 500 mg tablet 1,000 mg PO DIRECTED PRN Pain 02/20/21 04/10/22 09/12/21 (Tylenol Extra Strength) hydrocortisone-acetic acid 1 %-2 % 5 drp otic (ear) BID #10 mL 09/08/21 04/10/22 09/12/21 ear drops magnesium oxide 400 mg (241.3 mg 400 mg PO DAILY #7 tabs 09/12/21 04/10/22 Unknown magnesium) tablet (MagOx) lisinopril 5 mg tablet 5 mg PO QAM #90 tabs 10/26/21 04/10/22 Unknown trazodone 50 mg tablet See Rx Instructions PO HS #14 tabs 10/26/21 04/10/22 Unknown blood sugar diagnostic #100 ea 02/01/22 04/10/22 Unknown dulaglutide 1.5 mg/0.5 mL 1.5 mg (0.5 mL) subcut .weekly #2 02/22/22 04/10/22 Unknown subcutaneous pen injector mL glimepiride 4 mg tablet 4 mg PO BID #180 tabs 02/22/22 04/10/22 Unknown metformin 1,000 mg tablet 1,000 mg PO BID #180 tabs 02/22/22 04/10/22 Unknown omeprazole 20 mg capsule,delayed 20 mg PO QAM #90 caps 02/22/22 04/10/22 Unknown release simvastatin 20 mg tablet 20 mg PO HS #90 tabs 02/22/22 04/10/22 Unknown empagliflozin 10 mg tablet 10 mg PO DAILY #30 tabs 03/29/22 04/10/22 Unknown (Jardiance) Active Medications Generic Name Dose Route Start Last Admin Trade Name Anaya PRN Reason Stop Dose Admin Acetaminophen 650 mg 04/11/22 18:42 04/12/22 23:11 Acetaminophen 325 Mg Tab PO 05/11/22 18:41 650 mg Q4H PRN Administration Mild Pain Aspirin 81 mg 04/12/22 09:00 04/14/22 09:13 Aspirin 81 Mg Ectab PO 05/12/22 08:59 81 mg QAM JOSE Administration Atorvastatin Calcium 40 mg 04/12/22 09:00 04/14/22 09:12 Atorvastatin 40 Mg Tab PO 05/12/22 08:59 40 mg QAM JOSE Administration Heparin Sodium/Dextrose 25,000 units in 500 mls @ 30 mls/hr 04/11/22 18:15 04/14/22 00:27 Heparin Sodium/Dextrose IV 05/11/22 18:14 1,500 units/hr .[id number] JOSE 30 mls/hr Administration Protocol 1,500 UNITS/HR Piperacillin Sod/Tazobactam 115 mls @ 28.75 mls/hr 04/12/22 01:00 04/14/22 09:18 Sod 3.375 gm/ Dextrose IV 04/21/22 00:59 28.8 mls/hr Q8H JOSE Administration Protocol Dextrose/Lactated Ringer's 1,000 mls @ 90 mls/hr 04/13/22 17:30 04/14/22 05:00 D5w And Lactated Ringers IV 05/13/22 17:29 90 mls/hr .[id number] JOSE Administration Insulin Aspart 0 units 04/11/22 21:00 04/14/22 08:52 Insulin Aspart Per Unit SC 05/11/22 20:59 4 units ACHS JOSE Administration Insulin Glargine 30 units 04/12/22 21:00 04/14/22 09:27 Lantus Per Unit Charge SQ 05/12/22 20:59 30 units BID JOSE Administration Lisinopril 5 mg 04/12/22 09:00 04/14/22 09:12 Lisinopril 5 Mg Tab PO 05/12/22 08:59 5 mg QAM JOSE Administration Melatonin 6 mg 04/13/22 21:33 04/13/22 22:02 Melatonin 3 Mg Tab PO 05/13/22 21:32 6 mg HS PRN Administration Sleep Metoprolol Tartrate 25 mg 04/11/22 21:00 04/14/22 09:11 Metoprolol Tartrate 25 Mg Tab PO 05/11/22 20:59 25 mg BID JOSE Administration Ondansetron HCl 4 mg 04/11/22 20:22 04/11/22 23:45 Ondansetron Inj 2 Mg/Ml 2 Ml Vial IV 05/11/22 20:21 4 mg Q4H PRN Administration Nausea Pantoprazole Sodium 40 mg 04/13/22 21:00 04/14/22 09:13 Pantoprazole 40 Mg Tab PO 05/13/22 20:59 40 mg BID JOSE Administration Sucralfate 1 gm 04/13/22 13:00 04/14/22 09:11 Sucralfate 1 Gm/10 Ml Udc PO 05/13/22 12:59 1 gm QID JOSE Administration Tramadol HCl 25 mg 04/11/22 18:42 04/11/22 19:56 Tramadol Hcl 50 Mg Tablet PO 05/11/22 18:41 25 mg Q4H PRN Administration Severe Pain Past Medical History Medical History (Updated 04/14/22 @ 11:11 by Marianela Doe MD) Acid reflux disease Acute cholecystitis BRIANNA (acute kidney injury) BPH (benign prostatic hyperplasia) CAD (coronary artery disease) Diabetes mellitus with neuropathy Elevated LFTs Fever of unknown origin Hard of hearing History of skin 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 DEFINITIVE DX OF STROKE, PT NOT SURE - 03/25/01 - EVAL WITH DR JACOBSEN , FURTHER TESTING WAS RECOMMENDED - PT DECLINED Hyperlipidemia Mixed conductive and sensorineural hearing loss of right ear with restricted hearing of left ear Murmur Pulmonary embolism 02/24/2020 -- takes xarelto Sensorineural hearing loss (SNHL) of right ear with restricted hearing of left ear No word recognition in right ear Past Family History Family History Mother Colorectal cancer Pacemaker Brother Stroke Brother Prostate cancer COPD (chronic obstructive pulmonary disease) Coronary heart disease Denies family history of Ovarian cancer Myocardial infarction Breast cancer Past Surgical History Surgical History H/O transurethral resection of prostate TOTAL OF 4, PT REPORTS MOST RECENT FEW WEEKS AGO AT [facility] - PT REPORTS HEALING...PLANS TO CALL DR JUNIOR OFFICE TO SCHEDULE FOLLOW UP History of arthroscopy of right knee History of left cataract extraction (~09/28/20) Social History Smoking Status: Former smoker tobacco type: smokeless tobacco Hx Alcohol Use: No alcohol intake frequency: holidays/special occasions only Hx Substance Use: No substance use type: does not use Physical Exam Vital Signs Last Vital Signs Temp 36.6 C 04/14/22 07:51 Pulse 83 04/14/22 07:51 Resp 18 04/14/22 07:51 BP 114/69 04/14/22 07:51 Pulse Ox 92 04/14/22 07:51 O2 Del Method 04/14/22 07:51 O2 Flow Rate 2 04/13/22 08:00 Testing Laboratory Results 04/14/22 07:05 04/13/22 07:09 PT 11.4 Seconds (9.0-12.0) 04/11/22 19:39 INR 1.1 (0.9-1.1) 04/11/22 19:39 APTT 49.8 Seconds (21.0-31.0) H* 04/14/22 07:01 04/11/22 19:43 Aerobic Blood Culture - Preliminary Blood No growth in Aerobic bottle after 48 hours. Anaerobic Blood Culture - Final 04/11/22 19:39 Aerobic Blood Culture - Preliminary Blood No growth in Aerobic bottle after 48 hours. Anaerobic Blood Culture - Final 04/14/22 07:05 POC Glucose 201 H Electrocardiogram Date: 04/12/22 Sinus tachycardia Inferior-posterior infarct , age undetermined Abnormal ECG When compared with ECG of 11-APR-2022 23:42, No significant change was found Confirmed by Jose Marie ([id number]) on 04/13/2022 9:54:07 PM Echocardiogram Date: 04/12/22 EF: 55-60% LV Function: normal moderate pulmonary hypetension Cardiac Catheterization Date: 04/11/22 Summary: 1. Multivessel coronary artery disease -80 to 90% distal RCA (chronic by IVUS) 90% mid, 75% distal circumflex 40 to 50% proximal to mid LAD. Small ostial D1 90% 2. Borderline intracardiac filling pressure (LVEDP 18) Recommendations: No clear acute culprit lesion. Has LEEANNA-3 flow throughout coronary system. In the setting of atypical symptoms and CAD of unclear chronicity recommend initial medical management.
--- NOTE | 2022-04-14 12:34 | Hospitalist Progress Note ---
Date of Service April 14, 2022 Assessment & Plan (1) ACS (acute coronary syndrome): Plan: - ACS NSTEMI with CAD however no obstructing lesion noted to intervene on -Patient evaluated by Cardiology and underwent heart cath- see results below - Medically optimize at this time with return to cath for ECG changes or persisting symptoms - Continue on heparin drip for now and will be on hold at 2355 for anticipating of maximiliano tomorrow - High sensitivity troponin downtrend from 1400 to 1200 - ECHO - EF 55-60%; no regional wall motion abnormalities; mod pulm htn 50-55 mmHg BB, ASA, Statin initiated- BP controlled better this morning - Appreciate Cardiology assistance (2) CAD (coronary artery disease): Plan: Multivessel coronary artery disease -80 to 90% distal RCA (chronic by IVUS) 90% mid, 75% distal circumflex 40 to 50% proximal to mid LAD. Small ostial D1 90% - BB, ASA, Statin as above (3) Abdominal pain: Plan: -At this time the etiology of the patient's upper abdominal pain appears to most likely be associated with some gallbladder pathology tiny gallstones noted with MRCP in january and newly seen gallbladder wall thickening. -Patient has been afebrile and hemodynamically stable - cultures remain NGTD - RUQUS as above -Pain control with Tylenol - HIDA scan as above - MRCP as above General Surgery and Gastroenterology consultations placed- initial surgical impression favoring cholangitis - GI recs no indication for ERCP at this time- repeat MRCP 04/13/22- See above without obstructive process. Discussed with Gen Surg. Plan for cholecystectomy in AM. Heparin gtt to go on hold at 2355. NPO at midnight for early AM surgery Will keep additional fluids on overnight. 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 and received systemic thrombolysis with tPA (6) Diabetes mellitus with neuropathy: Plan: -Patient is on a large home regimen -Will change Lantus to just daily for now as he will be NPO at midnight and will adjust pending surgery tomorrow - Correction factor of 20 mg/dL/unit - Carb ratio: 9 -Increase as needed - improved however without PO intake (7) Hyperlipidemia: Plan: - continue statin Admission and Anticipated Discharge Date Admission Date: April 12, 2022 Supervising Physician Co-Signing Physician Notes CHEN Supervision Note: I did not personally see or examine the patient today, but I verified all mcrae points of CHEN Bhatt's assessment and plan with the following exceptions/additions: None Subjective No acute events overnight. Reports he still has some R sided abdominal pain but continues to be much improved from admission. He tolerated his lunch this afternoon. Discussed his case with general surgery who plans for cholecystectomy. tomorrow. He verbalizes no complaints of nausea. Plan for heparin drip to stop prior to midnight for anticipation of surgery tomorrow Review of Systems Review of Systems: 10 point review of systems completed. Unremarkable as stated above. Physical Exam Physical Exam: PHYSICAL EXAM General Appearance: WDWN in NAD who is A&O x 3 HEENT: Head is normocephalic/atraumatic; Hearing grossly intact; Mucous membranes moist Neck: Supple; Trachea midline; Neg JVD Heart: RRR with no M/G/R Lungs: CTA in all lung flores bilaterally; Respirations unlabored; Neg accessory muscle use Abdomen: Soft, non-tender, non-distended; Positive BS x 4 quadrants Extremities: Capillary refill < 2 seconds; Neg cyanosis or edema Neurological: Speech clear; Gross motor/sensory function intact; Neg focal neurologic deficits Psychiatric: Appropriate mood/affect Skin: Normal Color; Warm/Dry Results & Data Results & Data ([facility]) Vital Signs (Past 12 Hours) Vital Signs Temp Pulse Pulse Resp BP BP Pulse Ox 04/14/22 11:52 36.6 C 76 20 122/75 92 04/14/22 07:51 36.6 C 90 83 18 114/69 92 04/14/22 07:50 80 04/14/22 07:47 04/14/22 07:31 36.6 C 83 20 114/69 92 04/14/22 03:47 36.8 C 85 14 115/71 90 Pulse Ox O2 Del Method O2 Del Method 04/14/22 11:52 04/14/22 07:51 Room Air 04/14/22 07:50 04/14/22 07:47 92 Room Air 04/14/22 07:31 Room Air 04/14/22 03:47 Room Air PG Care Time/CCT Total # of Minutes Spent Total Time Spent with Patient: Total time spent is greater than 50% in coordination of care (as documented) at patient's floor/unit and/or counseling patient: Coding Level of Care Code 92349 Subseq Hosp Care Lvl 3 Diagnoses ACS (acute coronary syndrome) I24.9 CAD (coronary artery disease) I25.10 Abdominal pain R10.9 DVT (deep venous thrombosis) I82.409 Chronicity: chronic Pulmonary embolism I26.92 Acute cor pulmonale presence: unspecified Chronicity: acute Pulmonary embolism type: saddle Diabetes mellitus with neuropathy E11.40 Hyperlipidemia E78.5 (1) DVT (deep venous thrombosis) Chronicity: chronic (2) Pulmonary embolism Acute cor pulmonale presence: unspecified Chronicity: acute Pulmonary embolism type: saddle Qualified Code(s): I26.92 - Saddle embolus of pulmonary artery without acute cor pulmonale
[2022-04-14] MEDS ORDERED: POLYETHYLENE (MIRALAX) 17 GM PACK PO PRN (17:02)
[2022-04-14] MEDS: DOCUSATE SODIUM 100 MG CAP PO SCH (20:20)
[2022-04-14] MEDS: MELATONIN 3 MG TAB PO PRN (20:26)
[2022-04-15] MEDS: PIPERACILLIN/TAZOBACTAM 3.375 GM in DEXTROSE 5% 100 ML IV SCH ×3 (00:23→16:58)
[2022-04-15] MEDS: HEPARIN SODIUM/DEXTROSE 25,000 UNITS/500 ML BAG IV SCH ×3 (00:34→22:39)
[2022-04-15] MEDS: D5W AND LACTATED RINGERS 1,000 ML IV SCH ×2 (02:38→13:56)
[2022-04-15 06:35] LABS: Albumin Level 2.7 gm/dl (3.4-5.0); Bilirubin Direct 0.1 mg/dl (0-0.2); Bilirubin,Total 1.2 mg/dl (0.2-1.0); Total Protein 5.5 gm/dl (6.0-8.3)
[2022-04-15] MEDS ORDERED: EPINEPHrine INJ 1 MG/ML AMP ONE (06:47)
[2022-04-15] MEDS ORDERED: BUPIVACAINE 0.5 % 5 MG/1 ML MPF 30ML VIAL ONE (06:47)
--- NOTE | 2022-04-15 07:06 | History & Physical Bridge Note ---
Date of Service April 15, 2022 History & Physical Bridge Note I have examined the patient, reviewed the History & Physical and in the interval since the performance of the History & Physical I have noted the following changes of clinical significance: no changes noted
[2022-04-15] MEDS ORDERED: NEOSTIGMINE METHYLSULFATE 1 MG/ML 10ML VIAL ONE (07:10)
[2022-04-15] MEDS ORDERED: DEXAMETHASONE SOD INJ 4 MG/ML VIAL ONE (07:10)
[2022-04-15] MEDS ORDERED: GLYCOPYRROLATE 0.2 MG/ML VIAL ONE (07:10)
[2022-04-15] MEDS ORDERED: PROPOFOL IV EMULSION 10 MG/ML 20 ML VIAL IV ONE (07:10)
[2022-04-15] MEDS ORDERED: ONDANSETRON INJ 2 MG/ML 2 ML VIAL ONE (07:10)
[2022-04-15] MEDS ORDERED: fentaNYL citrate 100 MCG/2 ML VIAL ONE (07:11)
[2022-04-15] MEDS ORDERED: ceFAZolin 2000MG 2,000 MG/15 ML SYR IV ONE (07:29)
--- NOTE | 2022-04-15 07:33 | Hospitalist Progress Note ---
Date of Service April 15, 2022 Assessment & Plan (1) ACS (acute coronary syndrome): Plan: -ACS NSTEMI with CAD however no obstructing lesion noted to intervene on -Patient evaluated by Cardiology and underwent heart cath- see results below -Return to cath for any ECG changes or persisting symptoms - Will resume heparin when cleared by Gen Surg. Plan to resume heparin gtt at 24 hrs post-op. May be best to implement Heparin to monitor for any bleeding then can meter changes records clerk to Xarelto prior to D/C - High sensitivity troponin downtrend from 1400 to 1200 - ECHO - EF 55-60%; no regional wall motion abnormalities; mod pulmonary hypertension 50-55 mmHg -BB, ASA, Statin initiated -Appreciate Cardiology assistance (2) CAD (coronary artery disease): Plan: Multivessel coronary artery disease -80 to 90% distal RCA (chronic by IVUS) 90% mid, 75% distal circumflex 40 to 50% proximal to mid LAD. Small ostial D1 90% -BB, ASA, Statin -As above (3) Abdominal pain: Plan: -MRCP on 04/13 with gallbladder distended with thickening of the GB wall with pericholecystic edema - suspicious for acalculous cholecystitis -S/P cholecystectomy on 04/15. 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 (7) Hyperlipidemia: Plan: -Continue statin Plan PT/OT evaluations; expresses he does have falls at home and he is generally weak and may be interested in rehab upon discharge. Admission and Anticipated Discharge Date Admission Date: April 12, 2022 Supervising Physician Co-Signing Physician Notes PA Supervision Note: I did not personally see or examine the patient today, but I verified all mcrae points of CHEN Bhatt's assessment and plan with the following exceptions/additions: None Subjective No acute events overnight. Patient is S/P Lap Jesusita and was seen after surgery. He states he is doing well but some abdominal pain. Mostly when he coughs or hiccups. He has not moved his bowels since Saturday and bowel regimen added. He remains on tele with sinus rhythm in 70s average. Updated patient's and son at bedside. Review of Systems Review of Systems: 10 point review of systems completed. Unremarkable unless stated above. Physical Exam Physical Exam: PHYSICAL EXAM General Appearance: WDWN in NAD who is A&O x 3 but drowsy post-op HEENT: Head is normocephalic/atraumatic; EYAK; Mucous membranes moist Neck: Supple; Trachea midline; Neg JVD Heart: RRR with no M/G/R Lungs: CTA in all lung flores bilaterally; Respirations unlabored; Neg accessory muscle use Abdomen: Soft, non-tender, non-distended; Positive BS x 4 quadrants; DON drain present Extremities: Neg cyanosis or edema Neurological: Speech clear; Gross motor/sensory function intact; Neg focal neurologic deficits Psychiatric: Appropriate mood/affect Skin: Normal Color; Warm/Dry Results & Data Results & Data ([facility]) Vital Signs (Past 12 Hours) Vital Signs Temp Pulse Resp BP Pulse Ox 04/15/22 03:00 36.9 C 75 18 122/71 90 04/14/22 23:00 37.0 C 80 18 136/73 91 PG Care Time/CCT Total # of Minutes Spent Total Time Spent with Patient: Total time spent is greater than 50% in coordination of care (as documented) at patient's floor/unit and/or counseling patient: Coding Level of Care Code 12576 Subseq Hosp Care Lvl 3 Diagnoses ACS (acute coronary syndrome) I24.9 CAD (coronary artery disease) I25.10 Abdominal pain R10.9 DVT (deep venous thrombosis) I82.409 Chronicity: chronic Pulmonary embolism I26.92 Acute cor pulmonale presence: unspecified Chronicity: acute Pulmonary embolism type: saddle Diabetes mellitus with neuropathy E11.40 Hyperlipidemia E78.5 (1) DVT (deep venous thrombosis) Chronicity: chronic (2) Pulmonary embolism Acute cor pulmonale presence: unspecified Chronicity: acute Pulmonary embolism type: saddle Qualified Code(s): I26.92 - Saddle embolus of pulmonary artery without acute cor pulmonale
[2022-04-15] MEDS ORDERED: ONDANSETRON INJ 2 MG/ML 2 ML VIAL IV PRN (08:31)
[2022-04-15] MEDS ORDERED: fentaNYL citrate 100 MCG/2 ML VIAL IV PRN (08:31)
[2022-04-15] MEDS ORDERED: ATROPINE SULFATE 0.1 MG/ML 10ML SYR IV PRN (08:31)
[2022-04-15] MEDS ORDERED: ePHEDrine sulfate 50 MG/ML AMP IV PRN (08:31)
[2022-04-15] MEDS ORDERED: ceFAZolin 330 MG/ML 1 GM VIAL ONE (08:58)
[2022-04-15] MEDS ORDERED: SUGAMMADEX SODIUM 200 MG/2 ML VIAL IV ONE (09:53)
[2022-04-15] MEDS ORDERED: LABETALOL HCL IV 5 MG/ML 20ML IV ONE (10:10)
--- NOTE | 2022-04-15 10:36 | Operative Report ---
PG Post Operative Report Pre & Post Diagnosis Operation Date: 04/11/22 16:00 <No data on this case meets the specified criteria> Operation Date: 04/15/22 07:30 Pre-Op Diagnosis: acute cholecystitis Post-Op Diagnosis: acute cholecystitis;umbilical hernia; difficult case modifier I identified the patient and participated in the time-out.: Yes Procedure Operation Date: 04/11/22 16:00 Actual Procedures p Cineradiography w/Routine Exam - Tim Farooq MD s Cath, Left with Cors and Vent - Tim Farooq MD s IVUS Coronary Single Vessel - Tim Farooq MD Operation Date: 04/15/22 07:30 Actual Procedures p Laparoscopic Cholecystectomy, Repair of umbilical hernia. (Not Applicable) - Cleveland Henson DO Surgeon Cleveland Henson DO Technology Infusion Specialist rekha Hdz Estimated Blood Loss 15 Findings Consistent with Post-Op Diagnosis Specimens gallbladder Description of Procedure After informed consent was obtained the patient was taken to the operating room and placed in supine position. After successful intubation the abdomen was shaved and sterilely prepped and draped in usual fashion. After shaving the patient I noted he had an umbilical hernia that was incarcerated. I therefore made a curvilinear infraumbilical incision with a 11 blade scalpel. This was carried down through the soft tissue using cautery. A Karolina clamp was used to come around the superior aspect of the umbilicus. The umbilical stalk was taken down using cautery exposing a 1.5 cm hernia defect. 0 Vicryl stay sutures were placed on either side of the fascial defect. The hernia sac was excised and discarded. Finger penetration was used to enter the peritoneal cavity. A 12 mm Lehman trocar was placed and the abdomen was insufflated to 20 mmHg. The laparoscope was inserted and the abdomen was examined in 360 degrees. Initially no abnormality was noted. A subxiphoid 5 mm port which would later be converted to a 12 mm port was placed followed by 2 right upper quadrant 5 mm ports all under direct vision. The patient was placed in reverse Trendelenburg position and slightly airplaned to the left. There was a lot of omental fat wrapping of the gallbladder which was acutely inflamed. I used blunt dissection to take the omentum off the gallbladder. The gallbladder was very distended and thickened with surrounding edema. The case itself was quite difficult due to the acute inflammation. A gallbladder needle was used to aspirate about 40 cc of thick sludgelike bile. Once we did this we were then able to grasp it and elevate it superiorly and laterally. Tedious blunt dissection was used with the suction molecular biology director as well as [place] dissectors. Eventually I was able to identify an anterior cystic artery branch which was clipped and divided. I was then able to continue to use primarily blunt dissection to identify the cystic duct. A right angle was used to come around it. A large clip check viewer was used to place 2 clips proximally and 1 distally and transect it. There was also a posterior branches to the artery which were clipped and divided as well. Cautery was used to remove the gallbladder from the gallbladder fossa. It was placed into an Endo Catch bag and removed from the umbilical port site. A small bleeding points on the liver bed were controlled using cautery. Thorough irrigation was performed. There is adequate hemostasis and no evidence of any bile leaks. Because of the acute inflammation I decided to place a 10 flat Kushal-Stevens drain which I brought out through one of the port sites and secured to the skin using 3-0 nylon. Final irrigation was performed. The trochars were all removed and the abdomen desufflated. The fascia of the hernia/camera port was closed using 0 Vicryl in [id number] fashion. I then reapproximated the umbilical stalk also using 0 Vicryl. Deep tissue was closed using 3-0 Vicryl and skin closed using 4-0 Monocryl. The remainder of the incisions were closed using 4-0 Monocryl. Marcaine with epinephrine were injected around them for postoperative analgesia and skin glue used as a dressing. The patient was awakened extubated and transferred to recovery in stable condition. My physician hr administrative assistant was present through the entire case. She was instrumental in exposure throughout my dissection as well as assisting with repairing the hernia wound closure and dressing placement. I attest to the content of the Intraoperative Record and any orders documented therein. Any exceptions are noted below.
--- NOTE | 2022-04-15 11:17 | Anesthesiology Progress Note ---
Date of Service April 15, 2022 Anesthesia Post Procedure Vital Signs Vital Signs: Temp Pulse Pulse Resp BP BP Pulse Ox 04/15/22 11:00 87 22 170/79 H 92 04/15/22 11:10 85 20 160/91 H 93 04/15/22 10:50 88 25 H 158/82 H 92 04/15/22 10:40 36.4 C L 90 22 165/67 H 91 04/15/22 07:35 04/15/22 07:32 36.3 C L 74 83 18 114/69 92 04/15/22 07:30 74 04/15/22 03:00 36.9 C 75 18 122/71 90 04/14/22 23:00 37.0 C 80 18 136/73 91 04/14/22 19:00 36.9 C 80 20 143/74 H 92 04/14/22 15:21 36.9 C 79 18 146/63 H 91 04/14/22 11:52 36.6 C 76 20 122/75 92 Pulse Ox O2 Del Method O2 Del Method O2 Flow Rate 04/15/22 11:00 Nasal Cannula 5 04/15/22 11:10 Nasal Cannula 5 04/15/22 10:50 Oxymask 10 04/15/22 10:40 Oxymask 10 04/15/22 07:35 92 Room Air 04/15/22 07:32 Room Air 04/15/22 07:30 04/15/22 03:00 04/14/22 23:00 04/14/22 19:00 04/14/22 15:21 Room Air 04/14/22 11:52 Pain Intensity Chest: Pain Intensity: 8 Transfer of Care Handoff Completed per policy Notes Mental Status: alert / awake / arousable and participated in evaluation Patient Amnestic to Procedure: Yes Nausea / Vomiting: adequately controlled Pain: adequately controlled Airway Patency, RR, SpO2: stable & adequate BP & HR: stable & adequate Hydration State: stable & adequate Anesthetic Complications: no major complications apparent
[2022-04-15] MEDS: INSULIN ASPART PER UNIT SC SCH ×4 (12:10→21:46)
[2022-04-15] MEDS: LANTUS PER UNIT CHARGE SQ SCH (12:14)
[2022-04-15] MEDS: SENNA 8.6 MG TAB PO SCH (12:26)
[2022-04-15] MEDS: PANTOprazole 40 MG TAB PO SCH ×2 (12:27→20:03)
[2022-04-15] MEDS: ASPIRIN 81 MG ECTAB PO SCH (12:27)
[2022-04-15] MEDS: ATORVASTATIN 40 MG TAB PO SCH (12:28)
[2022-04-15] MEDS: DOCUSATE SODIUM 100 MG CAP PO SCH ×2 (12:28→20:03)
[2022-04-15] MEDS: METOPROLOL TARTRATE 25 MG TAB PO SCH ×2 (12:28→20:02)
[2022-04-15] MEDS: lisinopril 5 MG TAB PO SCH (12:29)
[2022-04-15] MEDS: SUCRALFATE 1 GM/10 ML UDC PO SCH ×4 (12:29→20:02)
[2022-04-15] MEDS: traMADol HCL 50 MG TABLET PO PRN ×2 (16:04→20:00)
[2022-04-15] MEDS: MELATONIN 3 MG TAB PO PRN (20:00)
[2022-04-15] MEDS: HYDROmorphone INJ 0.5 MG/0.5 ML SYR IV PRN (21:49)
[2022-04-16] MEDS: D5W AND LACTATED RINGERS 1,000 ML IV SCH ×2 (01:12→08:18)
[2022-04-16] MEDS: PIPERACILLIN/TAZOBACTAM 3.375 GM in DEXTROSE 5% 100 ML IV SCH ×2 (01:13→08:14)
[2022-04-16] MEDS: HYDROmorphone INJ 0.5 MG/0.5 ML SYR IV PRN (05:52)
[2022-04-16 07:07] LABS: Basophils # (auto) 0.04 K/uL (0-0.2); Basophils % (auto) 0.5 %; Eosinophils # (auto) 0.09 K/uL (0-0.50); Eosinophils % (auto) 1.1 %; Hematocrit (blood only) 38.5 % (40.1-51.0); Hemoglobin 12.6 g/dl (14.0-18.0); Immature Granulocytes # (auto) 0.09 K/uL (0.00-0.02); Immature Granulocytes % (auto) 1.1 %; Lymphocytes % (auto) 7.3 %; Mean Corpuscular Hemoglobin 28.8 pg (25.0-34.0); Mean Corpuscular Hgb Conc 32.7 g/dL (32.0-36.0); Mean Corpuscular Volume 88.1 fL (80.0-100.0); Mean Platelet Volume 9.8 fL (9.4-12.4); Monocytes # (auto) 0.84 K/uL (0.24-0.82); Monocytes % (auto) 10.2 %; Neutrophils # (auto) 6.55 K/uL (1.4-6.5); Neutrophils % (auto) 79.8 %; Platelet Count 221 K/uL (130-400); RDW Coefficient of Variation 13.4 % (11.5-14.5); RDW Standard Deviation 43.2 fL (36.4-46.3); Red Blood Count 4.37 M/uL (4.63-6.08); White Blood Count 8.21 K/ul (4.8-10.8)
[2022-04-16 07:32] LABS: Albumin Globulin Ratio 0.9 (0.9-2); Albumin Level 2.6 gm/dl (3.4-5.0); BUN Creatinine Ratio 15.4 (10-20); Bilirubin Direct 0.2 mg/dl (0-0.2); Bilirubin,Total 1.1 mg/dl (0.2-1.0); Calcium 7.9 mg/dl (8.5-10.1); Creatinine Clr Calc Pharmacy 80.7 ml/min; Est GFR (African American) 90.6 ml/min; Est GFR (Non-African American) 78.2 ml/min; Globulin 2.8 gm/dl (2.5-4.0); Potassium 4.2 mmol/L (3.5-5.1); Total Protein 5.4 gm/dl (6.0-8.3)
--- NOTE | 2022-04-16 07:32 | Hospitalist Progress Note ---
Date of Service April 16, 2022 Assessment & Plan (1) Abdominal pain: Plan: Admitted for chest pain s/p Cath with Dr Farooq, no obstructing lesion noted to intervene howevere concerns for biliary pathology with elevated LFts and and distended GB with thickening and pericholecystic edema suspicious for acalculous cholecystitis. General surgery consulted POD# 1 s/p Laparoscopic Cholecystectomy, Repair of umbilical hernia. (Not Applicable) - Cleveland Henson, DO on 04/15. EBL 15cc Hgb 13--> 12.6, acute blood loss expected (15.5 pre-surgery but had been on continuous IVF) Cxs NGTD Zosyn IV Abx(day 5 of therapy) Heparin gtt resumed04/16 AM --> plan to switch to home Xarelto tomorrow 04/17 as discussed with Daniel tom PA-C this morning D/C IVF as not overly dehydrated on exam, PO encouraged (had been on D5, BSGs elevated) WBC wnl, afebrile Pain control : tylenol, tramadol Bowel regimen: Colace BID, miralax prn, senna Mag1.6-- 2GM IV ordered Regular AHA/DM diet ordered Incentive spirometer ordered and encouraged --> 4L NC but no SOB/CP reported at present LFTs improving and will continue to monitor Continued inpatient stay PT/OT consulted (2) ACS (acute coronary syndrome): Plan: Presented with ACS -- NSTEMI with CAD however no obstructing lesion noted to intervene on -Patient evaluated by Cardiology and underwent heart cath- see results below -Return to cath for any ECG changes or persisting symptoms -Was initially on heparin drip and then held for surgery - High sensitivity troponin downtrend from 1400 to 1200 - ECHO - EF 55-60%; no regional wall motion abnormalities; mod pulmonary hypertension 50-55 mmHg -Metoprolol 25mg PO BID, ASA, atorvastatin 40mg initiated and to continue -Appreciate Cardiology assistance (3) CAD (coronary artery disease): Plan: Multivessel coronary artery disease -80 to 90% distal RCA (chronic by IVUS) 90% mid, 75% distal circumflex 40 to 50% proximal to mid LAD. 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 Changed Lantus to just daily for now until we see how his BSGs trend post- operatively and adjust given D5 in IVF BSGs increased slightly, no further dehydration and discontinued IVF Continue to monitor/adjustment as needed (7) Hyperlipidemia: Plan: -Continue statin --> was on simvastatin 20mg HS [employer], changed to atorvastatin 40mg as above for ACS and continue at discharge Plan continued inpatient stay PT/OT evaluations; expresses he does have falls at home and he is generally weak and may be interested in rehab upon discharge. Admission and Anticipated Discharge Date Admission Date: April 12, 2022 Supervising Physician Co-Signing Physician Notes PA Supervision Note: I did not personally see or examine the patient today, but I verified all mcrae points of CHEN Bhatt's assessment and plan with the following exceptions/additions: None Subjective Patient evaluated this morning. Seen by surgery and DON drain removed. On 4L NC but denies any chest pain or shortness of breath. Ordered and encouraged use of incentive spirometer. Discussed resumed heparin gtt but plans to transition to Xarelto tomorrow if bleeding remains stable. Has not worked with therapy, discussed orders are in an encouraged to get out of bed. Abdominal pain present but decreased and only increased with cough/certain movements. Passing gas but no BM since admission. No nausea/vomiting, and diet has been advanced. Questions/concerns addressed at this time. Review of Systems Review of Systems: All systems reviewed & are unremarkable except as noted in HPI & below Physical Exam Physical Exam: General Appearance: WD/WN male, general pallor, NAD sitting up in bed eating breakfast HEENT: head normocephalic, atraumatic, mmm, trachea midline, no deviation, slightly [place] Resp: CTAB, diminished in the bases with associated crackles, no w/r, on 4L NC CV: RRR, no m/r/g, calves nontender, pulses palpable GI: +BS throughout, appropriately tender to palpation without guarding or rigidity (DON drain since removed), lap sites look good MSK/Neuro: moves all extremities, no focal deficit Skin: warm, dry Psych: AOx3, pleasant and cooperative Results & Data Results & Data ([facility]) Vital Signs (Past 12 Hours) Vital Signs Temp Pulse Resp BP Pulse Ox O2 Del Method O2 Flow Rate 04/16/22 03:00 37.0 C 81 20 129/69 93 04/15/22 23:00 36.5 C 81 18 158/69 H 94 04/15/22 19:30 Nasal Cannula 4 Laboratory Results 04/16/22 04/16/22 04/16/22 Range/Units 07:17 06:18 06:18 WBC (4.8-10.8) K/ul RBC (4.63-6.08) M/uL Hgb (14.0-18.0) g/dl Hct (40.1-51.0) % MCV (80.0-100.0) fL MCH (25.0-34.0) pg MCHC (32.0-36.0) g/dL RDW Std Deviation (36.4-46.3) fL RDW Coeff of Rich (11.5-14.5) % Plt Count (130-400) K/uL MPV (9.4-12.4) fL Immature Gran % (Auto) % Neut % (Auto) % Lymph % (Auto) % Early % (Auto) % Eos % (Auto) % Baso % (Auto) % Neut # (Auto) (1.4-6.5) K/uL Lymph # (Auto) (1.2-3.4) K/uL Early # (Auto) (0.24-0.82) K/uL Eos # (Auto) (0-0.50) K/uL Baso # (Auto) (0-0.2) K/uL Immature Gran # (Auto) (0.00-0.02) K/uL Sodium 133 L (136-145) mmol/L Potassium 4.2 (3.5-5.1) mmol/L Chloride 101 (98-107) mmol/L Carbon Dioxide 26 (21-32) mmol/L Anion Gap 6 (3-11) BUN 14 (6-23) mg/dl Creatinine 0.91 (0.6-1.4) mg/dl Est Cr Clr Drug Dosing 80.7 ml/min Est GFR ( Amer) 90.6 ml/min Est GFR (Non-Af Amer) 78.2 ml/min BUN/Creatinine Ratio 15.4 (10-20) Glucose 194 H (70-99(Fasting)) mg/dl POC Glucose 182 H (70-99) mg/dl Calcium 7.9 L (8.5-10.1) mg/dl Magnesium 1.6 L (1.7-2.4) mg/dl Total Bilirubin 1.1 H (0.2-1.0) mg/dl Direct Bilirubin 0.2 (0-0.2) mg/dl AST 49 H (13-39) U/L ALT 45 (7-52) U/L Alkaline Phosphatase 81 (34-104) U/L Total Protein 5.4 L (6.0-8.3) gm/dl Albumin 2.6 L (3.4-5.0) gm/dl Globulin 2.8 (2.5-4.0) gm/dl Albumin/Globulin Ratio 0.9 (0.9-2) 04/16/22 04/15/22 04/15/22 Range/Units 06:18 20:18 16:31 WBC 8.21 (4.8-10.8) K/ul RBC 4.37 L (4.63-6.08) M/uL Hgb 12.6 L (14.0-18.0) g/dl Hct 38.5 L (40.1-51.0) % MCV 88.1 (80.0-100.0) fL MCH 28.8 (25.0-34.0) pg MCHC 32.7 (32.0-36.0) g/dL RDW Std Deviation 43.2 (36.4-46.3) fL RDW Coeff of Rich 13.4 (11.5-14.5) % Plt Count 221 (130-400) K/uL MPV 9.8 (9.4-12.4) fL Immature Gran % (Auto) 1.1 % Neut % (Auto) 79.8 % Lymph % (Auto) 7.3 % Early % (Auto) 10.2 % Eos % (Auto) 1.1 % Baso % (Auto) 0.5 % Neut # (Auto) 6.55 H (1.4-6.5) K/uL Lymph # (Auto) 0.60 L (1.2-3.4) K/uL Early # (Auto) 0.84 H (0.24-0.82) K/uL Eos # (Auto) 0.09 (0-0.50) K/uL Baso # (Auto) 0.04 (0-0.2) K/uL Immature Gran # (Auto) 0.09 H (0.00-0.02) K/uL Sodium (136-145) mmol/L Potassium (3.5-5.1) mmol/L Chloride (98-107) mmol/L Carbon Dioxide (21-32) mmol/L Anion Gap (3-11) BUN (6-23) mg/dl Creatinine (0.6-1.4) mg/dl Est Cr Clr Drug Dosing ml/min Est GFR ( Amer) ml/min Est GFR (Non-Af Amer) ml/min BUN/Creatinine Ratio (10-20) Glucose (70-99(Fasting)) mg/dl POC Glucose 207 H 165 H (70-99) mg/dl Calcium (8.5-10.1) mg/dl Magnesium (1.7-2.4) mg/dl Total Bilirubin (0.2-1.0) mg/dl Direct Bilirubin (0-0.2) mg/dl AST (13-39) U/L ALT (7-52) U/L Alkaline Phosphatase (34-104) U/L Total Protein (6.0-8.3) gm/dl Albumin (3.4-5.0) gm/dl Globulin (2.5-4.0) gm/dl Albumin/Globulin Ratio (0.9-2) 04/15/22 04/15/22 Range/Units 11:50 10:43 WBC (4.8-10.8) K/ul RBC (4.63-6.08) M/uL Hgb (14.0-18.0) g/dl Hct (40.1-51.0) % MCV (80.0-100.0) fL MCH (25.0-34.0) pg MCHC (32.0-36.0) g/dL RDW Std Deviation (36.4-46.3) fL RDW Coeff of Rich (11.5-14.5) % Plt Count (130-400) K/uL MPV (9.4-12.4) fL Immature Gran % (Auto) % Neut % (Auto) % Lymph % (Auto) % Early % (Auto) % Eos % (Auto) % Baso % (Auto) % Neut # (Auto) (1.4-6.5) K/uL Lymph # (Auto) (1.2-3.4) K/uL Early # (Auto) (0.24-0.82) K/uL Eos # (Auto) (0-0.50) K/uL Baso # (Auto) (0-0.2) K/uL Immature Gran # (Auto) (0.00-0.02) K/uL Sodium (136-145) mmol/L Potassium (3.5-5.1) mmol/L Chloride (98-107) mmol/L Carbon Dioxide (21-32) mmol/L Anion Gap (3-11) BUN (6-23) mg/dl Creatinine (0.6-1.4) mg/dl Est Cr Clr Drug Dosing ml/min Est GFR ( Amer) ml/min Est GFR (Non-Af Amer) ml/min BUN/Creatinine Ratio (10-20) Glucose (70-99(Fasting)) mg/dl POC Glucose 202 H 191 H (70-99) mg/dl Calcium (8.5-10.1) mg/dl Magnesium (1.7-2.4) mg/dl Total Bilirubin (0.2-1.0) mg/dl Direct Bilirubin (0-0.2) mg/dl AST (13-39) U/L ALT (7-52) U/L Alkaline Phosphatase (34-104) U/L Total Protein (6.0-8.3) gm/dl Albumin (3.4-5.0) gm/dl Globulin (2.5-4.0) gm/dl Albumin/Globulin Ratio (0.9-2) PG Care Time/CCT Total # of Minutes Spent Total Time Spent with Patient: Total time spent is greater than 50% in coordination of care (as documented) at patient's floor/unit and/or counseling patient: Coding Level of Care Code 37500 Subseq Hosp Care Lvl 3 Diagnoses Abdominal pain R10.9 ACS (acute coronary syndrome) I24.9 CAD (coronary artery disease) I25.10 DVT (deep venous thrombosis) I82.409 Chronicity: chronic Pulmonary embolism I26.92 Acute cor pulmonale presence: unspecified Chronicity: acute Pulmonary embolism type: saddle Diabetes mellitus with neuropathy E11.40 Hyperlipidemia E78.5 (1) DVT (deep venous thrombosis) Chronicity: chronic (2) Pulmonary embolism Acute cor pulmonale presence: unspecified Chronicity: acute Pulmonary embolism type: saddle Qualified Code(s): I26.92 - Saddle embolus of pulmonary artery without acute cor pulmonale
[2022-04-16] MEDS: PANTOprazole 40 MG TAB PO SCH ×2 (08:04→09:21)
[2022-04-16] MEDS: ASPIRIN 81 MG ECTAB PO SCH (08:04)
[2022-04-16] MEDS: METOPROLOL TARTRATE 25 MG TAB PO SCH (08:05)
[2022-04-16] MEDS: lisinopril 5 MG TAB PO SCH (08:05)
[2022-04-16] MEDS: DOCUSATE SODIUM 100 MG CAP PO SCH ×2 (08:05→21:14)
[2022-04-16] MEDS: SENNA 8.6 MG TAB PO SCH (08:05)
[2022-04-16] MEDS: ATORVASTATIN 40 MG TAB PO SCH (08:05)
[2022-04-16] MEDS: SUCRALFATE 1 GM/10 ML UDC PO SCH (08:06)
[2022-04-16] MEDS: INSULIN ASPART PER UNIT SC SCH ×4 (08:13→21:13)
[2022-04-16] MEDS: LANTUS PER UNIT CHARGE SQ SCH (08:14)
[2022-04-16] MEDS ORDERED: Heparin IV Adult Wt-Based Low-Dose *NO* Bolus Protocol IV ONE (08:45)
[2022-04-16] MEDS: MAGNESIUM SULFATE / D5W 1 GM/100 ML BAG IV SCH ×2 (09:20→11:48)
[2022-04-16] MEDS: HEPARIN SODIUM/DEXTROSE 25,000 UNITS/500 ML BAG IV SCH (09:20)
--- NOTE | 2022-04-16 10:00 | Surgery Progress Note ---
Date of Service April 16, 2022 Assessment & Plan (1) Hx laparoscopic cholecystectomy: Plan: Postoperative day 1 Feeling well. Hemoglobin stable. White blood cell count down to normal. DON drain removed Can restart his anticoagulation. Discussed with primary service. Will advance diet. Admission and Anticipated Discharge Date Admission Date: April 12, 2022 Subjective Patient seen. Feeling better than he did before surgery. Expected incisional discomfort. Tolerating liquid diet and would like more. Physical Exam Physical Exam: Alert and oriented no acute distress Abdomen is soft. DON drain with small amount of serous pink fluid. No bile present Results & Data ([facility]) Vital Signs (Past 12 Hours) Vital Signs Temp Pulse Resp BP Pulse Ox Pulse Ox O2 Del Method 04/16/22 08:00 Room Air, Nasal Cannula 04/16/22 08:00 92 04/16/22 08:15 36.8 C 76 18 115/69 93 Nasal Cannula 04/16/22 03:00 37.0 C 81 20 129/69 93 04/15/22 23:00 36.5 C 81 18 158/69 H 94 O2 Del Method O2 Flow Rate 04/16/22 08:00 04/16/22 08:00 Room Air, Nasal Cannula 04/16/22 08:15 4.0 04/16/22 03:00 04/15/22 23:00 PG Care Time/CCT Total # of Minutes Spent Total Time Spent with Patient: Total time spent is greater than 50% in coordination of care (as documented) at patient's floor/unit and/or counseling patient: Coding Level of Care Code None Diagnoses Hx laparoscopic cholecystectomy Z90.49
[2022-04-16 19:05] LABS: Partial Thromboplastin Ratio 1.2; Partial Thromboplastin Time 33.7 Seconds (21.0-31.0)
[2022-04-16] MEDS ORDERED: Nursing to Pharmacy Communication SCH (19:30)
[2022-04-16] MEDS ORDERED: HEPARIN IV BOLUS 4,000 UNITS in SYRINGE 0 ML IV ONE (19:45)
[2022-04-17] MEDS: METOPROLOL TARTRATE 25 MG TAB PO SCH ×3 (00:58→21:29)
[2022-04-17 02:14] LABS: Basophils # (auto) 0.03 K/uL (0-0.2); Basophils % (auto) 0.4 %; Eosinophils # (auto) 0.26 K/uL (0-0.50); Eosinophils % (auto) 3.2 %; Hematocrit (blood only) 38.1 % (40.1-51.0); Hemoglobin 12.3 g/dl (14.0-18.0); Immature Granulocytes # (auto) 0.12 K/uL (0.00-0.02); Immature Granulocytes % (auto) 1.5 %; Lymphocytes # (auto) 0.88 K/uL (1.2-3.4); Lymphocytes % (auto) 10.7 %; Mean Corpuscular Hemoglobin 28.7 pg (25.0-34.0); Mean Corpuscular Hgb Conc 32.3 g/dL (32.0-36.0); Mean Corpuscular Volume 88.8 fL (80.0-100.0); Mean Platelet Volume 9.5 fL (9.4-12.4); Monocytes # (auto) 0.68 K/uL (0.24-0.82); Monocytes % (auto) 8.3 %; Neutrophils # (auto) 6.27 K/uL (1.4-6.5); Neutrophils % (auto) 75.9 %; Platelet Count 228 K/uL (130-400); RDW Coefficient of Variation 13.4 % (11.5-14.5); RDW Standard Deviation 43.8 fL (36.4-46.3); Red Blood Count 4.29 M/uL (4.63-6.08); White Blood Count 8.24 K/ul (4.8-10.8)
[2022-04-17 02:30] LABS: Albumin Level 2.6 gm/dl (3.4-5.0); BUN Creatinine Ratio 17.5 (10-20); Bilirubin Direct 0.1 mg/dl (0-0.2); Bilirubin,Total 0.9 mg/dl (0.2-1.0); Calcium 7.8 mg/dl (8.5-10.1); Creatinine Clr Calc Pharmacy 71.3 ml/min; Est GFR (Non-African American) 67.3 ml/min; Magnesium 1.7 mg/dl (1.7-2.4); Potassium 3.9 mmol/L (3.5-5.1); Total Protein 5.3 gm/dl (6.0-8.3)
[2022-04-17 02:31] LABS: Partial Thromboplastin Ratio 1.5; Partial Thromboplastin Time 42.5 Seconds (21.0-31.0)
[2022-04-17] MEDS: HEPARIN SODIUM/DEXTROSE 25,000 UNITS/500 ML BAG IV SCH (06:00)
[2022-04-17] MEDS ORDERED: FUROSEMIDE INJ 20 MG/2 ML VIAL IV ONE (07:41)
--- NOTE | 2022-04-17 07:41 | Hospitalist Progress Note ---
Date of Service April 17, 2022 Assessment & Plan (1) Abdominal pain: Plan: Admitted for chest pain s/p Cath with Dr Farooq, no obstructing lesion noted to intervene however concerns for biliary pathology with elevated LFts and and distended GB with thickening and pericholecystic edema suspicious for acalculous cholecystitis. General surgery consulted POD# 2 s/p Laparoscopic Cholecystectomy, Repair of umbilical hernia. (Not Applicable) - Cleveland Henson, DO on 04/15. EBL 15cc Hgb 13--> 12.6, acute blood loss expected (15.5 pre-surgery but had been on continuous IVF). Repeat hgb stable 12.3 Cultures remain negative WBC remains wnl, remains afebrile--> D/c'd Zosyn (got 5 days, 3 doses post- surgery) 04/16 LFTs improving and almost resolved Resumed heparin gtt 04/16 to monitor for any bleeding and plan to switch to Xarelto this evening 04/17 Pain control : Tylenol, tramadol Bowel regimen: Colace BID, miralax prn, senna added miralax BID, encouraged ambulation PT/OT consulted --> encouraged to work with therapy Hypoxia suspected from IVF post-operatively, weight ups as well IS ordered and encouraged 04/16 as didn't have one --> titrated from 4L to 1L with SpO2 92% On ROOM AIR this morning, was given lasix 20mg IV x 1 given weight up and slight edema Prior mag 1.6, 2gm IV ordered and additional 2gm IV w/ lasix this morning for volume overload/Na 132 but noted does use tramadol prn pain --Also decreased PPI to once daily, discontinued carafate (added by GI prior to ERCP/maximiliano), no increase in reflux symptoms (2) ACS (acute coronary syndrome): Plan: Presented with ACS -- NSTEMI with CAD however no obstructing lesion noted to intervene on -Patient evaluated by Cardiology and underwent heart cath- see results below -Return to cath for any ECG changes or persisting symptoms -Was initially on heparin drip and then held for surgery - High sensitivity troponin downtrend from 1400 to 1200 - ECHO - EF 55-60%; no regional wall motion abnormalities; mod pulmonary hypertension 50-55 mmHg -Metoprolol 25mg PO BID, ASA, atorvastatin 40mg initiated and to continue Appreciate Cardiology assistance (3) CAD (coronary artery disease): Plan: Multivessel coronary artery disease -80 to 90% distal RCA (chronic by IVUS) 90% mid, 75% distal circumflex 40 to 50% proximal to mid LAD. 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 Changed Lantus to just daily for now until we see how his BSGs trend post- operatively and adjust given D5 in IVF BSGs increased slightly, no further dehydration and discontinued IVF with D5 incorporated Elevations over past 24 hours from D5 in magnesium suspected will tighten parameters and continue to monitor (7) Hyperlipidemia: Plan: -Continue statin --> was on simvastatin 20mg HS [employer], changed to atorvastatin 40mg as above for ACS and continue at discharge Plan continued inpatient stay working on bowel regimen PT/OT consulted -- had not yet worked with them. Daughter (works in ) visited and encouraged participation as well with therapy as patient not out of bed much since initial hospitalization Admission and Anticipated Discharge Date Admission Date: April 12, 2022 Supervising Physician Co-Signing Physician Notes Attending Attestation - Chart reviewed in detail, care plan d/w CHEN Estrada. I agree w/ the mcrae components of her documentation. Seven Chaudhari MD Subjective Evaluated later in the morning. Doing well, little sore to abdomen in areas of incision. Titrated to room air this morning (discussed with RN and vitals incorrectly entered in system). Passing more gas but no BM. Has not worked with therapy but is agreeable to work with them today. He got up and sat on the bedside commode twice and feels like he should have one soon and that will make him feel better. Encouraged ambulation/working with PT to assist as well. Main concern being able to find let's make a deal on the television. No fever/chills, chest pain, shortness of breath reported. Questions/concerns addressed at this time. Will plan to transition back to his miguelangelto for this evening. Review of Systems Review of Systems: All systems reviewed & are unremarkable except as noted in HPI & below Physical Exam Physical Exam: General Appearance: WD/WN male, general pallor noted, sitting up in bed trying to watch television, NAD HEENT: head normocephalic, atraumatic, mmm, trachea midline, no deviation, slightly [place] Resp: CTAB, diminished in the bases with associated crackles,titrated to room air SpO2 90% CV: RRR, no m/r/g, calves nontender, pulses palpable GI: +BS throughout, +distended, appropriately tender to palpation without guarding or rigidity (NO DON DRAIN, removed 04/16), lap sites look good MSK/Neuro: moves all extremities, no focal deficit Skin: warm, dry Psych: AOx3, pleasant and cooperative Results & Data Results & Data ([facility]) Vital Signs (Past 12 Hours) Vital Signs Temp Pulse Pulse Resp BP BP Pulse Ox 04/17/22 04:36 36.6 C 72 22 124/74 92 04/16/22 23:20 36.8 C 81 20 117/68 92 04/16/22 23:20 80 04/16/22 20:00 04/16/22 19:38 37.3 C 82 18 123/72 94 O2 Del Method O2 Flow Rate 04/17/22 04:36 Nasal Cannula 1.0 04/16/22 23:20 Nasal Cannula 1.0 04/16/22 23:20 04/16/22 20:00 Nasal Cannula 4 04/16/22 19:38 Nasal Cannula 1.0 Laboratory Results 04/17/22 04/17/22 04/17/22 Range/Units 01:58 01:58 01:58 WBC 8.24 (4.8-10.8) K/ul RBC 4.29 L (4.63-6.08) M/uL Hgb 12.3 L (14.0-18.0) g/dl Hct 38.1 L (40.1-51.0) % MCV 88.8 (80.0-100.0) fL MCH 28.7 (25.0-34.0) pg MCHC 32.3 (32.0-36.0) g/dL RDW Std Deviation 43.8 (36.4-46.3) fL RDW Coeff of Rich 13.4 (11.5-14.5) % Plt Count 228 (130-400) K/uL MPV 9.5 (9.4-12.4) fL Immature Gran % (Auto) 1.5 % Neut % (Auto) 75.9 % Lymph % (Auto) 10.7 % Cannon % (Auto) 8.3 % Eos % (Auto) 3.2 % Baso % (Auto) 0.4 % Neut # (Auto) 6.27 (1.4-6.5) K/uL Lymph # (Auto) 0.88 L (1.2-3.4) K/uL Cannon # (Auto) 0.68 (0.24-0.82) K/uL Eos # (Auto) 0.26 (0-0.50) K/uL Baso # (Auto) 0.03 (0-0.2) K/uL Immature Gran # (Auto) 0.12 H (0.00-0.02) K/uL APTT 42.5 H (21.0-31.0) Seconds PTT Ratio 1.5 Sodium 132 L (136-145) mmol/L Potassium 3.9 (3.5-5.1) mmol/L Chloride 100 (98-107) mmol/L Carbon Dioxide 24 (21-32) mmol/L Anion Gap 8 (3-11) BUN 18 (6-23) mg/dl Creatinine 1.03 (0.6-1.4) mg/dl Est Cr Clr Drug Dosing 71.3 ml/min Est GFR ( Amer) 78.0 ml/min Est GFR (Non-Af Amer) 67.3 ml/min BUN/Creatinine Ratio 17.5 (10-20) Glucose 136 H (70-99(Fasting)) mg/dl POC Glucose (70-99) mg/dl Calcium 7.8 L (8.5-10.1) mg/dl Magnesium 1.7 (1.7-2.4) mg/dl Total Bilirubin 0.9 (0.2-1.0) mg/dl Direct Bilirubin 0.1 (0-0.2) mg/dl AST 43 H (13-39) U/L ALT 49 (7-52) U/L Alkaline Phosphatase 85 (34-104) U/L Total Protein 5.3 L (6.0-8.3) gm/dl Albumin 2.6 L (3.4-5.0) gm/dl 04/16/22 04/16/22 04/16/22 Range/Units 20:52 18:39 16:45 WBC (4.8-10.8) K/ul RBC (4.63-6.08) M/uL Hgb (14.0-18.0) g/dl Hct (40.1-51.0) % MCV (80.0-100.0) fL MCH (25.0-34.0) pg MCHC (32.0-36.0) g/dL RDW Std Deviation (36.4-46.3) fL RDW Coeff of Rich (11.5-14.5) % Plt Count (130-400) K/uL MPV (9.4-12.4) fL Immature Gran % (Auto) % Neut % (Auto) % Lymph % (Auto) % Cannon % (Auto) % Eos % (Auto) % Baso % (Auto) % Neut # (Auto) (1.4-6.5) K/uL Lymph # (Auto) (1.2-3.4) K/uL Cannon # (Auto) (0.24-0.82) K/uL Eos # (Auto) (0-0.50) K/uL Baso # (Auto) (0-0.2) K/uL Immature Gran # (Auto) (0.00-0.02) K/uL APTT 33.7 H (21.0-31.0) Seconds PTT Ratio 1.2 Sodium (136-145) mmol/L Potassium (3.5-5.1) mmol/L Chloride (98-107) mmol/L Carbon Dioxide (21-32) mmol/L Anion Gap (3-11) BUN (6-23) mg/dl Creatinine (0.6-1.4) mg/dl Est Cr Clr Drug Dosing ml/min Est GFR ( Amer) ml/min Est GFR (Non-Af Amer) ml/min BUN/Creatinine Ratio (10-20) Glucose (70-99(Fasting)) mg/dl POC Glucose 149 H 205 H (70-99) mg/dl Calcium (8.5-10.1) mg/dl Magnesium (1.7-2.4) mg/dl Total Bilirubin (0.2-1.0) mg/dl Direct Bilirubin (0-0.2) mg/dl AST (13-39) U/L ALT (7-52) U/L Alkaline Phosphatase (34-104) U/L Total Protein (6.0-8.3) gm/dl Albumin (3.4-5.0) gm/dl 04/16/22 04/16/22 Range/Units 11:31 06:18 WBC (4.8-10.8) K/ul RBC (4.63-6.08) M/uL Hgb (14.0-18.0) g/dl Hct (40.1-51.0) % MCV (80.0-100.0) fL MCH (25.0-34.0) pg MCHC (32.0-36.0) g/dL RDW Std Deviation (36.4-46.3) fL RDW Coeff of Rich (11.5-14.5) % Plt Count (130-400) K/uL MPV (9.4-12.4) fL Immature Gran % (Auto) % Neut % (Auto) % Lymph % (Auto) % Cannon % (Auto) % Eos % (Auto) % Baso % (Auto) % Neut # (Auto) (1.4-6.5) K/uL Lymph # (Auto) (1.2-3.4) K/uL Cannon # (Auto) (0.24-0.82) K/uL Eos # (Auto) (0-0.50) K/uL Baso # (Auto) (0-0.2) K/uL Immature Gran # (Auto) (0.00-0.02) K/uL APTT (21.0-31.0) Seconds PTT Ratio Sodium (136-145) mmol/L Potassium (3.5-5.1) mmol/L Chloride (98-107) mmol/L Carbon Dioxide (21-32) mmol/L Anion Gap (3-11) BUN (6-23) mg/dl Creatinine (0.6-1.4) mg/dl Est Cr Clr Drug Dosing ml/min Est GFR ( Amer) ml/min Est GFR (Non-Af Amer) ml/min BUN/Creatinine Ratio (10-20) Glucose (70-99(Fasting)) mg/dl POC Glucose 195 H (70-99) mg/dl Calcium (8.5-10.1) mg/dl Magnesium 1.6 L (1.7-2.4) mg/dl Total Bilirubin (0.2-1.0) mg/dl Direct Bilirubin (0-0.2) mg/dl AST (13-39) U/L ALT (7-52) U/L Alkaline Phosphatase (34-104) U/L Total Protein (6.0-8.3) gm/dl Albumin (3.4-5.0) gm/dl PG Care Time/CCT Total # of Minutes Spent Total Time Spent with Patient: Total time spent is greater than 50% in coordination of care (as documented) at patient's floor/unit and/or counseling patient: Coding Level of Care Code 09632 Subseq Hosp Care Lvl 3 Diagnoses Abdominal pain R10.9 ACS (acute coronary syndrome) I24.9 CAD (coronary artery disease) I25.10 DVT (deep venous thrombosis) I82.409 Chronicity: chronic Pulmonary embolism I26.92 Acute cor pulmonale presence: unspecified Chronicity: acute Pulmonary embolism type: saddle Diabetes mellitus with neuropathy E11.40 Hyperlipidemia E78.5 (1) DVT (deep venous thrombosis) Chronicity: chronic (2) Pulmonary embolism Acute cor pulmonale presence: unspecified Chronicity: acute Pulmonary embolism type: saddle Qualified Code(s): I26.92 - Saddle embolus of pulmonary artery without acute cor pulmonale
[2022-04-17] MEDS: lisinopril 5 MG TAB PO SCH (07:52)
[2022-04-17] MEDS: ASPIRIN 81 MG ECTAB PO SCH (07:52)
[2022-04-17] MEDS: SENNA 8.6 MG TAB PO SCH (07:52)
[2022-04-17] MEDS: PANTOprazole 40 MG TAB PO SCH (07:53)
[2022-04-17] MEDS: DOCUSATE SODIUM 100 MG CAP PO SCH ×2 (07:53→21:28)
[2022-04-17] MEDS: ATORVASTATIN 40 MG TAB PO SCH (07:53)
[2022-04-17] MEDS: MAGNESIUM SULFATE / D5W 1 GM/100 ML BAG IV SCH ×2 (08:04→09:35)
[2022-04-17] MEDS: INSULIN ASPART PER UNIT SC SCH ×4 (08:11→21:28)
[2022-04-17] MEDS: LANTUS PER UNIT CHARGE SQ SCH (08:11)
--- NOTE | 2022-04-17 08:47 | Surgery Progress Note ---
Date of Service April 17, 2022 Assessment & Plan (1) Hx laparoscopic cholecystectomy: Plan: POD 2 H&H stable, resume Eliquis per medicine seen with shayne Bergman for d/c from surgical standpoint Admission and Anticipated Discharge Date Admission Date: April 12, 2022 Subjective some incisional pain, tolerating diet Physical Exam Gastrointestinal (Abdomen): Inspection/Auscultation: + abdominal surgical incision Percussion/Palpation: abdomen soft Results & Data ([facility]) Vital Signs (Past 12 Hours) Vital Signs Temp Pulse Pulse Resp BP BP Pulse Ox 04/17/22 07:46 36.6 C 76 19 133/65 91 04/17/22 04:36 36.6 C 72 22 124/74 92 04/16/22 23:20 36.8 C 81 20 117/68 92 04/16/22 23:20 80 O2 Del Method O2 Flow Rate 04/17/22 07:46 Room Air 04/17/22 04:36 Nasal Cannula 1.0 04/16/22 23:20 Nasal Cannula 1.0 04/16/22 23:20 PG Care Time/CCT Total # of Minutes Spent Total Time Spent with Patient: Total time spent is greater than 50% in coordination of care (as documented) at patient's floor/unit and/or counseling patient: Coding Level of Care Code None Diagnoses Hx laparoscopic cholecystectomy Z90.49
[2022-04-17 12:14] LABS: Partial Thromboplastin Ratio 1.3; Partial Thromboplastin Time 36.7 Seconds (21.0-31.0)
[2022-04-17] MEDS: POLYETHYLENE (MIRALAX) 17 GM PACK PO SCH ×2 (12:40→21:29)
[2022-04-17] MEDS ORDERED: HEPARIN-STOP ORDER ONE (16:00)
[2022-04-17] MEDS: RIVAROXABAN 20 MG TAB PO SCH (17:14)
--- NOTE | 2022-04-17 20:38 | XRay Report ---
KUB HISTORY: Acute generalized abdominal pain with constipation eval constipation, no BM x 1 week COMPARISON: CTA abdomen and pelvis 04/11/2022 FINDINGS: Nonobstructive bowel gas pattern. Surgical clips in the right upper quadrant abdomen sugges t interval cholecystectomy. Mild gaseous distention of the stomach. Since of fecal retention. No teri al calculi. No ureteral calculi. No pneumoperitoneum or pneumatosis. Degenerative changes of the spin e, pelvis and hips. No fracture. IMPRESSION: 1. Nonobstructive bowel gas pattern. 2. Extensive fecal retention. ACT 112: Negative or not required by law. The above report was generated using voice recognition software. It may contain grammatical, syntax o r spelling errors. Electronically signed by: Freddy Lanza M.D. 04/17/2022 8:36 PM
[2022-04-18 07:01] LABS: Albumin Level 2.7 gm/dl (3.4-5.0); BUN Creatinine Ratio 22.1 (10-20); Bilirubin Direct 0.2 mg/dl (0-0.2); Bilirubin,Total 0.9 mg/dl (0.2-1.0); Calcium 7.9 mg/dl (8.5-10.1); Creatinine Clr Calc Pharmacy 77.8 ml/min; Est GFR (African American) 86.1 ml/min; Est GFR (Non-African American) 74.2 ml/min; Magnesium 1.8 mg/dl (1.7-2.4); Potassium 3.9 mmol/L (3.5-5.1); Total Protein 5.7 gm/dl (6.0-8.3)
[2022-04-18 07:19] LABS: Thyroid Stimulating Hormone 5.481 uIu/ml (0.300-4.500)
[2022-04-18] MEDS ORDERED: SOD PHOSPHATE/SOD BIPHOSPHATE ENEMA 132 ML BTL PR STA (08:10)
--- NOTE | 2022-04-18 08:14 | Hospitalist Progress Note ---
Date of Service April 18, 2022 Assessment & Plan (1) Abdominal pain: Plan: Admitted for ACS w/ CP s/p Cath with Dr Farooq, no obstructing lesion noted to intervene however concerns for biliary pathology with elevated LFts and and distended GB with thickening and pericholecystic edema suspicious for acalculous cholecystitis. General surgery consulted POD# 3 s/p Laparoscopic Cholecystectomy, Repair of umbilical hernia. (Not Applicable) - Cleveland Henson, DO on 04/15. EBL 15cc Hgb 13--> 12.6, acute blood loss expected (15.5 pre-surgery but had been on continuous IVF). Repeat hgb stable 12.3 Cultures remain negative WBC remains wnl, remains afebrile --> D/c'd Zosyn (got 5 days, 3 doses post-surgery) 04/16 LFTs improving and almost resolved Pain control : Tylenol, tramadol Bowel regimen: Colace BID, miralax prn, senna added miralax BID, encouraged ambulation 2 BMs! Resumed heparin gtt 04/16--> switched back to Xarelto evening 04/17. No increased bleeding Lasix 20mg IV x 1 on 04/17 for volume overload -> titrated to room air. Encouraged continued use of incentive spirometer PT/OT consulted -- rec SNF. CM following, to send for auth today (2) Cholecystitis, acute: (3) Hx laparoscopic cholecystectomy: (4) ACS (acute coronary syndrome): Plan: Presented with ACS -- NSTEMI with CAD however no obstructing lesion noted to intervene on -Patient evaluated by Cardiology and underwent heart cath- see results below -Return to cath for any ECG changes or persisting symptoms -Was initially on heparin drip and then held for surgery - High sensitivity troponin downtrend from 1400 to 1200 - ECHO - EF 55-60%; no regional wall motion abnormalities; mod pulmonary hypertension 50-55 mmHg -Metoprolol 25mg PO BID, ASA, atorvastatin 40mg initiated and to continue at d/c. New rxs needed Appreciate Cardiology assistance (5) CAD (coronary artery disease): Plan: Multivessel coronary artery disease -80 to 90% distal RCA (chronic by IVUS) 90% mid, 75% distal circumflex 40 to 50% proximal to mid LAD. 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 DM educator on consult Glargine 30u daily -- will increase to 35 u daily for tomorrow. can continue SSI at rehab but if controlled could continue the once daily thereafter to d/c the Trulicity and glimepiride to prevent hypoglycemia at d/c Monitor BSGs (9) Hyperlipidemia: Plan: -Continue statin --> was on simvastatin 20mg HS [employer]ING MIX[employer], changed to atorvastatin 40mg as above for ACS and continue at discharge (10) Balance problem: Plan: reported by daughter at baseline B12 added to am labs, low 153, IM replacement ordered while inpatient and will continue PO at discharge Plan continued inpatient stay, PT/OT rec rehab. CM following Admission and Anticipated Discharge Date Admission Date: April 12, 2022 Supervising Physician Co-Signing Physician Notes Attending Attestation - Chart reviewed in detail, care plan d/w CHEN Estrada. I agree w/ the mcrae components of her documentation. Seven Chaudhari MD Subjective Patient evaluated this morning. Sitting up in chair eating lunch. Abdominal pain improving. Does have some erythema to lower lap site, asked surgery to take a look. Will continue to monitor. No fever/chills, chest pain, shortness of breath, nausea or vomiting. Discussed rehab possibly tomorrow. Also discussed balance/forgetfulness baseline per daughter and B12 checked and was low/replacement ordered and rec to continue at discharge. Discussed using insulin at d/c. Patient agreeable to plan. Questions/concerns addressed at this time. Review of Systems Review of Systems: All systems reviewed & are unremarkable except as noted in HPI & below Physical Exam Physical Exam: General Appearance: WD/WN male, sitting up in chair eating lunch, NAD HEENT: head normocephalic, atraumatic, mmm, trachea midline, no deviation, slightly [place] Resp: CTAB, diminished in the bases, no w/c/r, 94% on RA CV: RRR, no m/r/g, calves nontender, pulses palpable GI: +BS throughout, less distended, TTP at incisions, lower lap incision with some bruising, tender to palpation, no drainage, prior DON site dressing c/d/i MSK/Neuro: moves all extremities, no focal deficit Skin: warm, dry Psych: AOx3, pleasant and cooperative Results & Data Results & Data ([facility]) Vital Signs (Past 12 Hours) Vital Signs Temp Pulse Pulse Resp BP Pulse Ox O2 Del Method 04/18/22 04:38 37.0 C 71 24 132/75 90 Room Air 04/18/22 03:08 84 04/17/22 23:32 37.5 C 83 18 144/73 H 91 Room Air Laboratory Results 04/18/22 04/18/22 04/18/22 Range/Units 11:45 09:45 07:59 Sodium (136-145) mmol/L Potassium (3.5-5.1) mmol/L Chloride (98-107) mmol/L Carbon Dioxide (21-32) mmol/L Anion Gap (3-11) BUN (6-23) mg/dl Creatinine (0.6-1.4) mg/dl Est Cr Clr Drug Dosing ml/min Est GFR ( Amer) ml/min Est GFR (Non-Af Amer) ml/min BUN/Creatinine Ratio (10-20) Glucose (70-99(Fasting)) mg/dl POC Glucose 177 H 185 H 120 H (70-99) mg/dl Calcium (8.5-10.1) mg/dl Magnesium (1.7-2.4) mg/dl Total Bilirubin (0.2-1.0) mg/dl Direct Bilirubin (0-0.2) mg/dl AST (13-39) U/L ALT (7-52) U/L Alkaline Phosphatase (34-104) U/L Total Protein (6.0-8.3) gm/dl Albumin (3.4-5.0) gm/dl Vitamin B12 (180-914) pg/ml TSH (0.300-4.500) uIu/ml Free T4 (0.61-1.60) ng/dl 04/18/22 04/18/22 04/18/22 Range/Units 06:15 06:14 06:14 Sodium 134 L (136-145) mmol/L Potassium 3.9 (3.5-5.1) mmol/L Chloride 101 (98-107) mmol/L Carbon Dioxide 26 (21-32) mmol/L Anion Gap 7 (3-11) BUN 21 (6-23) mg/dl Creatinine 0.95 (0.6-1.4) mg/dl Est Cr Clr Drug Dosing 77.8 ml/min Est GFR ( Amer) 86.1 ml/min Est GFR (Non-Af Amer) 74.2 ml/min BUN/Creatinine Ratio 22.1 H (10-20) Glucose 118 H (70-99(Fasting)) mg/dl POC Glucose (70-99) mg/dl Calcium 7.9 L (8.5-10.1) mg/dl Magnesium 1.8 (1.7-2.4) mg/dl Total Bilirubin 0.9 (0.2-1.0) mg/dl Direct Bilirubin 0.2 (0-0.2) mg/dl AST 38 (13-39) U/L ALT 53 H (7-52) U/L Alkaline Phosphatase 99 (34-104) U/L Total Protein 5.7 L (6.0-8.3) gm/dl Albumin 2.7 L (3.4-5.0) gm/dl Vitamin B12 153 L (180-914) pg/ml TSH 5.481 H (0.300-4.500) uIu/ml Free T4 0.92 (0.61-1.60) ng/dl 04/17/22 04/17/22 Range/Units 21:00 16:47 Sodium (136-145) mmol/L Potassium (3.5-5.1) mmol/L Chloride (98-107) mmol/L Carbon Dioxide (21-32) mmol/L Anion Gap (3-11) BUN (6-23) mg/dl Creatinine (0.6-1.4) mg/dl Est Cr Clr Drug Dosing ml/min Est GFR ( Amer) ml/min Est GFR (Non-Af Amer) ml/min BUN/Creatinine Ratio (10-20) Glucose (70-99(Fasting)) mg/dl POC Glucose 204 H 212 H (70-99) mg/dl Calcium (8.5-10.1) mg/dl Magnesium (1.7-2.4) mg/dl Total Bilirubin (0.2-1.0) mg/dl Direct Bilirubin (0-0.2) mg/dl AST (13-39) U/L ALT (7-52) U/L Alkaline Phosphatase (34-104) U/L Total Protein (6.0-8.3) gm/dl Albumin (3.4-5.0) gm/dl Vitamin B12 (180-914) pg/ml TSH (0.300-4.500) uIu/ml Free T4 (0.61-1.60) ng/dl Diagnostic Findings KUB X-Ray 04/17/22 16:01 KUB HISTORY: Acute generalized abdominal pain with constipation eval constipation, no BM x 1 week COMPARISON: CTA abdomen and pelvis 04/11/2022 FINDINGS: Nonobstructive bowel gas pattern. Surgical clips in the right upper quadrant abdomen suggest interval cholecystectomy. Mild gaseous distention of the stomach. Since of fecal retention. No renal calculi. No ureteral calculi. No pneumoperitoneum or pneumatosis. Degenerative changes of the spine, pelvis and hips. No fracture. IMPRESSION: 1. Nonobstructive bowel gas pattern. 2. Extensive fecal retention. ACT 112: Negative or not required by law. The above report was generated using voice recognition software. It may contain grammatical, syntax or spelling errors. Electronically signed by: Freddy Lanza M.D. 04/17/2022 8:36 PM PG Care Time/CCT Total # of Minutes Spent Total Time Spent with Patient: Total time spent is greater than 50% in coordination of care (as documented) at patient's floor/unit and/or counseling patient: Coding Level of Care Code 04816 Subseq Hosp Care Lvl 3 Diagnoses Abdominal pain R10.9 Cholecystitis, acute K81.0 Hx laparoscopic cholecystectomy Z90.49 ACS (acute coronary syndrome) I24.9 CAD (coronary artery disease) I25.10 DVT (deep venous thrombosis) I82.409 Chronicity: chronic Pulmonary embolism I26.92 Acute cor pulmonale presence: unspecified Chronicity: acute Pulmonary embolism type: saddle Diabetes mellitus with neuropathy E11.40 Hyperlipidemia E78.5 Balance problem R26.89 (1) DVT (deep venous thrombosis) Chronicity: chronic (2) Pulmonary embolism Acute cor pulmonale presence: unspecified Chronicity: acute Pulmonary embolism type: saddle Qualified Code(s): I26.92 - Saddle embolus of pulmonary artery without acute cor pulmonale
[2022-04-18] MEDS: METOPROLOL TARTRATE 25 MG TAB PO SCH ×2 (08:23→20:11)
[2022-04-18] MEDS: POLYETHYLENE (MIRALAX) 17 GM PACK PO SCH ×3 (08:23→20:11)
[2022-04-18] MEDS: INSULIN ASPART PER UNIT SC SCH ×4 (08:26→20:25)
[2022-04-18] MEDS: LANTUS PER UNIT CHARGE SQ SCH (08:26)
[2022-04-18] MEDS: DOCUSATE SODIUM 100 MG CAP PO SCH ×2 (08:30→20:14)
[2022-04-18 08:41] LABS: T4 Free Thyroxine 0.92 ng/dl (0.61-1.60)
[2022-04-18] MEDS: SENNA 8.6 MG TAB PO SCH (08:47)
[2022-04-18] MEDS: CYANOCOBALAMIN 1000 MCG/ML VIAL IM SCH (08:47)
[2022-04-18] MEDS: lisinopril 5 MG TAB PO SCH (08:47)
[2022-04-18] MEDS: ATORVASTATIN 40 MG TAB PO SCH (08:47)
[2022-04-18] MEDS: ASPIRIN 81 MG ECTAB PO SCH (08:47)
[2022-04-18] MEDS: PANTOprazole 40 MG TAB PO SCH (08:47)
--- NOTE | 2022-04-18 10:46 | Surgery Progress Note ---
Date of Service April 18, 2022 Assessment & Plan (1) Hx laparoscopic cholecystectomy: Plan: pod 3 lap maximiliano doing ok from my standpoint wbc normal. afebrile no acute surgical issues. Admission and Anticipated Discharge Date Admission Date: April 12, 2022 Subjective pt seen. sitting in chair. tolerated breakfast. currently denies complaint. Physical Exam Physical Exam: alert. nad. incisions look ok to me. some bruising below umbilical incision. no sign of infection. Results & Data ([facility]) Vital Signs (Past 12 Hours) Vital Signs Temp Pulse Pulse Resp BP Pulse Ox O2 Del Method 04/18/22 07:39 36.6 C 74 18 138/79 92 Room Air 04/18/22 04:38 37.0 C 71 24 132/75 90 Room Air 04/18/22 03:08 84 04/17/22 23:32 37.5 C 83 18 144/73 H 91 Room Air PG Care Time/CCT Total # of Minutes Spent Total Time Spent with Patient: Total time spent is greater than 50% in coordination of care (as documented) at patient's floor/unit and/or counseling patient: Coding Level of Care Code None Diagnoses Hx laparoscopic cholecystectomy Z90.49
[2022-04-18] MEDS ORDERED: FUROSEMIDE INJ 20 MG/2 ML VIAL IV ONE (12:21)
[2022-04-18 12:33] LABS: Hematocrit (blood only) 42.6 % (40.1-51.0); Hemoglobin 13.5 g/dl (14.0-18.0); Mean Corpuscular Hemoglobin 28.3 pg (25.0-34.0); Mean Corpuscular Hgb Conc 31.7 g/dL (32.0-36.0); Mean Corpuscular Volume 89.3 fL (80.0-100.0); Mean Platelet Volume 9.5 fL (9.4-12.4); Platelet Count 351 K/uL (130-400); RDW Coefficient of Variation 13.2 % (11.5-14.5); RDW Standard Deviation 43.6 fL (36.4-46.3); Red Blood Count 4.77 M/uL (4.63-6.08); White Blood Count 7.72 K/ul (4.8-10.8)
[2022-04-18 12:58] LABS: Basophils # (auto) 0.04 K/uL (0-0.2); Basophils % (auto) 0.5 %; Dohle Bodies Occasional; Eosinophils # (auto) 0.26 K/uL (0-0.50); Eosinophils % (auto) 3.4 %; Immature Granulocytes % (auto) 3.9 %; Lymphocytes # (auto) 0.85 K/uL (1.2-3.4); Monocytes # (auto) 0.43 K/uL (0.24-0.82); Monocytes % (auto) 5.6 %; Neutrophils # (auto) 5.84 K/uL (1.4-6.5); Neutrophils % (auto) 75.6 %
[2022-04-18] MEDS: RIVAROXABAN 20 MG TAB PO SCH (17:33)
[2022-04-19 05:11] LABS: Hematocrit (blood only) 38.9 % (40.1-51.0); Hemoglobin 12.4 g/dl (14.0-18.0); Mean Corpuscular Hemoglobin 28.1 pg (25.0-34.0); Mean Corpuscular Hgb Conc 31.9 g/dL (32.0-36.0); Mean Corpuscular Volume 88.2 fL (80.0-100.0); Mean Platelet Volume 9.3 fL (9.4-12.4); Platelet Count 319 K/uL (130-400); RDW Coefficient of Variation 13.2 % (11.5-14.5); RDW Standard Deviation 42.5 fL (36.4-46.3); Red Blood Count 4.41 M/uL (4.63-6.08); White Blood Count 7.43 K/ul (4.8-10.8)
[2022-04-19 05:39] LABS: Albumin Globulin Ratio 0.9 (0.9-2); Albumin Level 2.6 gm/dl (3.4-5.0); BUN Creatinine Ratio 23.3 (10-20); Bilirubin,Total 0.7 mg/dl (0.2-1.0); Calcium 8.1 mg/dl (8.5-10.1); Creatinine Clr Calc Pharmacy 84.9 ml/min; Est GFR (African American) 93.6 ml/min; Est GFR (Non-African American) 80.8 ml/min; Globulin 2.9 gm/dl (2.5-4.0); Magnesium 1.8 mg/dl (1.7-2.4); Potassium 3.9 mmol/L (3.5-5.1); Total Protein 5.5 gm/dl (6.0-8.3)
[2022-04-19 05:40] LABS: Basophils # (auto) 0.06 K/uL (0-0.2); Basophils % (auto) 0.8 %; Echinocytes 2+; Eosinophils # (auto) 0.29 K/uL (0-0.50); Eosinophils % (auto) 3.9 %; Immature Granulocytes # (auto) 0.33 K/uL (0.00-0.02); Immature Granulocytes % (auto) 4.4 %; Lymphocytes # (auto) 1.17 K/uL (1.2-3.4); Lymphocytes % (auto) 15.7 %; Monocytes # (auto) 0.46 K/uL (0.24-0.82); Monocytes % (auto) 6.2 %; Neutrophils # (auto) 5.12 K/uL (1.4-6.5); Tear Drop Cells 1+
--- NOTE | 2022-04-19 08:17 | Hospitalist Progress Note ---
Date of Service April 19, 2022 Assessment & Plan (1) Cholecystitis, acute: Plan: Admitted for ACS w/ CP s/p Cath with Dr Farooq, no obstructing lesion noted to intervene however concerns for biliary pathology with elevated LFts and and distended GB with thickening and pericholecystic edema suspicious for acalculous cholecystitis. General surgery consulted POD# 4 s/p Laparoscopic Cholecystectomy, Repair of umbilical hernia. (Not Applicable) - Cleveland Henson, DO on 04/15. EBL 15cc Hgb dropped post-op 13--> 12.6, acute blood loss expected and dilutional from IVF. Hgb had been stable after resuming xarelto (was on heparin gtt post-op), but 13.5--> 12.4 on repeat and no increased bleeding reported. Repeat ordered for this afternoon to ensure stable WBC wnl, afebrile (got 5 days IV Zosyn, d/c'd 04/16) Cx NGTD Discussed with Dr Henson given erythema/infection to skin/soft tissue around lap site Augmentin BID x 7 days per discussion with PA LFTs had been improving but slight elevation today but TBili wnl -Discussed with surgery and felt related to liver irritation and only slightly elevated -Monitor on repeat/consider reaching out to GI if worsening pain/wbc/fever/worsened on repeat Moving bowels finally after a week of not moving them -- continue bowel regimen/ambulation Pain control, antiemetics prn Lasix 20mg IV x 1 on 04/17 for volume overload, 10mg IV 04/19 and improvement on exam -suspect volume overloaded from IVF post-operatively. No acute CHF PT/OT consulted -- rec SNF. CM following-was to go to [place] afternoon 04/19 but bed given away but to have one tomorrow (2) Abdominal pain: (3) Hx laparoscopic cholecystectomy: (4) ACS (acute coronary syndrome): Plan: Presented with ACS -- NSTEMI with CAD however no obstructing lesion noted to intervene on -Patient evaluated by Cardiology and underwent heart cath- see results below -Return to cath for any ECG changes or persisting symptoms -Was initially on heparin drip and then held for surgery - High sensitivity troponin downtrend from 1400 to 1200 - ECHO - EF 55-60%; no regional wall motion abnormalities; mod pulmonary hypertension 50-55 mmHg -Metoprolol 25mg PO BID, ASA, atorvastatin 40mg initiated and to continue at d/c. New rxs on d/c instructions Appreciate Cardiology assistance (5) CAD (coronary artery disease): Plan: Multivessel coronary artery disease -80 to 90% distal RCA (chronic by IVUS) 90% mid, 75% distal circumflex 40 to 50% proximal to mid LAD. 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 Plan continued inpatient stay, to go to [place] tomorrow for rehab Admission and Anticipated Discharge Date Admission Date: April 12, 2022 Supervising Physician Co-Signing Physician Notes Attending Attestation & progress note - Pt seen/examined, chart reviewed, care plan d/w CHEN Estrada. I agree w/ the mcrae components of her documentation. POD #4 s/p Laparoscopic Cholecystectomy and Repair of umbilical hernia by Dr Cleveland Henson. On augmentin for concern for abdominal wall cellulitis near the umbilicus. During the visit he expresses he doesn't really want to go to rehab but understands why he needs to go. Feels ok - just tired. Eating fine; +flatus/stool. Abd pain controlled. Exam - VSS, afebrile gen - NAD, pleasant mouth - MMM neck - no JVD heart - RRR, s1 s2 lungs - decreased BS bases, mild fine rales bases abd - mildly distended, BS+, incisional tenderness only, incisions clean skin - mild erythema/ecchymoses near the umbilicus; slightly warm ext - pulses 2+ b/l, <1+ edema b/l feet labs - LFTs noted A/P: 1. CAD s/p heart cath 2. s/p lap maximiliano for cholecystectomy 3. s/p umbilical hernia repair 4. abnormal LFTs - no suspicion for choledocholithiasis unfortunately d/c canceled for today anticipate d/c tomorrow to [facility] Seven Chaudhari MD Subjective Evaluated this morning. Doing well. Moved bowels, some blood to toilet paper after edema but none in bowel and reports enema was a little tough. No fever/chills, chest pain, shortness of breath. Abdominal pain controlled and improving. Sitting up in chair eating breakfast. Discussed abx for skin/soft tissue for lower abdominal incision. Encouraged incentive spirometer to prevent pneumonia as not in room, he states hes been int hospital many times and never with PNA. Discussed atelectasis on exam and encouraged use. RN grabbed to provide for patient. Planned for d/c to [place] later today but bed now not available but will be available tomorrow. Review of Systems Review of Systems: All systems reviewed & are unremarkable except as noted in HPI & below Physical Exam Physical Exam: General Appearance: WD/WN male, sitting up in chair eating breakfast, NAD HEENT: head normocephalic, atraumatic, mmm, trachea midline, no deviation, slightly [place] Resp: CTAB, diminished in the bases with associated crackles, no wheezing/rales, 93% on RA CV: RRR, no m/r/g, calves nontender, pulses palpable, trace dependent edema GI: +BS throughout, less distended compared to days past, TTP at incisions, lower lap incision with some bruising/erythema, tender to palpation, no drainage, prior DON site dressing c/d/i MSK/Neuro: moves all extremities, no focal deficit Skin: warm, dry Psych: AOx3, pleasant and cooperative Results & Data Results & Data ([facility]) Vital Signs (Past 12 Hours) Vital Signs Temp Pulse Pulse Resp BP Pulse Ox O2 Del Method 04/19/22 04:04 36.7 C 73 16 135/73 92 Room Air 04/18/22 23:49 74 04/18/22 23:23 37.4 C 71 20 143/76 H 93 Room Air Laboratory Results 04/19/22 04/19/22 04/19/22 Range/Units 07:40 04:41 04:41 WBC 7.43 (4.8-10.8) K/ul RBC 4.41 L (4.63-6.08) M/uL Hgb 12.4 L (14.0-18.0) g/dl Hct 38.9 L (40.1-51.0) % MCV 88.2 (80.0-100.0) fL MCH 28.1 (25.0-34.0) pg MCHC 31.9 L (32.0-36.0) g/dL RDW Std Deviation 42.5 (36.4-46.3) fL RDW Coeff of Rich 13.2 (11.5-14.5) % Plt Count 319 (130-400) K/uL MPV 9.3 L (9.4-12.4) fL Immature Gran % (Auto) 4.4 % Neut % (Auto) 69.0 % Lymph % (Auto) 15.7 % Forest % (Auto) 6.2 % Eos % (Auto) 3.9 % Baso % (Auto) 0.8 % Neut # (Auto) 5.12 (1.4-6.5) K/uL Lymph # (Auto) 1.17 L (1.2-3.4) K/uL Forest # (Auto) 0.46 (0.24-0.82) K/uL Eos # (Auto) 0.29 (0-0.50) K/uL Baso # (Auto) 0.06 (0-0.2) K/uL Immature Gran # (Auto) 0.33 H (0.00-0.02) K/uL Dohle Bodies Tear Drop Cells 1+ Echinocytes 2+ Sodium 136 (136-145) mmol/L Potassium 3.9 (3.5-5.1) mmol/L Chloride 104 (98-107) mmol/L Carbon Dioxide 24 (21-32) mmol/L Anion Gap 8 (3-11) BUN 20 (6-23) mg/dl Creatinine 0.86 (0.6-1.4) mg/dl Est Cr Clr Drug Dosing 84.9 ml/min Est GFR ( Amer) 93.6 ml/min Est GFR (Non-Af Amer) 80.8 ml/min BUN/Creatinine Ratio 23.3 H (10-20) Glucose 117 H (70-99(Fasting)) mg/dl POC Glucose 105 H (70-99) mg/dl Calcium 8.1 L (8.5-10.1) mg/dl Magnesium 1.8 (1.7-2.4) mg/dl Total Bilirubin 0.7 (0.2-1.0) mg/dl AST 44 H (13-39) U/L ALT 56 H (7-52) U/L Alkaline Phosphatase 106 H (34-104) U/L Total Protein 5.5 L (6.0-8.3) gm/dl Albumin 2.6 L (3.4-5.0) gm/dl Globulin 2.9 (2.5-4.0) gm/dl Albumin/Globulin Ratio 0.9 (0.9-2) Free T4 (0.61-1.60) ng/dl 04/18/22 04/18/22 04/18/22 Range/Units 20:16 16:59 12:05 WBC 7.72 (4.8-10.8) K/ul RBC 4.77 (4.63-6.08) M/uL Hgb 13.5 L (14.0-18.0) g/dl Hct 42.6 (40.1-51.0) % MCV 89.3 (80.0-100.0) fL MCH 28.3 (25.0-34.0) pg MCHC 31.7 L (32.0-36.0) g/dL RDW Std Deviation 43.6 (36.4-46.3) fL RDW Coeff of Rich 13.2 (11.5-14.5) % Plt Count 351 D (130-400) K/uL MPV 9.5 (9.4-12.4) fL Immature Gran % (Auto) 3.9 % Neut % (Auto) 75.6 % Lymph % (Auto) 11.0 % Forest % (Auto) 5.6 % Eos % (Auto) 3.4 % Baso % (Auto) 0.5 % Neut # (Auto) 5.84 (1.4-6.5) K/uL Lymph # (Auto) 0.85 L (1.2-3.4) K/uL Forest # (Auto) 0.43 (0.24-0.82) K/uL Eos # (Auto) 0.26 (0-0.50) K/uL Baso # (Auto) 0.04 (0-0.2) K/uL Immature Gran # (Auto) 0.30 H (0.00-0.02) K/uL Dohle Bodies Occasional Tear Drop Cells Echinocytes Sodium (136-145) mmol/L Potassium (3.5-5.1) mmol/L Chloride (98-107) mmol/L Carbon Dioxide (21-32) mmol/L Anion Gap (3-11) BUN (6-23) mg/dl Creatinine (0.6-1.4) mg/dl Est Cr Clr Drug Dosing ml/min Est GFR ( Amer) ml/min Est GFR (Non-Af Amer) ml/min BUN/Creatinine Ratio (10-20) Glucose (70-99(Fasting)) mg/dl POC Glucose 141 H 138 H (70-99) mg/dl Calcium (8.5-10.1) mg/dl Magnesium (1.7-2.4) mg/dl Total Bilirubin (0.2-1.0) mg/dl AST (13-39) U/L ALT (7-52) U/L Alkaline Phosphatase (34-104) U/L Total Protein (6.0-8.3) gm/dl Albumin (3.4-5.0) gm/dl Globulin (2.5-4.0) gm/dl Albumin/Globulin Ratio (0.9-2) Free T4 (0.61-1.60) ng/dl 04/18/22 04/18/22 04/18/22 Range/Units 11:45 09:45 06:14 WBC (4.8-10.8) K/ul RBC (4.63-6.08) M/uL Hgb (14.0-18.0) g/dl Hct (40.1-51.0) % MCV (80.0-100.0) fL MCH (25.0-34.0) pg MCHC (32.0-36.0) g/dL RDW Std Deviation (36.4-46.3) fL RDW Coeff of Rich (11.5-14.5) % Plt Count (130-400) K/uL MPV (9.4-12.4) fL Immature Gran % (Auto) % Neut % (Auto) % Lymph % (Auto) % Forest % (Auto) % Eos % (Auto) % Baso % (Auto) % Neut # (Auto) (1.4-6.5) K/uL Lymph # (Auto) (1.2-3.4) K/uL Forest # (Auto) (0.24-0.82) K/uL Eos # (Auto) (0-0.50) K/uL Baso # (Auto) (0-0.2) K/uL Immature Gran # (Auto) (0.00-0.02) K/uL Dohle Bodies Tear Drop Cells Echinocytes Sodium (136-145) mmol/L Potassium (3.5-5.1) mmol/L Chloride (98-107) mmol/L Carbon Dioxide (21-32) mmol/L Anion Gap (3-11) BUN (6-23) mg/dl Creatinine (0.6-1.4) mg/dl Est Cr Clr Drug Dosing ml/min Est GFR ( Amer) ml/min Est GFR (Non-Af Amer) ml/min BUN/Creatinine Ratio (10-20) Glucose (70-99(Fasting)) mg/dl POC Glucose 177 H 185 H (70-99) mg/dl Calcium (8.5-10.1) mg/dl Magnesium (1.7-2.4) mg/dl Total Bilirubin (0.2-1.0) mg/dl AST (13-39) U/L ALT (7-52) U/L Alkaline Phosphatase (34-104) U/L Total Protein (6.0-8.3) gm/dl Albumin (3.4-5.0) gm/dl Globulin (2.5-4.0) gm/dl Albumin/Globulin Ratio (0.9-2) Free T4 0.92 (0.61-1.60) ng/dl PG Care Time/CCT Total # of Minutes Spent Total Time Spent with Patient: Total time spent is greater than 50% in coordination of care (as documented) at patient's floor/unit and/or counseling patient: Coding Level of Care Code 51103 Subseq Hosp Care Lvl 3 Diagnoses Cholecystitis, acute K81.0 Abdominal pain R10.9 Hx laparoscopic cholecystectomy Z90.49 ACS (acute coronary syndrome) I24.9 CAD (coronary artery disease) I25.10 DVT (deep venous thrombosis) I82.409 Chronicity: chronic Pulmonary embolism I26.92 Acute cor pulmonale presence: unspecified Chronicity: acute Pulmonary embolism type: saddle Diabetes mellitus with neuropathy E11.40 Hyperlipidemia E78.5 Balance problem R26.89 (1) DVT (deep venous thrombosis) Chronicity: chronic (2) Pulmonary embolism Acute cor pulmonale presence: unspecified Chronicity: acute Pulmonary embolism type: saddle Qualified Code(s): I26.92 - Saddle embolus of pulmonary artery without acute cor pulmonale
[2022-04-19] MEDS: INSULIN ASPART PER UNIT SC SCH ×4 (08:29→20:50)
[2022-04-19] MEDS: PANTOprazole 40 MG TAB PO SCH (08:30)
[2022-04-19] MEDS: SENNA 8.6 MG TAB PO SCH (08:30)
[2022-04-19] MEDS: CYANOCOBALAMIN 1000 MCG/ML VIAL IM SCH (08:30)
[2022-04-19] MEDS: METOPROLOL TARTRATE 25 MG TAB PO SCH ×2 (08:30→20:39)
[2022-04-19] MEDS: ATORVASTATIN 40 MG TAB PO SCH (08:30)
[2022-04-19] MEDS: POLYETHYLENE (MIRALAX) 17 GM PACK PO SCH ×3 (08:30→20:39)
[2022-04-19] MEDS: lisinopril 5 MG TAB PO SCH (08:30)
[2022-04-19] MEDS: ASPIRIN 81 MG ECTAB PO SCH (08:30)
[2022-04-19] MEDS: LANTUS PER UNIT CHARGE SQ SCH (08:57)
[2022-04-19] MEDS: DOCUSATE SODIUM 100 MG CAP PO SCH ×2 (08:57→20:39)
--- NOTE | 2022-04-19 09:28 | Surgery Progress Note ---
Date of Service April 19, 2022 Assessment & Plan (1) Hx laparoscopic cholecystectomy: Plan: Doing okay. Slight bump in AST ALT likely from cautery. Bilirubin is normal so not concerned. Since he is on anticoagulation could recheck hemoglobin later today but I doubt clinical bleeding. We will start some oral antibiotics empirically for some mild erythema around the umbilical incision. Overall from my standpoint doing okay. Discharge planning if hemoglobin stable. Admission and Anticipated Discharge Date Admission Date: April 12, 2022 Subjective Patient seen. Feeling okay with no new complaints today. Tolerating diet Physical Exam Physical Exam: Alert. No acute distress Incisions are all clean dry and intact. The umbilical incision has a little bit of bruising versus mild erythema. No purulence. Nontender Results & Data ([facility]) Vital Signs (Past 12 Hours) Vital Signs Temp Pulse Pulse Resp BP Pulse Ox O2 Del Method 04/19/22 07:53 36.7 C 73 18 151/75 H 93 Room Air 04/19/22 04:04 36.7 C 73 16 135/73 92 Room Air 04/18/22 23:49 74 04/18/22 23:23 37.4 C 71 20 143/76 H 93 Room Air PG Care Time/CCT Total # of Minutes Spent Total Time Spent with Patient: Total time spent is greater than 50% in coordination of care (as documented) at patient's floor/unit and/or counseling patient: Coding Level of Care Code None Diagnoses Hx laparoscopic cholecystectomy Z90.49
--- NOTE | 2022-04-19 10:00 | Discharge Summary ---
Date of Service April 19, 2022 Admission HPI Per Admitting Provider Anthony is an 82 year old male with a PMH significant for poorly controlled DM II, previous DVT and PE on Xarelto, HTN, CAD, hyperlipidemia, sensorineural hearing loss, GERD who presented to the [facility] on 04/11/22 with a chief complaint of chest pain. Per chart review, the patient was admitted to [facility] in January of 2021 for acute right flank pain. During his admission he underwent CT of the abdomen and pelvis which showed possible branching hepatic density. MRCP during the admission was normal but did show "tiny gallstones". Today, the patient underwent CTA of the chest, abdomen, and pelvis. The imaging was negative for aortic dissection and intrathoracic findings. It did however show mild gallbladder distention and pericholecystic stranding. It was also noted that the patient had extensive coronary artery calcification. The patient was found to have a mile leukocytosis of 11.80 with absolute neutrophils of 9.29. High sensitivity troponin was noted to be 1490.5. Cardiology was consulted and performed a Coronary angiography with left heart cath and IVUS. The procedure revealed Severe CAD and Normal Intracardiac Pressures. Due to these findings Cardiology recommended medical management and continued workup of his possible gallbladder issues. The patient was seen and examined after his cardiac cath and was resting in bed in no acute distress. He states that he has been experiencing a dull, 5/10, epigastric/upper abdominal pain over the past few weeks. It is worst at night and is exacerbated with eating. He denies that pain moving anywhere else. He also denies associated nausea and vomiting. The patient had a regular bowel movement this morning and denies fever and chills. I spoke with his and Daughter at bedside, his states that the patient has been cool and "clamy" overr the past 24 hours. His daughter states that the patient has a high pain tolerance, so this amount of pain is unusual for him. Discharge Exam General Appearance: WD/WN male, sitting up in chair eating lunch, NAD HEENT: head normocephalic, atraumatic, mmm, trachea midline, no deviation, slightly [place] Resp: CTAB, diminished in the bases, no w/c/r, 94% on RA CV: RRR, no m/r/g, calves nontender, pulses palpable GI: +BS throughout, less distended, TTP at incisions, lower lap incision with some bruising/erythema, tender to palpation, no drainage, prior DON site dressing c/d/i MSK/Neuro: moves all extremities, no focal deficit Skin: warm, dry Psych: AOx3, pleasant and cooperative Discharge Data Allergies Allergy/AdvReac Type Severity Reaction Status Date / Time Sulfa (Sulfonamide Allergy Severe ANAPHYLAXIS Verified 04/10/22 13:34 Antibiotics) Consultations 04/11/22 15:53 ED Decision to Admit Stat 04/12/22 07:59 Consult General Surgery Routine 04/12/22 13:46 Consult Gastroenterology Routine Procedures Performed Operation Date: 04/11/22 16:00 Actual Procedures p Cineradiography w/Routine Exam - Tim Farooq MD s Cath, Left with Cors and Vent - Tim Farooq MD s IVUS Coronary Single Vessel - Tim Farooq MD Operation Date: 04/15/22 07:30 Actual Procedures p Laparoscopic Cholecystectomy, (Not Applicable) - Cleveland Henson DO s Umbilical Hernia Repair(Not Applicable) - Cleveland Henson DO Ordered Studies Chest X-Ray 04/11/22 12:56 XR chest 1V portable CLINICAL HISTORY: Chest Pain. COMPARISON STUDY: 09/12/2021 TECHNIQUE: 1 view of the chest FINDINGS: Single frontal view of the chest demonstrates the cardiomediastinal silhouette to be within normal limits. There is a decreased inspiratory effort with elevation of the hemidiaphragms and crowding of the bronchovascular markings at the lung bases and centrally. The lungs are clear of alveolar opacities. There is no evidence for pleural effusion. There is no evidence for vascular con gestion. There is no acute osseous pathology. IMPRESSION: 1. There is a decreased inspiratory effort with otherwise no acute chest disease. ACT 112: Negative or not required by law. Electronically signed by: Thiago Rocha M.D. 04/11/2022 2:22 PM Abdomen/Pelvis CTA 04/11/22 14:16 CT angio abdomen pelvis w con CLINICAL HISTORY: cp radiating to back TECHNIQUE: Multidetector row helical CT of the abdomen and pelvis was performed, following intravenous administration of iodinated contrast. No oral contrast was administered. Automated dose lowering techniques and/or adjustment according to patient size were utilized for this exam. Coronal and sagittal reformations were obtained. MIP and 3D volume rendered reconstructions were obtained. Comparison: Comparison is made to CT abdomen pelvis 02/20/2021 FINDINGS: Lower chest: For findings above the diaphragm, please see CT chest performed same day. Liver: Hepatic steatosis is noted. Focal fatty sparing is seen in the bladder fossa. Gallbladder and biliary tree: No calcified gallstones. Normal caliber wall. No intra- or extrahepatic biliary ductal dilation. Pancreas: Unremarkable, no focal lesions. Spleen: Unremarkable. Adrenals: Unremarkable. Kidneys and ureters: Unremarkable. Bladder: Diffuse homogeneous wall thickening is seen. Reproductive organs: Unremarkable. Bowel: Diverticulosis is seen without evidence of diverticulitis. The appendix is normal. There is a small hiatal hernia. Lymph nodes Retroperitoneal: Unremarkable. Pelvic: Unremarkable. Mesenteric: Unremarkable. Peritoneum: Normal. Abdominal wall: A fat-containing umbilical hernia is seen. Bones: Degenerative changes in the visualized spine. CT angiogram: The abdominal aortic contours appear intact without evidence of aneurysmal dilatation and/or dissection. There is evidence of scattered atherosclerotic calcifications of the abdominal aorta and its major branches. The origins of the celiac axis, superior mesenteric, inferior mesenteric and bilateral renal arteries are patent. IMPRESSION: 1. No acute abnormalities, in particular no evidence of aortic dissection or aneurysm. 2. Hepatic steatosis. ACT 112: Negative or not required by law. Electronically signed by: Giovanny Lyons M.D. 04/11/2022 3:03 PM Chest CTA 04/11/22 14:16 CT ANGIOGRAPHY OF THE CHEST DISSECTION PROTOCOL CLINICAL HISTORY: Chest pain radiating to back. Evaluate for dissection. COMPARISON STUDY: Chest radiograph performed earlier today. Chest CT November 18, 2020. TECHNIQUE: Before and following the IV administration of 120 mL of Optiray, helical axial images of the chest were obtained. Maximal intensity projections and sagittal and coronal reformats were viewed on an independent 3D workstation. IV contrast was administered without complication. Automated exposure control was utilized for the study. A dose lowering technique was utilized adhering to the principles of ALARA. CT DOSE: 2019.31 mGy.cm FINDINGS: Caliber of the thoracic aorta is normal. There is no intramural hematoma or thoracic aortic dissection. Mild cardiomegaly is noted. There is extensive coronary artery calcification. No central pulmonary emboli are identified. A small hiatal hernia is present. A few small pulmonary nodules are unchanged from earlier exams. These are benign. There is no consolidation to suggest pneumonia. Linear subpleural opacities reflect atelectasis or scarring. No pneumothorax or pleural effusion is present. There is extensive anterior osteophytosis of the thoracic spine. 2.4 cm lobulated nodule within the superior left breast is unchanged since prior exam. This was previously biopsied. Abdomen and pelvis CT will be reported separately. The gallbladder is distended. There is mild pericholecystic stranding. IMPRESSION: 1. No thoracic aortic dissection. 2. No acute intrathoracic findings. 3. Mild gallbladder distention with pericholecystic stranding. These findings favor acute cholecystitis. Right upper quadrant ultrasound could be obtained for further evaluation. 4. 2.4 cm superior left breast nodule which is unchanged since prior CT. This was previously biopsied. 5. Extensive coronary artery calcification. ACT 112: Negative or not required by law. Electronically signed by: Aditya Garcia M.D. 04/11/2022 3:17 PM Liver Ultrasound 04/11/22 18:42 US liver HISTORY: 82 years-old Male Concern for cholecystitis acute right upper quadrant abdominal pain COMPARISON: CTA abdomen and pelvis of same day TECHNIQUE: Multiple real-time sonographic images of the abdominal right upper quadrant were obtained assessing grayscale appearance and color flow FINDINGS: Study is limited secondary to obscuring bowel gas. The sixth of the liver. No hepatic mass identified. The gallbladder wall measures the upper limits of normal at 3 mm. Biliary sludge without definitive cholelithiasis. Negative sonographic Kasper's sign. Pericholecystic edema seen on CT is not well appreciated by ultrasound. Trace pericholecystic edema. Imaged right kidney demonstrates no hydronephrosis however does demonstrate diffuse cortical thinning. Normal common bile duct, 5 mm. IMPRESSION: 1. Distended gallbladder with nonspecific wall thickening, trace pericholecystic edema and biliary sludge. No shadowing cholelithiasis identified. Findings could be correlated with nuclear medicine hepatobiliary scan to exclude acute cholecystitis. 2. No biliary ductal dilation. 3. Hepatic steatosis. ACT 112: Negative or not required by law. The above report was generated using voice recognition software. It may contain grammatical, syntax or spelling errors. Electronically signed by: Freddy Lanza M.D. 04/11/2022 9:02 PM Hepatobiliary Scan Nuclear Medicine 04/12/22 03:13 PROCEDURE: NM hepatobiliary CLINICAL HISTORY: Right upper quadrant abdominal pain. Evaluate for acute cholecystitis. COMPARISON: Right quadrant ultrasound and CT of the abdomen and pelvis from 04/11/2022 RADIOPHARMACEUTICAL: 5.50 mCi Tc99m mebrofenin IV TECHNIQUE: Following intravenous administration of Tc-99m mebrofenin, sequential abdominal images were obtained. FINDINGS: There is prompt, uniform accumulation of the tracer by the liver. There is anato rebeca filling of the intrahepatic ducts, common bile duct. Gallbladder begins to fill at minutes. There is anatomic excretion of the tracer into the duodenum. IMPRESSION: Normal hepatobiliary scintigraphy. ACT 112: Negative or not required by law. Electronically signed by: Thiago Rocha M.D. 04/12/2022 12:47 PM Cholangiopancreatography MRI 04/13/22 09:58 MR MRCP CLINICAL HISTORY: RUQ pain TECHNIQUE: Multiplanar multisequence MR images were obtained of the abdomen, followed by reconstruction of MRCP imaging. COMPARISON: Previous MRCP from 02/21/2021 and limited right upper quadrant ultrasound from 04/11/2022. Negative hepatobiliary scan. FINDINGS: The study is limited by breathing motion artifact. Liver: There is homogeneous signal intensity seen within the liver. No mass lesions are seen. There is no evidence for intrahepatic or duct dilatation. Gallbladder: The gallbladder is again distended with thickening of the gallbladder wall and evidence for pericholecystic edema. The presence of acalculus cholecystitis cannot be excluded despite the negative hepatobiliary scan. Spleen: There is homogeneous signal throughout the splenic parenchyma. No mass lesions are seen. Pancreas: The pancreas is homogeneous in signal There is no evidence for a mass lesion. Kidneys: There is homogeneous signal throughout the renal parenchyma bi laterally. Adrenal glands: There is homogeneous signal demonstrated with no gross mass seen. Abdominal cavity: There is no gross bowel dilatation. There is no evidence for ascites or adenopathy. The aorta is normal in caliber. The visualized osseous structures, demonstrate no evidence of abnormal signal intensity. There is evidence of small bilateral pleural effusions and bibasilar atelect asis, right greater than left. MRCP: The common bile duct is normal in course and caliber. There is no evidence for dilatation. There is no intraluminal filling defects or evidence for choledocholithiasis. There is no intrahepatic or duct dilatation. The pancreatic duct is normal in course and caliber. IMPRESSION: 1. No evidence of biliary obstruction. 2. However, the gallbladder is again distended with thickening of the gallbladder wall with pericholecystic edema. The findings are suspicious for acalculous cholecystitis despite the negative hepatobiliary scan. These results will be sent to the floor. ACT 112: Negative or not required by law. Electronically signed by: Thiago Rocha M.D. 04/13/2022 5:12 PM KUB X-Ray 04/17/22 16:01 KUB HISTORY: Acute generalized abdominal pain with constipation eval constipation, no BM x 1 week COMPARISON: CTA abdomen and pelvis 04/11/2022 FINDINGS: Nonobstructive bowel gas pattern. Surgical clips in the right upper quadrant abdomen suggest interval cholecystectomy. Mild gaseous distention of the stomach. Since of fecal retention. No renal calculi. No ureteral calculi. No pneumoperitoneum or pneumatosis. Degenerative changes of the spine, pelvis and hips. No fracture. IMPRESSION: 1. Nonobstructive bowel gas pattern. 2. Extensive fecal retention. ACT 112: Negative or not required by law. The above report was generated using voice recognition software. It may contain grammatical, syntax or spelling errors. Electronically signed by: Freddy Lanza M.D. 04/17/2022 8:36 PM Hospital Course (1) Abdominal pain: Admitted for ACS w/ CP s/p Cath with Dr Farooq, no obstructing lesion noted to intervene however concerns for biliary pathology with elevated LFts and and distended GB with thickening and pericholecystic edema suspicious for acalculous cholecystitis. General surgery consulted POD# 3 s/p Laparoscopic Cholecystectomy, Repair of umbilical hernia. (Not Applicable) - Cleveland Henson, on 04/15. EBL 15cc Hgb 13--> 12.6, acute blood loss expected (15.5 pre-surgery but had been on continuous IVF). Repeat hgb stable 12.3 Cultures remain negative WBC remains wnl, remains afebrile --> D/c'd Zosyn (got 5 days, 3 doses post-surgery) 04/16 LFTs improving and almost resolved Pain control : Tylenol, tramadol Bowel regimen: Colace BID, miralax prn, senna added miralax BID, encouraged ambulation 2 BMs! Resumed heparin gtt 04/16--> switched back to Xarelto evening 04/17. No increased bleeding Lasix 20mg IV x 1 on 04/17 for volume overload -> titrated to room air. Encouraged continued use of incentive spirometer PT/OT consulted -- rec SNF. CM following, to send for auth today (2) Cholecystitis, acute: (3) Hx laparoscopic cholecystectomy: (4) ACS (acute coronary syndrome): Presented with ACS -- NSTEMI with CAD however no obstructing lesion noted to intervene on -Patient evaluated by Cardiology and underwent heart cath- see results below -Return to cath for any ECG changes or persisting symptoms -Was initially on heparin drip and then held for surgery - High sensitivity troponin downtrend from 1400 to 1200 - ECHO - EF 55-60%; no regional wall motion abnormalities; mod pulmonary hypertension 50-55 mmHg -Metoprolol 25mg PO BID, ASA, atorvastatin 40mg initiated and to continue at d/c. New rxs needed Appreciate Cardiology assistance (5) CAD (coronary artery disease): Multivessel coronary artery disease -80 to 90% distal RCA (chronic by IVUS) 90% mid, 75% distal circumflex 40 to 50% proximal to mid LAD. Small ostial D1 90% -BB, ASA, Statin -As above (6) DVT (deep venous thrombosis): -Hold Xarelto, heparin gtt resumed 04/16 and if hemoglobin stable, plans for Xarelto resuming 04/17 - SCDs, Heparin transitioned back tp Xarelto 04/17 PM (7) Pulmonary embolism: 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 with tPA (8) Diabetes mellitus with neuropathy: Last A1c 9.07 February 2022 Home regimen: --> metformin 1gm BID, glimepiride 4mg BID, dulaglutide weekly, empagliflozin 10mg daily - reports they were questioning coming off Jardiance due to dizziness at home. DM educator on consult Glargine 30u daily -- will increase to 35 u daily for tomorrow. 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 CM following Discharge Plan Discharge Items Reason For Visit: EPIGASTRIC PAIN Activity: As commented below Lifting: No more than 10 pounds Bathing Comment: Can shower over skin glue, cover small incision daily until dry Driving/Machine Use: Can drive when pain free Non-emergency contact: Surgeon Call non-emergency contact if: your pain is not controlled, you have a fever, your temperature is above 101.5 and your wound has increased redness Follow-up/Referrals: Cleveland Henson DO [Surgeon] - (Please call the office to schedule an appt in approx 2 weeks) Forest Warner DO [Primary Care Provider] - Stand-Alone Forms: My [facility] Medications and DC Order Prescriptions: No Action (DME) blood-glucose meter [OneTouch Ultra2 Meter] Kit See Dose Instructions .ROUTE .MEDSUPPLY Qty: 1 0RF Rx Instructions: TEST ONCE DAILY. E11.9 (DME) blood sugar diagnostic Strip See Dose Instructions .ROUTE .MEDSUPPLY Qty: 100 5RF Rx Instructions: TEST ONCE DAILY Xarelto 20 mg tablet 0RF Trulicity 1.5 mg/0.5 mL pen injector 0RF Jardiance 10 mg tablet 10 mg PO DAILY Qty: 30 5RF trazodone 50 mg tablet See Rx Instructions PO HS Qty: 14 0RF Rx Instructions: 1-2 tabs PO at bedtime; lisinopril 5 mg tablet 5 mg PO QAM Qty: 90 3RF Hold Instructions: orthostatic hypotension hydrocortisone-acetic acid 1-2 % drops 5 drp otic (ear) BID Qty: 10 2RF Rx Instructions: 5ggt to left ear BID x 14-days dulaglutide 1.5 mg/0.5 mL pen injector 1.5 mg subcut .weekly Qty: 2 5RF metformin 1,000 mg tablet 1,000 mg PO BID Qty: 180 3RF glimepiride 4 mg tablet 4 mg PO BID Qty: 180 3RF omeprazole 20 mg capsule,delayed release(DR/EC) 20 mg PO QAM Qty: 90 3RF simvastatin 20 mg tablet 20 mg PO HS Qty: 90 3RF rivaroxaban 20 mg tablet 20 mg PO QDD Rx Instructions: must administer with evening meal magnesium oxide [MagOx] 400 mg (241.3 mg magnesium) tablet 400 mg PO DAILY Qty: 7 0RF acetaminophen [Tylenol Extra Strength] 500 mg Tablet 1,000 mg PO DIRECTED PRN (Reason: Pain) Admission Data Admit Date/Time: 04/12/22 14:43 Attending Provider: Seven Chaudhari Admit Provider: Lan Slaughter Primary Care Provider: Forest Warner Other Providers: Lan Slaughter ; Nasreen Butler ; Darell Starr ; [facility] ; [facility] Coding Diagnoses Abdominal pain R10.9 Cholecystitis, acute K81.0 Hx laparoscopic cholecystectomy Z90.49 ACS (acute coronary syndrome) I24.9 CAD (coronary artery disease) I25.10 DVT (deep venous thrombosis) I82.409 Chronicity: chronic Pulmonary embolism I26.92 Acute cor pulmonale presence: unspecified Chronicity: acute Pulmonary embolism type: saddle Diabetes mellitus with neuropathy E11.40 Hyperlipidemia E78.5 Balance problem R26.89
[2022-04-19 12:02] LABS: Hematocrit (blood only) 40.8 % (40.1-51.0); Hemoglobin 12.9 g/dl (14.0-18.0); Mean Corpuscular Hemoglobin 28.3 pg (25.0-34.0); Mean Corpuscular Hgb Conc 31.6 g/dL (32.0-36.0); Mean Corpuscular Volume 89.5 fL (80.0-100.0); Platelet Count 351 K/uL (130-400); RDW Coefficient of Variation 13.4 % (11.5-14.5); RDW Standard Deviation 44.1 fL (36.4-46.3); Red Blood Count 4.56 M/uL (4.63-6.08)
[2022-04-19 12:37] LABS: Albumin Globulin Ratio 0.8 (0.9-2); Albumin Level 2.7 gm/dl (3.4-5.0); BUN Creatinine Ratio 19.6 (10-20); Bilirubin,Total 0.8 mg/dl (0.2-1.0); Calcium 8.5 mg/dl (8.5-10.1); Creatinine Clr Calc Pharmacy 75.2 ml/min; Est GFR (African American) 83.9 ml/min; Est GFR (Non-African American) 72.4 ml/min; Globulin 3.3 gm/dl (2.5-4.0); Potassium 4.1 mmol/L (3.5-5.1)
[2022-04-19] MEDS: AMOXICILLIN/CLAVULANATE 875 MG TAB PO SCH (17:02)
[2022-04-19] MEDS: RIVAROXABAN 20 MG TAB PO SCH (17:02)
[2022-04-20] MEDS: METOPROLOL TARTRATE 25 MG TAB PO SCH (08:54)
[2022-04-20] MEDS: CYANOCOBALAMIN 1000 MCG/ML VIAL IM SCH (08:54)
[2022-04-20] MEDS: AMOXICILLIN/CLAVULANATE 875 MG TAB PO SCH (08:54)
[2022-04-20] MEDS: DOCUSATE SODIUM 100 MG CAP PO SCH (08:54)
[2022-04-20] MEDS: ATORVASTATIN 40 MG TAB PO SCH (08:54)
[2022-04-20] MEDS: ASPIRIN 81 MG ECTAB PO SCH (08:54)
[2022-04-20] MEDS: SENNA 8.6 MG TAB PO SCH (08:54)
[2022-04-20] MEDS: lisinopril 5 MG TAB PO SCH (08:54)
[2022-04-20] MEDS: PANTOprazole 40 MG TAB PO SCH (08:55)
[2022-04-20] MEDS: POLYETHYLENE (MIRALAX) 17 GM PACK PO SCH (08:55)
[2022-04-20] MEDS: INSULIN ASPART PER UNIT SC SCH ×2 (09:02→13:32)
[2022-04-20] MEDS: LANTUS PER UNIT CHARGE SQ SCH (09:02)
[2022-04-20 10:36] LABS: Albumin Globulin Ratio 0.8 (0.9-2); Albumin Level 2.6 gm/dl (3.4-5.0); BUN Creatinine Ratio 19.6 (10-20); Bilirubin,Total 0.7 mg/dl (0.2-1.0); Calcium 8.3 mg/dl (8.5-10.1); Creatinine Clr Calc Pharmacy 79.4 ml/min; Est GFR (African American) 89.5 ml/min; Est GFR (Non-African American) 77.2 ml/min; Globulin 3.2 gm/dl (2.5-4.0); Potassium 4.1 mmol/L (3.5-5.1); Total Protein 5.8 gm/dl (6.0-8.3)
[2022-04-20] MEDS ORDERED: FUROSEMIDE 20 MG TAB PO ONE (11:49)
[2022-04-20] MEDS ORDERED: POTASSIUM CHLORIDE CRTAB 20 MEQ TABCR PO STA (11:49)
[2022-04-20] MEDS ORDERED: NYSTATIN SUSP 500,000 U/5 ML UDC PO SCH (11:50)
--- NOTE | 2022-04-20 12:25 | Discharge Summary ---
Date of Service date of admission - April 11, 2022 date of discharge - April 20, 2022 Admission HPI Per Admitting Provider Mr Garcia is an 82 year old male with a PMH significant for poorly controlled DM II, previous DVT and PE on Xarelto, HTN, CAD, hyperlipidemia, sensorineural hearing loss, GERD who presented to the [facility] on 04/11/22 with a chief complaint of chest pain. Per chart review, the patient was admitted to [facility] in January of 2021 for acute right flank pain. During his admission he underwent CT of the abdomen and pelvis which showed possible branching hepatic density. MRCP during the admission was normal but did show "tiny gallstones". Today, the patient underwent CTA of the chest, abdomen, and pelvis. The imaging was negative for aortic dissection and intrathoracic findings. It did however show mild gallbladder distention and pericholecystic stranding. It was also noted that the patient had extensive coronary artery calcification. The patient was found to have a mild leukocytosis of 11.80 with absolute neutrophils of 9.29. High sensitivity troponin was noted to be 1490.5. Cardiology was consulted and performed a Coronary angiography with left heart cath and IVUS. The procedure revealed Severe CAD and Normal Intracardiac Pressures. Due to these findings Cardiology recommended medical management and continued workup of his possible gallbladder issues. The patient was seen and examined after his cardiac cath and was resting in bed in no acute distress. He states that he has been experiencing a dull, 5/10, epigastric/upper abdominal pain over the past few weeks. It is worst at night and is exacerbated with eating. He denies that pain moving anywhere else. He also denies associated nausea and vomiting. The patient had a regular bowel movement this morning and denies fever and chills. I spoke with his and Daughter at bedside, his states that the patient has been cool and "clammy" over the past 24 hours. His daughter states that the patient has a high pain tolerance, so this amount of pain is unusual for him. Principal Diagnosis 1. NSTEMI, severe CAD 2. Acute cholecystitis s/p lap maximiliano 3. Umbilical hernia repair Discharge Exam gen - NAD, pleasant mouth - MMM neck - no JVD heart - RRR, s1 s2 lungs - decreased BS bases, mild fine rales bases abd - minimally distended, BS+, incisional tenderness only, incisions clean skin - mild erythema/ecchymoses near the umbilicus improved; no drainage ext - pulses 2+ b/l, <1+ edema b/l feet Discharge Data Allergies Allergy/AdvReac Type Severity Reaction Status Date / Time Sulfa (Sulfonamide Allergy Severe ANAPHYLAXIS Verified 04/10/22 13:34 Antibiotics) Consultations General Surgery - Boaz Henson DO Gastroenterology - Baldev Case DO Cardiology - Bernardo Farooq MD PT, OT Procedures Performed Operation Date: 04/11/22 16:00 Actual Procedures p Cineradiography w/Routine Exam - Bernardo Farooq MD s Cath, Left with Cors and Vent - Bernardo Farooq MD s IVUS Coronary Single Vessel - Bernardo Farooq MD Summary: 1. Multivessel coronary artery disease * 80 to 90% distal RCA (chronic by IVUS) * 90% mid, 75% distal circumflex * 40 to 50% proximal to mid LAD. Small ostial D1 90% 2. Borderline intracardiac filling pressure (LVEDP 18) Recommendations: No clear acute culprit lesion. Has LEEANNA-3 flow throughout coronary system. Operation Date: 04/15/22 07:30 Actual Procedures p Laparoscopic Cholecystectomy, (Not Applicable) - Cleveland Henson DO s Umbilical Hernia Repair(Not Applicable) - Cleveland Henson DO echocardiogram - * EF 55-60% * moderate pulmonary HTN (50-55 mmHg) * normal valve function * mild LVH * normal LV wall motion Ordered Studies Chest X-Ray 04/11/22 12:56 XR chest 1V portable CLINICAL HISTORY: Chest Pain. COMPARISON STUDY: 09/12/2021 TECHNIQUE: 1 view of the chest FINDINGS: Single frontal view of the chest demonstrates the cardiomediastinal silhouette to be within normal limits. There is a decreased inspiratory effort with elevation of the hemidiaphragms and crowding of the bronchovascular markings at the lung bases and centrally. The lungs are clear of alveolar opacities. There is no evidence for pleural effusion. There is no evidence for vascular congestion. There is no acute osseous pathology. IMPRESSION: 1. There is a decreased inspiratory effort with otherwise no acute chest disease. ACT 112: Negative or not required by law. Electronically signed by: Thiago Rocha M.D. 04/11/2022 2:22 PM Abdomen/Pelvis CTA 04/11/22 14:16 CT angio abdomen pelvis w con CLINICAL HISTORY: cp radiating to back TECHNIQUE: Multidetector row helical CT of the abdomen and pelvis was performed, following intravenous administration of iodinated contrast. No oral contrast was administered. Automated dose lowering techniques and/or adjustment according to patient size were utilized for this exam. Coronal and sagittal reformations were obtained. MIP and 3D volume rendered reconstructions were obtained. Comparison: Comparison is made to CT abdomen pelvis 02/20/2021 FINDINGS: Lower chest: For findings above the diaphragm, please see CT chest performed same day. Liver: Hepatic steatosis is noted. Focal fatty sparing is seen in the bladder fossa. Gallbladder and biliary tree: No calcified gallstones. Normal caliber wall. No intra- or extrahepatic biliary ductal dilation. Pancreas: Unremarkable, no focal lesions. Spleen: Unremarkable. Adrenals: Unremarkable. Kidneys and ureters: Unremarkable. Bladder: Diffuse homogeneous wall thickening is seen. Reproductive organs: Unremarkable. Bowel: Diverticulosis is seen without evidence of diverticulitis. The appendix is normal. There is a small hiatal hernia. Lymph nodes Retroperitoneal: Unremarkable. Pelvic: Unremarkable. Mesenteric: Unremarkable. Peritoneum: Normal. Abdominal wall: A fat-containing umbilical hernia is seen. Bones: Degenerative changes in the visualized spine. CT angiogram: The abdominal aortic contours appear intact without evidence of aneurysmal dilatation and/or dissection. There is evidence of scattered atherosclerotic calcifications of the abdominal aorta and its major branches. The origins of the celiac axis, superior mesenteric, inferior mesenteric and bilateral renal arteries are patent. IMPRESSION: 1. No acute abnormalities, in particular no evidence of aortic dissection or aneurysm. 2. Hepatic steatosis. ACT 112: Negative or not required by law. Electronically signed by: Giovanny Lyons M.D. 04/11/2022 3:03 PM Chest CTA 04/11/22 14:16 CT ANGIOGRAPHY OF THE CHEST DISSECTION PROTOCOL CLINICAL HISTORY: Chest pain radiating to back. Evaluate for dissection. COMPARISON STUDY: Chest radiograph performed earlier today. Chest CT November 18, 2020. TECHNIQUE: Before and following the IV administration of 120 mL of Optiray, helical axial images of the chest were obtained. Maximal intensity projections and sagittal and coronal reformats were viewed on an independent 3D workstation. IV contrast was administered without complication. Automated exposure control was utilized for the study. A dose lowering technique was utilized adhering to the principles of ALARA. CT DOSE: 2019.31 mGy.cm FINDINGS: Caliber of the thoracic aorta is normal. There is no intramural hematoma or thoracic aortic dissection. Mild cardiomegaly is noted. There is extensive coronary artery calcification. No central pulmonary emboli are identified. A small hiatal hernia is present. A few small pulmonary nodules are unchanged from earlier exams. These are benign. There is no consolidation to suggest pneumonia. Linear subpleural opacities reflect atelectasis or scarring. No pneumothorax or pleural effusion is present. There is extensive anterior osteophytosis of the thoracic spine. 2.4 cm lobulated nodule within the superior left breast is unchanged since prior exam. This was previously biopsied. Abdomen and pelvis CT will be reported separately. The gallbladder is distended. There is mild pericholecystic stranding. IMPRESSION: 1. No thoracic aortic dissection. 2. No acute intrathoracic findings. 3. Mild gallbladder distention with pericholecystic stranding. These findings favor acute cholecystitis. Right upper quadrant ultrasound could be obtained for further evaluation. 4. 2.4 cm superior left breast nodule which is unchanged since prior CT. This was previously biopsied. 5. Extensive coronary artery calcification. ACT 112: Negative or not required by law. Electronically signed by: Aditya Garcia M.D. 04/11/2022 3:17 PM Liver Ultrasound 04/11/22 18:42 US liver HISTORY: 82 years-old Male Concern for cholecystitis acute right upper quadrant abdominal pain COMPARISON: CTA abdomen and pelvis of same day TECHNIQUE: Multiple real-time sonographic images of the abdominal right upper quadrant were obtained assessing grayscale appearance and color flow FINDINGS: Study is limited secondary to obscuring bowel gas. The sixth of the liver. No hepatic mass identified. The gallbladder wall measures the upper limits of normal at 3 mm. Biliary sludge without definitive cholelithiasis. Negative sonographic Kasper's sign. Pericholecystic edema seen on CT is not well appreciated by ultrasound. Trace pericholecystic edema. Imaged right kidney demonstrates no hydronephrosis however does demonstrate diffuse cortical thinning. Normal common bile duct, 5 mm. IMPRESSION: 1. Distended gallbladder with nonspecific wall thickening, trace pericholecystic edema and biliary sludge. No shadowing cholelithiasis identified. Findings could be correlated with nuclear medicine hepatobiliary scan to exclude acute cholecystitis. 2. No biliary ductal dilation. 3. Hepatic steatosis. ACT 112: Negative or not required by law. The above report was generated using voice recognition software. It may contain grammatical, syntax or spelling errors. Electronically signed by: Freddy Lanza M.D. 04/11/2022 9:02 PM Hepatobiliary Scan Nuclear Medicine 04/12/22 03:13 PROCEDURE: NM hepatobiliary CLINICAL HISTORY: Right upper quadrant abdominal pain. Evaluate for acute cholecystitis. COMPARISON: Right quadrant ultrasound and CT of the abdomen and pelvis from 04/11/2022 RADIOPHARMACEUTICAL: 5.50 mCi Tc99m mebrofenin IV TECHNIQUE: Following intravenous administration of Tc-99m mebrofenin, sequential abdominal images were obtained. FINDINGS: There is prompt, uniform accumulation of the tracer by the liver. There is anatomic filling of the intrahepatic ducts, common bile duct. Gallbladder begins to fill at minutes. There is anatomic excretion of the tracer into the duodenum. IMPRESSION: Normal hepatobiliary scintigraphy. ACT 112: Negative or not required by law. Electronically signed by: Thiago Rocha M.D. 04/12/2022 12:47 PM Cholangiopancreatography MRI 04/13/22 09:58 MR MRCP CLINICAL HISTORY: RUQ pain TECHNIQUE: Multiplanar multisequence MR images were obtained of the abdomen, followed by reconstruction of MRCP imaging. COMPARISON: Previous MRCP from 02/21/2021 and limited right upper quadrant ultrasound from 04/11/2022. Negative hepatobiliary scan. FINDINGS: The study is limited by breathing motion artifact. Liver: There is homogeneous signal intensity seen within the liver. No mass lesions are seen. There is no evidence for intrahepatic or duct dilatation. Gallbladder: The gallbladder is again distended with thickening of the gallbladder wall and evidence for pericholecystic edema. The presence of acalculus cholecystitis cannot be excluded despite the negative hepatobiliary scan. Spleen: There is homogeneous signal throughout the splenic parenchyma. No mass lesions are seen. Pancreas: The pancreas is homogeneous in signal There is no evidence for a mass lesion. Kidneys: There is homogeneous signal throughout the renal parenchyma bilaterally. Adrenal glands: There is homogeneous signal demonstrated with no gross mass seen. Abdominal cavity: There is no gross bowel dilatation. There is no evidence for ascites or adenopathy. The aorta is normal in caliber. The visualized osseous structures, demonstrate no evidence of abnormal signal intensity. There is evidence of small bilateral pleural effusions and bibasilar atelectasis, right greater than left. MRCP: The common bile duct is normal in course and caliber. There is no evidence for dilatation. There is no intraluminal filling defects or evidence for choledocholithiasis. There is no intrahepatic or duct dilatation. The pancreatic duct is normal in course and caliber. IMPRESSION: 1. No evidence of biliary obstruction. 2. However, the gallbladder is again distended with thickening of the gallbladder wall with pericholecystic edema. The findings are suspicious for acalculous cholecystitis despite the negative hepatobiliary scan. These results will be sent to the floor. ACT 112: Negative or not required by law. Electronically signed by: Thiago Rocha M.D. 04/13/2022 5:12 PM KUB X-Ray 04/17/22 16:01 KUB HISTORY: Acute generalized abdominal pain with constipation eval constipation, no BM x 1 week COMPARISON: CTA abdomen and pelvis 04/11/2022 FINDINGS: Nonobstructive bowel gas pattern. Surgical clips in the right upper quadrant abdomen suggest interval cholecystectomy. Mild gaseous distention of the stomach. Since of fecal retention. No renal calculi. No ureteral calculi. No pneumoperitoneum or pneumatosis. Degenerative changes of the spine, pelvis and hips. No fracture. IMPRESSION: 1. Nonobstructive bowel gas pattern. 2. Extensive fecal retention. ACT 112: Negative or not required by law. The above report was generated using voice recognition software. It may contain grammatical, syntax or spelling errors. Electronically signed by: Freddy Lanza M.D. 04/17/2022 8:36 PM Hospital Course (1) Cholecystitis, acute: Was initially admitted for ACS/NSTEMI with chest pain and elevated troponin. While receiving work-up for the chest pain a CT chest showed gall bladder distension with pericholecystic fluid. LFTs were also elevated at time of admission. After cardiac work-up including heart catheterization was complete attention then was turned towards his gall bladder. IV antibiotics were initiated. MRCP, RUQ u/s, and HIDA scan were all completed. These additional imaging studies were suspicious for acute cholecystitis. General surgery was consulted, and on 04/15/22 he underwent Laparoscopic Cholecystectomy as well as Repair of his umbilical hernia by Dr Cleveland Henson. IV Zosyn was discontinued on 04/16/22. Post-op course was complicated by mild abdominal wall cellulitis near his umbilicus for which he will complete a 7-day course of augmentin twice daily. He also had mild volume overload s/p lasix IV, as well as constipation. By time of discharge he was moving his bowels, eating well, and abdominal wall incisions were clean. He will need to follow-up with Dr Henson within 2 weeks of discharge for a post-op check. (2) Non-ST elevation [place] (NSTEMI): The patient presented with chest pain. Initial High sensitivity troponin was 1490 which was the peak troponin during his stay. [facility] [place] and Dr Bernardo Farooq performed left heart catheterization. This demonstrated significant multivessel coronary artery disease as follows --- * 80 to 90% distal RCA (chronic by IVUS) * 90% mid, 75% distal circumflex * 40 to 50% proximal to mid LAD. Small ostial D1 90% Since there was no clear-cut acute culprit lesion no intervention/stenting was performed. Medical management was advised by cardiology. He received IV heparin (in [place] of usual Xarelto) early in the stay. He was continued on beta shawna, aspirin, lisinopril, and statin agent. He remained chest-pain free for the remainder of his stay. (3) CAD (coronary artery disease): As above in #2. (4) ACS (acute coronary syndrome): Presented with ACS/NSTEMI as in #2 above. High sensitivity troponin downtrend from 1490 to 1200. ECHO - EF 55-60%; no regional wall motion abnormalities; mod pulmonary hypertension 50-55 mmHg. He will need follow-up with [facility] within 2 weeks of discharge. (5) DVT (deep venous thrombosis): Continue Xarelto 20mg daily. (6) Pulmonary embolism: History of DVT and PE -- PE in 2019 Additional VTE event -- saddle PE in 2019 and received systemic thrombolysis with tPA. Continue Xarelto 20mg daily. (7) Diabetes mellitus with neuropathy: Last A1c 9.8% January 2022. Upon discharge to SNF for rehab advise - * metformin 1gm BID * lantus 25 units daily Recommend d/c of glimepiride and Jardiance. (8) Hyperlipidemia: Was on simvastatin 20mg HS prior to this admission. Changed to atorvastatin 40mg daily. (9) Balance problem: Chronic, baseline problem. Vitamin B12 was low at 153. IM replacement ordered while inpatient and advise vitamin B12 1000mcg PO daily x 1 year thereafter. (10) Candidiasis of mouth and esophagus: Nystatin solution - 5cc QID x 10 days. (11) Elevated LFTs: Likely 2nd to liver irritation from his acute cholecystitis. No evidence of CBD abnormalities while here. Advise repeat LFTs within a few days of discharge to ensure stability. Plan transferring to [facility] for rehab post-discharge Total Time Total Time Spent Total Time Spent (In Minutes): 45 Discharge Plan Discharge Items Patient Disposition: Transfer [facility] Reason For Visit: EPIGASTRIC PAIN Discharge Diagnosis: 1. Acute Cholecystitis - laparoscopic cholecystectomy on 04/15/[address] Cleveland Henson. 2. Umbilical hernia - repaired by Dr Cleveland Henson on 04/15/22. 3. Thrush (yeast infection of mouth). 4. Elevated troponin (an enzyme released by the heart) - due to the stress of your gall bladder illness. No evidence of heart attack. Heart catheterization showed stable coronary disease and stents were not recommended at this time. 5. Mild abdominal wall skin infection - improving. Goals: You have been hospitalized for an urgent problem which required surgery. During your stay at [facility], we have made an effort to correct the problem that brought you to the hospital while keeping you as comfortable as pos octaviano. Surgery and medications were used to bring your condition under control and your discharge instructions will include directions for any medications you should take after leaving the hospital. Please make sure to follow the advice of your surgeon regarding follow up with the surgeon and with your primary care provider. Activity: As commented below Lifting: No more than 10 pounds Bathing Comment: Can shower over skin glue, cover small incision daily until dry Driving/Machine Use: Can drive when pain free Non-emergency contact: Primary Care Provider, Surgeon and Body Piercer Call non-emergency contact if: you have any medication questions, your pain is not controlled, you have a fever, your wound has increased redness and your wound has increased drainage Follow-up/Referrals: Tim Farooq MD [Physician] - (see within 2 weeks of discharge from rehab) Cleveland Henson DO [Surgeon] - (Please call the office to schedule an appt in approx 2 weeks) Forest Warner, [Primary Care Provider] - (see within 1 week after discharge from rehab ) Diet: Carb Consistent or DM2 and Heart Healthy Cooper Attending Provider Instructions: You were hospitalized for chest pain. Cardiology was consulted and you underwent a cardiac catheterization which did not show any areas that required placement of a stent. Medical management for your coronary disease was recommended as follows: * Metoprolol 25mg by mouth twice daily * Aspirin 81mg by mouth daily * Atorvastatin 40mg daily (your Crestor has been discontinued) Then you had imaging concerning for acute gall bladder infection and general surgery was consulted for removal with Dr Henson. You completed antibiotics while in the hospital however there is concern for a possible infection to the skin around one of the laparoscopic sites. Thus, you will continue Augmentin one tablet twice daily for a total of seven days. The site around your umbilicus (belly button) that was irritated and red is starting to improve. You will need follow up with both Dr Farooq and Dr Henson after discharge to monitor your progress. For your diabetes, your Jardiance, Trulicity, and glimepiride have been stopped. You have been started on Glargine (a form of long-acting insulin) 25 units once daily in the morning. You should continue to monitor your blood sugars four times daily at rehab. You have been evaluated by therapy and rehab has been arranged at discharge. I also checked a B12 level and this was low and replacement has been ordered and you should continue daily at discharge. We typically recommend taking a vitamin B12 supplement for 1 year. You should follow up with your primary care provider within 7 days of discharge from rehab. See Dr Henson from [facility] within 2 weeks. For the thrush (yeast) in your mouth please take nystatin 5cc four times daily x 10 days; swish and spit. Please return to the ER with any fever over 100 degrees, chills, chest pain, shortness of breath, worsening abdominal pain, worsening redness/drainage/pain from any of your abdominal incisions, or for any other symptoms concerning to you. Best wishes during your recovery and continue to feel better! Dr Watson Gamboa Box Lining Machine Operator Provider Instructions: Additional orders -- 1. Fingerstick blood sugars before MEALS and at BEDTIME 2. BMP, LFTs, and magnesium on 04/23/22 - report results to medical facilities section director Pending Studies at Discharge: No Stand-Alone Forms: My [facility] Skilled Items Patient informed of condition?: Yes DNR: No Discharge Level of Care: Skilled Communicable Disease: No Discharge Prognosis: Stable Lines: None Urinary Catheter: No Medications and DC Order Prescriptions: New atorvastatin 40 mg Tablet 40 mg PO QAM Qty: 30 0RF aspirin 81 mg Tablet,Delayed Release (Dr/Ec) 81 mg PO QAM Qty: 30 0RF amoxicillin-pot clavulanate 875-125 mg Tablet 1 tab PO BIDM Qty: 13 0RF metoprolol tartrate 25 mg Tablet 25 mg PO BID Qty: 60 0RF docusate sodium 100 mg Capsule 100 mg PO BID PRN (Reason: constipation) Qty: 10 0RF sennosides [Senokot] 8.6 mg Tablet 17.2 mg PO QAM Qty: 30 0RF polyethylene glycol 3350 [Miralax] 17 gram Powder In Packet 17 g PO DAILY PRN (Reason: constipation) Qty: 1 0RF cyanocobalamin (vitamin B-12) 1,000 mcg capsule 1,000 mcg PO DAILY Qty: 30 0RF nystatin 100,000 unit/mL Suspension 5 ml PO QID 10 Days Qty: 200 0RF Rx Instructions: swish and spit insulin glargine [Lantus Solostar U-100 Insulin] 100 unit/mL (3 mL) insulin pen 25 unit subcut QAM Qty: 15 1RF Continued (DME) blood-glucose meter [OneTouch Ultra2 Meter] Kit See Dose Instructions .ROUTE .MEDSUPPLY Qty: 1 0RF Rx Instructions: TEST ONCE DAILY. E11.9 (DME) blood sugar diagnostic Strip See Dose Instructions .ROUTE .MEDSUPPLY Qty: 100 5RF Rx Instructions: TEST ONCE DAILY lisinopril 5 mg tablet 5 mg PO QAM Qty: 90 3RF Hold Instructions: orthostatic hypotension hydrocortisone-acetic acid 1-2 % drops 5 drp otic (ear) BID Qty: 10 2RF Rx Instructions: 5ggt to left ear BID x 14-days metformin 1,000 mg tablet 1,000 mg PO BID Qty: 180 3RF omeprazole 20 mg capsule,delayed release(DR/EC) 20 mg PO QAM Qty: 90 3RF rivaroxaban 20 mg tablet 20 mg PO QDD Rx Instructions: must administer with evening meal magnesium oxide [MagOx] 400 mg (241.3 mg magnesium) tablet 400 mg PO DAILY Qty: 7 0RF acetaminophen [Tylenol Extra Strength] 500 mg Tablet 1,000 mg PO DIRECTED PRN (Reason: Pain) Discontinued Xarelto 20 mg tablet 0RF Trulicity 1.5 mg/0.5 mL pen injector 0RF Jardiance 10 mg tablet 10 mg PO DAILY Qty: 30 5RF dulaglutide 1.5 mg/0.5 mL pen injector 1.5 mg subcut .weekly Qty: 2 5RF glimepiride 4 mg tablet 4 mg PO BID Qty: 180 3RF simvastatin 20 mg tablet 20 mg PO HS Qty: 90 3RF No Action sertraline 25 mg tablet 25 mg PO DAILY Qty: 90 3RF trazodone 50 mg tablet 25 mg PO DAILY Qty: 30 2RF Discharge Orders: Discharge Order (Routine); Ordered 04/20/22 Ordered By: Seven Fuentes/Other Patient Handouts: Cholecystectomy Admission Data Admit Date/Time: 04/12/22 14:43 Attending Provider: Seven Chaudhari Admit Provider: Lan Slaughter Primary Care Provider: Forest Warner Other Providers: Lan Slaughter ; Nasreen Butler ; Darell Starr ; [place],[facility] ; [facility] Other Interventions: Discharge Summary Assessment (RN) Last Done: 04/20/22 13:02 Coding Level of Care Code D/C DAY MANAGEMENT >30 MINS Diagnoses Cholecystitis, acute K81.0 Non-ST elevation TX (NSTEMI) I21.4 CAD (coronary artery disease) I25.10 ACS (acute coronary syndrome) I24.9 DVT (deep venous thrombosis) I82.409 Chronicity: chronic Pulmonary embolism I26.92 Acute cor pulmonale presence: unspecified Chronicity: acute Pulmonary embolism type: saddle Diabetes mellitus with neuropathy E11.40 Hyperlipidemia E78.5 Balance problem R26.89 Candidiasis of mouth and esophagus B37.81; B37.0 Elevated LFTs R79.89
--- NOTE | 2022-04-30 06:51 | Coding Query ---
CODING QUERY To promote full compliance with coding requirements relating to patient care, provider participation is requested in all cases of herd tester uncertainty. Please assist us with the question(s) below: Coding Question(s): Pt admitted for chest pain - dx'd with acute cholecystitis Post op umbilical /abdominal wall cellulitis..Discharge Summary documented abdominal wall cellulitis with 7 days of antibiotics . Please check below the phrase that describes the abdominal wall cellulitis. Thanks for your help. Josias Parson [employer] [facility] Physician's Response(s): The abdominal wall cellulitis was expected post surgery ___xx The abdominal wall cellulitis was a postoperative complication Cannot clinically determine if the abdominal wall cellulitis was a postop complication Other: Please document: Principal Diagnosis: "that condition established after study, to be chiefly responsible for occasioning the admission of the patient to the hospital for care." Co-Existing Principal Diagnosis: "when two or more diagnoses equally meet the criteria for principal diagnosis as determined by the circumstances of admission, diagnostic work up, and/or therapy provided, and the Alphabetic Index, Tabular List, or another coding guideline does not provide sequencing direction, any one of the diagnoses may be sequenced first." "When the physician has documented what appears to be a current diagnosis in the body of the record, but has not included the diagnosis in the final diagnostic statement, the physician should be asked whether the diagnosis should be added." (Source Coding [facility] 2 QTR90. p3-4) MARIO
--- NOTE | 2022-04-30 06:56 | Coding Query ---
CODING QUERY To promote full compliance with coding requirements relating to patient care, provider participation is requested in all cases of portable trackman uncertainty. Please assist us with the question(s) below: Coding Question(s): Patient admitted with chest pain. Cardiac Catheterization revealed coronary artery disease without a cuprit lesion. 04/13 Cardiology progress note stated findings more consistent with demand ischemia . Hospitalist progress notes & Discharge Summary document NSTEMI. Please check below the diagnosis that was treated . Thank you. Josias Parson [facility] Physician's Response(s): ___xx____ NSTEMI Demand ischemia Cannot clinically determine if NSTEMI or Demand Ischemia was treated Other: Please document Principal Diagnosis: "that condition established after study, to be chiefly responsible for occasioning the admission of the patient to the hospital for care." Co-Existing Principal Diagnosis: "when two or more diagnoses equally meet the criteria for principal diagnosis as determined by the circumstances of admission, diagnostic work up, and/or therapy provided, and the Alphabetic Index, Tabular List, or another coding guideline does not provide sequencing direction, any one of the diagnoses may be sequenced first." "When the physician has documented what appears to be a current diagnosis in the body of the record, but has not included the diagnosis in the final diagnostic statement, the physician should be asked whether the diagnosis should be added." (Source Coding Clinic 2 QTR90. p3-4) [facility]
== END 2022-04-20 14:59 | DRG 988 ==
LOC: ED 12:49 → CC 15:55 → 2S 15:55 → CC 16:24 → SUATTDRO 17:57 → 4W 04-16 11:13
DX: R09.02 Hypoxemia; K81.0 Acute cholecystitis; D62 Acute posthemorrhagic anemia; T81.43XA Infection following a procedure, organ and space surgical site, initial encounter; R42 Dizziness and giddiness; L03.311 Cellulitis of abdominal wall; B37.0 Candidal stomatitis; Z87.891 Personal history of nicotine dependence; E11.40 Type 2 diabetes mellitus with diabetic neuropathy, unspecified; Z86.711 Personal history of pulmonary embolism; B37.81 Candidal esophagitis; Z88.2 Allergy status to sulfonamides; K42.9 Umbilical hernia without obstruction or gangrene; I25.118 Atherosclerotic heart disease of native coronary artery with other forms of angina pectoris; E78.5 Hyperlipidemia, unspecified; Y83.8 Other surgical procedures as the cause of abnormal reaction of the patient, or of later complication, without mention of misadventure at the time of the procedure; I27.20 Pulmonary hypertension, unspecified; Y92.019 Unspecified place in single-family (private) house as the place of occurrence of the external cause; Z79.01 Long term (current) use of anticoagulants; I21.4 Non-ST elevation (NSTEMI) myocardial infarction; H90.A21 Sensorineural hearing loss, unilateral, right ear, with restricted hearing on the contralateral side; Z79.84 Long term (current) use of oral hypoglycemic drugs; N40.0 Benign prostatic hyperplasia without lower urinary tract symptoms; Z86.718 Personal history of other venous thrombosis and embolism; K21.9 Gastro-esophageal reflux disease without esophagitis

== ENCOUNTER 2025-04-10 20:09 | Observation (INO) ==
--- NOTE | 2025-04-10 20:34 | Emergency Department Note ---
Impression & Plan Fall, Rib pain on right side, Closed head injury ED Provider Note NAME: ANDRA LIM AGE: 85 SEX: M : 1940 ARRIVES VIA: Ambulance INFORMANT: Patient, ED PROVIDER(S): Corina Angel MD CHIEF COMPLAINT: Fall HPI: This is a 85-year-old male presenting after a fall. Patient states walking back to the bathroom when he had a fall. He reports that he hit his head without LOC. Currently complains of right rib pain. He has no other pain that he reports. He does take blood thinners, he is on rivaroxaban. ROS: See above HPI for pertinent positives & negatives. A total of 10 systems reviewed and were otherwise negative. PAST MEDICAL HISTORY: See Below PAST SURGICAL HISTORY: See Below FAMILY HISTORY: See Below SOCIAL HISTORY: See Below HOME MEDICATIONS: See Below ALLERGIES: See Below VITALS: See Below PHYSICAL EXAMINATION: Primary Survey Airway: Intact Breathing: Normal, breath sounds equal bilaterally Circulation: Skin warm, distal pulses 2+ Disability Pupils: Equal and reactive to light GCS: 15, Motor Function: Moves all extremities. Sensory: No deficits Secondary Survey GEN: Well developed and well-nourished HEAD: Normal cephalic atraumatic EYES: Pupils round reactive to light, conjunctiva clear, extraocular movements intact, no raccoons eyes ENT: no macias's sign, nares patent, oropharynx clear NECK: No JVD, midline trachea HEART: Regular rate and rhythm LUNGS: Clear to auscultation bilaterally. CHEST: Right-sided chest wall tenderness to palpation BACK: No significant tenderness or step-off ABD: soft, non-tender, no rebound or guarding, PELVIS: Stable to rock EXT: 2+ global pulses, moving all extremities well, +5/5 muscle strength globally NEURO: CNII-XII grossly intact, no sensory deficits MEDICAL DECISION MAKING: This is a 85-year-old male presenting after a fall. Patient has a slight abrasion to the forehead as well as right rib pain with palpation. Will do CT of the head, C-spine and chest to rule out traumatic injury. -CT imaging reveals no acute traumatic injury to the head, C-spine or chest wall. - Bloodwork is reviewed showing no significant leukocytosis, anemia, electrolyte or creatinine abnormality -Patient reevaluated and is currently still in pain. Family including and daughter feel uncomfortable with discharge home due to his current pain level inability to care for himself. Patient is in a independent living facility without much help. - Care discussed with Dr. Horvath for admission Differential diagnosis: Intracranial hemorrhage, cervical spine fracture, rib fracture, pneumothorax Independent History obtained from: Daughter, Diagnostics interpreted by me: ECG: None Cardiac Monitoring: An order was placed for continuous cardiac monitoring. The monitor shows a rate of, 57 with sinus rhythm. Past Med/Surg History Problem List (Updated 04/11/25 @ 01:15 by Jimmie Méndez MD) Confusion Closed head injury (Acute) Rib pain on right side (Acute) Fall (Acute) Incontinence Dyspnea on exertion Cold feet Laceration of left forearm Sensorineural hearing loss (SNHL) of both ears Hyperglycemia due to type 2 diabetes mellitus Osteoporosis Shoulder pain, left Chest pain CAD (coronary artery disease) Balance problem Hx laparoscopic cholecystectomy (04/15/22) Laparoscopic Cholecystectomy, Repair of umbilical hernia. (Not Applicable) - [place] Henson, Hyperlipidemia Diabetes mellitus with neuropathy Lightheadedness Sleep disturbance Fatigue Asymmetric SNHL (sensorineural hearing loss) S/P TURP (status post transurethral resection of prostate) Joint pain Acid reflux disease (Acute) Cerumen impaction Benign localized hyperplasia of prostate without urinary obstruction (Acute) H/O knee surgery Low back pain Acute dyspnea (Acute) Bilateral shoulder pain Pain in left thigh Cervical arthritis Arthritis (Chronic) Right shoulder pain (Chronic) Tendonitis Cognitive impairment Medical History Injury of ear canal Elevated LFTs Abdominal pain Sensorineural hearing loss (SNHL) of right ear with restricted hearing of left ear Injury of right elbow Acute right flank pain COVID-19 Mixed conductive and sensorineural hearing loss of right ear with restricted hearing of left ear Acute UTI ACS (acute coronary syndrome) Non-ST elevation DE (NSTEMI) Candidiasis of mouth and esophagus Cholecystitis, acute Murmur History of stroke History of skin cancer Gross hematuria History of venous thromboembolism Sepsis Complicated UTI (urinary tract infection) Benign localized prostatic hyperplasia with lower urinary tract symptoms (LUTS) BRIANNA (acute kidney injury) Pulmonary embolism Surgical History History of left cataract extraction (~01/27/21) History of arthroscopy of right knee H/O transurethral resection of prostate Family History Mother Colorectal cancer Pacemaker Brother Stroke Brother Prostate cancer COPD (chronic obstructive pulmonary disease) Coronary heart disease Denies family history of Ovarian cancer Myocardial infarction Breast cancer Social History Smoking Status: Former smoker Tobacco Type: Cigarettes Second Hand Exposure: No; Do You Dip or Chew Tobacco: No; Hx Alcohol Use: No Hx Substance Use: No Preferred Language: [place] Communication Ability: Effective Communication Ability Comment: 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 -PT COMMUNICATES EFFECTIVELY FOR PAT PHONE Visual Impairment: Limited Hearing Ability: Use of Hearing Aid Research Dietitian Required: No Beliefs That Will Affect Care: None marital status: Current Living Situation: Spouse current occupational status: retired current occupation: retired How many Children do You have: 6 other: Wood work Feels Safe at Home: Yes Childhood Exposure to Second-Hand Smoke: No Diet: diabetic caffeine: Yes during the past year weight has: remained stable Dental Care, Regularly: No Physical Activity Frequency: Does not Exercise Seatbelt Use: always Sunscreen Use: No Do you think of yourself as: straight/heterosexual Gender Identity: Male Assistive Devices: Cane, Glasses and Hearing Aid - Left Allergies Allergies Allergy/AdvReac Type Severity Reaction Status Date / Time Sulfa (Sulfonamide Allergy Severe ANAPHYLAXIS Verified 02/24/25 09:50 Antibiotics) MARINE Inhibitors AdvReac Mild cough Verified 02/24/25 09:50 Home Meds Home Medications Medication Instructions Recorded Confirmed acetaminophen 500 mg tablet 1,000 mg PO DIRECTED PRN Pain 02/20/21 04/11/25 (Tylenol Extra Strength) polyethylene glycol 3350 17 17 g PO DAILY PRN Constipation 04/18/23 04/11/25 gram/dose oral powder Previous Rx's Medication Instructions Recorded pen needle, diabetic 31 gauge x #100 ea 05/03/22 5/16" (Sure-Fine Pen Lydia) lancets 30 gauge #100 ea 09/11/23 ergocalciferol (vitamin D2) 1,250 1,250 mcg PO Q7D #12 caps 10/21/23 mcg (50,000 unit) capsule nitroglycerin 0.4 mg sublingual 0.4 mg sublingual Q5M PRN chest 11/19/23 tablet pain #25 tabs valsartan 40 mg tablet 40 mg PO QAM #90 tabs 04/03/24 sertraline 25 mg tablet 25 mg PO QAM #90 tabs 04/29/24 atorvastatin 40 mg tablet 40 mg PO QAM #90 tabs 05/22/24 metformin 500 mg tablet 500 mg PO QPM #90 tabs 05/22/24 metoprolol tartrate 25 mg tablet 12.5 mg (1/2 x 25 mg) PO BID #90 05/22/24 tabs rivaroxaban 20 mg tablet 20 mg PO QDD #30 tabs 07/16/24 tramadol 50 mg tablet 50 - 100 mg (1 - 2 x 50 mg) PO Q6H 08/02/24 PRN pain #15 tabs blood-glucose sensor (Dexcom G7 #3 ea 11/06/24 Sensor device) furosemide 20 mg tablet 20 mg PO DAILY #90 tabs 11/06/24 insulin NPH-regular 70-30 U-100 45 unit (0.45 mL) subcut BID 90 11/06/24 insulin 100 unit/mL subcutaneous days #81 mL pen (Novolin 70-30 FlexPen U-100 Insulin) blood-glucose meter #1 ea 11/11/24 blood sugar diagnostic #100 ea 11/16/24 oxybutynin chloride 15 mg 15 mg PO QDAY #30 tabs 12/14/24 tablet,extended release 24 hr omeprazole 40 mg capsule,delayed 40 mg PO DAILY #90 caps 01/19/25 release levothyroxine 25 mcg tablet 25 mcg PO DAILYBB #90 tabs 03/17/25 Results & Data (ED) Vital Signs Vital Signs - 24 hr 04/10/25 20:10 04/10/25 20:10 04/10/25 20:16 Temperature 36.6 C 36.6 C Temperature Source Oral Oral Pulse Rate 60 63 Pulse Rate [Apical] 60 Respiratory Rate 22 22 Respiratory Effort / Characteristics Non-Labored Spontaneous Non-Labored Spontaneous Respiratory Depth Normal Normal Respiratory Pattern Regular Regular Blood Pressure 156/75 H Blood Pressure [Right Arm] 156/75 H Blood Pressure Mean 102 Blood Pressure Mean [Right Arm] 102 Blood Pressure Position Sitting Blood Pressure Position [Right Arm] Sitting Pulse Oximetry 97 97 Oxygen Delivery Method Room Air Room Air Sepsis Recent Fever Within 48 Hours No Sepsis New/Unexplained Change in Mental Status N/A Sepsis Action Taken by Nursing No Action Required 04/10/25 20:33 04/10/25 21:04 04/10/25 22:00 Temperature 36.7 C Temperature Source Oral Pulse Rate Pulse Rate [Apical] 64 63 60 Respiratory Rate 20 16 14 Respiratory Effort / Characteristics Non-Labored Spontaneous Non-Labored Spontaneous Respiratory Depth Normal Normal Respiratory Pattern Regular Regular Blood Pressure Blood Pressure [Right Arm] 140/71 143/67 H Blood Pressure Mean Blood Pressure Mean [Right Arm] 94 92 Blood Pressure Position Blood Pressure Position [Right Arm] Pulse Oximetry 95 95 Oxygen Delivery Method Room Air Room Air Sepsis Recent Fever Within 48 Hours Sepsis New/Unexplained Change in Mental Status Sepsis Action Taken by Nursing 04/10/25 23:00 04/11/25 00:00 04/11/25 01:00 Temperature 36.6 C 36.6 C Temperature Source Oral Oral Pulse Rate Pulse Rate [Apical] 60 60 57 L Respiratory Rate 14 18 18 Respiratory Effort / Characteristics Non-Labored Spontaneous Non-Labored Spontaneous Non-Labored Spontaneous Respiratory Depth Normal Normal Normal Respiratory Pattern Regular Regular Regular Blood Pressure Blood Pressure [Right Arm] 130/67 143/72 H 142/65 H Blood Pressure Mean Blood Pressure Mean [Right Arm] 88 95 90 Blood Pressure Position Blood Pressure Position [Right Arm] Pulse Oximetry 94 97 94 Oxygen Delivery Method Room Air Room Air Room Air Sepsis Recent Fever Within 48 Hours Sepsis New/Unexplained Change in Mental Status Sepsis Action Taken by Nursing Laboratory Data 04/10/25 20:27 04/10/25 20:27 Lab Results 04/10/25 04/10/25 Range/Units 20:27 20:35 WBC 7.13 (4.8-10.8) K/ul RBC 5.33 (4.70-6.10) M/uL Hgb 15.4 (14.0-18.0) g/dl POC Hgb 15.0 (14.0-18.0) g/dl Hct 47.3 (42.0-52.0) % POC Hct 44 (42-52) % MCV 88.7 (80.0-100.0) fL MCH 28.9 (25.0-34.0) pg MCHC 32.6 (32.0-36.0) g/dL RDW Std Deviation 45.0 (36.4-46.3) fL RDW Coeff of Rich 14.0 (11.5-14.5) % Plt Count 236 (130-400) K/uL MPV 9.9 (9.4-12.4) fL Immature Gran % (Auto) 0.7 % Neut % (Auto) 69.6 % Lymph % (Auto) 20.1 % [place] % (Auto) 7.2 % Eos % (Auto) 2.0 % Baso % (Auto) 0.4 % Neut # (Auto) 4.97 (1.40-6.50) K/uL Lymph # (Auto) 1.43 (1.20-3.40) K/uL [place] # (Auto) 0.51 (0.11-0.59) K/uL Eos # (Auto) 0.14 (0.00-0.50) K/uL Baso # (Auto) 0.03 (0.00-0.20) K/uL Immature Gran # (Auto) 0.05 (0.01-0.20) K/uL POC Sodium 136 (135-144) mmol/L Sodium 135 L (136-145) mmol/L POC Potassium 4.2 (3.3-5.0) mmol/L Potassium 4.3 (3.5-5.1) mmol/L POC Chloride 100 L (101-112) mmol/L Chloride 100 (98-107) mmol/L Carbon Dioxide 26 (21-32) mmol/L POC Total CO2 23 L (24-31) mmol/L Anion Gap 9 (3-11) POC Anion Gap 18.0 (16-25) mmol/L POC BUN 22 H (7-18) mg/dl BUN 21 (6-23) mg/dl Creatinine 1.54 H (0.6-1.4) mg/dl POC Creatinine 1.5 H (0.6-1.3) mg/dl Est Cr Clr Drug Dosing 47.3 ml/min eGFR 43.93 BUN/Creatinine Ratio 13.6 (10-20) Glucose 255 H (70-99(Fasting)) mg/dl POC Glucose (other) 255 H (70-99) mg/dl Calcium 9.4 (8.6-10.3) mg/dl POC Ioniz Calcium Jonathan 1.07 L (1.12-1.32) mmol/l Administered Medications Sodium Chloride (Nss) 1,000 mls @ 80 mls/hr IV .[id number] STA Stop: 04/11/25 13:18 Last Admin: 04/11/25 00:50 Dose: 80 mls/hr Documented By: HOMAR Discontinued Medications Acetaminophen (Ofirmev) 1,000 mg in 100 mls @ 400 mls/hr IV NOW STA Stop: 04/10/25 22:28 Last Infusion: 04/10/25 22:48 Dose: Infused Documented By: Admin: 04/10/25 22:32 Dose: 400 mls/hr Documented By: MADDISON Ioversol (Optiray 320 100ml) 90 ml IV ONCE ONE Stop: 04/10/25 20:51 Last Admin: 04/10/25 20:50 Dose: 90 ml Documented By: AJAY Lidocaine (Lidocaine 5% 1 Patch) 1 patch TD NOW STA Stop: 04/10/25 23:57 Last Admin: 04/11/25 00:47 Dose: 1 patch Documented By: HOMAR Imaging Data Radiologist's Impression: Cervical Spine CT 04/10/25 20:24 Exam(s): CT C SPINE EXAM: CT Cervical Spine Without Intravenous Contrast CLINICAL HISTORY: Reason for exam: fall, head trauma. TECHNIQUE: Axial computed tomography images of the cervical spine without intravenous contrast. CTDI is 64.54 mGy and DLP is 1098.96 mGy-cm. Automated exposure control was utilized for the study. A dose lowering technique was utilized adhering to the principles of ALARA. COMPARISON: 11/07/2023 FINDINGS: Vertebrae: Osteopenia. No acute fracture or subluxation. Discs/spinal canal/neural foramina: Disc degeneration, greatest at C5-C6 and C6-C7. Degeneration of the atlantodental joint. [id number]- left facet joint degeneration. Mid and lower cervical uncovertebral joint degeneration. No significant central canal stenosis. Varying degrees of foraminal narrowing, greatest on the left at C5-C6 and C6-C7. Soft tissues: Unremarkable. Vasculature: Carotid calcifications. IMPRESSION: No acute findings in the cervical spine. Electronically signed by: Larry Rosado M.D. 04/10/25 22:[address] 04/10/25 20:24 Exam(s): CT CHEST With Contrast IV Amt: 90 ml optiray 320 EXAM: CT Chest With Intravenous Contrast CLINICAL HISTORY: Reason for exam: fall, R rib pain, rib fx?. TECHNIQUE: Axial computed tomography images of the chest with intravenous contrast. CTDI is 64.54 mGy and DLP is 1098.96 mGy-cm. Automated exposure control was utilized for the study. A dose lowering technique was utilized adhering to the principles of ALARA. CONTRAST: Patient received 90 ml optiray 320 of IV contrast COMPARISON: 11/07/2023 FINDINGS: Lungs: No consolidation, contusion, or mass. Patchy subsegmental atelectasis and linear scarring. Pleural space: No significant effusion. No pneumothorax. Heart: Coronary artery atherosclerosis. No cardiomegaly or pericardial effusion. Mediastinum: Unremarkable. No mediastinal hematoma. Bones/joints: Osteopenia. No acute fracture or dislocation. Osteopenia and thoracic kyphosis. No acute fracture. No dislocation. Soft tissues: Stable 2.4 cm subcutaneous nodule left upper chest wall (series 11, image 46), presumed benign. Vasculature: No aortic aneurysm or dissection. Normal caliber main pulmonary artery. Lymph nodes: No adenopathy. Gallbladder and bile ducts: Cholecystectomy. IMPRESSION: No acute findings in the chest. Electronically signed by: Larry Rosado M.D. 04/10/25 22:[address] 04/10/25 20:24 Exam(s): CT HEAD Without Contrast EXAM: CT Head Without Intravenous Contrast CLINICAL HISTORY: Reason for exam: fall, thinners. TECHNIQUE: Axial computed tomography images of the head/brain without intravenous contrast. CTDI is 64.54 mGy and DLP is 1098.96 mGy-cm. Automated exposure control was utilized for the study. A dose lowering technique was utilized adhering to the principles of ALARA. COMPARISON: 11/07/2023 FINDINGS: Brain: Age-related parenchymal volume loss. Mild chronic small vessel ischemic change. Salas-white matter differentiation maintained. No hemorrhage, mass effect, parenchymal edema, or midline shift. Ventricles: No hydrocephalus. Bones/joints: No acute fracture. Soft tissues: Unremarkable. Vasculature: Intracranial atherosclerosis. Sinuses: Unremarkable as visualized. Mastoid air cells: No significant mastoid effusion. Orbits: Lens replacements. IMPRESSION: No acute intracranial process. Electronically signed by: Larry Rosado M.D. 04/10/25 22:21 PM Discharge Plan Visit Data Chief Complaint: Fall Stated Complaint: GLF, RIB PAIN, HIT HEAD, BLOOD THINNERS ED Provider: Corina Angel Discharge Problem: Fall, Rib pain on right side, Closed head injury Patient Disposition: Home - Self-Care Condition: Good Discharge Instructions Krames/Other Patient Handouts: ED Head Injury (Adult), ED Rib Contusion or Minor Fracture Activity Restrictions/Additional Instructions: You were seen for your fall. At this time your CT imaging reveals no signs of traumatic injury in the head, chest or neck. Please, if any new, worsening symptoms such as worsening falls, confusion, severe headache. Please use pain control: Tylenol or Advil for pain relief. Follow your primary care doctor for reevaluation. Pain/Fever: You can take Tylenol (acetaminophen) or Motrin/Advil (Ibuprofen) as needed for pain/fever. Take up to 1000 mg of Tylenol (acetaminophen) every 6-8 hours. Never exceed 3000 mg (3g) of Tylenol (acetaminophen) Daily. Take 800 mg of Motrin/Advil (Ibuprofen) every 6 hours as needed. Never exceed 3200 mg of Motrin/Advil (Ibuprofen) daily. Take these medications with food to prevent stomach irritation. Forms Stand Alone Forms: [facility], Important Visit Information Prescriptions Prescriptions: No Action (DME) pen needle, diabetic [Sure-Fine Pen Lydia] 31 gauge x 5/16" needle See Rx Instructions .Route Qty: 100 3RF Rx Instructions: use to take insulin once daily ergocalciferol (vitamin D2) 1,250 mcg (50,000 unit) capsule 1,250 mcg PO Q7D Qty: 12 0RF Rx Instructions: 1 tab po weekly for 12 weeks. Complete blood work after finishing prescription...saturday nitroglycerin 0.4 mg tablet, sublingual 0.4 mg sublingual Q5M PRN (Reason: chest pain) Qty: 25 2RF Rx Instructions: do not exceed 3 doses per episode valsartan 40 mg tablet 40 mg PO QAM Qty: 90 3RF sertraline 25 mg tablet 25 mg PO QAM Qty: 90 3RF metoprolol tartrate 25 mg tablet 12.5 mg PO BID Qty: 90 3RF atorvastatin 40 mg tablet 40 mg PO QAM Qty: 90 3RF Hold Instructions: UNTIL LIVER FUNCTION IMPROVES-PCP TO DECIDE WHEN TO RESUME metformin 500 mg tablet 500 mg PO QPM Qty: 90 3RF Rx Instructions: take with evening meal only furosemide 20 mg tablet 20 mg PO DAILY Qty: 90 3RF (DME) blood-glucose meter Kit See Dose Instructions .ROUTE .MEDSUPPLY Qty: 1 0RF Rx Instructions: TEST ONCE DAILY. E11.9 (DME) blood sugar diagnostic Strip See Dose Instructions .ROUTE .MEDSUPPLY Qty: 100 11RF Rx Instructions: TEST ONCE DAILY levothyroxine 25 mcg tablet 25 mcg PO DAILYBB Qty: 90 3RF (DME) lancets 30 gauge misc See Rx Instructions .Route Qty: 100 3RF Rx Instructions: Test once daily and as needed polyethylene glycol 3350 17 gram/dose powder 17 g PO DAILY PRN (Reason: Constipation) omeprazole 40 mg capsule,delayed release(DR/EC) 40 mg PO DAILY Qty: 90 3RF rivaroxaban 20 mg tablet 20 mg PO QDD Qty: 30 11RF Rx Instructions: must administer with evening meal Novolin 70-30 FlexPen U-100 100 unit/mL (70-30) insulin pen 45 unit subcut BID 90 Days Qty: 81 3RF Rx Instructions: Take before breakfast and dinner (DME) Dexcom G7 Sensor Device See Rx Instructions .Route Qty: 3 5RF Rx Instructions: As directed. 1 month supply oxybutynin chloride 15 mg tablet extended release 24hr 15 mg PO QDAY Qty: 30 11RF acetaminophen [Tylenol Extra Strength] 500 mg Tablet 1,000 mg PO DIRECTED PRN (Reason: Pain) tramadol 50 mg tablet 50 - 100 mg PO Q6H MDD 5 tabs per day PRN (Reason: pain) Qty: 15 0RF Rx Instructions: Initial Treatment Referrals Referrals: Forest Warner DO [Physician] - Discharge Problem: Fall Qualifiers: Encounter type: initial encounter Qualified Code(s): W19.XXXA - Unspecified fall, initial encounter
[2025-04-10] MEDS: OPTIRAY 320 100ml IV ONE (20:50)
[2025-04-10 21:06] LABS: Anion Gap 9.0 (3-11); Blood Urea Nitrogen 21.0 mg/dl (6-23); Calcium 9.4 mg/dl (8.6-10.3); Carbon Dioxide 26.0 mmol/L (21-32); Chloride 100.0 mmol/L (98-107); Creatinine Clr Calc Pharmacy 47.3 ml/min; Glucose 255.0 mg/dl (70-99(Fasting)); Potassium 4.3 mmol/L (3.5-5.1); Sodium 135.0 mmol/L (136-145)
--- NOTE | 2025-04-10 22:19 | CT Scan Report ---
Exam(s): CT C SPINE EXAM: CT Cervical Spine Without Intravenous Contrast CLINICAL HISTORY: Reason for exam: fall, head trauma. TECHNIQUE: Axial computed tomography images of the cervical spine without intravenous contrast. CTDI is 64.54 mGy and DLP is 1098.96 mGy-cm. Automated exposure control was utilized for the study. A dose lowering technique was utilized adhering to the principles of ALARA. COMPARISON: 11/07/2023 FINDINGS: Vertebrae: Osteopenia. No acute fracture or subluxation. Discs/spinal canal/neural foramina: Disc degeneration, greatest at C5-C6 and C6-C7. Degeneration of the atlantodental joint. [id number]-betr- left facet joint degeneration. Mid and lower cervical uncovertebral joint degeneration. No significant central canal stenosis. Varying degrees of foraminal narrowing, greatest on the left at C5-C6 and C6-C7. Soft tissues: Unremarkable. Vasculature: Carotid calcifications. IMPRESSION: No acute findings in the cervical spine. Electronically signed by: Larry Rosado M.D. 04/10/25 22:18 PM
--- NOTE | 2025-04-10 22:22 | CT Scan Report ---
Exam(s): CT CHEST With Contrast IV Amt: 90 ml optiray 320 EXAM: CT Chest With Intravenous Contrast CLINICAL HISTORY: Reason for exam: fall, R rib pain, rib fx?. TECHNIQUE: Axial computed tomography images of the chest with intravenous contrast. CTDI is 64.54 mGy and DLP is 1098.96 mGy-cm. Automated exposure control was utilized for the study. A dose lowering technique was utilized adhering to the principles of ALARA. CONTRAST: Patient received 90 ml optiray 320 of IV contrast COMPARISON: 11/07/2023 FINDINGS: Lungs: No consolidation, contusion, or mass. Patchy subsegmental atelectasis and linear scarring. Pleural space: No significant effusion. No pneumothorax. Heart: Coronary artery atherosclerosis. No cardiomegaly or pericardial effusion. Mediastinum: Unremarkable. No mediastinal hematoma. Bones/joints: Osteopenia. No acute fracture or dislocation. Osteopenia and thoracic kyphosis. No acute fracture. No dislocation. Soft tissues: Stable 2.4 cm subcutaneous nodule left upper chest wall (series 11, image 46), presumed benign. Vasculature: No aortic aneurysm or dissection. Normal caliber main pulmonary artery. Lymph nodes: No adenopathy. Gallbladder and bile ducts: Cholecystectomy. IMPRESSION: No acute findings in the chest. Electronically signed by: Larry Rosado M.D. 04/10/25 22:21 PM
--- NOTE | 2025-04-10 22:23 | CT Scan Report ---
Exam(s): CT HEAD Without Contrast EXAM: CT Head Without Intravenous Contrast CLINICAL HISTORY: Reason for exam: fall, thinners. TECHNIQUE: Axial computed tomography images of the head/brain without intravenous contrast. CTDI is 64.54 mGy and DLP is 1098.96 mGy-cm. Automated exposure control was utilized for the study. A dose lowering technique was utilized adhering to the principles of ALARA. COMPARISON: 11/07/2023 FINDINGS: Brain: Age-related parenchymal volume loss. Mild chronic small vessel ischemic change. Salsa-white matter differentiation maintained. No hemorrhage, mass effect, parenchymal edema, or midline shift. Ventricles: No hydrocephalus. Bones/joints: No acute fracture. Soft tissues: Unremarkable. Vasculature: Intracranial atherosclerosis. Sinuses: Unremarkable as visualized. Mastoid air cells: No significant mastoid effusion. Orbits: Lens replacements. IMPRESSION: No acute intracranial process. Electronically signed by: Larry Rosado M.D. 04/10/25 22:21 PM
[2025-04-10] MEDS: ACETAMINOPHEN 1,000 MG/100 ML VIAL IV STA (22:32)
[2025-04-11 00:39] LABS: Hematocrit (blood only) 47.3 % (42.0-52.0); Hemoglobin 15.4 g/dl (14.0-18.0); Immature Granulocytes # (auto) 0.05 K/uL (0.01-0.20); Immature Granulocytes % (auto) 0.7 %; Mean Corpuscular Hemoglobin 28.9 pg (25.0-34.0); Mean Corpuscular Volume 88.7 fL (80.0-100.0); Platelet Count 236 K/uL (130-400); RDW Standard Deviation 45.0 fL (36.4-46.3); Red Blood Count 5.33 M/uL (4.70-6.10); White Blood Count 7.13 K/ul (4.8-10.8)
[2025-04-11] MEDS: LIDOCAINE 5% 1 PATCH TD STA (00:47)
[2025-04-11] MEDS: SODIUM CHLORIDE 0.9% 1,000 ML IV STA (00:50)
--- NOTE | 2025-04-11 00:51 | History & Physical Report ---
Date of Service April 11, 2025 Assessment & Plan (1) Confusion: (2) BRIANNA (acute kidney injury): (3) Rib pain on right side: (4) Fall: (5) Hyperglycemia due to type 2 diabetes mellitus: (6) BPH (benign prostatic hypertrophy) with urinary obstruction: (7) Balance problem: Plan The patient is an 85-year-old male with a past medical history including urinary incontinence, SNHL bilaterally, diabetes mellitus type 2, osteoporosis, coronary disease, imbalance, hyperlipidemia, diabetic polyneuropathy, sleep disturbance, status post TURP, BPH with LUTS, arthritis and cognitive impairment. The patient presents to the emergency department after a fall that took place at [facility] earlier in the day today. He has had decreased oral intake, in particular to liquids, as he does not want him to get up and go to the bathroom to urinate. Family notes that he is more confused than usual, and has had more issues with walking with his walker. He is referred to the [facility] service for further assessment. Family understands that he will likely need PT/OT assessment and at least in the interim referred to an inpatient rehab facility. Their goal is ultimately for him to return to [facility]. Confusion- Likely multifactorial including BRIANNA associated with dehydration, hyperglycemia, progression of underlying dementia, progressive BPH with LUTS Acute kidney injury/dehydration- Creatinine 1.54 on admission, base 1.29 Placed on NSS at 80 mL/h x 1 L repeat laboratories in the a.m. Symptoms are in large part because patient does not want to get up to urinate in the bathroom. BPH with LUTS/urinary incontinence/bladder spasm- Has been on oxybutynin 15 mg daily Would add tamsulosin 0.4 mg p.o. now and at bedtime Has been seen by Dr. Oneill urology in the past Status post fall- Multifactorial including peripheral neuropathy, generalized weakness, hyperglycemia Consult PT/OT Patient will likely need inpatient rehab clinical services assistant to help patient's family determine whether he is beyond the scope of care the [facility] can provide Diabetes mellitus- Change 70-30 to Lantus 20 units SQ twice daily with NovoLog SSI Hold metformin hold furosemide Right rib cage pain- Continue Lidoderm patch every morning Acetaminophen every 6 hours as needed mild pain or fever Continue tramadol 50 mg p.o. every 6 hours as needed moderate pain History of pulmonary embolism- Continue Xarelto History of Present Illness Chief Complaint: The patient presents to the emergency department after a fall at [facility] where he presently lives, and sustained right sided rib cage pain, and has been unable to take care of himself. His family reports that he has been more confused and fatigued. He refuses to drink much in the way of liquids, as he then has to go to the bathroom and does not want have to get up and do that. Primary Care Provider: [facility] The patient is an 85-year-old male with a past medical history including urinary incontinence, SNHL bilaterally, diabetes mellitus type 2, osteoporosis, coronary disease, imbalance, hyperlipidemia, diabetic polyneuropathy, sleep disturbance, status post TURP, BPH with LUTS, arthritis and cognitive impairment. The patient presents to the emergency department after a fall that took place at [facility] earlier in the day today. He has had decreased oral intake, in particular to liquids, as he does not want him to get up and go to the bathroom to urinate. Family notes that he is more confused than usual, and has had more issues with walking with his walker. He is referred to the [facility] for further assessment. Family understands that he will likely need PT/OT assessment and at least in the interim referred to an inpatient rehab facility. Their goal is ultimately for him to return to [facility]. Allergies Allergy/AdvReac Type Severity Reaction Status Date / Time Sulfa (Sulfonamide Allergy Severe ANAPHYLAXIS Verified 02/24/25 09:50 Antibiotics) MARINE Inhibitors AdvReac Mild cough Verified 02/24/25 09:50 Home Medications Medication Instructions Recorded Confirmed Type acetaminophen 500 mg tablet 1,000 mg PO DIRECTED PRN Pain 02/20/21 04/11/25 History (Tylenol Extra Strength) pen needle, diabetic 31 gauge x #100 ea 05/03/22 02/24/25 Rx 5/16" (Sure-Fine Pen [place]) polyethylene glycol 3350 17 17 g PO DAILY PRN Constipation 04/18/23 04/11/25 History gram/dose oral powder lancets 30 gauge #100 ea 09/11/23 02/24/25 Rx ergocalciferol (vitamin D2) 1,250 1,250 mcg PO Q7D #12 caps 10/21/23 04/11/25 Rx mcg (50,000 unit) capsule nitroglycerin 0.4 mg sublingual 0.4 mg sublingual Q5M PRN chest 11/19/23 04/10/25 Rx tablet pain #25 tabs valsartan 40 mg tablet 40 mg PO QAM #90 tabs 04/03/24 04/11/25 Rx sertraline 25 mg tablet 25 mg PO QAM #90 tabs 04/29/24 04/11/25 Rx atorvastatin 40 mg tablet 40 mg PO QAM #90 tabs 05/22/24 04/11/25 Rx metformin 500 mg tablet 500 mg PO QPM #90 tabs 05/22/24 04/11/25 Rx metoprolol tartrate 25 mg tablet 12.5 mg (1/2 x 25 mg) PO BID #90 05/22/24 04/11/25 Rx tabs rivaroxaban 20 mg tablet 20 mg PO QDD #30 tabs 07/16/24 04/11/25 Rx tramadol 50 mg tablet 50 - 100 mg (1 - 2 x 50 mg) PO Q6H 08/02/24 04/10/25 Rx PRN pain #15 tabs blood-glucose sensor (Dexcom G7 #3 ea 11/06/24 02/24/25 Rx Sensor device) furosemide 20 mg tablet 20 mg PO DAILY #90 tabs 11/06/24 04/11/25 Rx insulin NPH-regular 70-30 U-100 45 unit (0.45 mL) subcut BID 90 11/06/24 04/11/25 Rx insulin 100 unit/mL subcutaneous days #81 mL pen (Novolin 70-30 FlexPen U-100 Insulin) blood-glucose meter #1 ea 11/11/24 02/24/25 Rx blood sugar diagnostic #100 ea 11/16/24 02/24/25 Rx oxybutynin chloride 15 mg 15 mg PO QDAY #30 tabs 12/14/24 04/10/25 Rx tablet,extended release 24 hr omeprazole 40 mg capsule,delayed 40 mg PO DAILY #90 caps 01/19/25 04/10/25 Rx release levothyroxine 25 mcg tablet 25 mcg PO DAILYBB #90 tabs 03/17/25 04/10/25 Rx Past Med/Surg History Problem List (Updated 04/11/25 @ 01:15 by Jimmie Méndez MD) Confusion Closed head injury (Acute) Rib pain on right side (Acute) Fall (Acute) Incontinence Dyspnea on exertion Cold feet Laceration of left forearm Sensorineural hearing loss (SNHL) of both ears Hyperglycemia due to type 2 diabetes mellitus Osteoporosis Shoulder pain, left Chest pain CAD (coronary artery disease) Balance problem Hx laparoscopic cholecystectomy (04/15/22) Laparoscopic Cholecystectomy, Repair of umbilical hernia. (Not Applicable) - [place], Hyperlipidemia Diabetes mellitus with neuropathy Lightheadedness Sleep disturbance Fatigue Asymmetric SNHL (sensorineural hearing loss) S/P TURP (status post transurethral resection of prostate) Joint pain Acid reflux disease (Acute) Cerumen impaction Benign localized hyperplasia of prostate without urinary obstruction (Acute) H/O knee surgery Low back pain Acute dyspnea (Acute) Bilateral shoulder pain Pain in left thigh Cervical arthritis Arthritis (Chronic) Right shoulder pain (Chronic) Tendonitis Cognitive impairment Medical History Injury of ear canal Elevated LFTs Abdominal pain Sensorineural hearing loss (SNHL) of right ear with restricted hearing of left ear Injury of right elbow Acute right flank pain COVID-19 Mixed conductive and sensorineural hearing loss of right ear with restricted hearing of left ear Acute UTI ACS (acute coronary syndrome) Non-ST elevation DE (NSTEMI) Candidiasis of mouth and esophagus Cholecystitis, acute Murmur History of stroke History of skin cancer Gross hematuria History of venous thromboembolism Sepsis Complicated UTI (urinary tract infection) Benign localized prostatic hyperplasia with lower urinary tract symptoms (LUTS) BRIANNA (acute kidney injury) Pulmonary embolism Surgical History History of left cataract extraction (~09/28/20) History of arthroscopy of right knee H/O transurethral resection of prostate Family History Mother Colorectal cancer Pacemaker Brother Stroke Brother Prostate cancer COPD (chronic obstructive pulmonary disease) Coronary heart disease Denies family history of Ovarian cancer Myocardial infarction Breast cancer Social History Smoking Status: Former smoker Tobacco Type: Cigarettes Second Hand Exposure: No; Do You Dip or Chew Tobacco: No; Hx Alcohol Use: No Hx Substance Use: No Preferred Language: Turkish Communication Ability: Effective Communication Ability Comment: PT [facility] - HELPS SOME D/T [facility] -PT COMMUNICATES EFFECTIVELY FOR PAT PHONE Visual Impairment: Limited Hearing Ability: Use of Hearing Aid 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: No Beliefs That Will Affect Care: None marital status: Current Living Situation: Spouse current occupational status: retired current occupation: retired How many Children do You have: 6 other: Wood work Feels Safe at Home: Yes Childhood Exposure to Second-Hand Smoke: No Diet: diabetic caffeine: Yes during the past year weight has: remained stable Dental Care, Regularly: No Physical Activity Frequency: Does not Exercise Seatbelt Use: always Sunscreen Use: No Do you think of yourself as: straight/heterosexual Gender Identity: Male Assistive Devices: Cane, Glasses and Hearing Aid - Left Review of Systems Review of Systems: The patient denies chest pain, palpitations, shortness of breath, dyspnea on exertion, cough, lower extremity swelling, sore throat, fevers, chills, sweats, nausea, vomiting, diarrhea , constipation, abdominal pain, pelvic pain, blood in urine or stool, dysuria, urinary frequency or urgency, lightheadedness, dizziness, headache, loss of consciousness, rash, abnormal bruising or bleeding, focal weakness, numbness or tingling in arms or legs, generalized arthralgias or myalgias, back or neck pain, or night sweats. The review of systems is otherwise negative other than for that already noted above, and at least 10 systems have been reviewed. Physical Exam Physical Exam: The patient is awake, responsive to questions, but mildly confused, normocephalic and atraumatic, lying in bed and in no acute distress. HEENT--PERRL, EOMI, mucous membranes and oropharynx mildly dry. Neck--supple. No JVD. No bruits. Thyroid normal, trachea midline, no adenopathy. Heart--normal S1 and S2. No murmurs, rubs or gallops. Lungs--clear bilaterally, no respiratory distress, no accessory muscle use. Abdomen--normal bowel sounds and soft. Nontender. Nondistended Extremities--no cyanosis or clubbing. No edema. There are good distal pulses b/l. Dermatologic--normal skin turgor, normal color, no abnormal lymph nodes, no rash. Neurologic--cranial nerves II through XII grossly intact. Rheumatologic--normal range of motion. Psychiatric--normal affect. Results & Data Results & Data Vital Signs (Past 12 Hours) Vital Signs Temp Pulse Pulse Resp BP BP Pulse Ox 04/11/25 00:00 36.6 C 60 18 143/72 H 97 04/10/25 23:00 36.6 C 60 14 130/67 94 04/10/25 22:00 60 14 143/67 H 95 04/10/25 21:04 36.7 C 63 16 140/71 95 04/10/25 20:33 64 20 04/10/25 20:16 63 04/10/25 20:10 36.6 C 60 22 156/75 H 97 04/10/25 20:10 36.6 C 60 22 156/75 H 97 O2 Del Method 04/11/25 00:00 Room Air 04/10/25 23:00 Room Air 04/10/25 22:00 Room Air 04/10/25 21:04 Room Air 04/10/25 20:33 04/10/25 20:16 04/10/25 20:10 Room Air 04/10/25 20:10 Room Air Laboratory Results Laboratory Results WBC 7.13 K/ul (4.8-10.8) 04/10/25 20: RBC 5.33 M/uL (4.70-6.10) 04/10/25 20:27 Hgb 15.4 g/dl (14.0-18.0) 04/10/25 20: POC Hgb 15.0 g/dl (14.0-18.0) 04/10/25 20:35 Hct 47.3 % (42.0-52.0) 04/10/25 20: POC Hct 44 % (42-52) 04/10/25 20:35 MCV 88.7 fL (80.0-100.0) 04/10/25 20: MCH 28.9 pg (25.0-34.0) 04/10/25 20: MCHC 32.6 g/dL (32.0-36.0) 04/10/25 20: RDW Std Deviation 45.0 fL (36.4-46.3) 04/10/25: RDW Coeff of Rich 14.0 % (11.5-14.5) 04/10/25 Plt Count 236 K/uL (130-400) 04/10/25 20: MPV 9.9 fL (9.4-12.4) 04/10/25: Immature Gran % (Auto) 0.7 % 04/10/25: Neut % (Auto) 69.6 % 04/10/25: Lymph % (Auto) 20.1 % 04/10/25: Bradley % (Auto) 7.2 % 04/10/25: Eos % (Auto) 2.0 % 04/10/25: Baso % (Auto) 0.4 % 04/10/25 Neut # (Auto) 4.97 K/uL (1.40-6.50) 04/10/25: Lymph # (Auto) 1.43 K/uL (1.20-3.40) 04/10/25: Bradley # (Auto) 0.51 K/uL (0.11-0.59) 04/10/25: Eos # (Auto) 0.14 K/uL (0.00-0.50) 04/10/25: Baso # (Auto) 0.03 K/uL (0.00-0.20) 04/10/25: Immature Gran # (Auto) 0.05 K/uL (0.01-0.20) 04/10/25 20: POC Sodium 136 mmol/L (135-144) 04/10/25 20: Sodium 135 mmol/L (136-145) L 04/10/25: POC Potassium 4.2 mmol/L (3.3-5.0) 04/10/25 20: Potassium 4.3 mmol/L (3.5-5.1) 04/10/25 20: POC Chloride 100 mmol/L (101-112) L 04/10/25 20: Chloride 100 mmol/L (98-107) 04/10/25: Carbon Dioxide 26 mmol/L (21-32) 04/10/25 20:27 POC Total CO2 23 mmol/L (24-31) L 04/10/25 20:35 Anion Gap 9 (3-11) 04/10/25 20: POC Anion Gap 18.0 mmol/L (16-25) 04/10/25 20:35 POC BUN 22 mg/dl (7-18) H 04/10/25 20:35 BUN 21 mg/dl (6-23) 04/10/25 20:27 Creatinine 1.54 mg/dl (0.6-1.4) H 04/10/25 20: POC Creatinine 1.5 mg/dl (0.6-1.3) H 04/10/25 20:35 Est Cr Clr Drug Dosing 47.3 ml/min 04/10/25 20: eGFR 43.93 04/10/25 20: BUN/Creatinine Ratio 13.6 (10-20) 04/10/25 20:27 Glucose 255 mg/dl (70-99(Fasting)) H 04/10/25 20: POC Glucose (other) 255 mg/dl (70-99) H 04/10/25 20:35 Calcium 9.4 mg/dl (8.6-10.3) 04/10/25 20: POC Ioniz Calcium Jonathan 1.07 mmol/l (1.12-1.32) L 04/10/25 20:[address] 04/10/25 20:24 Exam(s): CT C SPINE EXAM: CT Cervical Spine Without Intravenous Contrast CLINICAL HISTORY: Reason for exam: fall, head trauma. TECHNIQUE: Axial computed tomography images of the cervical spine without intravenous contrast. CTDI is 64.54 mGy and DLP is 1098.96 mGy-cm. Automated exposure control was utilized for the study. A dose lowering technique was utilized adhering to the principles of ALARA. COMPARISON: 11/07/2023 FINDINGS: Vertebrae: Osteopenia. No acute fracture or subluxation. Discs/spinal canal/neural foramina: Disc degeneration, greatest at C5-C6 and C6-C7. Degeneration of the atlantodental joint. [id number]-[id number]-[id number]- left facet joint degeneration. Mid and lower cervical uncovertebral joint degeneration. No significant central canal stenosis. Varying degrees of foraminal narrowing, greatest on the left at C5-C6 and C6-C7. Soft tissues: Unremarkable. Vasculature: Carotid calcifications. IMPRESSION: No acute findings in the cervical spine. Electronically signed by: Larry Rosado M.D. 04/10/25 22:[address] 04/10/25 20:24 Exam(s): CT CHEST With Contrast IV Amt: 90 ml optiray 320 EXAM: CT Chest With Intravenous Contrast CLINICAL HISTORY: Reason for exam: fall, R rib pain, rib fx?. TECHNIQUE: Axial computed tomography images of the chest with intravenous contrast. CTDI is 64.54 mGy and DLP is 1098.96 mGy-cm. Automated exposure control was utilized for the study. A dose lowering technique was utilized adhering to the principles of ALARA. CONTRAST: Patient received 90 ml optiray 320 of IV contrast COMPARISON: 11/07/2023 FINDINGS: Lungs: No consolidation, contusion, or mass. Patchy subsegmental atelectasis and linear scarring. Pleural space: No significant effusion. No pneumothorax. Heart: Coronary artery atherosclerosis. No cardiomegaly or pericardial effusion. Mediastinum: Unremarkable. No mediastinal hematoma. Bones/joints: Osteopenia. No acute fracture or dislocation. Osteopenia and thoracic kyphosis. No acute fracture. No dislocation. Soft tissues: Stable 2.4 cm subcutaneous nodule left upper chest wall (series 11, image 46), presumed benign. Vasculature: No aortic aneurysm or dissection. Normal caliber main pulmonary artery. Lymph nodes: No adenopathy. Gallbladder and bile ducts: Cholecystectomy. IMPRESSION: No acute findings in the chest. Electronically signed by: Larry Rosado M.D. 04/10/25 22:[address] 04/10/25 20:24 Exam(s): CT HEAD Without Contrast EXAM: CT Head Without Intravenous Contrast CLINICAL HISTORY: Reason for exam: fall, thinners. TECHNIQUE: Axial computed tomography images of the head/brain without intravenous contrast. CTDI is 64.54 mGy and DLP is 1098.96 mGy-cm. Automated exposure control was utilized for the study. A dose lowering technique was utilized adhering to the principles of ALARA. COMPARISON: 11/07/2023 FINDINGS: Brain: Age-related parenchymal volume loss. Mild chronic small vessel ischemic change. Salas-white matter differentiation maintained. No hemorrhage, mass effect, parenchymal edema, or midline shift. Ventricles: No hydrocephalus. Bones/joints: No acute fracture. Soft tissues: Unremarkable. Vasculature: Intracranial atherosclerosis. Sinuses: Unremarkable as visualized. Mastoid air cells: No significant mastoid effusion. Orbits: Lens replacements. IMPRESSION: No acute intracranial process. Electronically signed by: Larry Rosado M.D. 04/10/25 22:21 PM Code Status & VTE Plan Code Status DNR/DNI VTE Prophylaxis Plan VTE Prophylaxis will be ordered: Yes PG Care Time/CCT Total # of Minutes Spent Total Time Spent with Patient: Total time spent is greater than 50% in coordination of care (as documented) at patient's floor/unit and/or counseling patient: Coding Level of Care Code 23351 INT INP/OBS CARE 3/75MIN Diagnoses Confusion R41.0 BRIANNA (acute kidney injury) N17.9 Rib pain on right side R07.81 Fall W19.XXXA Encounter type: initial encounter Hyperglycemia due to type 2 diabetes mellitus E11.65 BPH (benign prostatic hypertrophy) with urinary obstruction N40.1; N13.8 Balance problem R26.89 (4) Fall Encounter type: initial encounter Qualified Code(s): W19.XXXA - Unspecified fall, initial encounter
[2025-04-11] MEDS: TAMSULOSIN HCL 0.4 MG CAP PO STA (01:40)
[2025-04-11] MEDS ORDERED: POLYETHYLENE (MIRALAX) 17 GM PACK PO PRN (04:38)
[2025-04-11] MEDS ORDERED: NITROGLYCERIN SL 0.4 MG/TAB TAB SL PRN (04:38)
[2025-04-11] MEDS ORDERED: DEXTROSE 50% 50 ML SYRINGE IV PRN ×2 (04:38→07:32)
[2025-04-11] MEDS ORDERED: GLUCOSE 10 TAB/TUBE PO PRN ×2 (04:38→07:32)
[2025-04-11] MEDS ORDERED: GLUCAGON FOR INJ 1 MG VIAL SQ PRN ×2 (04:38→07:32)
[2025-04-11] MEDS ORDERED: ONDANSETRON INJ 2 MG/ML 2 ML VIAL IV PRN (04:38)
[2025-04-11] MEDS ORDERED: GLUCOSE 40% GEL 15 GM TUBE PO PRN ×2 (04:38→07:32)
[2025-04-11] MEDS ORDERED: CARBOHYDRATES FOR HYPOGLYCEMIA PO PRN ×2 (04:38→07:32)
[2025-04-11] MEDS: LEVOTHYROXINE SODIUM 25 MCG TABLET PO SCH (05:39)
[2025-04-11 06:23] LABS: Hematocrit (blood only) 43.6 % (42.0-52.0); Hemoglobin 14.6 g/dl (14.0-18.0); Immature Granulocytes # (auto) 0.04 K/uL (0.01-0.20); Immature Granulocytes % (auto) 0.8 %; Mean Corpuscular Hemoglobin 28.9 pg (25.0-34.0); Mean Corpuscular Volume 86.3 fL (80.0-100.0); Platelet Count 169 K/uL (130-400); RDW Standard Deviation 43.9 fL (36.4-46.3); Red Blood Count 5.05 M/uL (4.70-6.10); White Blood Count 5.00 K/ul (4.8-10.8)
[2025-04-11 06:50] LABS: Anion Gap 7.0 (3-11); Blood Urea Nitrogen 21.0 mg/dl (6-23); Calcium 9.1 mg/dl (8.6-10.3); Carbon Dioxide 27.0 mmol/L (21-32); Chloride 105.0 mmol/L (98-107); Creatinine Clr Calc Pharmacy 60.9 ml/min; Glucose 149.0 mg/dl (70-99(Fasting)); Potassium 4.0 mmol/L (3.5-5.1); Sodium 139.0 mmol/L (136-145)
[2025-04-11] MEDS ORDERED: INSULIN ASPART PER UNIT CHARGE SC SCH ×2 (07:30→11:30)
[2025-04-11] MEDS ORDERED: Nursing to Pharmacy Communication SCH (08:15)
[2025-04-11] MEDS ORDERED: LANTUS PER UNIT CHARGE SQ SCH (09:00)
[2025-04-11] MEDS: METOPROLOL TARTRATE 25 MG TAB PO SCH (09:02)
[2025-04-11] MEDS: OXYBUTYNIN CHLORIDE XL 5 MG TABCR PO SCH (09:02)
[2025-04-11] MEDS: SERTRALINE HCL 50 MG TABLET PO SCH (09:03)
[2025-04-11] MEDS: VALSARTAN 80 MG TAB PO SCH (09:03)
[2025-04-11] MEDS: ATORVASTATIN 40 MG TAB PO SCH (09:03)
[2025-04-11] MEDS: LIDOCAINE 5% 1 PATCH TD SCH (09:04)
[2025-04-11 09:10] LABS: Thyroid Stimulating Hormone 3.52 uIu/ml (0.300-4.500)
[2025-04-11] MEDS: INSULIN ASPART PER UNIT CHARGE SC SCH (09:18)
[2025-04-11] MEDS: INSULIN HUMAN NPH SC SCH (09:19)
--- NOTE | 2025-04-11 11:40 | Hospitalist Progress Note ---
Date of Service April 11, 2025 Assessment & Plan (1) Confusion: Plan: The patient presented with altered mental status, suspected metabolic encephalopathy which appears to have resolved. He is in good spirits and is alert at this time. Continue supportive care (2) BRIANNA (acute kidney injury): Plan: Resolved with IV fluids. Creatinine is now 1.1. IV fluids have been discontinued (3) Rib pain on right side: Plan: No apparent fractures. Suffered in fall at home. Xarelto has been permanently discontinued (4) Fall: Plan: Supportive care. OT and PT assessments ordered and pending (5) Hyperglycemia due to type 2 diabetes mellitus: Plan: He uses Humulin 7030 as an outpatient. Will use NPH insulin while here. Continue sliding scale coverage. ADA diet (6) BPH (benign prostatic hypertrophy) with urinary obstruction: Plan: Flomax has been started. (7) Balance problem: Plan: Apparently ambulatory dysfunction is an ongoing problem. OT and PT assessments have been requested Plan Hopeful discharge back to [facility] within the next day or 2 Admission and Anticipated Discharge Date Admission Date: April 11, 2025 Subjective Awake and alert. He is oriented to name and place. Apparently he resides at [facility]. He presented after an apparent fall but no clear- cut head injury. Due to his advanced age and history of falls, his Xarelto has been discontinued. He takes insulin 7030 on a chronic basis. Will use NPH insulin while here. Creatinine has normalized with IV fluids which have been discontinued. Hopefully he can return to [facility] tomorrow, April 12. Review of Systems 2 Review of Systems: Constitutionalno fever or chills ENTno blurred vision, no double vision, no epistaxis, no sore throat Respiratoryno cough, no wheezing, no shortness of breath Cardiacno palpitations, no chest pain, no syncope Serena nausea, vomiting, diarrhea, melena, hematochezia GUno urinary retention, no urinary incontinence, no dysuria, no hematuria Musculoskeletalno joint pain, no muscle tenderness Skinno bruising, no rashes, no pruritus Neurono isolated weakness, no paresthesia, no weakness Psychno depression, no anxiety Physical Exam 2 Physical Exam: General-alert and oriented x3, no fever, no chills HEENT-head atraumatic and normocephalic, pupils equal and reactive to light, extraocular muscles intact Neck-no lymphadenopathy or thyromegaly, trachea midline Chest-clear to auscultation. No rales, wheezing or rhonchi Cardiac-regular rate and rhythm, normal S1 and S2 Abdomen-normal bowel sounds, no hepatosplenomegaly Extremities-no cyanosis, clubbing, or edema Neuro-cranial nerves II through XII intact, motor and sensory function within normal limits, strength symmetrical, no focal deficits Psych-normal affect, normal mood Results & Data Results & Data Vital Signs (Past 12 Hours) Vital Signs Temp Pulse Pulse Pulse Resp BP Pulse Ox 04/11/25 11:15 36.4 C L 66 16 127/72 92 04/11/25 08:00 66 04/11/25 07:40 36.4 C L 74 18 149/75 H 93 04/11/25 04:44 04/11/25 04:44 36.4 C L 60 18 155/72 H 92 04/11/25 04:32 62 04/11/25 04:30 36.4 C L 60 18 155/72 H 92 04/11/25 03:57 60 16 133/80 91 04/11/25 03:00 59 L 16 134/66 92 04/11/25 02:00 56 L 18 131/66 91 04/11/25 01:00 57 L 18 142/65 H 94 04/11/25 00:00 36.6 C 60 18 143/72 H 97 O2 Del Method 04/11/25 11:15 Room Air 04/11/25 08:00 04/11/25 07:40 Room Air 04/11/25 04:44 Room Air 04/11/25 04:44 Room Air 04/11/25 04:32 04/11/25 04:30 Room Air 04/11/25 03:57 Room Air 04/11/25 03:00 Room Air 04/11/25 02:00 Room Air 04/11/25 01:00 Room Air 04/11/25 00:00 Room Air Laboratory Results 04/11/25 05:13 04/11/25 05:13 PG Care Time/CCT Total # of Minutes Spent Total Time Spent with Patient: Total time spent is greater than 50% in coordination of care (as documented) at patient's floor/unit and/or counseling patient: Coding Level of Care Code 43256 SUB INP/OBS CARE 50MIN Diagnoses Confusion R41.0 BRIANNA (acute kidney injury) N17.9 Rib pain on right side R07.81 Fall W19.XXXA Encounter type: initial encounter Hyperglycemia due to type 2 diabetes mellitus E11.65 BPH (benign prostatic hypertrophy) with urinary obstruction N40.1; N13.8 Balance problem R26.89 (4) Fall Encounter type: initial encounter Qualified Code(s): W19.XXXA - Unspecified fall, initial encounter
[2025-04-11] MEDS: ACETAMINOPHEN 500 MG TAB PO PRN (14:14)
[2025-04-11] MEDS ORDERED: RIVAROXABAN 20 MG TAB PO SCH (16:30)
[2025-04-11] MEDS: MELATONIN 3 MG TAB PO SCH (20:38)
[2025-04-11] MEDS: TAMSULOSIN HCL 0.4 MG CAP PO SCH (20:38)
[2025-04-11] MEDS: REMOVE LIDODERM PATCH SCH ×2 (20:38)
[2025-04-12 07:51] LABS: Hematocrit (blood only) 43.9 % (42.0-52.0); Hemoglobin 13.9 g/dl (14.0-18.0); Immature Granulocytes # (auto) 0.04 K/uL (0.01-0.20); Immature Granulocytes % (auto) 0.8 %; Mean Corpuscular Hemoglobin 27.7 pg (25.0-34.0); Mean Corpuscular Volume 87.5 fL (80.0-100.0); Platelet Count 158 K/uL (130-400); RDW Standard Deviation 44.5 fL (36.4-46.3); Red Blood Count 5.02 M/uL (4.70-6.10); White Blood Count 4.94 K/ul (4.8-10.8)
[2025-04-12 08:08] LABS: Anion Gap 6.0 (3-11); Blood Urea Nitrogen 18.0 mg/dl (6-23); Calcium 9.0 mg/dl (8.6-10.3); Carbon Dioxide 26.0 mmol/L (21-32); Chloride 108.0 mmol/L (98-107); Creatinine Clr Calc Pharmacy 59.2 ml/min; Glucose 109.0 mg/dl (70-99(Fasting)); Magnesium 2.0 mg/dl (1.7-2.4); Potassium 4.4 mmol/L (3.5-5.1); Sodium 140.0 mmol/L (136-145)
--- NOTE | 2025-04-12 14:14 | Electrocardiogram Report ---
Test Reason : Blood Pressure : */* mmHG Vent. Rate : 61 BPM Atrial Rate : 61 BPM P-R Int : 182 ms QRS Dur : 94 ms QT Int : 418 ms P-R-T Axes : -23 1 -22 degrees QTcB Int : 420 ms Normal sinus rhythm Inferior-posterior infarct , age undetermined Abnormal ECG When compared with ECG of 07-Nov-2023 20:15, Vent. rate has decreased by 51 bpm Nonspecific T wave abnormality now evident in Inferior leads Confirmed by Jose Angel Mei ([id number]) on 04/12/2025 2:13:54 PM Referred By: REFERRED SELF Confirmed By: Jose Angel Mei
--- NOTE | 2025-04-12 14:30 | Discharge Summary ---
Discharge Summary Date of Service April 12, 2025 Principal Dx & Hospital Course #1 = Principal Diagnosis (1) Confusion: The patient presented with altered mental status, suspected metabolic encephalopathy which appears to have resolved. He is in good spirits and is alert at this time. Continue supportive care CT head neg for ICH (2) BRIANNA (acute kidney injury): Resolved with IV fluids. Creatinine is now 1.2. IV fluids have been discontinued Can resume home lasix on dc (3) Rib pain on right side: No apparent fractures. Suffered in fall at home. Continue lidocaine patch and tylenol as needed (4) Fall: Supportive care. OT and PT recommend return to [facility] Given head contusion, rib pain, right elbow wound--> remain off Xarelto and discuss with PCP about whether or not to resume this given risk of falls (5) Hyperglycemia due to type 2 diabetes mellitus: continue insulin, metformin (6) BPH (benign prostatic hypertrophy) with urinary obstruction: Flomax has been started continue oxybutynin although dose may need to be reduced to help prevent falls Plan Dispo-dc to [facility] Notes For Next Care Provider None Medication Changes From Visit Hold Xarelto Admission HPI Per Admitting Provider The patient is an 85-year-old male with a past medical history including urinary incontinence, SNHL bilaterally, diabetes mellitus type 2, osteoporosis, coronary disease, imbalance, hyperlipidemia, diabetic polyneuropathy, sleep disturbance, status post TURP, BPH with LUTS, arthritis and cognitive impairment. The patient presents to the emergency department after a fall that took place at [facility] earlier in the day today. He has had decreased oral intake, in particular to liquids, as he does not want him to get up and go to the bathroom to urinate. Family notes that he is more confused than usual, and has had more issues with walking with his walker. He is referred to the [facility]ist service for further assessment. Family understands that he will likely need PT/OT assessment and at least in the interim referred to an inpatient rehab facility. Their goal is ultimately for him to return to [facility]. Discharge Exam Constitutional WD/WN, vitals as above Respiratory normal respiratory effort, lungs clear to auscultation Cardiovascular RRR, no murmur, no edema Gastrointestinal (Abdomen) normal bowel sounds, soft, nontender, no hepatosplenomegaly Musculoskeletal No TTP over right ribs, no ecchymosis Skin right scalp with small hematoma/contusion 3 cm in diameter Psychiatric Orientation: alert and oriented x 3 Discharge Plan Discharge Items Patient Disposition: Personal Snf Reason For Visit: FALL, BRIANNA, DEHYDRATION Discharge Diagnosis: Fall, BRIANNA, dehydration Head contusion, rib contusion, elbow skin tear/wound Condition on Discharge: Good Activity: As commented below Lifting: Gradually increase as tolerated Exercise/Sports: Gradually increase as tolerated Weightbearing: Full weightbearing Non-emergency contact: Primary Care Provider Call non-emergency contact if: you have any medication questions, your symptoms worsen, your wound has increased redness, your wound has increased drainage and your wound pain has increased Follow-up/Referrals: Nohemi Luis [Primary Care Provider] - Diet: Carb Consistent or DM2 Addtl Attending Provider Instructions: Continue daily dressing changes to right elbow wound and monitor for healing. Continue PT/OT as an outpatient at your [facility]. Your Xarelto blood thinner is on hold-your PCP can discuss with you when you can resume this but it may be riskier for you to be on it due to your falls. You can use the lidocaine patch and tylenol as needed for rib pain. You were started on tamsulosin to help reduce your bladder frequency. Pending Studies at Discharge: No Stand-Alone Forms: [employer], Smoking Cessation Skilled Items Patient informed of condition?: Yes DNR: Yes Discharge Level of Care: Other Communicable Disease: No Discharge Prognosis: Improving Lines: None Urinary Catheter: No Medications and DC Order Prescriptions: New tamsulosin 0.4 mg Capsule 0.4 mg PO HS Qty: 30 0RF lidocaine 5 % Adhesive Patch,Medicated 1 patch transdermal QAM Qty: 15 0RF Rx Instructions: apply to site of pain in right ribs Continued (DME) pen needle, diabetic [Sure-Fine Pen [place]] 31 gauge x 5/16" needle See Rx Instructions .Route Qty: 100 3RF Rx Instructions: use to take insulin once daily ergocalciferol (vitamin D2) 1,250 mcg (50,000 unit) capsule 1,250 mcg PO Q7D Qty: 12 0RF Rx Instructions: 1 tab po weekly for 12 weeks. Complete blood work after finishing prescription...saturday nitroglycerin 0.4 mg tablet, sublingual 0.4 mg sublingual Q5M PRN (Reason: chest pain) Qty: 25 2RF Rx Instructions: do not exceed 3 doses per episode valsartan 40 mg tablet 40 mg PO QAM Qty: 90 3RF sertraline 25 mg tablet 25 mg PO QAM Qty: 90 3RF metoprolol tartrate 25 mg tablet 12.5 mg PO BID Qty: 90 3RF atorvastatin 40 mg tablet 40 mg PO QAM Qty: 90 3RF Hold Instructions: UNTIL LIVER FUNCTION IMPROVES-PCP TO DECIDE WHEN TO RESUME metformin 500 mg tablet 500 mg PO QPM Qty: 90 3RF Rx Instructions: take with evening meal only furosemide 20 mg tablet 20 mg PO DAILY Qty: 90 3RF (DME) blood-glucose meter Kit See Dose Instructions .ROUTE .MEDSUPPLY Qty: 1 0RF Rx Instructions: TEST ONCE DAILY. E11.9 (DME) blood sugar diagnostic Strip See Dose Instructions .ROUTE .MEDSUPPLY Qty: 100 11RF Rx Instructions: TEST ONCE DAILY levothyroxine 25 mcg tablet 25 mcg PO DAILYBB Qty: 90 3RF (DME) lancets 30 gauge misc See Rx Instructions .Route Qty: 100 3RF Rx Instructions: Test once daily and as needed polyethylene glycol 3350 17 gram/dose powder 17 g PO DAILY PRN (Reason: Constipation) omeprazole 40 mg capsule,delayed release(DR/EC) 40 mg PO DAILY Qty: 90 3RF Novolin 70-30 FlexPen U-100 100 unit/mL (70-30) insulin pen 45 unit subcut BID 90 Days Qty: 81 3RF Rx Instructions: Take before breakfast and dinner (DME) Dexcom G7 Sensor Device See Rx Instructions .Route Qty: 3 5RF Rx Instructions: As directed. 1 month supply oxybutynin chloride 15 mg tablet extended release 24hr 15 mg PO QDAY Qty: 30 11RF acetaminophen [Tylenol Extra Strength] 500 mg Tablet 1,000 mg PO DIRECTED PRN (Reason: Pain) Held rivaroxaban 20 mg tablet 20 mg PO QDD Qty: 30 11RF Hold Instructions: Resume on 04/19/25. Rx Instructions: must administer with evening meal Discontinued tramadol 50 mg tablet 50 - 100 mg PO Q6H MDD 5 tabs per day PRN (Reason: pain) Qty: 15 0RF Rx Instructions: Initial Treatment Discharge Orders: Discharge Order (Routine); Ordered 04/12/25 Ordered By: Kaylee Mcgraw Admission Data Admit Date/Time: 04/11/25 00:50 Attending Provider: Kaylee Mcgraw Admit Provider: Jimmie Méndez Primary Care Provider: Nohemi Luis Other Providers: Jimmie Méndez Hospital Stay Data Consultations 04/10/25 23:44 ED Decision to Admit Stat Diagnostic Imagining Performed 04/10/25 20:24 CT cervical spine wo con Stat CT chest diagnostic w con Stat CT head/brain wo con Stat Pending Results Patient Have Any Pending Studies at Discharge: No Discharge Instructions Given to Patient (Per Discharging Provider) Continue daily dressing changes to right elbow wound and monitor for healing. Continue PT/OT as an outpatient at your [facility]. Your Xarelto blood thinner is on hold-your PCP can discuss with you when you can resume this but it may be riskier for you to be on it due to your falls. You can use the lidocaine patch and tylenol as needed for rib pain. You were started on tamsulosin to help reduce your bladder frequency. Total Time Total Time Spent Total Time Spent (In Minutes): 35 min Total Time Includes: Examination of the Patient, Discharge Planning and Medication Reconciliation Coding Level of Care Code 32988 INP/OBS DISCH >30 MIN Diagnoses Confusion R41.0 BRIANNA (acute kidney injury) N17.9 Rib pain on right side R07.81 Fall W19.XXXA Encounter type: initial encounter Hyperglycemia due to type 2 diabetes mellitus E11.65 BPH (benign prostatic hypertrophy) with urinary obstruction N40.1; N13.8
[2025-04-12 14:45] VITALS: BP 149/70; RESP 18; TEMP 97.5; O2SAT 95
[2025-04-12 16:40] VITALS: PULSE 60
== END 2025-04-12 17:24 | disposition home or self-care (01) | DRG 71 ==
LOC: ED 20:09 → 2N 04-11 00:50 → SUATTDRO 04-11 00:50 → INTOOBSV 04-11 00:50 → 2N 04-11 04:04